=== PATIENT | female | born 1945 | race African-American/Black ===

== ENCOUNTER → 2021-02-08 | Outpatient (CLI) | payer MEDICARE, OTHER ==
[2021-02-08 17:56] LABS: INR 2.13 (0.90-1.11); Prothrombin Time 22.1 sec (9.9-11.9)
== END | disposition home or self-care (01) ==
LOC: LABWHC1 11:49
PROVIDERS: ATTEND Family Medicine
DX: Z79.01 Long term (current) use of anticoagulants (principal)
CPT/HCPCS: 36415; 85610

== ENCOUNTER 2021-06-12 15:08 | Emergency (ER) | payer MEDICARE, OTHER ==
[2021-06-12] MEDS ORDERED: ALBUTEROL NEBULIZED (CONC) 5 MG, SODIUM CHLORIDE 0.9% NEBULIZ 3 ML INHALATION STA ×2 (15:30)
[2021-06-12] MEDS ORDERED: IPRATROPIUM 0.5 MG/2.5 ML NEBU INHALATION STA ×2 (15:30→16:32)
[2021-06-12] MEDS ORDERED: DEXAMETHASONE SOD PHOSPHATE 10 MG/ML 1 ML VIAL IV STA (15:53)
--- NOTE | 2021-06-12 15:53 | ED ---
General Adult HPI - General Chief complaint: Burn/Smoke Inhalation Stated complaint: Smoke Inhalation Time Seen by Provider: 06/12/21 15:17 Source: EMS Mode of arrival: ambulatory Limitations: no limitations - History of Present Illness Initial comments: Dictation was produced using [employer] dictation software. please excuse any grammatical, word or spelling errors. Chief Complaint: Patient's 75-year-old female presents with shortness of breath after smoking exposure. History of Present Illness: Patient's 75-year-old female brought in by EMS for shortness of breath status post smoke exposure. Patient states she was exposed to some sort of cooking smoke in the hallways of worse she lives. Patient denies any history of COPD or asthma. She denies any history of respiratory issues. Patient has history of hypertension. Denies any fevers and cough. Prior to the smoke exposure she denies any complaints. History limited seco ndary to patient's dyspnea. The ROS documented in this emergency department record has been reviewed and confirmed by me. Those systems with pertinent positive or negative responses have been documented in the HPI. All other systems are other negative and/or noncontributory. PHYSICAL EXAM: General Impression: Alert and oriented x3, coughing mildly tachypneic with minimal retractions HEENT: Normocephalic atraumatic, extra-ocular movements intact, pupils equal and reactive to light bilaterally, mucous membranes moist, no signs of burn or soot in the posterior oropharynx or naris Cardiovascular: Heart regular rate and rhythm Chest: Clear word sentences, diffuse lung wheezing to the bilateral lung araiza Abdomen: abdomen soft, non-tender, non-distended, no organomegaly Musculoskeletal: Pulses present and equal in all extremities, no peripheral edema Motor: no focal deficits noted Neurological: CN II-XII grossly intact, no focal motor or sensory deficits noted Skin: Intact with no visualized rashes Psych: Normal affect and mood ED course: 75-year-old female presents to the emergency department for acute bronchospasm status post smoke exposure. Vital signs upon arrival shows res piratory 26, rest of vital signs within acceptable limits. Laboratory evaluation obtained. Mild leukocytosis 12.7 likely stress induced. Metabolic panel shows all non-gap acidosis, creatinine 1.79 with a BUN of 25 likely result of mild dehydration. B natruretic peptide is normal. 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 BNP is within normal limits. Labs is not suggests congestive heart failure. Patient still slightly wheezy. She is given a second breathing treatment Patient reevaluated at 6:00 PM. She is significantly improved. Lungs are clear to any wheezing. She feels better was to be discharged. Patient given a albuterol inhaler. She is told to avoid lung irritants. Patient otherwise advised follow-up with primary care doctor. - Related Data Home Medications Medication Instructions Recorded Confirmed Atorvastatin Calcium [Lipitor] 80 mg PO HS 06/12/21 06/12/21 Celecoxib [CeleBREX] 200 mg PO DAILY 06/12/21 06/12/21 Chlorthalidone 25 mg PO DAILY 06/12/21 06/12/21 Cholecalciferol [Vitamin D3 (25 25 mcg PO DAILY 06/12/21 06/12/21 Mcg = 1000 Iu)] EPINEPHrine (Auto Inject) [Epipen] 0.3 mg IM ONCE PRN 06/12/21 06/12/21 Escitalopram [Lexapro] 10 mg PO DAILY 06/12/21 06/12/21 Metoprolol Tartrate [Lopressor] 50 mg PO BID 06/12/21 06/12/21 Omeprazole 20 mg PO DAILY 06/12/21 06/12/21 Warfarin Sodium 4 mg PO Q48H 06/12/21 06/12/21 Warfarin Sodium 5 mg PO Q48H 06/12/21 06/12/21 amLODIPine [Norvasc] 2.5 mg PO DAILY 06/12/21 06/12/21 diphenhydrAMINE HCL [Benadryl] 25 mg PO DAILY PRN 06/12/21 06/12/21 lisinopriL 40 mg PO DAILY 06/12/21 06/12/21 metFORMIN HCL 500 mg PO DAILY 06/12/21 06/12/21 traMADol HCl [Ultram] 100 mg PO TID PRN 06/12/21 06/12/21 Previous Rx's Medication Instructions Recorded Albuterol Sulfate [Proair Hfa] 1 - 2 puff INHALATION Q6HR PRN 06/12/21 #8.5 gm Allergies Allergy/AdvReac Type Severity Reaction Status Date / Time iodine Allergy Rash/Hives Verified 06/12/21 17:25 shellfish derived [Shellfish] Allergy Rash/Hives Verified 06/12/21 17:25 Review of Systems ROS Statement: Those systems with pertinent positive or pertinent negative responses have been documented in the HPI. ROS Other: All systems not noted in ROS Statement are negative. Past Medical History Past Medical History: Hypertension History of Any Multi-Drug Resistant Organisms: None Reported Past Surgical History: Unable to Obtain Past Psychological History: Anxiety, Depression Smoking Status: Never smoker Past Alcohol Use History: None Reported Past Drug Use History: None Reported General Exam Limitations: no limitations Course Vital Signs 06/12/21 06/12/21 06/12/21 15:13 15:23 15:46 Temperature 97.7 F Pulse Rate 83 74 Respiratory 26 H 26 H Rate Blood Pressure 124/100 O2 Sat by Pulse 99 Oximetry 06/12/21 06/12/21 06/12/21 15:59 16:12 16:51 Temperature Pulse Rate 78 77 76 Respiratory 18 Rate Blood Pressure 110/46 O2 Sat by Pulse 99 Oximetry 06/12/21 06/12/21 17:15 17:40 Temperature Pulse Rate 82 80 Respiratory 18 Rate Blood Pressure O2 Sat by Pulse 98 Oximetry Medical Decision Making - Lab Data Result diagrams: 06/12/21 16:09 06/12/21 16:09 Lab Results 06/12/21 06/12/21 06/12/21 Range/Units 16:09 16:09 16:09 WBC 12.7 H (3.8-10.6) k/uL RBC 3.76 L (3.80-5.40) m/uL Hgb 10.4 L (11.4-16.0) gm/dL Hct 34.1 (34.0-46.0) % MCV 90.7 (80.0-100.0) fL MCH 27.6 (25.0-35.0) pg MCHC 30.4 L (31.0-37.0) g/dL RDW 14.3 (11.5-15.5) % Plt Count 257 (150-450) k/uL MPV 8.3 Neutrophils % 78 % Lymphocytes % 12 % Monocytes % 4 % Eosinophils % 4 % Basophils % 0 % Neutrophils # 9.9 H (1.3-7.7) k/uL Lymphocytes # 1.6 (1.0-4.8) k/uL Monocytes # 0.5 (0-1.0) k/uL Eosinophils # 0.5 (0-0.7) k/uL Basophils # 0.0 (0-0.2) k/uL Hypochromasia Marked Sodium 137 (137-145) mmol/L Potassium 4.4 (3.5-5.1) mmol/L Chloride 108 H (98-107) mmol/L Carbon Dioxide 19 L (22-30) mmol/L Anion Gap 10 mmol/L BUN 25 H (7-17) mg/dL Creatinine 1.79 H (0.52-1.04) mg/dL Est GFR (CKD-EPI)AfAm 32 (>60 ml/min/1.73 sqM) Est GFR (CKD-EPI)NonAf 28 (>60 ml/min/1.73 sqM) Glucose 102 H (74-99) mg/dL Calcium 8.7 (8.4-10.2) mg/dL NT-Pro-B Natriuret Pep 378 pg/mL Disposition Clinical Impression: Bronchospasm Disposition: HOME SELF-CARE Condition: Fair Instructions (If sedation given, give patient instructions): Wheezing (ED) Prescriptions: Albuterol Sulfate [Proair Hfa] 1 - 2 puff INHALATION Q6HR PRN #8.5 gm PRN Reason: Dyspnea Is patient prescribed a controlled substance at d/c from ED?: No Referrals: Rigoberto David MD [Primary Care Provider] - 1-2 days
[2021-06-12 16:14] VITALS: RESP 18
[2021-06-12 16:16] LABS: Basophils % (A) 0 %; Eosinophils # (A) 0.5 k/uL (0-0.7); Eosinophils % (A) 4 %; HCT 34.1 % (34.0-46.0); HGB 10.4 gm/dL (11.4-16.0); Hypochromasia Marked; Lymphocytes # (A) 1.6 k/uL (1.0-4.8); Lymphocytes % (A) 12 %; MCH 27.6 pg (25.0-35.0); MCHC 30.4 g/dL (31.0-37.0); MCV 90.7 fL (80.0-100.0); Mean Platelet Volume 8.3; Monocytes # (A) 0.5 k/uL (0-1.0); Monocytes % (A) 4 %; Neutrophils # (A) 9.9 k/uL (1.3-7.7); Neutrophils % (A) 78 %; Platelet Count 257 k/uL (150-450); RBC 3.76 m/uL (3.80-5.40); RDW 14.3 % (11.5-15.5); WBC 12.7 k/uL (3.8-10.6)
[2021-06-12] MEDS ORDERED: ALBUTEROL NEBULIZED 2.5 MG/3 ML INHALATION STA (16:32)
--- NOTE | 2021-06-12 16:33 | XR ---
EXAMINATION TYPE: XR chest 1V portable DATE OF EXAM: 06/12/2021 4:27 PM COMPARISON:None CLINICAL INDICATION:Female, 75 years old with history of dyspnea; TECHNIQUE: Frontal view of the chest. FINDINGS: Lungs/Pleura: Low lung volumes are present. There is no evidence of pleural effusion, focal consolida tion, or pneumothorax. Opacities within the left mid chest measuring 9 mm. Subtle nodular changes in the right perihilar region likely vessels. Pulmonary vascularity: Pulmonary vascular congestion. Heart/mediastinum: Cardiomediastinal silhouette is enlarged. Musculoskeletal: No acute osseous pathology. IMPRESSION: 1. Congestive heart failure changes with cardiomegaly and mild pulmonary vascular congestion. Correla te with BNP. 2. Left mid lung nodule This could be further evaluated with nonemergent outpatient CT chest.
[2021-06-12 16:34] LABS: Calcium 8.7 mg/dL (8.4-10.2); Potassium 4.4 mmol/L (3.5-5.1)
[2021-06-12 18:32] VITALS: BP 120/55; PULSE 78; TEMP 97.8
== END 2021-06-12 18:25 | disposition home or self-care (01) ==
LOC: EC 15:08
DX: J98.01 Acute bronchospasm (principal); I10 Essential (primary) hypertension; F41.9 Anxiety disorder, unspecified; F32.A Depression, unspecified; Z79.84 Long term (current) use of oral hypoglycemic drugs
CPT/HCPCS: 99285; 96374; 36415; 94640 ×2; 83880; 80048; 85025; 71045; J1100

== ENCOUNTER 2022-01-21 12:48 | Inpatient (IN) | payer MEDICARE, OTHER ==
[2022-01-21] MEDS ORDERED: SODIUM CHLORIDE 0.9% 500 ML 500 ML IV STA (12:55)
[2022-01-21] MEDS ORDERED: SODIUM CHLORIDE 0.9% 1,000 ML IV STA ×2 (12:55→16:02)
--- NOTE | 2022-01-21 12:58 | ED ---
SOB HPI - General Stated Complaint: SOB, dizziness Time Seen by Provider: 01/21/22 12:49 Source: patient, EMS, RN notes reviewed Mode of arrival: EMS - History of Present Illness Initial Comments: 76-year-old female history of COPD who presents with complaints of exertional dyspnea for the past 2 days. She also had a near syncopal episode about 2 days ago at which time the shortness of breath started. She denies any overt fevers chills nausea vomiting sweats she was noted by paramedics have a 87/57 blood pressure upon evaluation. Patient denies any nausea vomiting or diarrhea. No chest pain no focal deficits. MD Complaint: shortness of breath - Related Data Home Medications Medication Instructions Recorded Confirmed Atorvastatin Calcium [Lipitor] 80 mg PO HS 06/12/21 01/21/22 Celecoxib [CeleBREX] 200 mg PO DAILY 06/12/21 01/21/22 Chlorthalidone 25 mg PO DAILY 06/12/21 01/21/22 Cholecalciferol [Vitamin D3 (25 25 mcg PO DAILY 06/12/21 01/21/22 Mcg = 1000 Iu)] Escitalopram [Lexapro] 10 mg PO DAILY 06/12/21 01/21/22 Metoprolol Tartrate [Lopressor] 50 mg PO BID 06/12/21 01/21/22 Omeprazole 20 mg PO BID 06/12/21 01/21/22 amLODIPine [Norvasc] 2.5 mg PO DAILY 06/12/21 01/21/22 lisinopriL 40 mg PO DAILY 06/12/21 01/21/22 metFORMIN HCL 500 mg PO DAILY 06/12/21 01/21/22 traMADol HCl [Ultram] 100 mg PO TID PRN 06/12/21 01/21/22 Warfarin [Coumadin] 1 mg PO HS 01/21/22 01/21/22 rOPINIRole HCL [Requip] 0.25 mg PO HS 01/21/22 01/21/22 Allergies Allergy/AdvReac Type Severity Reaction Status Date / Time iodine Allergy Rash/Hives Verified 01/21/22 14:59 shellfish derived [Shellfish] Allergy Rash/Hives Verified 01/21/22 14:59 Review of Systems ROS Statement: Those systems with pertinent positive or pertinent negative responses have been documented in the HPI. ROS Other: All systems not noted in ROS Statement are negative. Past Medical History Past Medical History: Hypertension History of Any Multi-Drug Resistant Organisms: None Reported Past Surgical History: Unable to Obtain Past Psychological History: Anxiety, Depression Smoking Status: Never smoker Past Alcohol Use History: None Reported Past Drug Use History: None Reported General Exam - General Exam Comments Initial Comments: This is a well-developed well-nourished awake alert oriented 4 female General appearance: alert Head exam: Present: atraumatic, normocephalic, normal inspection Eye exam: Present: normal appearance, PERRL, EOMI. Absent: scleral icterus, conjunctival injection, periorbital swelling ENT exam: Present: mucous membranes dry Neck exam: Present: normal inspection, full ROM, other (No stridor JVD or bruits). Absent: tenderness, meningismus, lymphadenopathy Respiratory exam: Present: decreased breath sounds. Absent: respiratory distress, wheezes, rales, rhonchi, stridor Cardiovascular Exam: Present: regular rate, normal rhythm, normal heart sounds. Absent: systolic murmur, diastolic murmur, rubs, gallop, clicks GI/Abdominal exam: Present: soft, tenderness (Mild suprapubic discomfort palpation no definite bladder distention), normal bowel sounds. Absent: distended, guarding, rebound, rigid Extremities exam: Present: normal inspection, full ROM, normal capillary refill. Absent: tenderness, pedal edema, joint swelling, calf tenderness Back exam: Present: normal inspection Neurological exam: Present: alert, oriented X3, CN II-XII intact Psychiatric exam: Present: normal affect, normal mood Skin exam: Present: warm, dry, intact, normal color. Absent: rash Course Vital Signs 01/21/22 14:46 Temperature 98.6 F Pulse Rate 65 Respiratory 15 Rate Blood Pressure 124/67 O2 Sat by Pulse 94 L Oximetry Medical Decision Making - Medical Decision Making I did discuss findings with the patient as well as with Dr. David and Dr. Castaneda as well as Dr. Granger. Patient does present with acute kidney failure hyperkalemia. Patient fully catheter as well as other medications - Lab Data Result diagrams: 01/21/22 13:49 01/21/22 13:49 Lab Results 01/21/22 01/21/22 01/21/22 Range/Units 13:49 13:49 13:49 WBC 15.9 H (3.8-10.6) k/uL RBC 3.57 L (3.80-5.40) m/uL Hgb 9.7 L (11.4-16.0) gm/dL Hct 32.6 L (34.0-46.0) % MCV 91.4 (80.0-100.0) fL MCH 27.1 (25.0-35.0) pg MCHC 29.7 L (31.0-37.0) g/dL RDW 15.9 H (11.5-15.5) % Plt Count 272 (150-450) k/uL MPV 8.6 Neutrophils % 86 % Lymphocytes % 7 % Monocytes % 4 % Eosinophils % 3 % Basophils % 0 % Neutrophils # 13.6 H (1.3-7.7) k/uL Lymphocytes # 1.1 (1.0-4.8) k/uL Monocytes # 0.6 (0-1.0) k/uL Eosinophils # 0.4 (0-0.7) k/uL Basophils # 0.1 (0-0.2) k/uL Hypochromasia Marked PT 52.7 H (9.0-12.0) sec INR 5.3 H* (<1.2) APTT 38.4 H (22.0-30.0) sec D-Dimer 1.61 H (<0.60) mg/L FEU Sodium 139 (137-145) mmol/L Potassium 7.2 H* (3.5-5.1) mmol/L Chloride 112 H (98-107) mmol/L Carbon Dioxide 11 L (22-30) mmol/L Anion Gap 16 mmol/L BUN 87 H (7-17) mg/dL Creatinine 6.44 H (0.52-1.04) mg/dL Est GFR (CKD-EPI)AfAm 7 (>60 ml/min/1.73 sqM) Est GFR (CKD-EPI)NonAf 6 (>60 ml/min/1.73 sqM) Glucose 62 L (74-99) mg/dL Plasma Lactic Acid Otis (0.7-2.0) mmol/L Calcium 9.2 (8.4-10.2) mg/dL Magnesium 1.4 L (1.6-2.3) mg/dL Total Bilirubin 0.4 (0.2-1.3) mg/dL AST 30 (14-36) U/L ALT 18 (4-34) U/L Alkaline Phosphatase 117 (38-126) U/L Troponin I (0.000-0.034) ng/mL NT-Pro-B Natriuret Pep pg/mL Total Protein 7.1 (6.3-8.2) g/dL Albumin 3.9 (3.5-5.0) g/dL 01/21/22 01/21/22 01/21/22 Range/Units 13:49 13:49 13:49 WBC (3.8-10.6) k/uL RBC (3.80-5.40) m/uL Hgb (11.4-16.0) gm/dL Hct (34.0-46.0) % MCV (80.0-100.0) fL MCH (25.0-35.0) pg MCHC (31.0-37.0) g/dL RDW (11.5-15.5) % Plt Count (150-450) k/uL MPV Neutrophils % % Lymphocytes % % Monocytes % % Eosinophils % % Basophils % % Neutrophils # (1.3-7.7) k/uL Lymphocytes # (1.0-4.8) k/uL Monocytes # (0-1.0) k/uL Eosinophils # (0-0.7) k/uL Basophils # (0-0.2) k/uL Hypochromasia PT (9.0-12.0) sec INR (<1.2) APTT (22.0-30.0) sec D-Dimer (<0.60) mg/L FEU Sodium (137-145) mmol/L Potassium (3.5-5.1) mmol/L Chloride (98-107) mmol/L Carbon Dioxide (22-30) mmol/L Anion Gap mmol/L BUN (7-17) mg/dL Creatinine (0.52-1.04) mg/dL Est GFR (CKD-EPI)AfAm (>60 ml/min/1.73 sqM) Est GFR (CKD-EPI)NonAf (>60 ml/min/1.73 sqM) Glucose (74-99) mg/dL Plasma Lactic Acid Otis 1.0 (0.7-2.0) mmol/L Calcium (8.4-10.2) mg/dL Magnesium (1.6-2.3) mg/dL Total Bilirubin (0.2-1.3) mg/dL AST (14-36) U/L ALT (4-34) U/L Alkaline Phosphatase (38-126) U/L Troponin I 0.024 (0.000-0.034) ng/mL NT-Pro-B Natriuret Pep 697 pg/mL Total Protein (6.3-8.2) g/dL Albumin (3.5-5.0) g/dL - EKG Data -: EKG Interpreted by Me EKG shows normal: sinus rhythm EKG Comments: Sinus rhythm of 80. Interval 194 QRS duration 105 QT/QTC 358/394 low-voltage noted no definitive acute ST-T wave changes - Radiology Data Radiology results: report reviewed (Imaging reviewed as well as report no acute findings), image reviewed Critical Care Time Critical Care Time: Yes Total Critical Care Time: 39 Critical Care Time: Critical care time includes initial presentation with history physical labs x- rays discussed with paramedics upon arrival frequent reevaluation the patient discussion with Dr. Ellison as well as Dr. Castaneda. Also discussed with Dr. Granger. Disposition Clinical Impression: Acute renal failure (ARF), Hyperkalemia, Dehydration, Hypoglycemic episode in patient with diabetes mellitus Disposition: ADMITTED IP TO THIS [facility] Condition: Serious Referrals: Rigoberto David MD [Primary Care Provider] - 1-2 days Decision Date: 01/21/22 Decision Time: 15:30
[2022-01-21 14:04] LABS: Basophils # (A) 0.1 k/uL (0-0.2); Basophils % (A) 0 %; Eosinophils # (A) 0.4 k/uL (0-0.7); Eosinophils % (A) 3 %; HCT 32.6 % (34.0-46.0); HGB 9.7 gm/dL (11.4-16.0); Hypochromasia Marked; Lymphocytes # (A) 1.1 k/uL (1.0-4.8); Lymphocytes % (A) 7 %; MCH 27.1 pg (25.0-35.0); MCHC 29.7 g/dL (31.0-37.0); MCV 91.4 fL (80.0-100.0); Mean Platelet Volume 8.6; Monocytes # (A) 0.6 k/uL (0-1.0); Monocytes % (A) 4 %; Neutrophils # (A) 13.6 k/uL (1.3-7.7); Neutrophils % (A) 86 %; Platelet Count 272 k/uL (150-450); RBC 3.57 m/uL (3.80-5.40); RDW 15.9 % (11.5-15.5); WBC 15.9 k/uL (3.8-10.6)
[2022-01-21 14:17] LABS: Albumin 3.9 g/dL (3.5-5.0); Calcium 9.2 mg/dL (8.4-10.2); Magnesium 1.4 mg/dL (1.6-2.3); Total Bilirubin 0.4 mg/dL (0.2-1.3); Total Protein 7.1 g/dL (6.3-8.2)
[2022-01-21 14:35] LABS: Partial Thromboplastin Time 38.4 sec (22.0-30.0); Prothrombin Time 52.7 sec (9.0-12.0)
[2022-01-21 14:36] LABS: Potassium 7.2 mmol/L (3.5-5.1)
[2022-01-21 14:42] LABS: INR 5.3 (<1.2)
[2022-01-21] MEDS ORDERED: ALBUTEROL NEBULIZED (CONC) 20 MG, SODIUM CHLORIDE 0.9% NEBULIZ 3 ML INHALATION ONE ×2 (14:43)
[2022-01-21] MEDS ORDERED: SODIUM POLYSTYRENE SULFONATE 15 GM/60 ML BOTTLE PO STA (14:44)
[2022-01-21] MEDS ORDERED: DEXTROSE 50% SYRINGE 50 ML IVP STA ×2 (14:44→15:54)
[2022-01-21] MEDS ORDERED: INSULIN REGULAR 100 UNIT/ML VIAL (IV) IV ONE (14:44)
[2022-01-21] MEDS ORDERED: CALCIUM GLUCONATE IN NACL 1 GM in SALINE 1 100ML.BAG IVPB ONE (14:45)
[2022-01-21] MEDS ORDERED: SODIUM BICARB 8.4% 50 ML SYR (1 MEQ/ML) IV STA (14:47)
[2022-01-21] MEDS ORDERED: FUROSEMIDE 10 MG/ML 4 ML VIAL IV STA (14:52)
[2022-01-21] MEDS ORDERED: SODIUM ZIRCONIUM CYCLOSILICATE 10 GM PACKET PO ONE (15:01)
--- NOTE | 2022-01-21 15:10 | XR ---
EXAMINATION TYPE: XR chest 2V DATE OF EXAM: 01/21/2022 COMPARISON: 06/12/2021 HISTORY: Shortness of breath TECHNIQUE: Frontal and lateral views of the chest are obtained. FINDINGS: Scattered senescent parenchymal changes noted. Hyperinflation compatible with COPD. No evidence for infiltrate. No evidence for atelectasis. Heart size is stable. Mediastinal structures are stable and grossly unremarkable. No evidence for hilar prominence. Degenerative changes dorsal spine. IMPRESSION: 1. No evidence for acute pulmonary disease.
[2022-01-21] MEDS ORDERED: NALOXONE 0.4 MG/ML 1 ML VIAL IV PRN (16:05)
[2022-01-21 16:07] LABS: Glucose,Whole Blood 55 mg/dL (70-110)
[2022-01-21] MEDS ORDERED: DEXTROSE 50% SYRINGE 50 ML IVP PRN (16:11)
[2022-01-21] MEDS ORDERED: SODIUM CHLORIDE 0.9% 1,000 ML IV SCH (16:15)
[2022-01-21] MEDS ORDERED: WARFARIN 0.5 MG TAB PO ONE (18:00)
[2022-01-21] MEDS: DEXTROSE 5% IN WATER 1,000 ML with SODIUM BICARB (1 MEQ/ML) 150 ML IV SCH (19:37)
[2022-01-21 20:25] LABS: Glucose,Whole Blood 27 mg/dL (70-110); Glucose,Whole Blood 49 mg/dL (70-110)
[2022-01-21] MEDS: DEXTROSE 50% SYRINGE 50 ML IVP PRN (20:32)
[2022-01-21 20:55] LABS: Glucose,Whole Blood 122 mg/dL (70-110)
[2022-01-21] MEDS ORDERED: WARFARIN 1 MG TAB PO SCH (21:00)
[2022-01-21 23:10] LABS: Glucose,Whole Blood 86 mg/dL (70-110)
[2022-01-22] MEDS: traMADol 50 MG TAB PO PRN ×2 (00:06→21:16)
[2022-01-22] MEDS: ATORVASTATIN 80 MG TAB PO SCH ×2 (00:06→21:16)
[2022-01-22] MEDS: METOPROLOL TARTRATE 50 MG TAB PO SCH ×3 (00:07→21:18)
--- NOTE | 2022-01-22 01:17 | US ---
EXAMINATION TYPE: US kidneys/renal and bladder DATE OF EXAM: 01/21/2022 COMPARISON: NONE CLINICAL HISTORY: emelina. emelina EXAM MEASUREMENTS: Right Kidney: 9.3 x 4.5 x 3.9 cm Left Kidney: 9.8 x 4.4 x 5.3 cm Right Kidney: cyst in lower pole measuring 1.8 x 1.5 x 1.6 cm Left Kidney: No hydronephrosis or masses seen Bladder: wnl Bilateral Jets seen: Only right jet seen IMPRESSION: There is no hydronephrosis. No evidence of a solid renal mass. No significant atrophy seen.
[2022-01-22] MEDS: INSULIN ASPART (NovoLOG) 100 UNIT/ML VIAL SQ SCH ×6 (03:16→21:03)
[2022-01-22] MEDS: PANTOPRAZOLE 40 MG TABLET PO SCH ×3 (03:16→16:44)
[2022-01-22 05:04] LABS: Prothrombin Time 51.8 sec (9.0-12.0)
[2022-01-22 05:10] LABS: Calcium 8.4 mg/dL (8.4-10.2); Potassium 4.9 mmol/L (3.5-5.1)
[2022-01-22 05:22] LABS: INR 5.2 (<1.2)
[2022-01-22 06:04] LABS: Glucose,Whole Blood 83 mg/dL (70-110)
[2022-01-22] MEDS ORDERED: SODIUM BICARB 8.4% 50 ML SYR (1 MEQ/ML) IV STA (06:47)
[2022-01-22] MEDS: MAGNESIUM SULFATE-D5W PMX 1 GM in DEXTROSE/WATER 1 100ML.BAG IVPB SCH ×3 (08:45→10:45)
[2022-01-22] MEDS: DEXTROSE 5% IN WATER 1,000 ML with SODIUM BICARB (1 MEQ/ML) 150 ML IV SCH ×2 (08:45→21:16)
[2022-01-22 08:50] LABS: HCT 26.7 % (34.0-46.0); HGB 8.3 gm/dL (11.4-16.0); MCH 27.9 pg (25.0-35.0); MCV 90.2 fL (80.0-100.0); Platelet Count 215 k/uL (150-450); RBC 2.96 m/uL (3.80-5.40); WBC 12.3 k/uL (3.8-10.6)
[2022-01-22 08:51] LABS: Anisocytosis Slight; Basophils % (A) 0 %; Eosinophils # (A) 0.2 k/uL (0-0.7); Eosinophils % (A) 2 %; Hypochromasia Marked; Lymphocytes % (A) 8 %; Monocytes # (A) 0.8 k/uL (0-1.0); Monocytes % (A) 6 %; Neutrophils % (A) 82 %
[2022-01-22] MEDS: CHOLECALCIFEROL 25 MCG (1000 IU) TABLET PO SCH (08:59)
[2022-01-22] MEDS: ESCITALOPRAM 10 MG TAB PO SCH (08:59)
[2022-01-22] MEDS ORDERED: amLODIPine 2.5 MG TAB PO SCH (09:00)
[2022-01-22] MEDS ORDERED: MELOXICAM 7.5 MG TAB PO SCH (09:00)
[2022-01-22] MEDS ORDERED: CHLORTHALIDONE 25 MG TAB PO SCH (09:00)
[2022-01-22 09:50] LABS: Appearance,Urine Cloudy (Clear); Bacteria,Urine Many /hpf; Bilirubin,Urine Negative (Negative); Blood,Urine Moderate (Negative); Color,Urine Light Yellow; Glucose,Urine (UA) Negative (Negative); Ketones,Urine Negative (Negative); Leukocyte Esterase,Urine Large (Negative); Mucus,Urine Rare /hpf; Nitrite,Urine Positive (Negative); PH, Urine 5.5 (5.0-8.0); Protein,Urine 2+ (Negative); RBC,Urine 21 /hpf (0-5); Specific Gravity,Urine 1.012 (1.001-1.035); Squamous Epithelial Cell,Urine 11 /hpf (0-4); Urobilinogen,Urine <2.0 mg/dL (<2.0); WBC,Urine 175 /hpf (0-5)
[2022-01-22] MEDS ORDERED: SODIUM CHLORIDE 0.9% 500 ML 500 ML IV ONE (10:10)
--- NOTE | 2022-01-22 10:12 | P.NPCON ---
History of Present Illness - Reason for Consult acute renal failure, chronic renal failure - History of Present Illness Reason for consultation: Acute kidney injury on chronic kidney disease History of present illness: Patient is a 76-year-old female seen in consultation for acute kidney injury on chronic kidney disease. Patient's creatinine in May 2021 was 1.79. This admission was elevated at 6.44 and is 4.37 today. Patient presented to the hospital due to generalized weakness. Patient states she had a syncopal episode a few days ago and has been feeling quite weak since. She does admit to vomiting as well as diarrhea. Her oral intake has been poor the last few days. She currently is a 40 catheter but is leaking. The bedsheets are soaked with urine. No history of diabetes. Denies family history of renal disease. Denies any history of heart disease. She does admit to shortness of breath even with minimal exertion. She was taking Celebrex as well as thiazide diuretic at home. Both of these are currently held. Potassium 7.2 on admission and was medically treated. It is 4.9 this morning. She was also noted to be quite acidotic with a bicarbonate level of 11 and is up to 13. She is maintained on bicarb drip. Blood pressures have been in the lower side in the systolic 80s. Most recent blood pressure 108/52. Vital signs are stable. Blood pressure on the lower side. General: Awake. No acute distress. HEENT: Head exam is unremarkable. LUNGS: Breath sounds decreased. HEART: Rate and Rhythm are regular. ABDOMEN: Soft, no distention. EXTREMITITES: No edema. Past Medical History Past Medical History: Hypertension, Sleep Apnea/CPAP/BIPAP Additional Past Medical History / Comment(s): COPD History of Any Multi-Drug Resistant Organisms: None Reported Past Surgical History: Unable to Obtain, Breast Surgery, Cholecystectomy, Hernia Repair, Hysterectomy Additional Past Surgical History / Comment(s): Surgery to remove cyst on head, HAND SURGERY, CYST REMOVED LEFT BREAST Past Anesthesia/Blood Transfusion Reactions: No Reported Reaction Past Psychological History: Anxiety, Depression Smoking Status: Never smoker Past Alcohol Use History: None Reported Past Drug Use History: None Reported - Past Family History Mother Additional Family Medical History / Comment(s): HEART DISEASE Father Additional Family Medical History / Comment(s): HEART DISEASE Medications and Allergies Home Medications Medication Instructions Recorded Confirmed Type Atorvastatin Calcium [Lipitor] 80 mg PO HS 06/12/21 01/21/22 History Celecoxib [CeleBREX] 200 mg PO DAILY 06/12/21 01/21/22 History Chlorthalidone 25 mg PO DAILY 06/12/21 01/21/22 History Cholecalciferol [Vitamin D3 (25 25 mcg PO DAILY 06/12/21 01/21/22 History Mcg = 1000 Iu)] Escitalopram [Lexapro] 10 mg PO DAILY 06/12/21 01/21/22 History Metoprolol Tartrate [Lopressor] 50 mg PO BID 06/12/21 01/21/22 History Omeprazole 20 mg PO BID 06/12/21 01/21/22 History amLODIPine [Norvasc] 2.5 mg PO DAILY 06/12/21 01/21/22 History lisinopriL 40 mg PO DAILY 06/12/21 01/21/22 History metFORMIN HCL 500 mg PO DAILY 06/12/21 01/21/22 History traMADol HCl [Ultram] 100 mg PO TID PRN 06/12/21 01/21/22 History Warfarin [Coumadin] 1 mg PO HS 01/21/22 01/21/22 History rOPINIRole HCL [Requip] 0.25 mg PO HS 01/21/22 01/21/22 History Allergies Allergy/AdvReac Type Severity Reaction Status Date / Time iodine Allergy Rash/Hives Verified 01/21/22 14:59 shellfish derived [Shellfish] Allergy Rash/Hives Verified 01/21/22 14:59 Physical Exam Vitals: Vital Signs Temp Pulse Pulse Resp BP BP BP 01/22/22 08:21 97.7 F 92 20 108/52 89/51 01/22/22 04:00 98.1 F 78 18 88/56 01/22/22 02:00 85 18 01/22/22 00:00 98.3 F 85 18 88/56 01/21/22 22:40 98.1 F 85 18 99/62 01/21/22 21:20 91 15 119/65 01/21/22 21:00 87 15 108/83 01/21/22 20:56 88 15 106/76 01/21/22 18:54 79 18 81/38 01/21/22 17:15 98.1 F 85 18 99/62 01/21/22 16:43 81 16 98/36 01/21/22 14:46 98.6 F 65 15 124/67 Pulse Ox 01/22/22 08:21 100 01/22/22 04:00 93 L 01/22/22 02:00 01/22/22 00:00 99 01/21/22 22:40 99 01/21/22 21:20 98 01/21/22 21:00 97 01/21/22 20:56 99 01/21/22 18:54 96 01/21/22 17:15 99 01/21/22 16:43 100 01/21/22 14:46 94 L Intake and Output 01/21/22 01/22/22 01/22/22 22:59 06:59 14:59 Intake Total 10 Output Total 0 0 Balance 0 10 Intake: IV 10 Invasive Line 2 10 Output: Urine 0 0 Stool 0 Urine/Stool Mix 0 Emesis 0 Oral Regurgitation 0 Other: Voiding Method Indwelling Catheter Indwelling Catheter Indwelling Catheter # Voids 0 # Bowel Movements 0 Weight 102.965 kg Results - Lab Results Most recent lab results Calcium 8.4 mg/dL (8.4-10.2) 01/22/22 04:34 Magnesium 1.3 mg/dL (1.6-2.3) L 01/22/22 04:34 01/22/22 04:34 01/22/22 04:34 Assessment and Plan Plan: Assessment: 1. Acute kidney injury mostly prerenal secondary to hypovolemia from vomiting and diarrhea and further worsened with the use of LUÍS inhibitor, diuretic and nonsteroidals.creatinine was 6.44 on admission and is 4.37 today. No hydronephrosis noted on kidney ultrasound. 2. Metabolic acidosis secondary to acute kidney injury, diarrhea and metformin. 3. Diabetes mellitus. 4. Hyperkalemia secondary to acute kidney injury, metabolic acidosis, lisinop ril and nonsteroidals. Improved with medical management. 5. Hypomagnesemia from diuretics and GI losses. 6. Anemia. Rule out iron deficiency. 7. Chronic kidney disease. Will need to establish baseline renal function. Plan: Maintain bicarb drip. Patient received 2 A of sodium bicarbonate IV push this morning. Replace magnesium. Check cortisol level. Hold all antihypertensives and diuretics. Continue to monitor renal function and urine output. 500 mL bolus of normal saline now. Repeat labs in the morning. Follow-up cultures. Check iron studies. Thank you for the consultation. I will continue to follow the patient with you during her hospital stay.
[2022-01-22 11:40] LABS: Glucose,Whole Blood 106 mg/dL (70-110)
--- NOTE | 2022-01-22 13:38 | P.CNPUL ---
History of Present Illness Consult date: 01/22/22 Chief complaint: Low urine output History of present illness: 76-year-old female patient, an -[place] female patient, with known to have probably a mild component of chronic kidney disease stage II to 3 in addition to history of hypertension. The patient is morbidly obese and she has his obstructive sleep apnea and she is not utilizing any devices for now. She has chronic arthritis and the patient is demented on Celebrex. She is taking metformin for blood sugar control and she is also taking luís inhibitors for chronic hypertension. The patient felt to have low appetite and over the past 1 week her oral intake has been decreased significantly. Along with that, she has noted also drop in urine output and she was getting progressively more with fatigue and weak. Based on that, the patient came into the emergency department and the patient was found to be hypotensive. Following that she was found to be in acute kidney injury. Creatinine was up to 6.44 and the patient had an underlying metabolic acidosis. The blood work revealed a potassium level of 7. initially was treated emergency department. The serum bicarb was 11 and his seen him anion gap was 16. BUN was 87 with a creatinine of 6.4. The white cell count 15.9 with a hemoglobin of 11.7. The patient's hyperkalemia was treated. The potassium subsequently dropped down to 4.9. The patient was started on bicarb infusion in the morning creatinine is at 4.3. Urine output was still low. Ultrasound the kidneys showed no evidence of hydronephrosis . Note that the patient is also on long-term anticoagulation with warfarin. The patient has previous history of DVT and pulmonary embolism and she has been on anticoagulation. INR was supratherapeutic at time of admission 5.3 without evidence of any bleeding. The PT/INR from today is at 5.2. No altered mentation. No cardiac arrhythmias. No EKG changes secondary to hyperkalemia. Nephrology has been consult on the case and the patient remains on a bicarb infusion for now. Review of Systems Constitutional: Reports fatigue, Reports poor appetite, Reports weakness Eyes: denies as per HPI, denies blurred vision, denies bulging eye, denies decreased vision, denies diplopia, denies discharge, denies dry eye, denies irritation, denies itching, denies pain, denies photophobia, denies loss of peripheral vision, denies loss of vision, denies tunnel vision/blind spots Ears: deny: decreased hearing, ear discharge, earache, tinnitus Ears, nose, mouth and throat: Reports as per HPI Breasts: absent: as per HPI, change in shape, gynecomastia, masses, nipple di scharge, pain, skin changes, swelling Cardiovascular: Reports as per HPI Respiratory: Reports as per HPI Gastrointestinal: Reports as per HPI Genitourinary: Reports as per HPI Menstruation: Reports as per HPI Musculoskeletal: Reports as per HPI Musculoskeletal: absent: ankle pain, ankle stiffness, ankle swelling, as per HPI , elbow pain, elbow stiffness, elbow swelling, foot pain, foot stiffness, foot swelling, hand pain, hand stiffness, hand swelling, hip pain, hip stiffness, hip swelling, knee pain, knee stiffness, knee swelling, shoulder pain, shoulder stiffness, shoulder swelling, wrist pain, wrist stiffness, wrist swelling Integumentary: Reports as per HPI Neurological: Reports as per HPI Psychiatric: Reports as per HPI Endocrine: Reports as per HPI, Reports fatigue Hematologic/Lymphatic: Reports as per HPI Allergic/Immunologic: Reports as per HPI Past Medical History Past Medical History: Diabetes Mellitus, Hypertension, Sleep Apnea/CPAP/BIPAP Additional Past Medical History / Comment(s): COPD, osteoarthritis, previous history of DVT and pulmonary embolism and the along for medical evaluation with warfarin, degenerative arthritis, hypertension, hyperlipidemia, obesity, obstructive sleep apnea not utilizing any form of devices at this point in time. History of Any Multi-Drug Resistant Organisms: None Reported Past Surgical History: Unable to Obtain, Breast Surgery, Cholecystectomy, Hernia Repair, Hysterectomy Additional Past Surgical History / Comment(s): Surgery to remove cyst on head, HAND SURGERY, CYST REMOVED LEFT BREAST Past Anesthesia/Blood Transfusion Reactions: No Reported Reaction Past Psychological History: Anxiety, Depression Smoking Status: Never smoker Past Alcohol Use History: None Reported Past Drug Use History: None Reported - Past Family History Mother Additional Family Medical History / Comment(s): HEART DISEASE Father Additional Family Medical History / Comment(s): HEART DISEASE Medications and Allergies Home Medications Medication Instructions Recorded Confirmed Type Atorvastatin Calcium [Lipitor] 80 mg PO HS 06/12/21 01/21/22 History Celecoxib [CeleBREX] 200 mg PO DAILY 06/12/21 01/21/22 History Chlorthalidone 25 mg PO DAILY 06/12/21 01/21/22 History Cholecalciferol [Vitamin D3 (25 25 mcg PO DAILY 06/12/21 01/21/22 History Mcg = 1000 Iu)] Escitalopram [Lexapro] 10 mg PO DAILY 06/12/21 01/21/22 History Metoprolol Tartrate [Lopressor] 50 mg PO BID 06/12/21 01/21/22 History Omeprazole 20 mg PO BID 06/12/21 01/21/22 History amLODIPine [Norvasc] 2.5 mg PO DAILY 06/12/21 01/21/22 History lisinopriL 40 mg PO DAILY 06/12/21 01/21/22 History metFORMIN HCL 500 mg PO DAILY 06/12/21 01/21/22 History traMADol HCl [Ultram] 100 mg PO TID PRN 06/12/21 01/21/22 History Warfarin [Coumadin] 1 mg PO HS 01/21/22 01/21/22 History rOPINIRole HCL [Requip] 0.25 mg PO HS 01/21/22 01/21/22 History Allergies Allergy/AdvReac Type Severity Reaction Status Date / Time iodine Allergy Rash/Hives Verified 01/21/22 14:59 shellfish derived [Shellfish] Allergy Rash/Hives Verified 01/21/22 14:59 Physical Exam Vitals: Vital Signs Temp Pulse Pulse Resp BP BP BP 01/22/22 11:55 97.2 F L 91 20 90/54 85/46 01/22/22 11:25 97.2 F L 96 20 133/61 01/22/22 08:21 97.7 F 92 20 108/52 89/51 01/22/22 04:00 98.1 F 78 18 88/56 01/22/22 02:00 85 18 01/22/22 00:00 98.3 F 85 18 88/56 01/21/22 22:40 98.1 F 85 18 99/62 01/21/22 21:20 91 15 119/65 01/21/22 21:00 87 15 108/83 01/21/22 20:56 88 15 106/76 01/21/22 18:54 79 18 81/38 01/21/22 17:15 98.1 F 85 18 99/62 01/21/22 16:43 81 16 98/36 01/21/22 14:46 98.6 F 65 15 124/67 Pulse Ox 01/22/22 11:55 100 01/22/22 11:25 99 01/22/22 08:21 100 01/22/22 04:00 93 L 01/22/22 02:00 01/22/22 00:00 99 01/21/22 22:40 99 01/21/22 21:20 98 01/21/22 21:00 97 01/21/22 20:56 99 01/21/22 18:54 96 01/21/22 17:15 99 01/21/22 16:43 100 01/21/22 14:46 94 L Intake and Output 01/21/22 01/22/22 01/22/22 22:59 06:59 14:59 Intake Total 60 Output Total 0 400 Balance 0 -340 Intake: IV 60 Invasive Line 2 60 Output: Urine 0 400 Stool 0 Urine/Stool Mix 0 Emesis 0 Oral Regurgitation 0 Other: Voiding Method Indwelling Catheter Indwelling Catheter Indwelling Catheter # Voids 0 # Bowel Movements 1 Weight 102.965 kg Gen. appearance the patient is calm and comfortable likely distress, morbidly obese currently on room in oxygen with a BMI of 42.9 The patient appeared well nourished and normally developed. Vital signs as documented. Head exam is unremarkable. No scleral icterus or corneal arcus noted. Neck is without jugular venous distension, thyromegaly, or carotid b ruits. Carotid upstrokes are brisk bilaterally. Lungs are clear to auscultation and percussion. Cardiac exam reveals the PMI to be normally sized and situated. Rhythm is regular. First and second heart sounds normal. No murmurs, rubs or gallops. Abdominal exam reveals normal bowel sounds, no masses, no organomegaly and no aortic enlargement. Extremities are nonedematous and both femoral and pedal pulses are normal. Examination of the skin revealed no evidence of significant rashes, suspicious appearing nevi or other concerning lesions. The patient has a Garcia catheter in place Neurologically, the patient is awake and alert and the patient does not have any focal neurological deficit. Cranial nerves are essentially intact. Results - Laboratory Findings CBC and BMP: 01/22/22 04:34 01/22/22 04:34 PT/INR, D-dimer PT 51.8 sec (9.0-12.0) H 01/22/22 04:34 INR 5.2 (<1.2) H* 01/22/22 04:34 D-Dimer 1.61 mg/L FEU (<0.60) H 01/21/22 13:49 Abnormal lab findings: Abnormal Labs 01/21/22 01/21/22 01/21/22 08:58 13:49 13:49 WBC 15.9 H RBC 3.57 L Hgb 9.7 L Hct 32.6 L MCHC 29.7 L RDW 15.9 H Neutrophils # 13.6 H PT 52.7 H INR 5.3 H* APTT 38.4 H D-Dimer 1.61 H Potassium Chloride Carbon Dioxide BUN Creatinine Glucose POC Glucose (mg/dL) Magnesium Urine Appearance Cloudy H Urine Protein 2+ H Urine Blood Moderate H Urine Nitrite Positive H Ur Leukocyte Esterase Large H Urine RBC 21 H Urine WBC 175 H Ur Squamous Epith Cells 11 H Urine Bacteria Many H Urine Mucus Rare H 01/21/22 01/21/22 01/21/22 13:49 15:53 17:53 WBC RBC Hgb Hct MCHC RDW Neutrophils # PT INR APTT D-Dimer Potassium 7.2 H* 5.2 H Chloride 112 H Carbon Dioxide 11 L BUN 87 H Creatinine 6.44 H Glucose 62 L POC Glucose (mg/dL) 55 L Magnesium 1.4 L Urine Appearance Urine Protein Urine Blood Urine Nitrite Ur Leukocyte Esterase Urine RBC Urine WBC Ur Squamous Epith Cells Urine Bacteria Urine Mucus 01/21/22 01/21/22 01/21/22 20:22 20:22 20:53 WBC RBC Hgb Hct MCHC RDW Neutrophils # PT INR APTT D-Dimer Potassium Chloride Carbon Dioxide BUN Creatinine Glucose POC Glucose (mg/dL) 27 L 49 L 122 H Magnesium Urine Appearance Urine Protein Urine Blood Urine Nitrite Ur Leukocyte Esterase Urine RBC Urine WBC Ur Squamous Epith Cells Urine Bacteria Urine Mucus 01/22/22 01/22/22 01/22/22 04:34 04:34 04:34 WBC RBC Hgb Hct MCHC RDW Neutrophils # PT 51.8 H INR 5.2 H* APTT D-Dimer Potassium Chloride 114 H Carbon Dioxide 13 L BUN 74 H Creatinine 4.37 H Glucose POC Glucose (mg/dL) Magnesium 1.3 L Urine Appearance Urine Protein Urine Blood Urine Nitrite Ur Leukocyte Esterase Urine RBC Urine WBC Ur Squamous Epith Cells Urine Bacteria Urine Mucus 01/22/22 04:34 WBC 12.3 H RBC 2.96 L Hgb 8.3 L Hct 26.7 L MCHC RDW 16.0 H Neutrophils # 10.0 H PT INR APTT D-Dimer Potassium Chloride Carbon Dioxide BUN Creatinine Glucose POC Glucose (mg/dL) Magnesium Urine Appearance Urine Protein Urine Blood Urine Nitrite Ur Leukocyte Esterase Urine RBC Urine WBC Ur Squamous Epith Cells Urine Bacteria Urine Mucus - Diagnostic Findings Chest x-ray: image reviewed Assessment and Plan Plan: Acute kidney injury, likely secondary to intravascular volume depletion complemented by the nephrotoxic effect of LUÍS inhibitor's and nonsteroidal anti- inflammatory medication. The patient presented with a creatinine of 6.4 and the patient had a component of non-anion gap metabolic acidosis and acute hyperkalemia. Acute hyperkalemia, improving Metabolic acidosis secondary to acute kidney injury, and the patient was also taking metformin. The patient's catheter bicarb infusion Diabetes mellitus maintained on metformin Osteoarthritis maintained on Celebrex Hypertension Chronic stage II or 3 kidney disease Osteoarthritis maintained on no treatment for now Obesity with BMI 42.9. Previous history of DVT and pulmonary embolism maintained on warfarin Supratherapeutic INR without evidence of any bleeding Anemia of chronic disease Plan Continue the bicarb replacement therapy with a bicarb infusion at the rate of 100 mL an hour Keep the Garcia catheter in place No evidence of hydronephrosis Stop nonsteroidal anti-inflammatory medication and LUÍS inhibitor's for now Monitor PT/INR Monitor renal function Monitor electrolytes and the patient was offered treatment for acute hyperkalemia. Potassium level is down to 4.9 Consult with nephrology No active pulmonary issues for now. Recommend continuation of anticoagulation once the PT/INR normalizes. We'll continue to follow
[2022-01-22 16:28] LABS: % Iron Saturation 24.65 (12.00-45.00)
[2022-01-22 16:30] LABS: Glucose,Whole Blood 127 mg/dL (70-110)
[2022-01-22] MEDS ORDERED: WARFARIN 0.5 MG TAB PO ONE (18:00)
[2022-01-22 21:00] LABS: Glucose,Whole Blood 99 mg/dL (70-110)
[2022-01-22] MEDS: SULFAMETHOX-TMP 800-160MG 1 EACH TAB PO SCH (21:30)
--- NOTE | 2022-01-23 04:39 | HP ---
HISTORY AND PHYSICAL CHIEF COMPLAINT: Syncope, weakness, and dizziness. HISTORY OF PRESENT ILLNESS: On admission this is a 76-year-old female who presented to the emergency room with weakness, dizziness, and shortness of breath. Most notable findings in the emergency room were her elevated GFR and her INR. Her INR was 5.2. She has been on Coumadin in the past, but recent note from the office from the visit on January 12 did not indicate that she has taken Coumadin. REVIEW OF SYSTEMS: She only states that she had some dizziness. She denies chest pain, focal neurologic deficits, etc. Past medical history, family history, personal and social histories reveal that she is on amlodipine, chlorthalidone, propranolol, atorvastatin, Celebrex, lisinopril, vitamin D3, tramadol, Lexapro, metoprolol and omeprazole as well as metformin. Remainder of her history is unremarkable. She does have history of hypertension, hyperlipidemia, and renal failure. PHYSICAL EXAMINATION: VITAL SIGNS: Blood pressure is 152/90 with a pulse of 85, respirations of 35, and she is afebrile. GENERAL: She appeared to be pale, in no acute distress. She is awake and alert. Skin color was normal. HEENT: Head, ears, eyes, nose, mouth, and throat were normal. NECK: Veins are not distended. Thyroid is not enlarged. CHEST: Clear. CARDIAC: Exam demonstrates what sounds like normal sinus rhythm with no murmurs or extra sounds. ABDOMEN: Soft and nontender. EXTREMITIES: Normal. NEUROLOGICAL: She is intact. HOSPITAL DIAGNOSES: 1. Acute renal failure. 2. Chronic renal failure. 3. Hyperprothrombinemia. 4. History of hypertension. 5. History of hyperlipidemia. 6. Depression. PLAN: 1. Bedrest. 2. IV fluids. 3. Rehydrate. 4. Nephrology consult. 5. Withhold Coumadin. MMODL / IJN: [id number] /
[2022-01-23] MEDS: traMADol 50 MG TAB PO PRN (05:37)
[2022-01-23 06:07] LABS: Glucose,Whole Blood 118 mg/dL (70-110)
[2022-01-23] MEDS: PANTOPRAZOLE 40 MG TABLET PO SCH ×2 (06:24→17:12)
[2022-01-23] MEDS: INSULIN ASPART (NovoLOG) 100 UNIT/ML VIAL SQ SCH ×4 (06:24→19:49)
--- NOTE | 2022-01-23 07:06 | PN ---
PROGRESS NOTE CHIEF COMPLAINT: Syncope and acute renal failure. HISTORY OF PRESENT ILLNESS: This lady is feeling well and not complaining of any shortness of breath or chest pain. Her INR is still high, but Coumadin in being withheld. She is not complaining of any chest pain, shortness of breath, or abdominal pain. She still complains of weakness. PHYSICAL EXAMINATION: CHEST: Clear. CARDIAC: Demonstrates what sounds like sinus rhythm. ABDOMEN: Soft and nontender without any masses. IMPRESSION: 1. Acute renal failure. 2. Chronic renal failure. 3. . 4. Hyperprothrombinemia. PLAN: Continue with IV fluids and monitoring of her renal function and potassium as well as the protime. MMODL / IJN: [id number] /
[2022-01-23 07:19] LABS: INR 3.6 (<1.2); Prothrombin Time 35.4 sec (9.0-12.0)
[2022-01-23] MEDS: DEXTROSE 5% IN WATER 1,000 ML with SODIUM BICARB (1 MEQ/ML) 150 ML IV SCH ×2 (07:36→14:50)
[2022-01-23] MEDS: ESCITALOPRAM 10 MG TAB PO SCH (08:45)
[2022-01-23] MEDS: METOPROLOL TARTRATE 50 MG TAB PO SCH ×2 (08:46→19:47)
[2022-01-23] MEDS: CHOLECALCIFEROL 25 MCG (1000 IU) TABLET PO SCH (08:46)
[2022-01-23] MEDS: SULFAMETHOX-TMP 800-160MG 1 EACH TAB PO SCH (09:30)
--- NOTE | 2022-01-23 10:20 | P.PN ---
Subjective Patient is seen in follow-up for acute kidney injury. Creatinine 4.37 yesterday. Morning labs pending. He has been voiding. Oral intake fair. Did vomit this morning. On room air. Blood pressure stable. No chest pain or shortness of breath. Vital signs are stable. General: Awake. No acute distress. HEENT: Head exam is unremarkable. LUNGS: Breath sounds decreased. HEART: Rate and Rhythm are regular. ABDOMEN: Soft, obese. EXTREMITITES: Trace edema. Objective - Vital Signs Vital signs: Vital Signs Temp 98.4 F 01/23/22 07:51 Pulse 82 01/23/22 07:51 Resp 16 01/23/22 07:51 BP 109/64 01/23/22 07:51 Pulse Ox 98 01/23/22 07:51 FiO2 Intake & Output 01/22/22 01/23/22 01/23/22 18:59 06:59 18:59 Intake Total 308 Output Total 400 Balance -92 Intake: IV 70 Invasive Line 2 70 Oral 238 Output: Urine 400 Stool 0 Urine/Stool Mix 0 Emesis 0 Oral Regurgitation 0 Other: Voiding Method Indwelling Catheter Diaper Diaper External Catheter External Catheter # Voids 2 2 # Bowel Movements 1 - Labs CBC & Chem 7: 01/22/22 04:34 01/22/22 04:34 Labs: Abnormal Lab Results - Last 24 Hours (Table) 01/22/22 01/22/22 01/22/22 Range/Units 04:34 04:34 16:29 PT (9.0-12.0) sec INR (<1.2) POC Glucose (mg/dL) 127 H (70-110) mg/dL Iron 49 L (50-170) ug/dL TIBC 199 L (228-460) ug/dL Transferrin 142.0 L (204.0-354.0) mg/dL Ferritin 577.0 H (10.0-291.0) ng/mL Procalcitonin 0.17 H (0.02-0.09) ng/mL 01/23/22 01/23/22 Range/Units 06:06 06:41 PT 35.4 H (9.0-12.0) sec INR 3.6 H (<1.2) POC Glucose (mg/dL) 118 H (70-110) mg/dL Iron (50-170) ug/dL TIBC (228-460) ug/dL Transferrin (204.0-354.0) mg/dL Ferritin (10.0-291.0) ng/mL Procalcitonin (0.02-0.09) ng/mL Microbiology - Last 24 Hours (Table) 01/21/22 08:58 Urine Culture - Preliminary Urine,Voided 01/21/22 13:49 Blood Culture - Preliminary Blood No Growth after 24 hours Assessment and Plan Plan: Assessment: 1. Acute kidney injury mostly prerenal secondary to hypovolemia from vomiting and diarrhea and further worsened with the use of LUÍS inhibitor, diuretic and nonsteroidals.creatinine was 6.44 on admission and was 4.37 yesterday. No hydronephrosis noted on kidney ultrasound. 2. Metabolic acidosis secondary to acute kidney injury, diarrhea and metformin. Currently on bicarb drip. 3. Diabetes mellitus. 4. Hyperkalemia secondary to acute kidney injury, metabolic acidosis, lisinopril and nonsteroidals. Improved with medical management. 5. Hypomagnesemia from diuretics and GI losses. Replaced. 6. Anemia. Iron replete. 7. Chronic kidney disease. Will need to establish baseline renal function. Plan: Maintain bicarb drip. Follow-up morning labs. Follow-up cortisol level. Continue to hold all antihypertensives and diuretics. Continue to monitor renal function and urine output. Add Aranesp. Check left lower extremity ultrasound to rule out DVT as patient complaining of swelling. Defer further management to primary team. Would recommend stopping Bactrim and using alternative antibiotic.
[2022-01-23 10:49] LABS: Magnesium 1.6 mg/dL (1.6-2.3)
[2022-01-23 11:46] LABS: Calcium 8.2 mg/dL (8.4-10.2)
[2022-01-23 11:51] LABS: Glucose,Whole Blood 150 mg/dL (70-110)
--- NOTE | 2022-01-23 13:43 | US ---
EXAMINATION TYPE: US venous doppler duplex LE BI DATE OF EXAM: 01/23/2022 12:50 PM COMPARISON: NONE CLINICAL HISTORY: swelling, r/o dvt. Swelling, R/O DVT SIDE PERFORMED: Bilateral TECHNIQUE: The lower extremity deep venous system is examined utilizing real time linear array sonog mehdi with graded compression, doppler sonography and color-flow sonography. VESSELS IMAGED: Common Femoral Vein Deep Femoral Vein Greater Saphenous Vein * Femoral Vein Popliteal Vein Small Saphenous Vein * Proximal Calf Veins (* superficial vessels) Right Leg: Negative for DVT Left Leg: Normal flow CFV- Distal femoral vein, Limited vis of popliteal and calf veins due to swelling and patient's pain tolerance, unable to R/O DVT in that area, patient requested to end exam Tech difficult exam due to body habitus and swelling IMPRESSION: 1. Lower extremity ultrasounds appear negative for deep venous thrombosis. 2. There is limitation on the left lower extremity evaluation and early termination of exam based on patient request. 3. Soft tissue swelling
--- NOTE | 2022-01-23 14:52 | P.PN ---
Subjective Progress Note Date: 01/23/22 76-year-old female patient, an -German female patient, with known to have probably a mild component of chronic kidney disease stage II to 3 in addition to history of hypertension. The patient is morbidly obese and she has his obstructive sleep apnea and she is not utilizing any devices for now. She has chronic arthritis and the patient is demented on Celebrex. She is taking metformin for blood sugar control and she is also taking luís inhibitors for chronic hypertension. The patient felt to have low appetite and over the past 1 week her oral intake has been decreased significantly. Along with that, she has noted also drop in urine output and she was getting progressively more with fa tigue and weak. Based on that, the patient came into the emergency department and the patient was found to be hypotensive. Following that she was found to be in acute kidney injury. Creatinine was up to 6.44 and the patient had an underlying metabolic acidosis. The blood work revealed a potassium level of 7. initially was treated emergency department. The serum bicarb was 11 and his seen him anion gap was 16. BUN was 87 with a creatinine of 6.4. The white cell count 15.9 with a hemoglobin of 11.7. The patient's hyperkalemia was treated. The potassium subsequently dropped down to 4.9. The patient was started on bicarb infusion in the morning creatinine is at 4.3. Urine output was still low. Ultrasound the kidneys showed no evidence of hydronephrosis . Note that the patient is also on long-term anticoagulation with warfarin. The patient has previous history of DVT and pulmonary embolism and she has been on anticoagulation. INR was supratherapeutic at time of admission 5.3 without evidence of any bleeding. The PT/INR from today is at 5.2. No altered mentation. No cardiac arrhythmias. No EKG changes secondary to hyperkalemia. Nephrology has been consult on the case and the patient remains on a bicarb infusion for now. 01/23/2022, the patient is doing well. Still having a lot of that in her oral intake is quite diminished. Nevertheless, the acute kidney injury is improv is improving and the creatinine is down to 2.4 and the serum bicarb is up to 25 as the patient was given a bicarb infusion. She is producing urine output. The INR is down to 3.6. Most anything shortness of breath or chest pain.no other new complaints otherwise for now. No nephrotoxic agents. The findings on the case.the venous Doppler of the lower extremity showed no evidence of any DVTs. Objective - Vital Signs Vital signs: Vital Signs Temp 97.8 F 01/23/22 12:18 Pulse 70 01/23/22 12:18 Resp 20 01/23/22 12:18 BP 100/57 01/23/22 12:18 Pulse Ox 99 01/23/22 12:18 FiO2 Intake & Output 01/22/22 01/23/22 01/23/22 18:59 06:59 18:59 Intake Total 308 1200 Output Total 400 Balance -92 1200 Intake: IV 70 Invasive Line 2 70 Intake, IV Titration 1200 Amount Dextrose 5% in Water 1, 1200 000 ml @ 100 mls/hr IV . [id number] SAUL with Sodium Bicarb (1 Meq/ml) 150 ml Rx#:[id number] Oral 238 Output: Urine 400 Stool 0 Urine/Stool Mix 0 Emesis 0 Oral Regurgitation 0 Other: Voiding Method Indwelling Catheter Diaper Diaper External Catheter External Catheter # Voids 2 2 2 # Bowel Movements 1 - Exam Gen. appearance the patient is calm and comfortable likely distress, morbidly obese currently on room in oxygen with a BMI of 42.9 The patient appeared well nourished and normally developed. Vital signs as do cumented. Head exam is unremarkable. No scleral icterus or corneal arcus noted. Neck is without jugular venous distension, thyromegaly, or carotid bruits. Carotid upstrokes are brisk bilaterally. Lungs are clear to auscultation and percussion. Cardiac exam reveals the PMI to be normally sized and situated. Rhythm is regular. First and second heart sounds normal. No murmurs, rubs or gallops. Abdominal exam reveals normal bowel sounds, no masses, no organomegaly and no aortic enlargement. Extremities are nonedematous and both femoral and pedal pulses are normal. Examination of the skin revealed no evidence of significant rashes, suspicious appearing nevi or other concerning lesions. The patient has a Garcia catheter in place Neurologically, the patient is awake and alert and the patient does not have any focal neurological deficit. Cranial nerves are essentially intact. - Labs CBC & Chem 7: 01/22/22 04:34 01/23/22 06:41 Labs: Abnormal Lab Results - Last 24 Hours (Table) 01/22/22 01/22/22 01/22/22 Range/Units 04:34 04:34 16:29 PT (9.0-12.0) sec INR (<1.2) BUN (7-17) mg/dL Creatinine (0.52-1.04) mg/dL Glucose (74-99) mg/dL POC Glucose (mg/dL) 127 H (70-110) mg/dL Calcium (8.4-10.2) mg/dL Iron 49 L (50-170) ug/dL TIBC 199 L (228-460) ug/dL Transferrin 142.0 L (204.0-354.0) mg/dL Ferritin 577.0 H (10.0-291.0) ng/mL Procalcitonin 0.17 H (0.02-0.09) ng/mL 01/23/22 01/23/22 01/23/22 Range/Units 06:06 06:41 06:41 PT 35.4 H (9.0-12.0) sec INR 3.6 H (<1.2) BUN 47 H (7-17) mg/dL Creatinine 2.41 H (0.52-1.04) mg/dL Glucose 107 H (74-99) mg/dL POC Glucose (mg/dL) 118 H (70-110) mg/dL Calcium 8.2 L (8.4-10.2) mg/dL Iron (50-170) ug/dL TIBC (228-460) ug/dL Transferrin (204.0-354.0) mg/dL Ferritin (10.0-291.0) ng/mL Procalcitonin (0.02-0.09) ng/mL 01/23/22 Range/Units 11:49 PT (9.0-12.0) sec INR (<1.2) BUN (7-17) mg/dL Creatinine (0.52-1.04) mg/dL Glucose (74-99) mg/dL POC Glucose (mg/dL) 150 H (70-110) mg/dL Calcium (8.4-10.2) mg/dL Iron (50-170) ug/dL TIBC (228-460) ug/dL Transferrin (204.0-354.0) mg/dL Ferritin (10.0-291.0) ng/mL Procalcitonin (0.02-0.09) ng/mL Microbiology - Last 24 Hours (Table) 01/21/22 08:58 Urine Culture - Preliminary Urine,Voided 01/21/22 13:49 Blood Culture - Preliminary Blood No Growth after 24 hours Assessment and Plan Plan: Acute kidney injury, likely secondary to intravascular volume depletion complemented by the nephrotoxic effect of LUÍS inhibitor's and nonsteroidal anti- inflammatory medication. The patient presented with a creatinine of 6.4 and the patient had a component of non-anion gap metabolic acidosis and acute h yperkalemia.the patient's creatinine is improving Creatinine is up from 6.4-2.4 and the patient is producing adequate urine output Acute hyperkalemia, improving Metabolic acidosis secondary to acute kidney injury, and the patient was also taking metformin. The patient's catheter bicarb infusion Diabetes mellitus maintained on metformin Osteoarthritis maintained on Celebrex Hypertension Chronic stage II or 3 kidney disease Osteoarthritis maintained on no treatment for now Obesity with BMI 42.9. Previous history of DVT and pulmonary embolism maintained on warfarin Supratherapeutic INR without evidence of any bleeding Anemia of chronic disease Plan stop the bicarb infusion and put the patient on normal saline at the rate of 75 mL an hour Keep the Garcia catheter in place No evidence of hydronephrosis Stop nonsteroidal anti-inflammatory medication and LUÍS inhibitor's for now Monitor PT/INR, INR is improved Monitor renal function Monitor electrolytes and the patient was offered treatment for acute hyperkalemia. Potassium level is down to 4.9 Consult with nephrology no active pulmonary issues and pulmonary critical care services we'll sign off
[2022-01-23 15:17] LABS: Basophils # (A) 0.1 k/uL (0-0.2); Basophils % (A) 1 %; Eosinophils # (A) 0.3 k/uL (0-0.7); Eosinophils % (A) 3 %; HCT 29.3 % (34.0-46.0); Hypochromasia Slight; Lymphocytes # (A) 0.7 k/uL (1.0-4.8); Lymphocytes % (A) 6 %; MCH 26.9 pg (25.0-35.0); MCHC 30.6 g/dL (31.0-37.0); MCV 87.9 fL (80.0-100.0); Mean Platelet Volume 9.8; Monocytes % (A) 9 %; Neutrophils # (A) 8.9 k/uL (1.3-7.7); Neutrophils % (A) 80 %; Platelet Count 204 k/uL (150-450); RBC 3.33 m/uL (3.80-5.40); RDW 15.4 % (11.5-15.5); WBC 11.1 k/uL (3.8-10.6)
[2022-01-23 15:30] LABS: Albumin 3.2 g/dL (3.5-5.0); Calcium 8.4 mg/dL (8.4-10.2); Potassium 4.2 mmol/L (3.5-5.1); Total Bilirubin 0.4 mg/dL (0.2-1.3)
[2022-01-23] MEDS: SODIUM CHLORIDE 0.9% 1,000 ML IV SCH (15:32)
[2022-01-23] MEDS: MAGNESIUM SULFATE-D5W PMX 1 GM in DEXTROSE/WATER 1 100ML.BAG IVPB SCH ×2 (15:33→17:12)
[2022-01-23] MEDS: DARBEPOETIN ALFA 40 MCG/0.4 ML SYRINGE SQ SCH (15:33)
[2022-01-23 16:50] LABS: Glucose,Whole Blood 153 mg/dL (70-110)
[2022-01-23] MEDS ORDERED: WARFARIN 0.5 MG TAB PO ONE (18:00)
[2022-01-23 19:47] LABS: Glucose,Whole Blood 134 mg/dL (70-110)
[2022-01-23] MEDS: ATORVASTATIN 80 MG TAB PO SCH (19:47)
[2022-01-23] MEDS: ACETAMINOPHEN TAB 325 MG TAB PO PRN (19:47)
[2022-01-24] MEDS: traMADol 50 MG TAB PO PRN ×2 (04:36→11:23)
[2022-01-24 06:24] LABS: Glucose,Whole Blood 96 mg/dL (70-110)
[2022-01-24] MEDS: SODIUM CHLORIDE 0.9% 1,000 ML IV SCH ×2 (06:30→17:02)
[2022-01-24] MEDS: PANTOPRAZOLE 40 MG TABLET PO SCH ×2 (06:30→17:02)
[2022-01-24] MEDS: INSULIN ASPART (NovoLOG) 100 UNIT/ML VIAL SQ SCH ×4 (06:36→20:56)
[2022-01-24] MEDS: CHOLECALCIFEROL 25 MCG (1000 IU) TABLET PO SCH (09:20)
[2022-01-24] MEDS: ESCITALOPRAM 10 MG TAB PO SCH (09:21)
[2022-01-24] MEDS: METOPROLOL TARTRATE 50 MG TAB PO SCH ×2 (09:21→20:56)
--- NOTE | 2022-01-24 09:34 | PN ---
PROGRESS NOTE CHIEF COMPLAINT: Lower abdominal pain and weakness. HISTORY OF PRESENT ILLNESS: This lady is doing fairly well, but she is still complaining of some lower abdominal pain. She has had no nausea, vomiting, diarrhea, etc. PHYSICAL EXAMINATION: CHEST: Clear. CARDIAC: Normal. ABDOMEN: Soft, nontender. IMPRESSION: 1. Acute renal failure. 2. History of hypertension. 3. Lower abdominal pain and groin pain, etiology unknown. PLAN: 1. Progress activity. 2. Physical therapy. 3. Continue to monitor renal function. MMODL / IJN: [id number] /
[2022-01-24 11:03] LABS: INR 2.8 (<1.2); Prothrombin Time 27.5 sec (9.0-12.0)
[2022-01-24 11:07] LABS: Calcium 8.1 mg/dL (8.4-10.2); Magnesium 1.7 mg/dL (1.6-2.3); Potassium 4.5 mmol/L (3.5-5.1)
[2022-01-24] MEDS: ACETAMINOPHEN TAB 325 MG TAB PO PRN (11:22)
[2022-01-24 11:24] LABS: Glucose,Whole Blood 105 mg/dL (70-110)
--- NOTE | 2022-01-24 11:25 | P.PN ---
Subjective Patient is seen for follow-up for acute kidney injury. Renal function continues to improve Oral intake has been slowly increasing Patient is complaining of mild abdominal pain this morning. Objective - Vital Signs Vital signs: Vital Signs Temp 98.2 F 01/24/22 09:19 Pulse 75 01/24/22 09:19 Resp 18 01/24/22 09:19 BP 115/73 01/24/22 09:19 Pulse Ox 98 01/24/22 09:19 FiO2 Intake & Output 01/23/22 01/24/22 01/24/22 18:59 06:59 18:59 Intake Total 1400 1225 118 Output Total 800 900 700 Balance 600 325 -582 Intake: Intake, IV Titration 1400 825 Amount Dextrose 5% in Water 1, 1200 000 ml @ 100 mls/hr IV . [id number] SAUL with Sodium Bicarb (1 Meq/ml) 150 ml Rx#:[id number] Magnesium Sulfate-D5w Pmx 200 1 gm In Dextrose/Water 1 100ml.bag @ 100 mls/hr IVPB Q1H SAUL Rx#: [id number] Sodium Chloride 0.9% 1, 825 000 ml @ 75 mls/hr IV . 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 - Labs CBC & Chem 7: 01/23/22 14:32 01/24/22 09:39 Labs: Abnormal Lab Results - Last 24 Hours (Table) 01/23/22 01/23/22 01/23/22 Range/Units 06:41 11:49 14:32 WBC 11.1 H (3.8-10.6) k/uL RBC 3.33 L (3.80-5.40) m/uL Hgb 9.0 L (11.4-16.0) gm/dL Hct 29.3 L (34.0-46.0) % MCHC 30.6 L (31.0-37.0) g/dL Neutrophils # 8.9 H (1.3-7.7) k/uL Lymphocytes # 0.7 L (1.0-4.8) k/uL PT (9.0-12.0) sec INR (<1.2) Sodium (137-145) mmol/L Chloride (98-107) mmol/L BUN 47 H (7-17) mg/dL Creatinine 2.41 H (0.52-1.04) mg/dL Glucose 107 H (74-99) mg/dL POC Glucose (mg/dL) 150 H (70-110) mg/dL Calcium 8.2 L (8.4-10.2) mg/dL Total Protein (6.3-8.2) g/dL Albumin (3.5-5.0) g/dL 01/23/22 01/23/22 01/23/22 Range/Units 14:32 16:48 19:43 WBC (3.8-10.6) k/uL RBC (3.80-5.40) m/uL Hgb (11.4-16.0) gm/dL Hct (34.0-46.0) % MCHC (31.0-37.0) g/dL Neutrophils # (1.3-7.7) k/uL Lymphocytes # (1.0-4.8) k/uL PT (9.0-12.0) sec INR (<1.2) Sodium (137-145) mmol/L Chloride 96 L (98-107) mmol/L BUN 40 H (7-17) mg/dL Creatinine 2.34 H (0.52-1.04) mg/dL Glucose 139 H (74-99) mg/dL POC Glucose (mg/dL) 153 H 134 H (70-110) mg/dL Calcium (8.4-10.2) mg/dL Total Protein 6.0 L (6.3-8.2) g/dL Albumin 3.2 L (3.5-5.0) g/dL 01/24/22 01/24/22 Range/Units 09:39 09:39 WBC (3.8-10.6) k/uL RBC (3.80-5.40) m/uL Hgb (11.4-16.0) gm/dL Hct (34.0-46.0) % MCHC (31.0-37.0) g/dL Neutrophils # (1.3-7.7) k/uL Lymphocytes # (1.0-4.8) k/uL PT 27.5 H (9.0-12.0) sec INR 2.8 H (<1.2) Sodium 135 L (137-145) mmol/L Chloride (98-107) mmol/L BUN 27 H (7-17) mg/dL Creatinine 2.13 H (0.52-1.04) mg/dL Glucose 109 H (74-99) mg/dL POC Glucose (mg/dL) (70-110) mg/dL Calcium 8.1 L (8.4-10.2) mg/dL Total Protein (6.3-8.2) g/dL Albumin (3.5-5.0) g/dL Microbiology - Last 24 Hours (Table) 01/21/22 08:58 Urine Culture - Preliminary Urine,Voided Gram Neg Bacilli 01/21/22 13:49 Blood Culture - Preliminary Blood No Growth after 48 hours Assessment and Plan Assessment: 1. Acute kidney injury mostly prerenal associated with hypovolemia from vomiting and diarrhea and use of ALF inhibitor's and nonsteroidal anti- inflammatory agents. Serum creatinine continues to improve. No evidence of obstruction on kidney ultrasound 2. Metabolic acidosis associated with acute kidney injury, diarrhea and metformin currently improved 3. Type 2 diabetes 4. Hyperkalemia associated with acute kidney injury metabolic acidosis Alf inhibitors and nonsteroidal anti-inflammatory agents currently improved 5. Chronic kidney disease baseline creatinine not known, possibly stage III 6. Anemia, iron replete, maintained on Aranesp Plan: Continue with IV fluids Continue to encourage increased oral intake
[2022-01-24 17:07] LABS: Glucose,Whole Blood 105 mg/dL (70-110)
[2022-01-24] MEDS ORDERED: WARFARIN 0.5 MG TAB PO ONE (18:00)
[2022-01-24 20:08] LABS: Glucose,Whole Blood 97 mg/dL (70-110)
[2022-01-24] MEDS: ATORVASTATIN 80 MG TAB PO SCH (20:56)
[2022-01-25] MEDS: ACETAMINOPHEN TAB 325 MG TAB PO PRN (00:24)
[2022-01-25 06:11] LABS: Glucose,Whole Blood 125 mg/dL (70-110)
[2022-01-25] MEDS: SODIUM CHLORIDE 0.9% 1,000 ML IV SCH ×2 (06:29→16:46)
[2022-01-25] MEDS: PANTOPRAZOLE 40 MG TABLET PO SCH ×2 (06:30→16:44)
[2022-01-25] MEDS: INSULIN ASPART (NovoLOG) 100 UNIT/ML VIAL SQ SCH ×4 (06:30→20:18)
[2022-01-25] MEDS: CHOLECALCIFEROL 25 MCG (1000 IU) TABLET PO SCH (08:01)
[2022-01-25] MEDS: ESCITALOPRAM 10 MG TAB PO SCH (08:01)
[2022-01-25] MEDS: METOPROLOL TARTRATE 50 MG TAB PO SCH ×2 (08:01→20:18)
[2022-01-25 08:09] LABS: INR 2.2 (<1.2); Prothrombin Time 22.1 sec (9.0-12.0)
--- NOTE | 2022-01-25 10:46 | P.PN ---
Subjective Progress Note Date: 01/24/22 76-year-old female patient, an -[place] female patient, with known to have probably a mild component of chronic kidney disease stage II to 3 in addition to history of hypertension. The patient is morbidly obese and she has his obstructive sleep apnea and she is not utilizing any devices for now. She has chronic arthritis and the patient is demented on Celebrex. She is taking metformin for blood sugar control and she is also taking jb inhibitors for chronic hypertension. The patient felt to have low appetite and over the past 1 week her oral intake has been decreased significantly. Along with that, she has noted also drop in urine output and she was getting progressively more with fat igue and weak. Based on that, the patient came into the emergency department and the patient was found to be hypotensive. Following that she was found to be in acute kidney injury. Creatinine was up to 6.44 and the patient had an underlying metabolic acidosis. The blood work revealed a potassium level of 7. initially was treated emergency department. The serum bicarb was 11 and his seen him anion gap was 16. BUN was 87 with a creatinine of 6.4. The white cell count 15.9 with a hemoglobin of 11.7. The patient's hyperkalemia was treated. The potassium subsequently dropped down to 4.9. The patient was started on bicarb infusion in the morning creatinine is at 4.3. Urine output was still low. Ultrasound the kidneys showed no evidence of hydronephrosis . Note that the patient is also on long-term anticoagulation with warfarin. The patient has previous history of DVT and pulmonary embolism and she has been on anticoagulation. INR was supratherapeutic at time of admission 5.3 without evidence of any bleeding. The PT/INR from today is at 5.2. No altered mentation. No cardiac arrhythmias. No EKG changes secondary to hyperkalemia. Nephrology has been consult on the case and the patient remains on a bicarb infusion for now. Objective - Vital Signs Vital signs: Vital Signs Temp 98.2 F 01/24/22 09:19 Pulse 75 01/24/22 09:19 Resp 18 01/24/22 09:19 BP 115/73 01/24/22 09:19 Pulse Ox 98 01/24/22 09:19 FiO2 Intake & Output 01/23/22 01/24/22 01/24/22 18:59 06:59 18:59 Intake Total 1400 1225 118 Output Total 800 900 700 Balance 600 325 -582 Intake: Intake, IV Titration 1400 825 Amount Dextrose 5% in Water 1, 1200 000 ml @ 100 mls/hr IV . [id number] SAUL with Sodium Bicarb (1 Meq/ml) 150 ml Rx#:[id number] Magnesium Sulfate-D5w Pmx 200 1 gm In Dextrose/Water 1 100ml.bag @ 100 mls/hr IVPB Q1H SAUL Rx#: [id number] Sodium Chloride 0.9% 1, 825 000 ml @ 75 mls/hr IV . [id number] SAUL Rx#:[id number] Oral 400 118 Output: Urine 800 900 700 Other: Voiding Method Diaper Diaper Diaper External Catheter External Catheter External Catheter # Voids 2 - Exam General appearance: alert Head exam: Present: atraumatic, normocephalic, normal inspection Eye exam: Present: normal appearance, PERRL, EOMI. Absent: scleral icterus, conjunctival injection, periorbital swelling ENT exam: Present: mucous membranes dry Neck exam: Present: normal inspection, full ROM, other (No stridor JVD or bruits). Absent: tenderness, meningismus, lymphadenopathy Respiratory exam: Present: decreased breath sounds. Absent: respiratory distress, wheezes, rales, rhonchi, stridor Cardiovascular Exam: Present: regular rate, normal rhythm, normal heart sounds. Absent: systolic murmur, diastolic murmur, rubs, gallop, clicks GI/Abdominal exam: Present: soft, tenderness (Mild suprapubic discomfort palpation no definite bladder distention), normal bowel sounds. Absent: distended, guarding, rebound, rigid Extremities exam: Present: normal inspection, full ROM, normal capillary refill. Absent: tenderness, pedal edema, joint swelling, calf tenderness Back exam: Present: normal inspection Neurological exam: Present: alert, oriented X3, CN II-XII intact Psychiatric exam: Present: normal affect, normal mood Skin exam: Present: warm, dry, intact, normal color. Absent: rash - Labs CBC & Chem 7: 01/23/22 14:32 01/24/22 09:39 Labs: Abnormal Lab Results - Last 24 Hours (Table) 01/23/22 01/23/22 01/23/22 Range/Units 11:49 14:32 14:32 WBC 11.1 H (3.8-10.6) k/uL RBC 3.33 L (3.80-5.40) m/uL Hgb 9.0 L (11.4-16.0) gm/dL Hct 29.3 L (34.0-46.0) % MCHC 30.6 L (31.0-37.0) g/dL Neutrophils # 8.9 H (1.3-7.7) k/uL Lymphocytes # 0.7 L (1.0-4.8) k/uL PT (9.0-12.0) sec INR (<1.2) Sodium (137-145) mmol/L Chloride 96 L (98-107) mmol/L BUN 40 H (7-17) mg/dL Creatinine 2.34 H (0.52-1.04) mg/dL Glucose 139 H (74-99) mg/dL POC Glucose (mg/dL) 150 H (70-110) mg/dL Calcium (8.4-10.2) mg/dL Total Protein 6.0 L (6.3-8.2) g/dL Albumin 3.2 L (3.5-5.0) g/dL 01/23/22 01/23/22 01/24/22 Range/Units 16:48 19:43 09:39 WBC (3.8-10.6) k/uL RBC (3.80-5.40) m/uL Hgb (11.4-16.0) gm/dL Hct (34.0-46.0) % MCHC (31.0-37.0) g/dL Neutrophils # (1.3-7.7) k/uL Lymphocytes # (1.0-4.8) k/uL PT (9.0-12.0) sec INR (<1.2) Sodium 135 L (137-145) mmol/L Chloride (98-107) mmol/L BUN 27 H (7-17) mg/dL Creatinine 2.13 H (0.52-1.04) mg/dL Glucose 109 H (74-99) mg/dL POC Glucose (mg/dL) 153 H 134 H (70-110) mg/dL Calcium 8.1 L (8.4-10.2) mg/dL Total Protein (6.3-8.2) g/dL Albumin (3.5-5.0) g/dL 01/24/22 Range/Units 09:39 WBC (3.8-10.6) k/uL RBC (3.80-5.40) m/uL Hgb (11.4-16.0) gm/dL Hct (34.0-46.0) % MCHC (31.0-37.0) g/dL Neutrophils # (1.3-7.7) k/uL Lymphocytes # (1.0-4.8) k/uL PT 27.5 H (9.0-12.0) sec INR 2.8 H (<1.2) Sodium (137-145) mmol/L Chloride (98-107) mmol/L BUN (7-17) mg/dL Creatinine (0.52-1.04) mg/dL Glucose (74-99) mg/dL POC Glucose (mg/dL) (70-110) mg/dL Calcium (8.4-10.2) mg/dL Total Protein (6.3-8.2) g/dL Albumin (3.5-5.0) g/dL Microbiology - Last 24 Hours (Table) 01/21/22 08:58 Urine Culture - Preliminary Urine,Voided Gram Neg Bacilli 01/21/22 13:49 Blood Culture - Preliminary Blood No Growth after 48 hours Assessment and Plan Assessment: 1. Acute renal injury; history of CKD stage III; likely associated with hypovolemia from vomiting and diarrhea and use of jb inhibitors and no nsteroidal anti-inflammatory agents - Renal ultrasound is negative for any obstructive disease - Nephrology on board; renal function continues to improve 2. Metabolic acidosis secondary to GAYLE, diarrhea and metformin; resolved 3. Acute hyperkalemia; resolved; we will continue to monitor electrolytes and make adjustments as needed 4. Diabetes mellitus 2; patient takes metformin 500 mg at home which has been placed on hold; monitor Accu-Cheks before meals and at bedtime with insulin sliding scale 5. Hypertension; metoprolol 50 mg twice a day; lisinopril placed on hold due to acute renal injury 6. Hyperlipidemia; Lipitor 80 mg by mouth daily at bedtime 7. History of DVT/PE; patient remains on anticoagulation with Coumadin 8. Restless leg syndrome; Requip 0.25 mg by mouth daily at bedtime DVT prophylaxis; SCDs/Coumadin CODE STATUS; full code
--- NOTE | 2022-01-25 10:59 | P.PN ---
Subjective Patient is seen for follow-up for acute kidney injury. Renal function continues to improve Oral intake has been slowly increasing Abdominal pain is improved Objective - Vital Signs Vital signs: Vital Signs Temp 98.2 F 01/25/22 08:04 Pulse 74 01/25/22 08:04 Resp 16 01/25/22 08:04 BP 106/64 01/25/22 08:04 Pulse Ox 98 01/25/22 08:42 FiO2 Intake & Output 01/24/22 01/25/22 01/25/22 18:59 06:59 18:59 Intake Total 1018 1500 900 Output Total 1250 1250 Balance -232 250 900 Intake: Intake, IV Titration 900 900 900 Amount Sodium Chloride 0.9% 1, 900 900 900 000 ml @ 75 mls/hr IV . 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 - Labs CBC & Chem 7: 01/23/22 14:32 01/24/22 09:39 Labs: Abnormal Lab Results - Last 24 Hours (Table) 01/24/22 01/24/22 01/25/22 Range/Units 09:39 09:39 06:10 PT 27.5 H (9.0-12.0) sec INR 2.8 H (<1.2) Sodium 135 L (137-145) mmol/L BUN 27 H (7-17) mg/dL Creatinine 2.13 H (0.52-1.04) mg/dL Glucose 109 H (74-99) mg/dL POC Glucose (mg/dL) 125 H (70-110) mg/dL Calcium 8.1 L (8.4-10.2) mg/dL 01/25/22 Range/Units 07:00 PT 22.1 H (9.0-12.0) sec INR 2.2 H (<1.2) Sodium (137-145) mmol/L BUN (7-17) mg/dL Creatinine (0.52-1.04) mg/dL Glucose (74-99) mg/dL POC Glucose (mg/dL) (70-110) mg/dL Calcium (8.4-10.2) mg/dL Microbiology - Last 24 Hours (Table) 01/21/22 13:49 Blood Culture - Preliminary Blood No Growth after 72 hours Assessment and Plan Assessment: 1. Acute kidney injury mostly prerenal associated with hypovolemia from vomiting and diarrhea and use of ALF inhibitor's and nonsteroidal anti- inflammatory agents. Serum creatinine continues to improve. No evidence of obstruction on kidney ultrasound 2. Metabolic acidosis associated with acute kidney injury, diarrhea and metformin currently improved 3. Type 2 diabetes 4. Hyperkalemia associated with acute kidney injury metabolic acidosis Alf inhibitors and nonsteroidal anti-inflammatory agents currently improved 5. Chronic kidney disease baseline creatinine not known, possibly stage III 6. Anemia, iron replete, maintained on Aranesp Plan: Continue with IV fluids Repeat labs in a.m.
[2022-01-25 11:42] LABS: HCT 31.8 % (34.0-46.0); HGB 9.7 gm/dL (11.4-16.0); Hypochromasia Marked; MCH 27.6 pg (25.0-35.0); MCHC 30.4 g/dL (31.0-37.0); MCV 90.7 fL (80.0-100.0); Mean Platelet Volume 9.9; Platelet Count 250 k/uL (150-450); RBC 3.51 m/uL (3.80-5.40); RDW 15.3 % (11.5-15.5); WBC 13.1 k/uL (3.8-10.6)
[2022-01-25 11:58] LABS: Albumin 3.2 g/dL (3.5-5.0); Calcium 8.3 mg/dL (8.4-10.2); Magnesium 1.4 mg/dL (1.6-2.3); Potassium 4.5 mmol/L (3.5-5.1); Total Bilirubin 0.4 mg/dL (0.2-1.3); Total Protein 6.1 g/dL (6.3-8.2)
[2022-01-25 12:18] LABS: Glucose,Whole Blood 103 mg/dL (70-110)
--- NOTE | 2022-01-25 16:22 | P.PN ---
Subjective Progress Note Date: 01/25/22 Principal diagnosis: Acute on chronic kidney disease stage III Acute metabolic acidosis Hypokalemia 76-year-old female patient, an -Ind[place] female patient, with known to have probably a mild component of chronic kidney disease stage II to 3 in ad dition to history of hypertension. The patient is morbidly obese and she has his obstructive sleep apnea and she is not utilizing any devices for now. She has chronic arthritis and the patient is demented on Celebrex. She is taking metformin for blood sugar control and she is also taking luís inhibitors for chronic hypertension. The patient felt to have low appetite and over the past 1 week her oral intake has been decreased significantly. Along with that, she has noted also drop in urine output and she was getting progressively more with fatigue and weak. Based on that, the patient came into the emergency department and the patient was found to be hypotensive. Following that she was found to be in acute kidney injury. Creatinine was up to 6.44 and the patient had an underlying metabolic acidosis. The blood work revealed a potassium level of 7. initially was treated emergency department. The serum bicarb was 11 and his seen him anion gap was 16. BUN was 87 with a creatinine of 6.4. The white cell count 15.9 with a hemoglobin of 11.7. The patient's hyperkalemia was treated. The potassium subsequently dropped down to 4.9. The patient was started on bicarb infusion in the morning creatinine is at 4.3. Urine output was still low. Ultrasound the kidneys showed no evidence of hydronephrosis . Note that the patient is also on long-term anticoagulation with warfarin. The patient has previous history of DVT and pulmonary embolism and she has been on anticoagulation. INR was supratherapeutic at time of admission 5.3 without evidence of any bleeding. The PT/INR from today is at 5.2. No altered mentation. No cardiac arrhythmias. No EKG changes secondary to hyperkalemia. Nephrology has been consult on the case and the patient remains on a bicarb infusion for now. 01/25/2022 Patient is seen and evaluated resting comfortably in bed; no further episodes of vomiting; patient is reporting increase oral intake Vital signs are reviewed and remained stable; lab review shows a continuing trend of creatinine improving from 2.8 yesterday down to 2.2 this morning Acute kidney injury mostly prerenal associated with hypovolemia from vomiting and diarrhea and use of LUÍS inhibitor's and nonsteroidal anti-inflammatory agents. Serum creatinine continues to improve. No evidence of obstruction on kidney ultrasound Patient has had iron repletion for anemia and is maintained on Aranesp Objective - Vital Signs Vital signs: Vital Signs Temp 98.2 F 01/25/22 08:04 Pulse 74 01/25/22 08:04 Resp 16 01/25/22 08:04 BP 106/64 01/25/22 08:04 Pulse Ox 98 01/25/22 08:42 FiO2 Intake & Output 01/24/22 01/25/22 01/25/22 18:59 06:59 18:59 Intake Total 1018 1500 900 Output Total 1250 1250 Balance -232 250 900 Intake: Intake, IV Titration 900 900 900 Amount Sodium Chloride 0.9% 1, 900 900 900 000 ml @ 75 mls/hr IV . [id number] [facility] Rx#:[id number] Oral 118 600 Output: Urine 1250 1250 Stool 0 Other: Voiding Method Diaper Diaper Diaper External Catheter External Catheter External Catheter # Bowel Movements 1 - Exam General appearance: alert Head exam: Present: atraumatic, normocephalic, normal inspection Eye exam: Present: normal appearance, PERRL, EOMI. Absent: scleral icterus, conjunctival injection, periorbital swelling ENT exam: Present: mucous membranes dry Neck exam: Present: normal inspection, full ROM, other (No stridor JVD or bruits). Absent: tenderness, meningismus, lymphadenopathy Respiratory exam: Present: decreased breath sounds. Absent: respiratory distress, wheezes, rales, rhonchi, stridor Cardiovascular Exam: Present: regular rate, normal rhythm, normal heart sounds. Absent: systolic murmur, diastolic murmur, rubs, gallop, clicks GI/Abdominal exam: Present: soft, tenderness (Mild suprapubic discomfort palpation no definite bladder distention), normal bowel sounds. Absent: distended, guarding, rebound, rigid Extremities exam: Present: normal inspection, full ROM, normal capillary refill. Absent: tenderness, pedal edema, joint swelling, calf tenderness Back exam: Present: normal inspection Neurological exam: Present: alert, oriented X3, CN II-XII intact Psychiatric exam: Present: normal affect, normal mood Skin exam: Present: warm, dry, intact, normal color. Absent: rash - Labs CBC & Chem 7: 01/25/22 11:13 01/25/22 11:13 Labs: Abnormal Lab Results - Last 24 Hours (Table) 01/24/22 01/24/22 01/25/22 Range/Units 09:39 09:39 06:10 PT 27.5 H (9.0-12.0) sec INR 2.8 H (<1.2) Sodium 135 L (137-145) mmol/L BUN 27 H (7-17) mg/dL Creatinine 2.13 H (0.52-1.04) mg/dL Glucose 109 H (74-99) mg/dL POC Glucose (mg/dL) 125 H (70-110) mg/dL Calcium 8.1 L (8.4-10.2) mg/dL 01/25/22 Range/Units 07:00 PT 22.1 H (9.0-12.0) sec INR 2.2 H (<1.2) Sodium (137-145) mmol/L BUN (7-17) mg/dL Creatinine (0.52-1.04) mg/dL Glucose (74-99) mg/dL POC Glucose (mg/dL) (70-110) mg/dL Calcium (8.4-10.2) mg/dL Microbiology - Last 24 Hours (Table) 01/21/22 13:49 Blood Culture - Preliminary Blood No Growth after 72 hours Assessment and Plan Assessment: 1. Acute renal injury; history of CKD stage III; likely associated with hypovolemia from vomiting and diarrhea and use of luís inhibitors and nonsteroidal anti-inflammatory agents - Renal ultrasound is negative for any obstructive disease - Nephrology on board; renal function continues to improve 2. Metabolic acidosis secondary to GAYLE, diarrhea and metformin; resolved 3. Acute hyperkalemia; resolved; we will continue to monitor electrolytes and make adjustments as needed 4. Diabetes mellitus 2; patient takes metformin 500 mg at home which has been placed on hold; monitor Accu-Cheks before meals and at bedtime with insulin sliding scale 5. Hypertension; metoprolol 50 mg twice a day; lisinopril placed on hold due to acute renal injury 6. Hyperlipidemia; Lipitor 80 mg by mouth daily at bedtime 7. History of DVT/PE; patient remains on anticoagulation with Coumadin 8. Restless leg syndrome; Requip 0.25 mg by mouth daily at bedtime DVT prophylaxis; SCDs/Coumadin CODE STATUS; full code
[2022-01-25 17:02] LABS: Glucose,Whole Blood 87 mg/dL (70-110)
[2022-01-25] MEDS ORDERED: WARFARIN 0.5 MG TAB PO ONE (18:00)
[2022-01-25 19:51] LABS: Glucose,Whole Blood 168 mg/dL (70-110)
[2022-01-25] MEDS: ATORVASTATIN 80 MG TAB PO SCH (20:18)
[2022-01-26 06:08] LABS: Glucose,Whole Blood 81 mg/dL (70-110)
[2022-01-26] MEDS: PANTOPRAZOLE 40 MG TABLET PO SCH ×2 (06:13→17:10)
[2022-01-26] MEDS: INSULIN ASPART (NovoLOG) 100 UNIT/ML VIAL SQ SCH ×4 (06:13→19:45)
[2022-01-26 08:15] LABS: INR 1.5 (<1.2); Prothrombin Time 15.3 sec (9.0-12.0)
[2022-01-26] MEDS: ESCITALOPRAM 10 MG TAB PO SCH (09:15)
[2022-01-26] MEDS: CHOLECALCIFEROL 25 MCG (1000 IU) TABLET PO SCH (09:15)
[2022-01-26] MEDS: METOPROLOL TARTRATE 50 MG TAB PO SCH ×2 (09:15→19:52)
[2022-01-26] MEDS: traMADol 50 MG TAB PO PRN (09:20)
--- NOTE | 2022-01-26 10:10 | P.PN ---
Subjective Patient is seen for follow-up for acute kidney injury. Renal function continues to improve Oral intake has been slowly increasing Maintained on IV fluids Abdominal pain is improved Objective - Vital Signs Vital signs: Vital Signs Temp 98.7 F 01/26/22 09:15 Pulse 76 01/26/22 09:15 Resp 18 01/26/22 09:15 BP 108/68 01/26/22 09:15 Pulse Ox 98 01/26/22 09:15 FiO2 Intake & Output 01/25/22 01/26/22 01/26/22 18:59 06:59 18:59 Intake Total 1018 1722 118 Output Total 400 2102 450 Balance 457 -143 -447 Intake: Intake, IV Titration 900 1000 Amount Sodium Chloride 0.9% 1, 900 1000 000 ml @ 75 mls/hr IV . 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 - Labs CBC & Chem 7: 01/25/22 11:13 01/25/22 11:13 Labs: Abnormal Lab Results - Last 24 Hours (Table) 01/25/22 01/25/22 01/25/22 Range/Units 11:13 11:13 19:50 WBC 13.1 H (3.8-10.6) k/uL RBC 3.51 L (3.80-5.40) m/uL Hgb 9.7 L (11.4-16.0) gm/dL Hct 31.8 L (34.0-46.0) % MCHC 30.4 L (31.0-37.0) g/dL PT (9.0-12.0) sec INR (<1.2) Sodium 135 L (137-145) mmol/L BUN 19 H (7-17) mg/dL Creatinine 1.87 H (0.52-1.04) mg/dL POC Glucose (mg/dL) 168 H (70-110) mg/dL Calcium 8.3 L (8.4-10.2) mg/dL Magnesium 1.4 L (1.6-2.3) mg/dL Total Protein 6.1 L (6.3-8.2) g/dL Albumin 3.2 L (3.5-5.0) g/dL 01/26/22 Range/Units 06:57 WBC (3.8-10.6) k/uL RBC (3.80-5.40) m/uL Hgb (11.4-16.0) gm/dL Hct (34.0-46.0) % MCHC (31.0-37.0) g/dL PT 15.3 H (9.0-12.0) sec INR 1.5 H (<1.2) Sodium (137-145) mmol/L BUN (7-17) mg/dL Creatinine (0.52-1.04) mg/dL POC Glucose (mg/dL) (70-110) mg/dL Calcium (8.4-10.2) mg/dL Magnesium (1.6-2.3) mg/dL Total Protein (6.3-8.2) g/dL Albumin (3.5-5.0) g/dL Microbiology - Last 24 Hours (Table) 01/21/22 08:58 Urine Culture - Final Urine,Voided Escherichia hermannii Klebsiella oxytoca 01/21/22 13:49 Blood Culture - Preliminary Blood No Growth after 96 hours Assessment and Plan Assessment: 1. Acute kidney injury mostly prerenal associated with hypovolemia from vomiting and diarrhea and use of ALF inhibitor's and nonsteroidal anti- inflammatory agents. Serum creatinine continues to improve. No evidence of obstruction on kidney ultrasound 2. Metabolic acidosis associated with acute kidney injury, diarrhea and metformin currently improved 3. Type 2 diabetes 4. Hyperkalemia associated with acute kidney injury metabolic acidosis Alf inhibitors and nonsteroidal anti-inflammatory agents currently improved 5. Chronic kidney disease baseline creatinine not known, possibly stage III 6. Anemia, iron replete, maintained on Aranesp Plan: Continue with IV fluids Repeat labs in a.m.
[2022-01-26 11:47] LABS: Glucose,Whole Blood 85 mg/dL (70-110)
[2022-01-26] MEDS ORDERED: ENOXAPARIN 100 MG/ML SYRINGE SQ STA (13:38)
--- NOTE | 2022-01-26 13:49 | P.PN ---
Subjective 76-year-old female patient, an -[place] female patient, with known to have probably a mild component of chronic kidney disease stage II to 3 in addition to history of hypertension. The patient is morbidly obese and she has his obstructive sleep apnea and she is not utilizing any devices for now. She has chronic arthritis and the patient is demented on Celebrex. She is taking metformin for blood sugar control and she is also taking luís inhibitors for chronic hypertension. The patient felt to have low appetite and over the past 1 week her oral intake has been decreased significantly. Along with that, she has noted also drop in urine output and she was getting progressively more with fatigue and weak. Based on that, the patient came into the emergency department and the patient was found to be hypotensive. Following that she was found to be in acute kidney injury. Creatinine was up to 6.44 and the patient had an underlying metabolic acidosis. The blood work revealed a potassium level of 7. initially was treated emergency department. The serum bicarb was 11 and his seen him anion gap was 16. BUN was 87 with a creatinine of 6.4. The white cell count 15.9 with a hemoglobin of 11.7. The patient's hyperkalemia was treated. The potassium subsequently dropped down to 4.9. The patient was started on bicarb infusion in the morning creatinine is at 4.3. Urine output was still low. Ultrasound the kidneys showed no evidence of hydronephrosis . Note that the patient is also on long-term anticoagulation with warfarin. The patient has previous history of DVT and pulmonary embolism and she has been on anticoagula tion. INR was supratherapeutic at time of admission 5.3 without evidence of any bleeding. The PT/INR from today is at 5.2. No altered mentation. No cardiac arrhythmias. No EKG changes secondary to hyperkalemia. Nephrology has been consult on the case and the patient remains on a bicarb infusion for now. 01/25/2022 Patient is seen and evaluated resting comfortably in bed; no further episodes of vomiting; patient is reporting increase oral intake Vital signs are reviewed and remained stable; lab review shows a continuing trend of creatinine improving from 2.8 yesterday down to 2.2 this morning Acute kidney injury mostly prerenal associated with hypovolemia from vomiting and diarrhea and use of LUÍS inhibitor's and nonsteroidal anti-inflammatory agents. Serum creatinine continues to improve. No evidence of obstruction on kidney ultrasound Patient has had iron repletion for anemia and is maintained on Aranesp 01/26/2022 Patient today still feels generally weak, she still have some vomiting and some diarrhea and mild abdominal tenderness for 2 weeks. Patient says that her diarrhea stopped yesterday and she does not have bowel movement today. However we will order C. diff for precautions. She is hemodynamically stable. No labs from today except INR which came down to 1.5. Patient is on warfarin for history of DVT and PE pharmacy to dose. We'll give one-time dose of Lovenox 100 mg and assess INR tomorrow and decide the dose of anticoagulation accordingly. Nephrology on the case and keep monitoring creatinine. Patient remains on normal saline 75 mL/h. Also patient urine cultures positive for E. coli and Klebsiella. We will start the patient on ceftriaxone. Objective - Vital Signs Vital signs: Vital Signs Temp 98.7 F 01/26/22 09:15 Pulse 76 01/26/22 09:15 Resp 18 01/26/22 09:15 BP 108/68 01/26/22 09:15 Pulse Ox 98 01/26/22 09:15 FiO2 Intake & Output 01/25/22 01/26/22 01/26/22 18:59 06:59 18:59 Intake Total 1018 1722 118 Output Total 400 2102 450 Balance 710 -124 -429 Intake: Intake, IV Titration 900 1000 Amount Sodium Chloride 0.9% 1, 900 1000 000 ml @ 75 mls/hr IV . [id number] [facility] Rx#:[id number] Oral 118 722 118 Output: Urine 400 2100 450 Stool 2 Other: Voiding Method Diaper Diaper External Catheter External Catheter # Bowel Movements 1 - Exam -GENERAL: The patient is alert and oriented x3, not in any acute distress. Morbidly obese with BMI of 42.9. Patient is generally weak HEENT: Pupils are round and equally reacting to light. EOMI. No scleral icterus. No conjunctival pallor. Normocephalic, atraumatic. No pharyngeal erythema. No thyromegaly. CARDIOVASCULAR: S1 and S2 present. No murmurs, rubs, or gallops. PULMONARY: Chest is clear to auscultation, no wheezing or crackles. ABDOMEN: Soft, nontender, nondistended, normoactive bowel sounds. No palpable organomegaly. MUSCULOSKELETAL: No joint swelling or deformity. EXTREMITIES: No cyanosis, clubbing, or pedal edema. NEUROLOGICAL: Gross neurological examination did not reveal any focal deficits. SKIN: No rashes. no petechiae. - Labs CBC & Chem 7: 01/25/22 11:13 01/25/22 11:13 Labs: Abnormal Lab Results - Last 24 Hours (Table) 01/25/22 01/25/22 01/25/22 Range/Units 11:13 11:13 19:50 WBC 13.1 H (3.8-10.6) k/uL RBC 3.51 L (3.80-5.40) m/uL Hgb 9.7 L (11.4-16.0) gm/dL Hct 31.8 L (34.0-46.0) % MCHC 30.4 L (31.0-37.0) g/dL PT (9.0-12.0) sec INR (<1.2) Sodium 135 L (137-145) mmol/L BUN 19 H (7-17) mg/dL Creatinine 1.87 H (0.52-1.04) mg/dL POC Glucose (mg/dL) 168 H (70-110) mg/dL Calcium 8.3 L (8.4-10.2) mg/dL Magnesium 1.4 L (1.6-2.3) mg/dL Total Protein 6.1 L (6.3-8.2) g/dL Albumin 3.2 L (3.5-5.0) g/dL 01/26/22 Range/Units 06:57 WBC (3.8-10.6) k/uL RBC (3.80-5.40) m/uL Hgb (11.4-16.0) gm/dL Hct (34.0-46.0) % MCHC (31.0-37.0) g/dL PT 15.3 H (9.0-12.0) sec INR 1.5 H (<1.2) Sodium (137-145) mmol/L BUN (7-17) mg/dL Creatinine (0.52-1.04) mg/dL POC Glucose (mg/dL) (70-110) mg/dL Calcium (8.4-10.2) mg/dL Magnesium (1.6-2.3) mg/dL Total Protein (6.3-8.2) g/dL Albumin (3.5-5.0) g/dL Microbiology - Last 24 Hours (Table) 01/21/22 08:58 Urine Culture - Final Urine,Voided Escherichia hermannii Klebsiella oxytoca 01/21/22 13:49 Blood Culture - Preliminary Blood No Growth after 96 hours Assessment and Plan Assessment: 1. Acute renal injury; history of CKD stage III; likely associated with hypovolemia from vomiting and diarrhea and use of luís inhibitors and nonsteroidal anti-inflammatory agents - Renal ultrasound is negative for any obstructive disease - Nephrology on board; renal function continues to improve - Hold metformin and LUÍS inhibitor 2. History of DVT/PE; patient remains on anticoagulation with Coumadin, with subtherapeutic INR. Keep with coumadine pharmacy to dose, give Lovenox one dose of 100 mg in view of kidney injury dose 3. Acute hyperkalemia; resolving; we will continue to monitor electrolytes and make adjustments as needed 4. Diabetes mellitus 2; patient takes metformin 500 mg at home which has been placed on hold; monitor Accu-Cheks before meals and at bedtime with insulin sliding scale. Currently metformin is on hold 5. Hypertension; metoprolol 50 mg twice a day; lisinopril placed on hold due to acute renal injury 6. Hyperlipidemia; Lipitor 80 mg by mouth daily at bedtime 7. Restless leg syndrome; Requip 0.25 mg by mouth daily at bedtime 8. Acute urinary tract infection secondary to E. coli and Klebsiella. Both sensitive. Start Rocephin which can be switched to oral pills upon discharge DVT prophylaxis; SCDs/Coumadin CODE STATUS; full code PT/OT: Pending, recommended subacute rehab versus home health care Dr. David will resume the care of the patient to my
[2022-01-26 16:45] LABS: Glucose,Whole Blood 105 mg/dL (70-110)
[2022-01-26] MEDS: SODIUM CHLORIDE 0.9% 1,000 ML IV SCH (17:12)
[2022-01-26] MEDS ORDERED: WARFARIN 1 MG TAB PO ONE (18:00)
[2022-01-26 19:37] LABS: Glucose,Whole Blood 160 mg/dL (70-110)
[2022-01-26] MEDS: ATORVASTATIN 80 MG TAB PO SCH (19:52)
[2022-01-27 06:20] LABS: Glucose,Whole Blood 82 mg/dL (70-110)
[2022-01-27] MEDS: traMADol 50 MG TAB PO PRN ×2 (06:22→20:45)
[2022-01-27] MEDS: PANTOPRAZOLE 40 MG TABLET PO SCH ×2 (06:22→20:41)
[2022-01-27] MEDS: INSULIN ASPART (NovoLOG) 100 UNIT/ML VIAL SQ SCH ×3 (06:23→20:41)
[2022-01-27] MEDS: SODIUM CHLORIDE 0.9% 1,000 ML IV SCH ×2 (08:40→08:51)
[2022-01-27] MEDS: ACETAMINOPHEN TAB 325 MG TAB PO PRN (08:50)
[2022-01-27] MEDS: METOPROLOL TARTRATE 50 MG TAB PO SCH ×2 (08:50→20:45)
[2022-01-27] MEDS: ESCITALOPRAM 10 MG TAB PO SCH (08:51)
[2022-01-27] MEDS: CHOLECALCIFEROL 25 MCG (1000 IU) TABLET PO SCH (08:51)
[2022-01-27 09:39] LABS: Basophils % (A) 0 %; Eosinophils # (A) 0.5 k/uL (0-0.7); Eosinophils % (A) 4 %; HCT 32.8 % (34.0-46.0); HGB 9.6 gm/dL (11.4-16.0); Hypochromasia Marked; Lymphocytes # (A) 1.1 k/uL (1.0-4.8); Lymphocytes % (A) 8 %; MCHC 29.4 g/dL (31.0-37.0); MCV 91.8 fL (80.0-100.0); Mean Platelet Volume 11.9; Monocytes # (A) 1.1 k/uL (0-1.0); Monocytes % (A) 7 %; Neutrophils # (A) 11.4 k/uL (1.3-7.7); Neutrophils % (A) 80 %; RBC 3.57 m/uL (3.80-5.40); RDW 14.9 % (11.5-15.5); WBC 14.2 k/uL (3.8-10.6)
[2022-01-27 09:52] LABS: INR 1.3 (<1.2); Prothrombin Time 13.5 sec (9.0-12.0)
[2022-01-27 09:59] LABS: Calcium 8.4 mg/dL (8.4-10.2); Potassium 4.1 mmol/L (3.5-5.1)
[2022-01-27 11:56] LABS: Glucose,Whole Blood 87 mg/dL (70-110)
[2022-01-27 12:40] LABS: Platelet Count 165 k/uL (150-450)
[2022-01-27] MEDS ORDERED: WARFARIN 2 MG TAB PO ONE (18:00)
[2022-01-27 19:09] LABS: Glucose,Whole Blood 76 mg/dL (70-110)
[2022-01-27 20:24] LABS: Glucose,Whole Blood 94 mg/dL (70-110)
[2022-01-27] MEDS: ATORVASTATIN 80 MG TAB PO SCH (20:45)
[2022-01-28] MEDS: traMADol 50 MG TAB PO PRN (05:50)
[2022-01-28] MEDS: PANTOPRAZOLE 40 MG TABLET PO SCH ×2 (05:50→17:54)
[2022-01-28 06:00] LABS: Glucose,Whole Blood 84 mg/dL (70-110)
[2022-01-28] MEDS: INSULIN ASPART (NovoLOG) 100 UNIT/ML VIAL SQ SCH ×4 (07:00→20:52)
[2022-01-28] MEDS: SODIUM CHLORIDE 0.9% 1,000 ML IV SCH ×2 (07:01→15:35)
[2022-01-28] MEDS: ESCITALOPRAM 10 MG TAB PO SCH (08:19)
[2022-01-28] MEDS: CHOLECALCIFEROL 25 MCG (1000 IU) TABLET PO SCH (08:19)
[2022-01-28] MEDS: METOPROLOL TARTRATE 50 MG TAB PO SCH ×2 (08:19→20:59)
--- NOTE | 2022-01-28 09:32 | PN ---
PROGRESS NOTE CHIEF COMPLAINT: Acute renal failure. HISTORY OF PRESENT ILLNESS: This lady is doing better. Renal function is nearly back down to normal level. She has not had any nausea, chest pain, shortness of breath, etc. PHYSICAL EXAMINATION: GENERAL: Her hydration is excellent. HEAD, EARS, EYES, NOSE, MOUTH, AND THROAT: Normal. CHEST: Clear. CARDIAC: Normal. ABDOMEN: Soft, nontender. IMPRESSION: 1. Acute renal failure. 2. Dehydration. 3. Congestive heart failure. PLAN: Progress activity and she can probably go home soon, but she is reluctant. She lives alone. We will request discharge planning. MMODL / IJN: [id number] /
[2022-01-28 09:39] LABS: INR 1.2 (<1.2); Prothrombin Time 12.9 sec (9.0-12.0)
[2022-01-28] MEDS ORDERED: IOPAMIDOL CONTRAST (ORAL USE) VIAL PO PRN (09:46)
--- NOTE | 2022-01-28 11:03 | P.PN ---
Subjective 76-year-old female patient, an -Armenian female patient, with known to have probably a mild component of chronic kidney disease stage II to 3 in addition to history of hypertension. The patient is morbidly obese and she has his obstructive sleep apnea and she is not utilizing any devices for now. She has chronic arthritis and the patient is demented on Celebrex. She is taking metformin for blood sugar control and she is also taking luís inhibitors for chronic hypertension. The patient felt to have low appetite and over the past 1 week her oral intake has been decreased significantly. Along with that, she has noted also drop in urine output and she was getting progressively more with fatigue and weak. Based on that, the patient came into the emergency department and the patient was found to be hypotensive. Following that she was found to be in acute kidney injury. Creatinine was up to 6.44 and the patient had an underlying metabolic acidosis. The blood work revealed a potassium level of 7. initially was treated emergency department. The serum bicarb was 11 and his seen him anion gap was 16. BUN was 87 with a creatinine of 6.4. The white cell count 15.9 with a hemoglobin of 11.7. The patient's hyperkalemia was treated. The potassium subsequently dropped down to 4.9. The patient was started on bicarb infusion in the morning creatinine is at 4.3. Urine output was still low. Ultrasound the kidneys showed no evidence of hydronephrosis . Note that the patient is also on long-term anticoagulation with warfarin. The patient has previous history of DVT and pulmonary embolism and she has been on anticoagula tion. INR was supratherapeutic at time of admission 5.3 without evidence of any bleeding. The PT/INR from today is at 5.2. No altered mentation. No cardiac arrhythmias. No EKG changes secondary to hyperkalemia. Nephrology has been consult on the case and the patient remains on a bicarb infusion for now. 01/25/2022 Patient is seen and evaluated resting comfortably in bed; no further episodes of vomiting; patient is reporting increase oral intake Vital signs are reviewed and remained stable; lab review shows a continuing trend of creatinine improving from 2.8 yesterday down to 2.2 this morning Acute kidney injury mostly prerenal associated with hypovolemia from vomiting and diarrhea and use of LUÍS inhibitor's and nonsteroidal anti-inflammatory agents. Serum creatinine continues to improve. No evidence of obstruction on kidney ultrasound Patient has had iron repletion for anemia and is maintained on Aranesp 01/26/2022 Patient today still feels generally weak, she still have some vomiting and some diarrhea and mild abdominal tenderness for 2 weeks. Patient says that her diarrhea stopped yesterday and she does not have bowel movement today. However we will order C. diff for precautions. She is hemodynamically stable. No labs from today except INR which came down to 1.5. Patient is on warfarin for history of DVT and PE pharmacy to dose. We'll give one-time dose of Lovenox 100 mg and assess INR tomorrow and decide the dose of anticoagulation accordingly. Nephrology on the case and keep monitoring creatinine. Patient remains on normal saline 75 mL/h. Also patient urine cultures positive for E. coli and Klebsiella. We will start the patient on ceftriaxone. Resume the care of the patient today 01/28/2022 The patient is known to my service from 2 days ago. This morning her mentation is normal but she still complaining of from vomiting since yesterday, she states mainly if his bile. Also she still complaining from left abdominal pain and tenderness which does not put her on distress but does not resolve in. She has chronic back pain and feels kind of weak. She still have loose bowel movement about once to twice a day but this is chr onic. She does not have bowel movement this morning area. However patient is able to eat 5200% of her medial yesterday and today. She states that she had colonoscopy more than 5 years ago and she does not remember the details. Patient currently she is not receiving IV fluid. INR was 1.2, she was on warfarin at home and she is getting it in the hospital pharmacy to dose. She will get 2 mg tonight and we will put her on Lovenox bridging 100 mg daily basis on her kidney function. Also we'll do a CT of the abdomen and pelvis without contrast. She is also on ceftriaxone for her UTI. Repeat urinalysis Consults surgery team for her abdominal pain and vomiting Objective - Vital Signs Vital signs: Vital Signs Temp 97.9 F 01/28/22 08:00 Pulse 83 01/28/22 08:00 Resp 18 01/28/22 08:00 BP 97/54 01/28/22 08:00 Pulse Ox 99 01/28/22 08:00 FiO2 Intake & Output 01/27/22 01/28/22 01/28/22 18:59 06:59 18:59 Intake Total 700 Output Total 600 575 200 Balance -600 125 -200 Intake: Intake, IV Titration 700 Amount Sodium Chloride 0.9% 1, 600 000 ml @ 75 mls/hr IV . [id number] SAUL Rx#:[id number] cefTRIAXone 2 gm In 100 Sodium Chloride 0.9% 50 ml @ 100 mls/hr IVPB Q24HR SAUL Rx#:[id number] Output: Urine 600 575 200 Other: Voiding Method Diaper Diaper External Catheter External Catheter - Exam -GENERAL: The patient is alert and oriented x3, not in any acute distress. Morbidly obese with BMI of 42.9. Patient is generally weak HEENT: Pupils are round and equally reacting to light. EOMI. No scleral icterus. No conjunctival pallor. Normocephalic, atraumatic. No pharyngeal erythema. No thyromegaly. CARDIOVASCULAR: S1 and S2 present. No murmurs, rubs, or gallops. PULMONARY: Chest is clear to auscultation, no wheezing or crackles. -ABDOMEN: Soft, LLQ tenderness, no rebound tenderness, nondistended, normoactive bowel sounds. No palpable organomegaly. MUSCULOSKELETAL: No joint swelling or deformity. EXTREMITIES: No cyanosis, clubbing, or pedal edema. NEUROLOGICAL: Gross neurological examination did not reveal any focal deficits. SKIN: No rashes. no petechiae. - Labs CBC & Chem 7: 01/27/22 08:53 01/27/22 08:53 Labs: Abnormal Lab Results - Last 24 Hours (Table) 01/27/22 01/28/22 Range/Units 08:53 08:38 Neutrophils # 11.4 H (1.3-7.7) k/uL Monocytes # 1.1 H (0-1.0) k/uL PT 12.9 H (9.0-12.0) sec INR 1.2 H (<1.2) Microbiology - Last 24 Hours (Table) 01/21/22 13:49 Blood Culture - Final Blood No Growth after 144 hours Assessment and Plan Assessment: 1. Acute renal injury; history of CKD stage III; likely associated with hypovolemia from vomiting and diarrhea and use of luís inhibitors and nonsteroidal anti-inflammatory agents - Renal ultrasound is negative for any obstructive disease - Nephrology on board; renal function continues to improve - Hold metformin and LUÍS inhibitor - Creatinine down to 1.7 today. We will keep monitoring 2. History of DVT/PE; patient remains on anticoagulation with Coumadin, with subtherapeutic INR. Keep with coumadine pharmacy to dose, give Lovenox one dose of 100 mg in view of kidney injury dose 3. Acute hyperkalemia; resolving; we will continue to monitor electrolytes and make adjustments as needed 4. Diabetes mellitus 2; patient takes metformin 500 mg at home which has been placed on hold; monitor Accu-Cheks before meals and at bedtime with insulin sliding scale. Currently metformin is on hold 5. Hypertension; metoprolol 50 mg twice a day; lisinopril placed on hold due to acute renal injury 6. Hyperlipidemia; Lipitor 80 mg by mouth daily at bedtime 7. Restless leg syndrome; Requip 0.25 mg by mouth daily at bedtime 8. Acute urinary tract infection secondary to E. coli and Klebsiella. Both sensitive. Start Rocephin which can be switched to oral pills upon discharge 9. Left-sided abdominal pain and vomiting - We will order a CAT scan of the abdomen and pelvis without contrast - Surgical team consult DVT prophylaxis; SCDs/Coumadin CODE STATUS; full code PT/OT: Pending, recommended subacute rehab versus home health care Dr. David will resume the care of the patient tomorrow 01/29
[2022-01-28 11:41] LABS: Glucose,Whole Blood 106 mg/dL (70-110)
[2022-01-28] MEDS: BARIUM SULFATE 450 ML ORAL.SUSP BOTTLE PO PRN ×2 (12:18→15:40)
--- NOTE | 2022-01-28 16:01 | P.GSCN ---
History of Present Illness Consult date: 01/28/22 History of present illness: CHIEF COMPLAINT: Dizziness HISTORY OF PRESENT ILLNESS: This is a 76-year-old female who came into the hospital with dizziness fatigue and weakness and hypotension. She had evidence of acute kidney injury and UTI. Patient followed by nephrology service. Patient complains of left upper quadrant abdominal pain with vomiting. She reports these symptoms have been intermittent over the last 2 weeks. She reports that the pain radiates to her back. She also reports that she feels the area is warm. Her last bowel movement was yesterday it was loose and brown in color. She denies any evidence of blood in her stools. She is on Coumadin for her PE and DVT. Past surgical history includes cholecystectomy, hysterectomy and abdominal hernia repair. She reports her last EGD was several years ago and last colonoscopy was 5 years ago with polyp removed. Patient seen and examined with Dr. yoon PAST MEDICAL HISTORY: Chronic kidney disease, hypertension, osteoarthritis, diabetes mellitus, restless leg syndrome, DVT and PE PAST SURGICAL HISTORY: See list. MEDICATIONS: See list. ALLERGIES: See list. SOCIAL HISTORY: No illicit drug use. REVIEW OF SYSTEMS: CONSTITUTIONAL: Denies fever or chills. HEENT: Denies blurred vision, vision changes, or eye pain. Denies hemoptysis CARDIOVASCULAR: Denies chest pain or pressure. RESPIRATORY: No shortness of breath. GASTROINTESTINAL: See HPI for pertinent findings HEMATOLOGIC: Denies bleeding disorders. GENITOURINARY: Denies any blood in urine or increased urinary frequency. SKIN: Denies pruitis. Denies rash. PHYSICAL EXAM: VITAL SIGNS: Reviewed GENERAL: Well-developed in no acute distress. HEENT: No sclera icterus. Extraocular movements grossly intact. Moist buccal mucosa. Head is atraumatic, normocephalic. No nasal drainage. ABDOMEN: Soft. Obese. Nondistended. Tenderness left upper quadrant NEUROLOGIC: Alert and oriented. Cranial nerves II through XII grossly intact. LABORATORY DATA: WBC 14.2 Hgb 9.6 platelets 165 INR 1.2 Sodium 138 potassium 4.1 creatinine 1.72 IMAGING: ASSESSMENT: 1. Left upper quadrant abdominal pain with vomiting 2. UTI 3. Acute kidney injury PLAN: -We'll follow up on computed tomography scan abdomen and pelvis with oral contrast -Patient scheduled for EGD tomorrow with Dr. bhesania -Keep patient nothing by mouth after midnight -Continue to hold Coumadin -Hold Lovenox in the morning Thank you for this consultation Physician Order Expediter note has been reviewed by physician. Signing provider agrees with the documented findings, assessment, and plan of care. Past Medical History Past Medical History: Diabetes Mellitus, Hypertension, Sleep Apnea/CPAP/BIPAP Additional Past Medical History / Comment(s): COPD, osteoarthritis, previous history of DVT and pulmonary embolism and the along for medical evaluation with warfarin, degenerative arthritis, hypertension, hyperlipidemia, obesity, obstructive sleep apnea not utilizing any form of devices at this point in time. History of Any Multi-Drug Resistant Organisms: None Reported Past Surgical History: Unable to Obtain, Breast Surgery, Cholecystectomy, Hernia Repair, Hysterectomy Additional Past Surgical History / Comment(s): Surgery to remove cyst on head, HAND SURGERY, CYST REMOVED LEFT BREAST Past Anesthesia/Blood Transfusion Reactions: No Reported Reaction Past Psychological History: Anxiety, Depression Smoking Status: Never smoker Past Alcohol Use History: None Reported Past Drug Use History: None Reported - Past Family History Mother Additional Family Medical History / Comment(s): HEART DISEASE Father Additional Family Medical History / Comment(s): HEART DISEASE Medications and Allergies Home Medications Medication Instructions Recorded Confirmed Type Atorvastatin Calcium [Lipitor] 80 mg PO HS 06/12/21 01/21/22 History Celecoxib [CeleBREX] 200 mg PO DAILY 06/12/21 01/21/22 History Chlorthalidone 25 mg PO DAILY 06/12/21 01/21/22 History Cholecalciferol [Vitamin D3 (25 25 mcg PO DAILY 06/12/21 01/21/22 History Mcg = 1000 Iu)] Escitalopram [Lexapro] 10 mg PO DAILY 06/12/21 01/21/22 History Metoprolol Tartrate [Lopressor] 50 mg PO BID 06/12/21 01/21/22 History Omeprazole 20 mg PO BID 06/12/21 01/21/22 History amLODIPine [Norvasc] 2.5 mg PO DAILY 06/12/21 01/21/22 History lisinopriL 40 mg PO DAILY 06/12/21 01/21/22 History metFORMIN HCL 500 mg PO DAILY 06/12/21 01/21/22 History traMADol HCl [Ultram] 100 mg PO TID PRN 06/12/21 01/21/22 History Warfarin [Coumadin] 1 mg PO HS 01/21/22 01/21/22 History rOPINIRole HCL [Requip] 0.25 mg PO HS 01/21/22 01/21/22 History Allergies Allergy/AdvReac Type Severity Reaction Status Date / Time iodine Allergy Rash/Hives Verified 01/21/22 14:59 shellfish derived [Shellfish] Allergy Rash/Hives Verified 01/21/22 14:59 Surgical - Exam Vital Signs Temp Pulse Resp BP Pulse Ox 98.6 F 65 15 124/67 94 L 01/21/22 14:46 01/21/22 14:46 01/21/22 14:46 01/21/22 14:46 01/21/22 14:46 Results - Labs 01/27/22 08:53 01/27/22 08:53 Abnormal Lab Results - Last 24 Hours (Table) 01/28/22 Range/Units 08:38 PT 12.9 H (9.0-12.0) sec INR 1.2 H (<1.2) Microbiology - Last 24 Hours (Table) 01/21/22 13:49 Blood Culture - Final Blood No Growth after 144 hours
[2022-01-28 16:32] LABS: Glucose,Whole Blood 58 mg/dL (70-110)
[2022-01-28] MEDS: DEXTROSE 50% SYRINGE 50 ML IVP PRN (16:50)
[2022-01-28 16:57] LABS: Glucose,Whole Blood 68 mg/dL (70-110)
[2022-01-28 17:06] LABS: Glucose,Whole Blood 54 mg/dL (70-110)
[2022-01-28 17:12] VITALS: BMI 42.9
[2022-01-28 17:30] LABS: Glucose,Whole Blood 57 mg/dL (70-110)
[2022-01-28 17:49] LABS: Glucose,Whole Blood 146 mg/dL (70-110)
[2022-01-28] MEDS: ENOXAPARIN 100 MG/ML SYRINGE SQ SCH (17:53)
[2022-01-28] MEDS ORDERED: WARFARIN 2 MG TAB PO ONE (18:00)
[2022-01-28 18:39] LABS: Appearance,Urine Clear (Clear); Bacteria,Urine Rare /hpf; Bilirubin,Urine Negative (Negative); Blood,Urine Negative (Negative); Color,Urine Light Yellow; Glucose,Urine (UA) Negative (Negative); Ketones,Urine Negative (Negative); Leukocyte Esterase,Urine Large (Negative); Nitrite,Urine Negative (Negative); Protein,Urine Negative (Negative); RBC,Urine <1 /hpf (0-5); Specific Gravity,Urine 1.008 (1.001-1.035); Squamous Epithelial Cell,Urine <1 /hpf (0-4); Urobilinogen,Urine <2.0 mg/dL (<2.0); WBC,Urine 5 /hpf (0-5)
--- NOTE | 2022-01-28 20:11 | CT ---
EXAM: CT Abdomen and Pelvis With Intravenous Contrast CLINICAL HISTORY: abd pain TECHNIQUE: Axial computed tomography images of the abdomen and pelvis with intravenous contrast. CTDI is 51.97 mGy and DLP is 1766.6 mGy-cm. This CT exam was performed using one or more of the following dose reduction techniques: automated exposure control, adjustment of the mA and/or kV according to patient size, and/or use of iterative reconstruction technique. COMPARISON: No relevant prior studies available. FINDINGS: Lung bases: Unremarkable. No mass. No consolidation. Mediastinum: A hiatal hernia is noted containing the majority of the stomach. The posterior thoracic mediastinum. There is mild distention of the herniated stomach with retained oral contents. No evidence for bowel obstruction with oral contrast noted in the distal small bowel and throughout the colon. ABDOMEN: Liver: Unremarkable. No mass. Gallbladder and bile ducts: Status post cholecystectomy. No ductal dilation. Pancreas: Unremarkable. No mass. No ductal dilation. Spleen: Unremarkable. No splenomegaly. Adrenals: Unremarkable. No mass. Kidneys and ureters: Unremarkable. No solid mass. No hydronephrosis. Stomach and bowel: See above. PELVIS: Appendix: No findings to suggest acute appendicitis. Bladder: Unremarkable. No mass. Reproductive: Status post hysterectomy. ABDOMEN and PELVIS: Intraperitoneal space: Unremarkable. No free air. No significant fluid collection. Bones/joints: Severe degenerative changes involving the right hip with flattening of the femoral head. There is chronic remodeling of the acetabulum with a protrusio configuration of the medial wall which appears somewhat discontinuous. Multilevel degenerative changes are noted involving the joint. No acute osseous abnormality. No dislocation. Soft tissues: Unremarkable. Vasculature: Mild atherosclerotic calcification aorta is noted. There is prominent calcification of the common iliac arteries. No aneurysm or definite periaortic abnormality noted. Lymph nodes: Unremarkable. No enlarged lymph nodes. IMPRESSION: 1. A hiatal hernia is noted containing the majority of the stomach. The posterior thoracic mediastinum. There is mild distention of the herniated stomach with retained oral contents. No evidence for bowel obstruction with oral contrast noted in the distal small bowel and throughout the colon. No free intraperitoneal fluid or pneumoperitoneum. 2. Severe degenerative changes involving the right hip with flattening of the femoral head. There is chronic remodeling of the acetabulum with a protrusio configuration of the medial wall which appears somewhat discontinuous. While this is a presumed incidental finding. Given the reported clinical symptoms, a subtle fracture of the medial wall is suspected.
[2022-01-28 20:45] LABS: Glucose,Whole Blood 111 mg/dL (70-110)
[2022-01-29 02:15] LABS: Glucose,Whole Blood 102 mg/dL (70-110)
[2022-01-29] MEDS: PANTOPRAZOLE 40 MG TABLET PO SCH ×2 (05:00→18:41)
[2022-01-29] MEDS ORDERED: ONDANSETRON 4 MG/2 ML VIAL IVP PRN (05:00)
[2022-01-29] MEDS: SODIUM CHLORIDE 0.9% 1,000 ML IV SCH ×2 (05:11→15:00)
[2022-01-29] MEDS: INSULIN ASPART (NovoLOG) 100 UNIT/ML VIAL SQ SCH ×4 (05:13→19:54)
[2022-01-29 06:12] LABS: Glucose,Whole Blood 83 mg/dL (70-110)
[2022-01-29 07:28] LABS: HCT 29.4 % (34.0-46.0); HGB 8.6 gm/dL (11.4-16.0); Hypochromasia Marked; MCH 27.8 pg (25.0-35.0); MCHC 29.4 g/dL (31.0-37.0); MCV 94.3 fL (80.0-100.0); Mean Platelet Volume 9.5; Platelet Count 228 k/uL (150-450); RBC 3.11 m/uL (3.80-5.40); RDW 15.5 % (11.5-15.5); WBC 16.7 k/uL (3.8-10.6)
[2022-01-29 07:47] LABS: INR 1.1 (<1.2); Prothrombin Time 11.9 sec (9.0-12.0)
[2022-01-29 07:55] LABS: Potassium 4.1 mmol/L (3.5-5.1)
--- NOTE | 2022-01-29 08:09 | PN ---
PROGRESS NOTE SUBJECTIVE: The patient is seen for followup for acute kidney injury. She is currently lying in bed, comfortable. The patient denies any significant complaints. Her renal function continues to improve with serum creatinine down to 1.7 today. PHYSICAL EXAMINATION: VITAL SIGNS: On examination today, blood pressure was 131/66, heart rate of 70 per minute. The patient is afebrile. HEART: S1 and S2. LUNGS: Bilateral breath sounds are heard. ABDOMEN: Soft, nontender. EXTREMITIES: Lower extremities shows no significant edema. TALENT DIRECTOR: Grossly intact. LABORATORY DATA: Show sodium 138, potassium 4.1, chloride 104, BUN 14, serum creatinine 1.7, hemoglobin 9.6 g/dL. ASSESSMENT: 1. Acute kidney injury mostly prerenal, currently improving with IV hydration. 2. Metabolic acidosis associated with acute kidney injury, diarrhea, on metformin, currently improved. 3. Chronic kidney disease, baseline not known, most likely stage III. 4. Anemia of chronic disease, maintained on Aranesp. 5. Type 2 diabetes. 6. Hyperkalemia associated with acute kidney injury, metabolic acidosis, on LUÍS inhibitors, currently improved. The patient was also on NSAIDs, which is now discontinued. PLAN: Continue to encourage increased oral intake. Repeat labs. MMODL / IJN: [id number] /
[2022-01-29] MEDS: ENOXAPARIN 100 MG/ML SYRINGE SQ SCH (08:26)
[2022-01-29] MEDS: CHOLECALCIFEROL 25 MCG (1000 IU) TABLET PO SCH (09:36)
[2022-01-29] MEDS: METOPROLOL TARTRATE 50 MG TAB PO SCH ×2 (09:40→21:03)
[2022-01-29] MEDS: ESCITALOPRAM 10 MG TAB PO SCH (09:40)
--- NOTE | 2022-01-29 10:51 | P.PN ---
Subjective Patient is seen for follow-up for acute kidney injury. Renal function continues to improve Oral intake has been slowly increasing Maintained on IV fluids Objective - Vital Signs Vital signs: Vital Signs Temp 97.0 F L 01/29/22 09:30 Pulse 85 01/29/22 09:30 Resp 16 01/29/22 09:30 BP 105/74 01/29/22 09:30 Pulse Ox 99 01/29/22 09:30 FiO2 Intake & Output 01/28/22 01/29/22 01/29/22 18:59 06:59 18:59 Output Total 501 251 Balance -501 -251 Weight 102.965 kg Output: Urine 500 250 Stool 1 1 Other: Voiding Method External Catheter External Catheter # Bowel Movements 2 - Exam Patient is awake, comfortable, not in any acute distress next and Patient is currently being cleaned Examination lower extremities shows no evidence of edema LABEL STAMPER exam grossly intact - Labs CBC & Chem 7: 01/29/22 07:00 01/29/22 07:00 Labs: Abnormal Lab Results - Last 24 Hours (Table) 01/28/22 01/28/22 01/28/22 Range/Units 16:31 16:56 17:03 WBC (3.8-10.6) k/uL RBC (3.80-5.40) m/uL Hgb (11.4-16.0) gm/dL Hct (34.0-46.0) % MCHC (31.0-37.0) g/dL Chloride (98-107) mmol/L Creatinine (0.52-1.04) mg/dL POC Glucose (mg/dL) 58 L 68 L (70-110) mg/dL Calcium (8.4-10.2) mg/dL Ur Leukocyte Esterase Large H (Negative) Urine Bacteria Rare H (None) /hpf 01/28/22 01/28/22 01/28/22 Range/Units 17:04 17:28 17:47 WBC (3.8-10.6) k/uL RBC (3.80-5.40) m/uL Hgb (11.4-16.0) gm/dL Hct (34.0-46.0) % MCHC (31.0-37.0) g/dL Chloride (98-107) mmol/L Creatinine (0.52-1.04) mg/dL POC Glucose (mg/dL) 54 L 57 L 146 H (70-110) mg/dL Calcium (8.4-10.2) mg/dL Ur Leukocyte Esterase (Negative) Urine Bacteria (None) /hpf 01/28/22 01/29/22 01/29/22 Range/Units 20:44 07:00 07:00 WBC 16.7 H (3.8-10.6) k/uL RBC 3.11 L (3.80-5.40) m/uL Hgb 8.6 L (11.4-16.0) gm/dL Hct 29.4 L (34.0-46.0) % MCHC 29.4 L (31.0-37.0) g/dL Chloride 108 H (98-107) mmol/L Creatinine 1.63 H (0.52-1.04) mg/dL POC Glucose (mg/dL) 111 H (70-110) mg/dL Calcium 8.0 L (8.4-10.2) mg/dL Ur Leukocyte Esterase (Negative) Urine Bacteria (None) /hpf Assessment and Plan Assessment: 1. Acute kidney injury mostly prerenal associated with hypovolemia from vomiting and diarrhea and use of ALF inhibitor's and nonsteroidal anti- inflammatory agents. Serum creatinine continues to improve. No evidence of obstruction on kidney ultrasound 2. Metabolic acidosis associated with acute kidney injury, diarrhea and metformin currently improved 3. Type 2 diabetes 4. Hyperkalemia associated with acute kidney injury metabolic acidosis Alf inhibitors and nonsteroidal anti-inflammatory agents currently improved 5. Chronic kidney disease baseline creatinine not known, possibly stage III 6. Anemia, iron replete, maintained on Aranesp Plan: Continue with antibiotics Continue with IV fluids as patient is not able to tolerate oral intake
[2022-01-29] MEDS ORDERED: LIDOCAINE 2% INJ 20 MG/ML (2 ML VIAL) ONE (11:20)
[2022-01-29] MEDS ORDERED: PROPOFOL 10 MG/ML 20 ML VIAL IV ONE (11:20)
[2022-01-29] MEDS ORDERED: IV FLUID CONTINUATION 900 ML IV ONE (11:32)
--- NOTE | 2022-01-29 11:37 | P.OP ---
Date of Procedure: 01/29/22 Preoperative Diagnosis: GERD and dysphagia Postoperative Diagnosis: Large paraesophageal hiatal hernia with intrathoracic stomach Procedure(s) Performed: EGD Anesthesia: MAC Surgeon: Jim Singh Pathology: other (Antrum) Condition: stable Disposition: PACU Description of Procedure: Patient's placed on the endoscopy table in the lateral position. She received IV sedation. The gastroscope patient oropharynx passed in the esophagus and stomach. The patient had a very large paraesophageal hernia most the stomach was intrathoracic position. The scope could not stomach. Scope was then brought back slightly there is minimal inflammation of the stomach was biopsied. Scope was retroflexed within the hiatal hernia no other pathology was seen. The GE junction was at 37 cm. The distal esophagus appeared normal. The proximal esophagus. Normal. Scope withdrawn for patient.
[2022-01-29 13:22] LABS: Glucose,Whole Blood 52 mg/dL (70-110)
[2022-01-29 13:22] LABS: Glucose,Whole Blood 48 mg/dL (70-110)
[2022-01-29 13:41] LABS: Glucose,Whole Blood 57 mg/dL (70-110)
[2022-01-29 13:41] LABS: Glucose,Whole Blood 58 mg/dL (70-110)
[2022-01-29] MEDS: DEXTROSE 50% SYRINGE 50 ML IVP PRN (13:55)
[2022-01-29 14:05] LABS: Glucose,Whole Blood 92 mg/dL (70-110)
[2022-01-29 14:11] LABS: Glucose,Whole Blood 58 mg/dL (70-110)
[2022-01-29 17:00] LABS: Glucose,Whole Blood 127 mg/dL (70-110)
[2022-01-29 19:53] VITALS: RESP 16
[2022-01-29 20:04] LABS: Glucose,Whole Blood 113 mg/dL (70-110)
[2022-01-29] MEDS: ATORVASTATIN 80 MG TAB PO SCH (21:03)
[2022-01-29] MEDS: traMADol 50 MG TAB PO PRN (21:03)
[2022-01-30 02:27] LABS: Glucose,Whole Blood 105 mg/dL (70-110)
[2022-01-30 06:06] LABS: Glucose,Whole Blood 92 mg/dL (70-110)
[2022-01-30] MEDS: INSULIN ASPART (NovoLOG) 100 UNIT/ML VIAL SQ SCH ×3 (06:13→17:43)
[2022-01-30] MEDS: PANTOPRAZOLE 40 MG TABLET PO SCH ×2 (06:20→17:54)
[2022-01-30] MEDS: SODIUM CHLORIDE 0.9% 1,000 ML IV SCH (06:21)
[2022-01-30 08:43] LABS: INR 1.1 (<1.2); Prothrombin Time 11.4 sec (9.0-12.0)
[2022-01-30] MEDS: CHOLECALCIFEROL 25 MCG (1000 IU) TABLET PO SCH (09:52)
[2022-01-30] MEDS: METOPROLOL TARTRATE 50 MG TAB PO SCH (09:52)
[2022-01-30] MEDS: ESCITALOPRAM 10 MG TAB PO SCH (09:53)
[2022-01-30] MEDS: ENOXAPARIN 100 MG/ML SYRINGE SQ SCH (10:01)
[2022-01-30] MEDS: DARBEPOETIN ALFA 40 MCG/0.4 ML SYRINGE SQ SCH (10:01)
--- NOTE | 2022-01-30 10:55 | P.PN ---
Subjective Patient is seen for follow-up for acute kidney injury. Renal function continues to improve Oral intake has been increasing Maintained on IV fluids Serum creatinine down to 1.6 from 6.4 on initial admission Objective - Vital Signs Vital signs: Vital Signs Temp 98.2 F 01/30/22 08:00 Pulse 80 01/30/22 08:00 Resp 16 01/30/22 08:00 BP 97/52 01/30/22 08:00 Pulse Ox 100 01/30/22 08:00 FiO2 Intake & Output 01/29/22 01/30/22 01/30/22 18:59 06:59 18:59 Intake Total 478 230 Output Total 900 Balance 478 -900 230 Intake: IV 120 Invasive Line 4 10 Invasive Line 6 10 Oral 358 230 Output: Urine 900 Other: Voiding Method External Catheter External Catheter External Catheter # Voids 1 # Bowel Movements 3 1 - Exam Patient is awake, comfortable, not in any acute distress next and Patient is currently being cleaned Examination lower extremities shows no evidence of edema EXCELSIOR MACHINE TENDER exam grossly intact - Labs CBC & Chem 7: 01/29/22 07:00 01/29/22 07:00 Labs: Abnormal Lab Results - Last 24 Hours (Table) 01/29/22 01/29/22 01/29/22 Range/Units 13:18 13:20 13:38 POC Glucose (mg/dL) 52 L 48 L 57 L (70-110) mg/dL 01/29/22 01/29/22 01/29/22 Range/Units 13:39 13:51 16:47 POC Glucose (mg/dL) 58 L 58 L 127 H (70-110) mg/dL 01/29/22 Range/Units 20:01 POC Glucose (mg/dL) 113 H (70-110) mg/dL Assessment and Plan Assessment: 1. Acute kidney injury mostly prerenal associated with hypovolemia from vomiting and diarrhea and use of ALF inhibitor's and nonsteroidal anti- inflammatory agents. Serum creatinine continues to improve. No evidence of obstruction on kidney ultrasound 2. Metabolic acidosis associated with acute kidney injury, diarrhea and metformin currently improved 3. Type 2 diabetes 4. Hyperkalemia associated with acute kidney injury metabolic acidosis Alf inhibitors and nonsteroidal anti-inflammatory agents currently improved 5. Chronic kidney disease baseline creatinine not known, possibly stage III 6. Anemia, iron replete, maintained on Aranesp Plan: Continue with antibiotics Stable for discharge from nephrology standpoint Maintain adequate oral hydration and repeat labs as outpatient in 3-4 days.
[2022-01-30 11:44] LABS: Glucose,Whole Blood 83 mg/dL (70-110)
--- NOTE | 2022-01-30 11:59 | P.PN ---
Subjective Progress Note Date: 01/30/22 CHIEF COMPLAINT: Abdominal pain HISTORY OF PRESENT ILLNESS: Patient status post EGD which revealed a large paraesophageal hiatal hernia with intrathoracic stomach. She reports tolerating regular diet. She reports that her as her reflux is not bad today. She has any nausea or vomiting. She denies any abdominal pain. She reports that she is scheduled for discharge today. Afebrile. PHYSICAL EXAM: VITAL SIGNS: Reviewed. GENERAL: Well-developed in no acute distress. HEENT: No sclera icterus. Extraocular movements grossly intact. Moist buccal mucosa. Head is atraumatic, normocephalic. ABDOMEN: Soft. Nondistended. Nontender. NEUROLOGIC: Alert and oriented. Cranial nerves II through XII grossly intact. ASSESSMENT: 1. Large paraesophageal hiatal hernia with intrathoracic stomach likely contributing to patient's abdominal pain and vomiting. Symptoms have now improved PLAN: -Patient is stable for discharge from surgical standpoint -Patient held with Dr. yoon in the office next week to discuss surgical interventions -Continue omeprazole Physician Pega Developer note has been reviewed by physician. Signing provider agrees with the documented findings, assessment, and plan of care. Objective - Vital Signs Vital signs: Vital Signs Temp 98.2 F 01/30/22 08:00 Pulse 80 01/30/22 08:00 Resp 16 01/30/22 08:00 BP 97/52 01/30/22 08:00 Pulse Ox 100 01/30/22 08:00 FiO2 Intake & Output 01/29/22 01/30/22 01/30/22 18:59 06:59 18:59 Intake Total 478 230 Output Total 900 Balance 478 -900 230 Intake: IV 120 Invasive Line 4 10 Invasive Line 6 10 Oral 358 230 Output: Urine 900 Other: Voiding Method External Catheter External Catheter External Catheter # Voids 1 # Bowel Movements 3 1 - Labs CBC & Chem 7: 01/29/22 07:00 01/29/22 07:00 Labs: Abnormal Lab Results - Last 24 Hours (Table) 01/29/22 01/29/22 01/29/22 Range/Units 13:18 13:20 13:38 POC Glucose (mg/dL) 52 L 48 L 57 L (70-110) mg/dL 01/29/22 01/29/22 01/29/22 Range/Units 13:39 13:51 16:47 POC Glucose (mg/dL) 58 L 58 L 127 H (70-110) mg/dL 01/29/22 Range/Units 20:01 POC Glucose (mg/dL) 113 H (70-110) mg/dL
[2022-01-30 16:32] LABS: Glucose,Whole Blood 105 mg/dL (70-110)
[2022-01-30] MEDS ORDERED: diphenhydrAMINE 50 MG/ML 1 ML VIAL IVP PRN (17:46)
[2022-01-30] MEDS ORDERED: methylPREDNISolone SOD SUCCI 40 MG/ML 1 ML VIAL IV STA (17:55)
[2022-01-30] MEDS ORDERED: WARFARIN 1 MG TAB PO ONE (18:00)
[2022-01-30 20:15] VITALS: BP 114/60; PULSE 74; TEMP 98.2
--- NOTE | 2022-01-31 05:09 | PN ---
PROGRESS NOTE CHIEF COMPLAINT: Acute renal failure. HISTORY OF PRESENT ILLNESS: This lady is improving. We are waiting for Nephrology to give her clearance to be discharged. She feels fine, otherwise. PHYSICAL EXAMINATION: CHEST: Clear. CARDIAC: Exam is normal. ABDOMEN: Soft and nontender. EXTREMITIES: Normal. IMPRESSION: 1. Acute renal failure. 2. Chronic renal failure. 3. Hypertension. PLAN: Probably home in the next day or two if she is cleared by Nephrology. MMODL / IJN: [id number] /
--- NOTE | 2022-01-31 05:52 | DS ---
DISCHARGE SUMMARY CHIEF COMPLAINT: Weakness and dehydration with nausea. HISTORY OF PRESENT ILLNESS AND PHYSICAL EXAMINATION: Details of this lady's history and physical can be found in the initial workup. LABORATORY STUDIES: While she was in the hospital she had laboratory studies, details of which can be found in the laboratory section of her chart. COURSE IN THE HOSPITAL: After admission she was placed on bedrest, started on intravenous fluids and she was seen in consult by Nephrology. BUN and creatinine slowly started to come down and she improved. She was stable enough to be discharged home on the . She lives alone, but she has help. She will be seen in several days. She will be started on Procrit once a week. FINAL DIAGNOSES: 1. Acute renal failure. 2. Chronic renal failure. 3. History of hypertension. 4. Atrial fibrillation. OPERATIONS: None. CONSULTATION: Nephrology. She is improved. JENNY / DANIELITO: [id number] /
--- NOTE | 2022-02-01 17:45 | CDI ---
Documentation Clarification Form Date: 02/01/2022 05:34:59 PM From: Mary Ward Phone: Admit Date: 01/21/2022 04:05:00 PM Patient Name: Ariadne Tellez Visit Number: [id number] Discharge Date: 01/30/2022 08:47:00 PM ATTENTION: The Clinical Documentation Specialists (CDI) and [facility] Coding Staff appreciate your assistance in clarifying documentation. Please respond to the clarification below the line at the bottom and electronically sign. The CDI & [facility] Coding staff will review the response and follow-up if needed. Please note: Queries are made part of the Legal Health Record. If you have any questions, please contact the author of this message via ITS. Dr. Rigoberto David UTI is documented DrCatarino Ayers Sheet Progress Note 01/28 and patient has a Garcia. Additional clarification regarding the etiology of the UTI is requested. History/Risk Factors: 76yo F, GAYLE on CKD III w/hypovolemia from vomiting & diarrhea & use of LUÍS inhibitors & NSAIDs, UTI sec to E Coli & Klebsiella, Hyperkalemia, Dehydration, DMII w Hypoglycemia Clinical Indicators: Urine culture: positive for E. coli and Klebsiella Lab results: Calcium 8.4 mg/dL; Magnesium 1.3 mg/dL (1.6-2.3) L 01/22/22 04:34 Treatment: on ceftriaxone for her UTI Please clarify the etiology of the UTI, if known: [ ] Garcia catheter [ ] UTI not related to catheter/urostomy [ ] Other condition, please specify [ ] Unable to determine (Template Last Revised: July 2020) MTDD
--- NOTE | 2022-02-01 17:55 | CDI ---
Documentation Clarification Form Date: 02/01/2022 05:46:00 PM From: Mary Ward Phone: Admit Date: 01/21/2022 04:05:00 PM Patient Name: Ariadne Tellez Visit Number: [id number] Discharge Date: 01/30/2022 08:47:00 PM ATTENTION: The Clinical Documentation Specialists (CDI) and [facility] Coding Staff appreciate your assistance in clarifying documentation. Please respond to the clarification below the line at the bottom and electronically sign. The CDI & [facility] Coding staff will review the response and follow-up if needed. Please note: Queries are made part of the Legal Health Record. If you have any questions, please contact the author of this message via ITS. Dr. Rigoberto David Your patient has the documented diagnosis of unspecified CHF per Progress Note 01/27/22. Additional information regarding the [type, acuity] of CHF is requested. History/Risk Factors: 76yo F, GAYLE on CKD III w/hypovolemia from vomiting & diarrhea & use of LUÍS inhibitors & NSAIDs, UTI sec to E Coli & Klebsiella, Hyperkalemia, Dehydration, DMII w Hypoglycemia Clinical Indicators: VS/Pulse OX: 01/22/22 08:21 100 Chest x ray: Scattered senescent parenchymal changes noted. Hyperinflation compatible with COPD. No evidence for infiltrate. No evidence for atelectasis. Heart size is stable. Mediastinal structures are stable and grossly unremarkable. No evidence for hilar prominence. Degenerative changes dorsal spine. Treatment: Progress activity and she can probably go home soon, but she is reluctant. She lives alone. We will request discharge planning. In your professional opinion, can you please clarify the acuity and type of CHF if known? [ ] Acute Systolic Heart Failure (reduced EF) [ ] Chronic Systolic Heart Failure (reduced EF) [ ] Acute on Chronic Systolic Heart Failure (reduced EF) [ ] Acute Diastolic Heart Failure (preserved EF) [ ] Chronic Diastolic Heart Failure (preserved EF) [ ] Acute on Chronic Diastolic Heart Failure (preserved EF) [ ] Acute Systolic & Diastolic Heart Failure [ ] Chronic Systolic & Diastolic Heart Failure [ ] Acute on Chronic Heart Failure Systolic & Diastolic Heart Failure [ ] Other, please specify [ ] Unable to determine (Template Last Revised: June 2020) MTDD
--- NOTE | 2022-02-06 07:45 | MISC ---
MISCELLANOUS REPORT UTI not related to catheter. type of CHF, chronic diastolic. MMODL / IJN: [id number] /
== END 2022-01-30 20:47 | disposition home or self-care (01) | DRG 683 ==
LOC: EC 12:48 → 3SCARD 16:05
PROVIDERS: ADMIT Family Medicine; ATTEND Family Medicine
PROC: 0DB78ZX Excision of Stomach, Pylorus, Via Natural or Artificial Opening Endoscopic, Diagnostic (ICD-10-PCS; principal; 2022-01-29 11:55)
DX: N17.9 Acute kidney failure, unspecified (principal); D68.4 Acquired coagulation factor deficiency; E87.2 Acidosis; I13.0 Hypertensive heart and chronic kidney disease with heart failure and stage 1 through stage 4 chronic kidney disease, or unspecified chronic kidney disease; N39.0 Urinary tract infection, site not specified; Z68.41 Body mass index [BMI] 40.0-44.9, adult; T83.030A Leakage of cystostomy catheter, initial encounter; I50.32 Chronic diastolic (congestive) heart failure; E11.649 Type 2 diabetes mellitus with hypoglycemia without coma; D63.8 Anemia in other chronic diseases classified elsewhere; E11.22 Type 2 diabetes mellitus with diabetic chronic kidney disease; F03.90 Unspecified dementia, unspecified severity, without behavioral disturbance, psychotic disturbance, mood disturbance, and anxiety; E66.01 Morbid (severe) obesity due to excess calories; E86.0 Dehydration; G25.81 Restless legs syndrome; J44.9 Chronic obstructive pulmonary disease, unspecified; F32.A Depression, unspecified; N18.30 Chronic kidney disease, stage 3 unspecified; I95.9 Hypotension, unspecified; I48.91 Unspecified atrial fibrillation; F41.9 Anxiety disorder, unspecified; E87.5 Hyperkalemia; K21.9 Gastro-esophageal reflux disease without esophagitis; R13.10 Dysphagia, unspecified; K44.9 Diaphragmatic hernia without obstruction or gangrene; K29.50 Unspecified chronic gastritis without bleeding; M19.90 Unspecified osteoarthritis, unspecified site; G47.33 Obstructive sleep apnea (adult) (pediatric); E86.1 Hypovolemia; Y73.1 Therapeutic (nonsurgical) and rehabilitative gastroenterology and urology devices associated with adverse incidents; E83.42 Hypomagnesemia; T50.2X5A Adverse effect of carbonic-anhydrase inhibitors, benzothiadiazides and other diuretics, initial encounter; B96.1 Klebsiella pneumoniae [K. pneumoniae] as the cause of diseases classified elsewhere; B96.20 Unspecified Escherichia coli [E. coli] as the cause of diseases classified elsewhere; E87.6 Hypokalemia; G89.29 Other chronic pain; M54.9 Dorsalgia, unspecified; E78.5 Hyperlipidemia, unspecified; Z79.899 Other long term (current) drug therapy; Z79.84 Long term (current) use of oral hypoglycemic drugs; Z79.01 Long term (current) use of anticoagulants; Z91.041 Radiographic dye allergy status; Z91.013 Allergy to seafood; Z90.49 Acquired absence of other specified parts of digestive tract; Z90.710 Acquired absence of both cervix and uterus; Z98.890 Other specified postprocedural states; Z86.010 Personal history of colon polyps; Z86.718 Personal history of other venous thrombosis and embolism; Z86.711 Personal history of pulmonary embolism; Z82.49 Family history of ischemic heart disease and other diseases of the circulatory system; Z79.1 Long term (current) use of non-steroidal anti-inflammatories (NSAID)
CPT/HCPCS: 36415; 43239; 71046; 74176; 76770; 80048; 80053; 81001; 82533; 82728; 83036; 83540; 83550; 83605; 83735; 83880; 84132; 84145; 84484; 85025; 85027; 85379; 85610; 85730; 87040; 87077; 87086; 87186; 88305; 93005; 93970; 94760; 96361; 96365; 96366; 96375; 99285

== ENCOUNTER 2022-12-23 14:59 | Emergency (ER) | payer MEDICARE, OTHER ==
--- NOTE | 2022-12-23 15:32 | XR ---
EXAMINATION TYPE: XR pelvis AP view DATE OF EXAM: 12/23/2022 3:26 PM INDICATION: Patient age:Female; 77 years old; Reason for study: Trauma; PHH. COMPARISON: CT abdomen pelvis 01/28/2022 TECHNIQUE: The pelvis was examined in a single projection. FINDINGS: There is no evidence of fracture or dislocation. Degenerative changes of the lumbar spine. Severe degenerative changes of the right hip with flattening of the femoral head and chronic bony rem odeling of the acetabulum with protrusio configuration of the medial wall. There is no soft tissue ab normality. No abnormal calcifications are present. IMPRESSION: 1. No acute osseous pathology. 2. Severe degenerative changes involving the right hip redemonstrated. There is continued flattening with chronic remodeling of the acetabulum and protrusio configuration of the medial wall.
--- NOTE | 2022-12-23 15:33 | XR ---
EXAMINATION TYPE: XR chest 1V portable DATE OF EXAM: 12/23/2022 3:26 PM COMPARISON: Chest radiographs from 01/21/2022 TECHNIQUE: XR chest 1V portable Portable AP radiograph of the chest. CLINICAL INDICATION:Female, 77 years old with history of trauma; FINDINGS: Lungs/Pleura: There is no evidence of pleural effusion, focal consolidation, or pneumothorax. Chroni c senescent parenchymal change. Linear scarring or atelectasis within the left lung base. Pulmonary vascularity: Unremarkable. Heart/mediastinum: Cardiomediastinal silhouette is prominent in size. Atherosclerotic calcifications are seen in the aorta. Musculoskeletal: No acute osseous pathology. IMPRESSION: Cardiomegaly without radiographic evidence for acute traumatic process.
[2022-12-23] MEDS ORDERED: DIPH,PERTUS(ACELL)TETVAC-LF 0.5 ML VIAL IM ONE (15:40)
--- NOTE | 2022-12-23 15:43 | ED ---
General Adult HPI - General Chief complaint: Fall Stated complaint: fall- on thinners Source: patient, EMS, RN notes reviewed, old records reviewed Mode of arrival: EMS Limitations: no limitations - History of Present Illness Initial comments: This is a 77-year-old female who presents emergency department after she was being backed out of a wheelchair van about 3 feet off the ground and the patient's caregiver that was backing her out and her self fell off the wheelchair van and fell and hit her head. Patient complains of some head pain little bit of neck pain and some lower back pain. Patient also has an abrasion on her left knee she complains about. Patient states she can move her knees or hips normally and it does not hurt. Patient denies any upper extremity pain up her back pain or chest pain. Patient has no abdominal pain. Patient did not lose consciousness. Patient denies numbness or weakness - Related Data Home Medications Medication Instructions Recorded Confirmed Atorvastatin Calcium [Lipitor] 80 mg PO HS 06/12/21 12/23/22 Cholecalciferol [Vitamin D3 (25 25 mcg PO DAILY 06/12/21 12/23/22 Mcg = 1000 Iu)] Metoprolol Tartrate [Lopressor] 50 mg PO BID 06/12/21 12/23/22 Omeprazole 20 mg PO DAILY 06/12/21 12/23/22 traMADol HCl [Ultram] 100 mg PO TID PRN 06/12/21 12/23/22 Multivitamins, Thera [Multivitamin 1 tab PO DAILY 12/23/22 12/23/22 (formulary)] Ondansetron Odt [Zofran ODT] 8 mg PO Q8H PRN 12/23/22 12/23/22 Solifenacin Succinate [Vesicare] 5 mg PO W/LUNCH 12/23/22 12/23/22 Warfarin Sodium 4 mg PO HS 12/23/22 12/23/22 metFORMIN HCL [Glucophage] 500 mg PO DAILY 12/23/22 12/23/22 rOPINIRole HCL [Requip] 5 mg PO HS 12/23/22 12/23/22 Allergies Allergy/AdvReac Type Severity Reaction Status Date / Time Fish Containing Products Allergy Dyspnea Verified 12/23/22 16:44 [Fish] iodine Allergy Rash/Hives Verified 12/23/22 16:44 shellfish derived [Shellfish] Allergy Rash/Hives Verified 12/23/22 16:44 oxybutynin [From Ditropan] AdvReac Nausea & Verified 12/23/22 16:49 Vomiting & Diarrhea Review of Systems ROS Statement: Those systems with pertinent positive or pertinent negative responses have been documented in the HPI. ROS Other: All systems not noted in ROS Statement are negative. Past Medical History Past Medical History: Diabetes Mellitus, Hypertension, Sleep Apnea/CPAP/BIPAP Additional Past Medical History / Comment(s): COPD, osteoarthritis, previous history of DVT and pulmonary embolism and the along for medical evaluation with warfarin, degenerative arthritis, hypertension, hyperlipidemia, obesity, obstructive sleep apnea not utilizing any form of devices at this point in time. History of Any Multi-Drug Resistant Organisms: None Reported Past Surgical History: Unable to Obtain, Breast Surgery, Cholecystectomy, Hernia Repair, Hysterectomy Additional Past Surgical History / Comment(s): Surgery to remove cyst on head, HAND SURGERY, CYST REMOVED LEFT BREAST Past Anesthesia/Blood Transfusion Reactions: No Reported Reaction Past Psychological History: Anxiety, Depression Smoking Status: Never smoker Past Alcohol Use History: None Reported Past Drug Use History: None Reported - Past Family History Mother Additional Family Medical History / Comment(s): HEART DISEASE Father Additional Family Medical History / Comment(s): HEART DISEASE General Exam - General Exam Comments Initial Comments: GENERAL: Patient is well-developed and well-nourished. Patient is nontoxic and well- hydrated and is in mild distress. ENT: Neck is soft and supple. No significant lymphadenopathy is noted. Oropharynx is clear. Moist mucous membranes. Neck has full range of motion without eliciting any pain. EYES: The sclera were anicteric and conjunctiva were pink and moist. Extraocular movements were intact and pupils were equal round and reactive to light. Eyelids were unremarkable. PULMONARY: Unlabored respirations. Good breath sounds bilaterally. No audible rales rhonchi or wheezing was noted. CARDIOVASCULAR: There is a regular rate and rhythm without any murmurs gallops or rubs. ABDOMEN: Soft and nontender with normal bowel sounds. SKIN: Patient has a 2 cm diameter abrasion to the left knee above the kneecap. Patient has a hematoma to the left occipital region of the scalp. NEUROLOGIC: Patient is alert and oriented x3. Cranial nerves II through XII are grossly intact. Motor and sensory are also intact. Normal speech, volume and content. Symmetrical smile. MUSCULOSKELETAL: Normal extremities with adequate strength and full range of motion. LYMPHATICS: No significant lymphadenopathy is noted PSYCHIATRIC: Normal psychiatric evaluation. Limitations: no limitations Course Vital Signs 12/23/22 15:02 Temperature 97.9 F Pulse Rate 61 Respiratory 19 Rate Blood Pressure 187/87 O2 Sat by Pulse 96 Oximetry Medical Decision Making - Medical Decision Making EKG was interpreted by myself EKG shows a sinus bradycardia 59 bpm MA interval is 170 QRS is 70 QT interval 431 QTC is 429. Patient's EKG shows no ST segment elevation or depression. Was pt. sent in by a medical professional or institution (, PA, HEEL ATT[employer]ER [employer], urgent care, hospital, or shelter...) When possible be specific @ -No Did you speak to anyone other than the patient for history (EMS, parent, family, police, friend...)? What history was obtained from this source @ -EMS gave a lot of the report because they were the ones at the scene at this time Did you review nursing and triage notes (agree or disagree)? Why? @ -I reviewed and agree with nursing and triage notes Were old charts reviewed (outside hosp., previous admission, EMS record, old EKG, old radiological studies, urgent care reports/EKG's, shelter records)? Report findings @ -No old charts were reviewed Differential Diagnosis (chest pain, altered mental status, abdominal pain women, abdominal pain men, vaginal bleeding, weakness, fever, dyspnea, syncope, headache, dizziness, GI bleed, back pain, seizure, CVA, palpatations, mental health, musculoskeletal)? @ -Differential Headache: Migraine, tension, cluster, carbon monoxide, central venous thrombosis, pension karma temporal arteritis, acute closure glaucoma, intercranial hemorrhage, mastoiditis, sinusitis, head injury, this is not meant to be an all-inclusive list. EKG interpreted by me (3pts min.). @ -As above X-rays interpreted by me (1pt min.). @ -Test x-ray and pelvis x-ray showed no acute abnormality CT interpreted by me (1pt min.). @ -CT of the brain and C-spine show no acute abnormality U/S interpreted by me (1pt. min.). @ -None done What testing was considered but not performed or refused? (CT, X-rays, U/S, labs)? Why? @ -None What meds were considered but not given or refused? Why? @ -None Did you discuss the management of the patient with other professionals (professionals i.e. , PA, HEEL ATT[employer], lab, RT, psych nurse, social sciences lecturer, washtub worker, teacher, fire management officer, caseworker intake)? Give summary @ -No Was smoking cessation discussed for >3mins.? @ -No Was critical care preformed (if so, how long)? @ -No Were there social determinants of health that impacted care today? How? (Homelessness, low income, unemployed, alcoholism, drug addiction, transportation, low edu. Level, literacy, decrease access to med. care, retirement, rehab)? @ -No Was there de-escalation of care discussed even if they declined (Discuss DNR or withdrawal of care, Hospice)? DNR status @ -No What co-morbidities impacted this encounter? (DM, HTN, Smoking, COPD, CAD, Cancer, CVA, ARF, Chemo, Hep., AIDS, mental health diagnosis, sleep apnea, morbid obesity)? @ -None Was patient admitted / discharged? Hospital course, mention meds given and route, prescriptions, significant lab abnormalities, going to OR and other pertinent info. @ -After all lab work and x-rays and CAT scans were back I went back in and talked with the patient family member was there in both of her in agreement that they felt comfortable with the patient going home and patient states she just felt sore all over but had no specific complaints and no longer had a headache. Son states that he'll be able to see her at least every day. Once patient was discharged to try to get up on the her feet and her ankle was hurting so an x- ray was done and showed no acute fracture. Undiagnosed new problem with uncertain prognosis? @ -No Drug Therapy requiring intensive monitoring for toxicity (Heparin, Nitro, Insulin, Cardizem)? @ -No Were any procedures done? @ -No Diagnosis/symptom? @ -Head injury Acute, or Chronic, or Acute on Chronic? @ -Acute Uncomplicated (without systemic symptoms) or Complicated (systemic symptoms)? @ -Complicated Side effects of treatment? @ -No Exacerbation, Progression, or Severe Exacerbation? @ -No Poses a threat to life or bodily function? How? (Chest pain, [place], [place], pneumonia, PE, COPD, DKA, ARF, appy, cholecystitis, CVA, Diverticulitis, Homicidal, Suicidal, threat to staff... and all critical care pts) @ -No Diagnosis/symptom? @ -Hematoma scalp Acute, or Chronic, or Acute on Chronic? @ -Acute Uncomplicated (without systemic symptoms) or Complicated (systemic symptoms)? @ -Uncomplicated Side effects of treatment? @ -none Exacerbation, Progression, or Severe Exacerbation] @ -no Poses a threat to life or bodily function? @ -no Diagnosis/symptom? @ -Abrasion knee Acute, or Chronic, or Acute on Chronic? @ -Acute Uncomplicated (without systemic symptoms) or Complicated (systemic symptoms)? @ -Uncomplicated Side effects of treatment? @ -none Exacerbation, Progression, or Severe Exacerbation] @ -no Poses a threat to life or bodily function? @ -no Diagnosis/symptom? @ -Cervical strain Acute, or Chronic, or Acute on Chronic? @ -Acute Uncomplicated (without systemic symptoms) or Complicated (systemic symptoms)? @ -Uncomplicated Side effects of treatment? @ -none Exacerbation, Progression, or Severe Exacerbation] @ -no Poses a threat to life or bodily function? @ -no - Lab Data Result diagrams: 12/23/22 15:13 12/23/22 15:13 Lab Results 12/23/22 12/23/22 12/23/22 Range/Units 15:13 15:13 15:13 WBC 8.2 (3.8-10.6) k/uL RBC 4.24 (3.80-5.40) m/uL Hgb 11.2 L (11.4-16.0) gm/dL Hct 35.9 (34.0-46.0) % MCV 84.5 (80.0-100.0) fL MCH 26.5 (25.0-35.0) pg MCHC 31.3 (31.0-37.0) g/dL RDW 15.5 (11.5-15.5) % Plt Count 192 (150-450) k/uL MPV 9.0 Neutrophils % 74 % Lymphocytes % 12 % Monocytes % 7 % Eosinophils % 5 % Basophils % 0 % Neutrophils # 6.0 (1.3-7.7) k/uL Lymphocytes # 1.0 (1.0-4.8) k/uL Monocytes # 0.6 (0-1.0) k/uL Eosinophils # 0.4 (0-0.7) k/uL Basophils # 0.0 (0-0.2) k/uL Hypochromasia Moderate PT 13.1 H (9.0-12.0) sec INR 1.3 H (<1.2) APTT 24.4 (22.0-30.0) sec Sodium (137-145) mmol/L Potassium (3.5-5.1) mmol/L Chloride (98-107) mmol/L Carbon Dioxide (22-30) mmol/L Anion Gap mmol/L BUN (7-17) mg/dL Creatinine (0.52-1.04) mg/dL Est GFR (CKD-EPI)AfAm (>60 ml/min/1.73 sqM) Est GFR (CKD-EPI)NonAf (>60 ml/min/1.73 sqM) Glucose (74-99) mg/dL Calcium (8.4-10.2) mg/dL Total Bilirubin (0.2-1.3) mg/dL AST (14-36) U/L ALT (4-34) U/L Alkaline Phosphatase (38-126) U/L Troponin I (0.000-0.034) ng/mL Total Protein (6.3-8.2) g/dL Albumin (3.5-5.0) g/dL Urine Opiates Screen Not Detected (NotDetected) Ur Oxycodone Screen Not Detected (NotDetected) Urine Methadone Screen Not Detected (NotDetected) Ur Propoxyphene Screen Not Detected (NotDetected) Ur Barbiturates Screen Not Detected (NotDetected) U Tricyclic Antidepress Not Detected (NotDetected) Ur Phencyclidine Scrn Not Detected (NotDetected) Ur Amphetamines Screen Not Detected (NotDetected) U Methamphetamines Scrn Not Detected (NotDetected) U Benzodiazepines Scrn Not Detected (NotDetected) Urine Cocaine Screen Not Detected (NotDetected) U Marijuana (THC) Screen Not Detected (NotDetected) Serum Alcohol mg/dL Blood Type Blood Type Confirm Blood Type Recheck Bld Type Recheck Status Antibody Screen Spec Expiration Date 08/02/23 08/02/23 08/02/23 Range/Units 15:13 15:13 15:13 WBC (3.8-10.6) k/uL RBC (3.80-5.40) m/uL Hgb (11.4-16.0) gm/dL Hct (34.0-46.0) % MCV (80.0-100.0) fL MCH (25.0-35.0) pg MCHC (31.0-37.0) g/dL RDW (11.5-15.5) % Plt Count (150-450) k/uL MPV Neutrophils % % Lymphocytes % % Monocytes % % Eosinophils % % Basophils % % Neutrophils # (1.3-7.7) k/uL Lymphocytes # (1.0-4.8) k/uL Monocytes # (0-1.0) k/uL Eosinophils # (0-0.7) k/uL Basophils # (0-0.2) k/uL Hypochromasia PT (9.0-12.0) sec INR (<1.2) APTT (22.0-30.0) sec Sodium 138 (137-145) mmol/L Potassium 4.8 (3.5-5.1) mmol/L Chloride 103 (98-107) mmol/L Carbon Dioxide 26 (22-30) mmol/L Anion Gap 9 mmol/L BUN 22 H (7-17) mg/dL Creatinine 1.38 H (0.52-1.04) mg/dL Est GFR (CKD-EPI)AfAm 43 (>60 ml/min/1.73 sqM) Est GFR (CKD-EPI)NonAf 37 (>60 ml/min/1.73 sqM) Glucose 83 (74-99) mg/dL Calcium 9.0 (8.4-10.2) mg/dL Total Bilirubin 0.6 (0.2-1.3) mg/dL AST 23 (14-36) U/L ALT 13 (4-34) U/L Alkaline Phosphatase 133 H (38-126) U/L Troponin I <0.012 (0.000-0.034) ng/mL Total Protein 7.7 (6.3-8.2) g/dL Albumin 4.1 (3.5-5.0) g/dL Urine Opiates Screen (NotDetected) Ur Oxycodone Screen (NotDetected) Urine Methadone Screen (NotDetected) Ur Propoxyphene Screen (NotDetected) Ur Barbiturates Screen (NotDetected) U Tricyclic Antidepress (NotDetected) Ur Phencyclidine Scrn (NotDetected) Ur Amphetamines Screen (NotDetected) U Methamphetamines Scrn (NotDetected) U Benzodiazepines Scrn (NotDetected) Urine Cocaine Screen (NotDetected) U Marijuana (THC) Screen (NotDetected) Serum Alcohol <10 mg/dL Blood Type Blood Type Confirm Blood Type Recheck No Previous Record Bld Type Recheck Status CABO Indicated Antibody Screen Spec Expiration Date 12/26/2022 - 231212/23/22 12/23/22 Range/Units 15:41 15:44 WBC (3.8-10.6) k/uL RBC (3.80-5.40) m/uL Hgb (11.4-16.0) gm/dL Hct (34.0-46.0) % MCV (80.0-100.0) fL MCH (25.0-35.0) pg MCHC (31.0-37.0) g/dL RDW (11.5-15.5) % Plt Count (150-450) k/uL MPV Neutrophils % % Lymphocytes % % Monocytes % % Eosinophils % % Basophils % % Neutrophils # (1.3-7.7) k/uL Lymphocytes # (1.0-4.8) k/uL Monocytes # (0-1.0) k/uL Eosinophils # (0-0.7) k/uL Basophils # (0-0.2) k/uL Hypochromasia PT (9.0-12.0) sec INR (<1.2) APTT (22.0-30.0) sec Sodium (137-145) mmol/L Potassium (3.5-5.1) mmol/L Chloride (98-107) mmol/L Carbon Dioxide (22-30) mmol/L Anion Gap mmol/L BUN (7-17) mg/dL Creatinine (0.52-1.04) mg/dL Est GFR (CKD-EPI)AfAm (>60 ml/min/1.73 sqM) Est GFR (CKD-EPI)NonAf (>60 ml/min/1.73 sqM) Glucose (74-99) mg/dL Calcium (8.4-10.2) mg/dL Total Bilirubin (0.2-1.3) mg/dL AST (14-36) U/L ALT (4-34) U/L Alkaline Phosphatase (38-126) U/L Troponin I (0.000-0.034) ng/mL Total Protein (6.3-8.2) g/dL Albumin (3.5-5.0) g/dL Urine Opiates Screen (NotDetected) Ur Oxycodone Screen (NotDetected) Urine Methadone Screen (NotDetected) Ur Propoxyphene Screen (NotDetected) Ur Barbiturates Screen (NotDetected) U Tricyclic Antidepress (NotDetected) Ur Phencyclidine Scrn (NotDetected) Ur Amphetamines Screen (NotDetected) U Methamphetamines Scrn (NotDetected) U Benzodiazepines Scrn (NotDetected) Urine Cocaine Screen (NotDetected) U Marijuana (THC) Screen (NotDetected) Serum Alcohol mg/dL Blood Type A Positive Blood Type Confirm A Positive Blood Type Recheck Bld Type Recheck Status Antibody Screen NEGATIVE Spec Expiration Date Disposition Clinical Impression: Fall, Head injury, Hematoma, Abrasion, knee, Ankle strain Disposition: HOME SELF-CARE Instructions (If sedation given, give patient instructions): Head Injury (ED), Fall Prevention (ED) Is patient prescribed a controlled substance at d/c from ED?: No Referrals: Rigoberto David MD [Primary Care Provider] - 1-2 days Time of Disposition: 19:12
[2022-12-23 16:06] LABS: Basophils % (A) 0 %; Eosinophils # (A) 0.4 k/uL (0-0.7); Eosinophils % (A) 5 %; HCT 35.9 % (34.0-46.0); HGB 11.2 gm/dL (11.4-16.0); Hypochromasia Moderate; Lymphocytes % (A) 12 %; MCH 26.5 pg (25.0-35.0); MCHC 31.3 g/dL (31.0-37.0); MCV 84.5 fL (80.0-100.0); Monocytes # (A) 0.6 k/uL (0-1.0); Monocytes % (A) 7 %; Neutrophils % (A) 74 %; Platelet Count 192 k/uL (150-450); RBC 4.24 m/uL (3.80-5.40); RDW 15.5 % (11.5-15.5); WBC 8.2 k/uL (3.8-10.6)
[2022-12-23 16:14] LABS: INR 1.3 (<1.2); Partial Thromboplastin Time 24.4 sec (22.0-30.0); Prothrombin Time 13.1 sec (9.0-12.0)
[2022-12-23 16:20] LABS: ALT 13 U/L (4-34); AST 23 U/L (14-36); African American GFR (CKD) 43 (>60 ml/min/1.73 sqM); Albumin 4.1 g/dL (3.5-5.0); Alcohol <10 mg/dL; Alkaline Phosphatase 133 U/L (38-126); Anion Gap 9 mmol/L; Blood Urea Nitrogen 22 mg/dL (7-17); Carbon Dioxide 26 mmol/L (22-30); Chloride 103 mmol/L (98-107); Glucose 83 mg/dL (74-99); Non-African American GFR(CKD) 37 (>60 ml/min/1.73 sqM); Potassium 4.8 mmol/L (3.5-5.1); Sodium 138 mmol/L (137-145); Total Bilirubin 0.6 mg/dL (0.2-1.3); Total Protein 7.7 g/dL (6.3-8.2)
[2022-12-23 16:33] LABS: Amphetamine Screen,Urine Not Detected (NotDetected); Barbiturate Screen,Urine Not Detected (NotDetected); Benzodiazepines Screen,Urine Not Detected (NotDetected); Cocaine Screen,Urine Not Detected (NotDetected); Methadone Screen, Urine Not Detected (NotDetected); Opiate Screen,Urine Not Detected (NotDetected); Oxycodone Screen, Urine Not Detected (NotDetected); Phencyclidine Screen,Urine Not Detected (NotDetected); Tricyclic Antidepressant,Urine Not Detected (NotDetected); Urn Cannabinoid Scrn Not Detected (NotDetected)
--- NOTE | 2022-12-23 16:56 | CT ---
EXAMINATION TYPE: CT brain trishaine wo con DATE OF EXAM: 12/23/2022 COMPARISON: No comparison studies at this location. HISTORY: Trauma, fall, hit back of head. Hx brain ca. CT DLP: 1879.8 mGycm, Automated exposure control for dose reduction was used. CONTRAST: Patient injected with 0 mL of Isovue 300. CT of the brain is performed utilizing 3 mm thick sections through the posterior fossa and 3 mm thick sections through the remaining calvarium. Study is performed within 24 hours of arrival to the hospital. No abnormal hyperdensity is present to suggest an acute intracranial hemorrhage. There is a calcified mass heterogenous appearance in the midline near the vertex measuring 3.1 x 3.2 x 2.7 cm. This does have some local mass effect without significant edema. More posteriorly, there is additional calcified mass along the posterior right falx could be a menin gioma. No acute infarcts are evident. Ventricles and sulci are appropriate for the patient age. There is hyperostosis frontalis internus present, normal variant. There is soft tissue swelling over the occipital region near the vertex. Paranasal sinuses and mastoid air cells within the [id number] are clear. IMPRESSIONS: 1. No acute intracranial posttraumatic changes. 2. Calcified heterogenous well-defined masses at the vertex may be related to meningiomas. Comparison images not available at this location. CT cervical spine. COMPARISON: None CT of the cervical spine is performed in the axial plane at 2 mm thick sections. Reconstructed image s in the coronal, and sagittal plane are reviewed on the computer. No acute fractures are evident. Vertebral body alignment is normal. There is narrowing of disc height throughout the cervical spine. Posterior spinal lamellar line appea rs intact. Small posterior endplate spurs are present at C4-5 C5-6. Vertebral body heights are preserved. No spinal canal stenosis is evident. Uncovertebral joint hypertrophy is present C4-5 and C5-6 with bilateral foraminal stenosis. IMPRESSIONS: 1. Diffuse degenerative disc changes throughout the cervical spine. 2. Foraminal stenosis C4-5 C5-6 from uncovertebral joint hypertrophy. 3. No acute osseous abnormality cervical spine
--- NOTE | 2022-12-23 17:54 | XR ---
EXAMINATION TYPE: XR lumbosacral spine min 4V DATE OF EXAM: 12/23/2022 5:25 PM INDICATION: Patient age:Female; 77 years old; Reason for study: Trauma; COMPARISON: 01/28/2022 PET/CT. TECHNIQUE: Frontal, lateral , bilateral oblique and coned in L5-S1 lateral views of the spine. FINDINGS: No evidence of any acute osseous pathology. No evidence of loss of vertebral body height i s seen. There is grade 2 anterolisthesis of L4 and L5 alignment of the lumbar vertebral bodies. Scatt ered disc space narrowing. Multilevel marginal osteophyte formation throughout the visualized spine. There is facet joint arthropathy throughout the spine. Scattered at least moderate neural foraminal s tenosis worse at L4-L5. IMPRESSION: 1. Severe degeneration no obvious acute fracture visualized. 2. Grade 2 anterolisthesis of L4 and L5.
[2022-12-23 19:07] VITALS: BP 187/87; PULSE 61; RESP 19; TEMP 97.9
--- NOTE | 2022-12-23 20:27 | XR ---
EXAMINATION TYPE: XR ankle complete RT DATE OF EXAM: 12/23/2022 7:51 PM INDICATION: Patient age:Female; 77 years old; Reason for study: pain; COMPARISON: None TECHNIQUE: The right ankle is imaged in frontal, lateral and oblique projections. FINDINGS: Underpenetrated film limits evaluation for fractures. There is no evidence of acute osseous pathology. The joint spaces are well-preserved without evidenc e of subluxation or dislocation. Kager's fat pad is intact. No radiopaque foreign bodies are identifi ed. Calcaneal Achilles enthesophyte present. Degeneration changes of the first digit metacarpal phala ngeal joint. IMPRESSION: 1. Poor penetration limits evaluation, No evidence of acute fracture. Consider cross-sectional imagin g.
== END 2022-12-23 20:49 | disposition home or self-care (01) ==
LOC: EC 14:59
DX: S00.03XA Contusion of scalp, initial encounter (principal); S93.401A Sprain of unspecified ligament of right ankle, initial encounter; S80.212A Abrasion, left knee, initial encounter; E78.5 Hyperlipidemia, unspecified; I10 Essential (primary) hypertension; E11.9 Type 2 diabetes mellitus without complications; E66.9 Obesity, unspecified; F41.9 Anxiety disorder, unspecified; F32.A Depression, unspecified; Z68.39 Body mass index [BMI] 39.0-39.9, adult; Z88.8 Allergy status to other drugs, medicaments and biological substances; Z91.013 Allergy to seafood; Z79.01 Long term (current) use of anticoagulants; Z79.899 Other long term (current) drug therapy; Z23 Encounter for immunization; V00.811A Fall from moving wheelchair (powered), initial encounter
CPT/HCPCS: 36415; 93005; 86900; 86901; 80053; 84484; 85025; 85610; 85730; 86850; 80306; 72110; 72170; 73610; 71045; 72125; 70450; 90715; 99285; 90471; G0480; 80320

== ENCOUNTER → 2023-12-30 | Outpatient (CLI) | payer MEDICARE, OTHER | END | disposition home or self-care (01) | LOC: LABPRL 10:47 | PROVIDERS: ATTEND Internal Medicine Hematology & Oncology | CPT/HCPCS: 80053; 83735 ==

== ENCOUNTER → 2024-02-16 | Outpatient (CLI) | payer MEDICARE, OTHER ==
[2024-02-16 11:00] LABS: African American GFR (CKD) 47 (>60 ml/min/1.73 sqM); Blood Urea Nitrogen 27 mg/dL (7-17); Non-African American GFR(CKD) 41 (>60 ml/min/1.73 sqM)
--- NOTE | 2024-02-16 12:54 | CT ---
EXAMINATION TYPE: CT neck chest without con CT DLP: 2159.20 mGycm, Automated exposure control for dose reduction was used. DATE OF EXAM: 02/16/2024 12:12 PM COMPARISON: CT chest 11/03/2023, CT neck 11/03/2023. CLINICAL INDICATION:Female, 78 years old with history of C44.42 SQUAMOUS CELL CARCINOMA;, Squamous ce ll carcinoma TECHNIQUE: Standard CT of the neck and chest without intravenous contrast. This limits evaluation. Ax ial sections with coronal and sagittal reformats were obtained. FINDINGS: BRAIN: Visualized portions are grossly unremarkable. ORBITS: Bilateral aphakia. SINUSES: Grossly unremarkable. SPACES OF THE NECK: Left submandibular and parotid glands appear unremarkable. There is atrophy with scarring of the right mandibular gland. There is similar soft tissue attenuation involving posterior and inferior aspects of the right parotid gland as described below. Retropharyngeal space appears unr emarkable. Oral pharyngeal cavity appears stable. Larynx appears stable. MUSCULOSKELETAL: No acute osseous pathology. LYMPH NODES: Marginal increase in size of right submental lymph node measuring 1 cm short axis, prev iously 0.9 cm.. No suspicious left-sided neck lymph nodes identified. VASCULAR STRUCTURES: Unremarkable noncontrast appearance. THORACIC INLET/AIRWAY: Airway is patent. The lung apices are clear. SOFT TISSUES/THYROID: Enlarged thyroid gland with multiple subcentimeter hypodense nodules redemonstr ated. Post surgical changes from radical right neck dissection redemonstrated with surgical clips and skin deformities. There is soft tissue stranding again demonstrated within the right supraclavicular level abutting the clavicle which is unchanged. There is similar soft tissue abutting the inferior p ortion of the parotid gland measuring up to 3.4 cm. Similar when measured with similar technique. Adj acent opacification of the right inferior mastoid air cells again. OTHER: none. LUNGS/ PLEURA: No pleural effusion, pneumothorax, focal consolidation. Linear scarring or atelectasis within the bilateral lower lungs. Calcified granuloma within the right lower lung. No new suspiciou s pulmonary nodules or masses. AIRWAY: Patent and unremarkable. HEART: Enlarged. No pericardial effusion. Aortic valvular calcifications. RCA calcifications. MEDIASTINUM: No gross evidence of adenopathy. VASCULATURE: No aortic aneurysm. 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 Otherwise no suspicious lesions. Degenerative changes of the visualized sp ine. Increased thoracic kyphosis. Findings of DISH. SOFT TISSUES/LYMPH NODES: Unremarkable. LOWER NECK: Heterogenous and enlarged thyroid gland with multiple small subcentimeter hypodense nodul es redemonstrated. UPPER ABDOMEN: Large paraesophageal hernia is again noted with the majority of the stomach within the thoracic cavity. Post cholecystectomy changes. Rounded calcification within the gallbladder fossa re demonstrated possibly representing retained gallstone. There is again dilation of the extrahepatic bi liary duct likely physiologic from cholecystectomy. Calcifications are again seen within the felice he patis likely representing granulomatous disease or postsurgical changes. Redemonstration of expansile soft tissue lesion within the right adrenal gland with punctate calcifications measuring up to 3.7 c m. Remains stable and likely represents an adrenal myelolipoma. IMPRESSION: 1. Redemonstration of postsurgical changes consistent with right radical neck dissection. There is a gain soft tissue identified within the right neck involving the posterior and inferior aspects of the right parotid gland. Additional region identified within the right supraclavicular region. Overall t hese are grossly similar to prior exam within limitations of a noncontrast exam. Marginal increase in size of 1 cm right submental lymph node. Overall findings may represent posttreatment change however underlying residual cancer is not excluded. Recommend further evaluation with PET/CT. 2. Continued opacification of the inferior right mastoid air cells which may be postsurgical versus representing mastoiditis. 3. Enlarged thyroid lobe with multiple nodules. Consider further evaluation with thyroid ultrasound if not previously performed. 4. 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 No new suspicious osseous lesions. 5. Post surgical changes consistent with cholecystectomy with likely retained gallstone and multiple calcified lymph nodes redemonstrated. 6. Large paraesophageal hernia redemonstrated. 7. Soft tissue right adrenal lesion is stable and consistent with an adrenal myolipoma. [facility], , 02/16/2024 12:51 PM
== END | disposition home or self-care (01) ==
LOC: RADCTMAIN 10:09
PROVIDERS: ATTEND Internal Medicine Hematology & Oncology
DX: C44.42 Squamous cell carcinoma of skin of scalp and neck
CPT/HCPCS: 70490; 71250; 82565; 84520

== ENCOUNTER 2024-03-24 14:36 | Inpatient (IN) | payer MEDICARE, OTHER ==
--- NOTE | 2024-03-24 16:20 | ED ---
GI Bleed HPI - General Chief complaint: GI Bleed Stated complaint: Poss GI Bleed Time Seen by Provider: 03/24/24 15:15 Source: patient, RN notes reviewed, old records reviewed Mode of arrival: EMS Limitations: no limitations - History of Present Illness Initial comments: This is a 78-year-old female to the ER for evaluation patient presents today for evaluation regards to abdominal pain vomiting bleeding blood in the stool blood in the vomit black stools black vomit, decreased appetite history of abdominal hernia with abdominal pain, patient is on Coumadin for blood thinner secondary to blood clots MD complaint: blood streaked emesis, melena -: days(s) Radiation: none Severity scale (1-10): 7 Quality: painless Consistency: constant Improves with: none Worsens with: none Context: history of GI bleed, blood thinners Associated Symptoms: abdominal pain, nausea, vomiting, loss of appetite, shortn ess of breath, weakness Treatments Prior to Arrival: none - Related Data Home Medications Medication Instructions Recorded Confirmed Cholecalciferol [Vitamin D3 (25 25 mcg PO DAILY 06/12/21 03/24/24 Mcg = 1000 Iu)] Metoprolol Tartrate [Lopressor] 50 mg PO BID 06/12/21 03/24/24 Omeprazole 20 mg PO DAILY 06/12/21 03/24/24 traMADol HCl [Ultram] 100 mg PO TID PRN 06/12/21 03/24/24 metFORMIN HCL [Glucophage] 500 mg PO DAILY 12/23/22 03/24/24 rOPINIRole HCL [Requip] 5 mg PO HS 12/23/22 03/24/24 Escitalopram [Lexapro] 10 mg PO DAILY 03/24/24 03/24/24 Prochlorperazine [Compazine] 10 mg PO Q6H PRN 03/24/24 03/24/24 Warfarin [Coumadin] 1 mg PO HS 03/24/24 03/24/24 Warfarin [Coumadin] 5 mg PO HS 03/24/24 03/24/24 Allergies Allergy/AdvReac Type Severity Reaction Status Date / Time Fish Containing Products Allergy Dyspnea Verified 03/24/24 16:16 [Fish] iodine Allergy Rash/Hives Verified 03/24/24 16:16 shellfish derived [Shellfish] Allergy Rash/Hives Verified 03/24/24 16:16 oxybutynin [From Ditropan] AdvReac Nausea & Verified 03/24/24 16:16 Vomiting & Diarrhea Review of Systems ROS Statement: Those systems with pertinent positive or pertinent negative responses have been documented in the HPI. ROS Other: All systems not noted in ROS Statement are negative. Past Medical History Past Medical History: Diabetes Mellitus, Hypertension, Sleep Apnea/CPAP/BIPAP Additional Past Medical History / Comment(s): COPD, osteoarthritis, previous history of DVT and pulmonary embolism and the along for medical evaluation with warfarin, degenerative arthritis, hypertension, hyperlipidemia, obesity, obstructive sleep apnea not utilizing any form of devices at this point in time. History of Any Multi-Drug Resistant Organisms: None Reported Past Surgical History: Unable to Obtain, Breast Surgery, Cholecystectomy, Hernia Repair, Hysterectomy Additional Past Surgical History / Comment(s): Surgery to remove cyst on head, HAND SURGERY, CYST REMOVED LEFT BREAST Past Anesthesia/Blood Transfusion Reactions: No Reported Reaction Past Psychological History: Anxiety, Depression Smoking Status: Never smoker Past Alcohol Use History: None Reported Past Drug Use History: None Reported - Past Family History Mother Additional Family Medical History / Comment(s): HEART DISEASE Father Additional Family Medical History / Comment(s): HEART DISEASE General Exam Limitations: no limitations General appearance: alert, in no apparent distress, anxious Head exam: Present: atraumatic, normocephalic, normal inspection Eye exam: Present: normal appearance, PERRL, EOMI. Absent: scleral icterus, conjunctival injection, periorbital swelling ENT exam: Present: normal exam, mucous membranes moist Neck exam: Present: normal inspection. Absent: tenderness, meningismus, lymphadenopathy Respiratory exam: Present: normal lung sounds bilaterally. Absent: respiratory distress, wheezes, rales, rhonchi, stridor Cardiovascular Exam: Present: regular rate, normal rhythm, normal heart sounds. Absent: systolic murmur, diastolic murmur, rubs, gallop, clicks GI/Abdominal exam: Present: soft, normal bowel sounds. Absent: distended, tenderness, guarding, rebound, rigid Extremities exam: Present: normal inspection, full ROM, normal capillary refill. Absent: tenderness, pedal edema, joint swelling, calf tenderness Back exam: Present: normal inspection Neurological exam: Present: alert, oriented X3, CN II-XII intact Psychiatric exam: Present: normal affect, normal mood Skin exam: Present: warm, dry, intact, normal color. Absent: rash Course Vital Signs 03/24/24 03/24/24 03/24/24 14:38 18:00 19:38 Temperature 98.2 F Pulse Rate 84 72 87 Respiratory 20 20 18 Rate Blood Pressure 112/74 118/73 95/61 O2 Sat by Pulse 97 96 99 Oximetry 03/24/24 20:15 Temperature Pulse Rate 85 Respiratory 18 Rate Blood Pressure 113/77 O2 Sat by Pulse 98 Oximetry - Reevaluation(s) Reevaluation #1: 03/24/24 16:36 Medical records reviewed Reevaluation #2: 03/24/24 20:22 No significant amount of blood loss, vital signs have maintained stable Reevaluation #3: 03/24/24 20:22 Patient informed of results questions answered Reevaluation #4: Was pt. sent in by a medical professional or institution (, [facility], [employer], urgent care, hospital, or [place] health care facility...) When possible be specific @ -no Did you speak to anyone other than the patient for history (EMS, parent, family, police, friend...)? What history was obtained from this source @ -no Did you review nursing and triage notes (agree or disagree)? Why? @ -agree Are old charts reviewed (outside hosp., previous admission, EMS record, old EKG, old radiological studies, urgent care reports/EKG's, [place] health care facility records)? Report findings @ -yes Differential Diagnosis (chest pain, altered mental status, abdominal pain women, abdominal pain men, vaginal bleeding, weakness, fever, dyspnea, syncope, headache, dizziness, GI bleed, back pain, seizure, CVA, palpatations, mental health, musculoskeletal)? @ -prior EKG interpreted by me (3pts min.). @ -yes X-rays interpreted by me (1pt min.). @ -yes negative for acute disease CT interpreted by me (1pt min.). @ -no U/S interpreted by me (1pt. min.). @ -no What testing was considered but not performed or refused? (CT, X-rays, U/S, labs)? Why? @ -none What meds were considered but not given or refused? Why? @ -none Did you discuss the management of the patient with other professionals (professionals i.e. Dr., PA, [employer], lab, RT, psych nurse, school social worker, well services operator, teacher, nursing officer, rn case mgr)? Give summary @ -no Was smoking cessation discussed for >3mins.? @ -no Was critical care preformed (if so, how long)? @ -yes31 Were there social determinants of health that impacted care today? How? (Homelessness, low income, unemployed, alcoholism, drug addiction, trans portation, low edu. Level, literacy, decrease access to med. care, half-way, rehab)? @ -none Was there de-escalation of care discussed even if they declined (Discuss DNR or withdrawal of care, Hospice)? DNR status @ -no What co-morbidities impacted this encounter? (DM, HTN, Smoking, COPD, CAD, Cancer, CVA, ARF, Chemo, Hep., AIDS, mental health diagnosis, sleep apnea, morbid obesity)? @ -none Was patient admitted / discharged? Hospital course, mention meds given and route, prescriptions, significant lab abnormalities, going to OR and other pertinent info. @ - 78 female to the ER for evaluation patient will be admitted for significant abnormal lab values, and significant coagulopathy Coumadin coagulopathy with suspected GI bleed, will reverse patient's Coumadin level Admitted Undiagnosed new problem with uncertain prognosis? @ -no Drug Therapy requiring intensive monitoring for toxicity (Heparin, Nitro, Insulin, Cardizem)? @ -no Were any procedures done? @ -no Diagnosis/symptom? @ -GI bleed with coagulopathy Acute, or Chronic, or Acute on Chronic? @ -Acute Uncomplicated (without systemic symptoms) or Complicated (systemic symptoms)? @ -Complicated Side effects of treatment? @ -no Exacerbation, Progression, or Severe Exacerbation? @ -exacerbation Poses a threat to life or bodily function? How? (Chest pain, USA, NC, pneumonia, PE, COPD, DKA, ARF, appy, cholecystitis, CVA, Diverticulitis, Homicidal, Suicidal, threat to staff... and all critical care pts) @ -yes extremes of age Reevaluation #5: Differential GI Bleed: Esophageal varices, aortoenteric fistula, Anyi-Anne, gastritis, peptic ulcer disease, diverticulosis, inflammatory bowel disease, hemorrhoids, fissure, colitis, malignancy, Meckel's diverticulum, this is not meant to be an all- inclusive list. - Consultations Consultation #1: Spoke with Dr. David who agrees to admit this patient Medical Decision Making - Medical Decision Making 78 female to the ER for evaluation patient will be admitted for significant abnormal lab values, and significant coagulopathy Coumadin coagulopathy with suspected GI bleed, will reverse patient's Coumadin level - Lab Data Result diagrams: 03/30/24 06:30 03/27/24 13:05 Lab Results 03/24/24 03/24/24 03/24/24 Range/Units 17:33 17:33 17:33 WBC 1.4 L* (3.8-10.6) k/uL RBC 3.80 (3.80-5.40) m/uL Hgb 9.8 L (11.4-16.0) gm/dL Hct 32.0 L (34.0-46.0) % MCV 84.3 (80.0-100.0) fL MCH 25.7 (25.0-35.0) pg MCHC 30.5 L (31.0-37.0) g/dL RDW 16.9 H (11.5-15.5) % Plt Count 114 L (150-450) k/uL MPV 8.2 Neutrophils % (Manual) 64 % Lymphocytes % (Manual) 22 % Monocytes % (Manual) 14 % Neutrophils # (Manual) 0.90 L (1.3-7.7) k/uL Lymphocytes # (Manual) 0.31 L (1.0-4.8) k/uL Monocytes # (Manual) 0.20 (0-1.0) k/uL Nucleated RBCs 0 (0-0) /100 WBC Manual Slide Review Performed Hypochromasia Marked Anisocytosis Slight PT (10.0-12.5) sec INR (<1.2) APTT (22.0-30.0) sec Sodium 138 (137-145) mmol/L Potassium 4.7 (3.5-5.1) mmol/L Chloride 110 H (98-107) mmol/L Carbon Dioxide 21 L (22-30) mmol/L Anion Gap 7 mmol/L BUN 25 H (7-17) mg/dL Creatinine 1.68 H (0.52-1.04) mg/dL Est GFR (CKD-EPI)AfAm 34 (>60 ml/min/1.73 sqM) Est GFR (CKD-EPI)NonAf 29 (>60 ml/min/1.73 sqM) Glucose 80 (74-99) mg/dL Plasma Lactic Acid Otis (0.7-2.0) mmol/L Calcium 8.4 (8.4-10.2) mg/dL Magnesium 2.0 (1.6-2.3) mg/dL Total Bilirubin 0.7 (0.2-1.3) mg/dL AST 33 (14-36) U/L ALT 14 (4-34) U/L Alkaline Phosphatase 111 (38-126) U/L Troponin I 0.017 (0.000-0.034) ng/mL Total Protein 6.8 (6.3-8.2) g/dL Albumin 3.6 (3.5-5.0) g/dL Lipase 88 (23-300) U/L 03/24/24 03/24/24 Range/Units 18:10 18:10 WBC (3.8-10.6) k/uL RBC (3.80-5.40) m/uL Hgb (11.4-16.0) gm/dL Hct (34.0-46.0) % MCV (80.0-100.0) fL MCH (25.0-35.0) pg MCHC (31.0-37.0) g/dL RDW (11.5-15.5) % Plt Count (150-450) k/uL MPV Neutrophils % (Manual) % Lymphocytes % (Manual) % Monocytes % (Manual) % Neutrophils # (Manual) (1.3-7.7) k/uL Lymphocytes # (Manual) (1.0-4.8) k/uL Monocytes # (Manual) (0-1.0) k/uL Nucleated RBCs (0-0) /100 WBC Manual Slide Review Hypochromasia Anisocytosis PT 76.7 H (10.0-12.5) sec INR 7.8 H* (<1.2) APTT 70.4 H (22.0-30.0) sec Sodium (137-145) mmol/L Potassium (3.5-5.1) mmol/L Chloride (98-107) mmol/L Carbon Dioxide (22-30) mmol/L Anion Gap mmol/L BUN (7-17) mg/dL Creatinine (0.52-1.04) mg/dL Est GFR (CKD-EPI)AfAm (>60 ml/min/1.73 sqM) Est GFR (CKD-EPI)NonAf (>60 ml/min/1.73 sqM) Glucose (74-99) mg/dL Plasma Lactic Acid Otis 0.9 (0.7-2.0) mmol/L Calcium (8.4-10.2) mg/dL Magnesium (1.6-2.3) mg/dL Total Bilirubin (0.2-1.3) mg/dL AST (14-36) U/L ALT (4-34) U/L Alkaline Phosphatase (38-126) U/L Troponin I (0.000-0.034) ng/mL Total Protein (6.3-8.2) g/dL Albumin (3.5-5.0) g/dL Lipase (23-300) U/L - Radiology Data Radiology results: pending (Unable to get CT scan), report reviewed (Chest x-ray is negative for acute disease), image reviewed Critical Care Time Critical Care Time: Yes Total Critical Care Time: 31 Disposition Clinical Impression: Dehydration, Acute renal failure (ARF), Coagulopathy, Lower gastrointestinal hemorrhage, Gastrointestinal hemorrhage, Upper gastrointestinal hemorrhage Disposition: ADMITTED IP TO THIS [facility] Condition: Fair Is patient prescribed a controlled substance at d/c from ED?: No Time of Disposition: 20:20
[2024-03-24 17:44] LABS: Anisocytosis Slight; HGB 9.8 gm/dL (11.4-16.0); Hypochromasia Marked; MCH 25.7 pg (25.0-35.0); MCHC 30.5 g/dL (31.0-37.0); MCV 84.3 fL (80.0-100.0); Mean Platelet Volume 8.2; RDW 16.9 % (11.5-15.5)
[2024-03-24 18:01] LABS: ALT 14 U/L (4-34); African American GFR (CKD) 34 (>60 ml/min/1.73 sqM); Albumin 3.6 g/dL (3.5-5.0); Anion Gap 7 mmol/L; Blood Urea Nitrogen 25 mg/dL (7-17); Calcium 8.4 mg/dL (8.4-10.2); Carbon Dioxide 21 mmol/L (22-30); Chloride 110 mmol/L (98-107); Glucose 80 mg/dL (74-99); Lipase 88 U/L (23-300); Non-African American GFR(CKD) 29 (>60 ml/min/1.73 sqM); Sodium 138 mmol/L (137-145); Total Bilirubin 0.7 mg/dL (0.2-1.3); Total Protein 6.8 g/dL (6.3-8.2)
[2024-03-24 18:24] LABS: WBC 1.4 k/uL (3.8-10.6)
[2024-03-24 18:35] LABS: Lymphocytes # (M) 0.31 k/uL (1.0-4.8); Neutrophils % (M) 64 %; Nucleated Red Blood Cells 0 /100 WBC (0-0); Total Cells Counted 100
[2024-03-24 18:38] LABS: Platelet Count 114 k/uL (150-450)
[2024-03-24 18:39] LABS: AST 33 U/L (14-36); Alkaline Phosphatase 111 U/L (38-126); Potassium 4.7 mmol/L (3.5-5.1)
[2024-03-24] MEDS: ONDANSETRON 4 MG/2 ML VIAL IVP STA (18:42)
[2024-03-24] MEDS: SODIUM CHLORIDE 0.9% 1,000 ML IV STA ×2 (18:42→21:08)
[2024-03-24] MEDS: PANTOPRAZOLE 40 MG/10 ML VIAL IVP STA (18:42)
[2024-03-24 18:43] LABS: Prothrombin Time 76.7 sec (10.0-12.5)
[2024-03-24 18:46] LABS: INR 7.8 (<1.2); Partial Thromboplastin Time 70.4 sec (22.0-30.0)
[2024-03-24] MEDS ORDERED: PHYTONADIONE 1 MG in SODIUM CHLORIDE 0.9% 50 ML IVPB STA (19:21)
[2024-03-24] MEDS: PHYTONADIONE ORAL 5 MG/5 ML ORAL.SYRG PO STA (20:10)
[2024-03-24] MEDS ORDERED: NALOXONE 0.4 MG/ML 1 ML VIAL IV PRN (20:20)
[2024-03-24] MEDS: SODIUM CHLORIDE 0.9% 500 ML 500 ML IV STA (21:08)
[2024-03-24] MEDS: SODIUM CHLORIDE 0.9% 1,000 ML IV SCH (21:14)
[2024-03-24] MEDS: traMADol 50 MG TAB PO PRN (22:43)
[2024-03-24] MEDS: METOPROLOL TARTRATE 50 MG TAB PO SCH (22:43)
[2024-03-24] MEDS: PANTOPRAZOLE 40 MG/10 ML VIAL IV SCH (22:44)
[2024-03-25] MEDS: ONDANSETRON 4 MG/2 ML VIAL IVP PRN (04:50)
[2024-03-25 07:29] LABS: Anisocytosis Slight; HCT 27.4 % (34.0-46.0); HGB 8.4 gm/dL (11.4-16.0); Hypochromasia Marked; MCH 26.3 pg (25.0-35.0); MCHC 30.7 g/dL (31.0-37.0); MCV 85.8 fL (80.0-100.0); Mean Platelet Volume 9.2; Platelet Count 130 k/uL (150-450); RBC 3.19 m/uL (3.80-5.40)
[2024-03-25 07:34] LABS: WBC 1.1 k/uL (3.8-10.6)
[2024-03-25 07:47] LABS: ALT 12 U/L (4-34); AST 27 U/L (14-36); African American GFR (CKD) 37 (>60 ml/min/1.73 sqM); Alkaline Phosphatase 96 U/L (38-126); Anion Gap 8 mmol/L; Blood Urea Nitrogen 21 mg/dL (7-17); Calcium 8.2 mg/dL (8.4-10.2); Carbon Dioxide 19 mmol/L (22-30); Chloride 112 mmol/L (98-107); Glucose 76 mg/dL (74-99); Magnesium 1.9 mg/dL (1.6-2.3); Non-African American GFR(CKD) 32 (>60 ml/min/1.73 sqM); Potassium 4.2 mmol/L (3.5-5.1); Sodium 139 mmol/L (137-145); Total Bilirubin 0.5 mg/dL (0.2-1.3); Total Protein 5.9 g/dL (6.3-8.2)
[2024-03-25 07:55] LABS: Lymphocytes # (M) 0.41 k/uL (1.0-4.8); Monocytes # (M) 0.15 k/uL (0-1.0); Neutrophils # (M) 0.54 k/uL (1.3-7.7); Neutrophils % (M) 49 %; Nucleated Red Blood Cells 0 /100 WBC (0-0); Total Cells Counted 100
[2024-03-25] MEDS: ESCITALOPRAM 10 MG TAB PO SCH (08:16)
[2024-03-25 09:04] LABS: Phosphorus 3.8 mg/dL (2.5-4.5)
--- NOTE | 2024-03-25 16:49 | XR ---
EXAMINATION TYPE: XR chest 1V portable DATE OF EXAM: 03/25/2024 4:21 PM COMPARISON: Chest radiographs from 12/23/2022 CLINICAL INDICATION: Female, 78 years old with history of cough, leukopenia; TECHNIQUE: XR chest 1V portable Frontal view of the chest. FINDINGS: Lungs/Pleura: There is no evidence of pleural effusion, focal consolidation, or pneumothorax. Pulmonary vascularity: Unremarkable. Heart/mediastinum: Cardiomediastinal silhouette is unremarkable. Musculoskeletal: No acute osseous pathology. Midline sternotomy wires are noted. IMPRESSION: No acute cardiopulmonary disease/process. [facility], , 03/25/2024 4:47 PM
[2024-03-25 17:12] LABS: ALT 11 U/L (4-34); AST 24 U/L (14-36); African American GFR (CKD) 46 (>60 ml/min/1.73 sqM); Albumin 2.7 g/dL (3.5-5.0); Alkaline Phosphatase 88 U/L (38-126); Anion Gap 5 mmol/L; Blood Urea Nitrogen 16 mg/dL (7-17); Calcium 7.8 mg/dL (8.4-10.2); Carbon Dioxide 19 mmol/L (22-30); Chloride 111 mmol/L (98-107); Glucose 67 mg/dL (74-99); Non-African American GFR(CKD) 40 (>60 ml/min/1.73 sqM); Potassium 3.9 mmol/L (3.5-5.1); Sodium 135 mmol/L (137-145); Total Bilirubin 0.6 mg/dL (0.2-1.3); Total Protein 5.4 g/dL (6.3-8.2)
--- NOTE | 2024-03-25 23:20 | HP ---
HISTORY AND PHYSICAL CHIEF COMPLAINT: Black diarrhea. HISTORY OF PRESENT ILLNESS: This very pleasant 78-year-old female, came to emergency room with black diarrhea and shortness of breath. She is on Coumadin and her INR was 7.8. She denies any abdominal pain or nausea or vomiting. 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 Other than the diarrhea, she has not had any complaints other than feeling slightly short of breath and very very weak. Laboratory studies in the emergency room revealed a white count of 1100, platelets were 144,000, and hemoglobin was 8.4. REVIEW OF SYSTEMS: She has no headaches, chest pain, palpitations, etc. She does have cough and it is slightly productive and she is short of breath. She is not complaining of any abdominal pain. Past medical history, family history, and personal and social histories are otherwise unremarkable and noncontributory. PHYSICAL EXAMINATION: VITAL SIGNS: Normal. HEAD, EARS, EYES, NOSE, MOUTH, AND THROAT: Reveals scars in the right side of the synagogue and right side of the neck. She is slightly pale. CHEST: Demonstrates scattered rhonchi and she has a productive cough. CARDIAC: Normal. ABDOMEN: Soft and nontender. EXTREMITIES: Normal. IMPRESSION: 1. Gastrointestinal hemorrhage. 2. Iatrogenic hyperprothrombinemia. 3. Carcinoma of the right side of the scalp and neck. 4. Leukopenia. 5. Anemia. 6. Thrombocytopenia. 7. Productive cough. PLAN: 1. Bed rest. 2. IV fluids. 3. Vitamin K. 4. Consult Oncology, Pulmonology, and GI. MMODL / IJN: [id number] /
--- NOTE | 2024-03-26 00:02 | PN ---
PROGRESS NOTE DATE OF SERVICE: 03/25/2024 CHIEF COMPLAINT: Gastrointestinal hemorrhage. HISTORY OF PRESENT ILLNESS: This lady is doing fairly well. She is not having any pain. The diarrhea has slowed. PHYSICAL EXAMINATION: SKIN: She is pale. CHEST: Clear. CARDIAC: Normal. ABDOMEN: Soft and nontender. IMPRESSION: 1. Gastrointestinal bleed. 2. Blood-loss anemia. 3. Hyperprothrombinemia. 4. Pancytopenia. 5. Cough. PLAN: 1. Chest x-ray. 2. Consult GI, Pulmonology, and Oncology. MMODL / IJN: [id number] /
[2024-03-26 07:28] LABS: Anisocytosis Slight; HGB 8.1 gm/dL (11.4-16.0); Hypochromasia Marked; MCH 25.6 pg (25.0-35.0); MCHC 30.1 g/dL (31.0-37.0); MCV 85.2 fL (80.0-100.0); Mean Platelet Volume 10.1; RBC 3.17 m/uL (3.80-5.40); RDW 17.2 % (11.5-15.5)
[2024-03-26 07:31] LABS: WBC 0.9 k/uL (3.8-10.6)
[2024-03-26 08:15] LABS: RBC Fragments Present
[2024-03-26 08:25] LABS: Platelet Count 208 k/uL (150-450)
[2024-03-26] MEDS ORDERED: PANTOPRAZOLE 40 MG TABLET PO SCH (09:00)
--- NOTE | 2024-03-26 11:04 | P.CON ---
Consult Note - . Consult date: 03/26/24 Assessment/Plan:: This is a 78-year-old female to the [facility] ER for evaluation in regards to abdominal pain. She is vomiting blood and has blood in stool. The patient is on Coumadin for blood thinner secondary to blood clots. She states most her pain is in epigastric region. Review of Systems ROS Statement: Those systems with pertinent positive or pertinent negative responses have been documented in the HPI. ROS Other: All systems not noted in ROS Statement are negative. Past Medical History Past Medical History: Diabetes Mellitus, Hypertension, Sleep Apnea/CPAP/BIPAP Additional Past Medical History / Comment(s): COPD, osteoarthritis, previous history of DVT and pulmonary embolism and the along for medical evaluation with warfarin, degenerative arthritis, hypertension, hyperlipidemia, obesity, obstructive sleep apnea not utilizing any form of devices at this point in time. History of Any Multi-Drug Resistant Organisms: None Reported Past Surgical History: Unable to Obtain, Breast Surgery, Cholecystectomy, Hernia Repair, Hysterectomy Additional Past Surgical History / Comment(s): Surgery to remove cyst on head, HAND SURGERY, CYST REMOVED LEFT BREAST Past Anesthesia/Blood Transfusion Reactions: No Reported Reaction Past Psychological History: Anxiety, Depression Smoking Status: Never smoker Past Alcohol Use History: None Reported Past Drug Use History: None Reported - Past Family History Mother Additional Family Medical History / Comment(s): HEART DISEASE Father Additional Family Medical History / Comment(s): HEART DISEASE General Exam Limitations: no limitations General appearance: alert, in no apparent distress, anxious Head exam: Present: atraumatic, normocephalic, normal inspection Eye exam: Present: normal appearance, PERRL, EOMI. Absent: scleral icterus, conjunctival injection, periorbital swelling ENT exam: Present: normal exam, mucous membranes moist Neck exam: Present: normal inspection. Absent: tenderness, meningismus, lymphadenopathy Respiratory exam: Present: normal lung sounds bilaterally. Absent: respiratory distress, wheezes, rales, rhonchi, stridor Cardiovascular Exam: Present: regular rate, normal rhythm, normal heart sounds. Absent: systolic murmur, diastolic murmur, rubs, gallop, clicks GI/Abdominal exam: Present: soft, normal bowel sounds. Absent: distended, tenderness, guarding, rebound, rigid Extremities exam: Present: normal inspection, full ROM, normal capillary refill. Absent: tenderness, pedal edema, joint swelling, calf tenderness Back exam: Present: normal inspection Neurological exam: Present: alert, oriented X3, CN II-XII intact Psychiatric exam: Present: normal affect, normal mood Skin exam: Present: warm, dry, intact, normal color. Absent: rash 78 year old female with GIB -Hold Coumadin -NPO -Will plan for EGD tomorrow 03/27 -PPI Rafla Fong [facility] [phone]
[2024-03-26 12:23] LABS: INR 1.4 (<1.2); Partial Thromboplastin Time 34.3 sec (22.0-30.0)
--- NOTE | 2024-03-26 13:45 | P.CONS ---
History of Present Illness - Reason for Consult Consult date: 03/26/24 Squamous cell carcinoma of skin - Chief Complaint Melena, hematemesis - History of Present Illness Ms. 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 For 4 to 5 days prior to presentation, she noted having development of melena along wi th fatigue and orthostatic dizziness. Overall, she notes eating about the same since her last chemotherapy treatment, but notes she may have had slightly decreased appetite. She was not having any nausea, vomiting, diarrhea, or constipation at that time. Due to the persistent melena, weakness, and orthostatic dizziness, she presented to the ED for additional management. On presentation, she was hemodynamically stable and afebrile. Labs revealed WBC 1.4 (ANC 0.9), hemoglobin 9.8 (MCV 84.3), platelets 114. Coagulation studies revealed INR of 7.8 with elevated PT and APTT of 76.7 and 70.4. Creatinine was 1.68 with BUN of 25 and no LFT abnormalities. Lipase was 88 with troponin negative. Chest x-ray revealed no acute process. She is currently on pantoprazole 40 mg IV twice daily. Coumadin has been held with 1 dose of oral vitamin K 5 mg being given on 03/24/2024 on initial presentation. CBC on today's consultation reveals WBC 0.9, hemoglobin 8.1 (MCV 85.2), platelets 208. Repeat coagulation studies ordered today revealed INR of 1.4 with PT of 15 and a PTT of 34.3. There is evidence of marked hypochromasia. General surgery has been consulted and are planning to perform EGD on 03/27/2024. Since admission, she denies any episodes of melena or hematemesis. Since yesterday afternoon, she has noted intermittent nausea that is relieved with IV antiemetics. She denies any other new signs or symptoms. Review of Systems 14 point review of systems was conducted pertinent positives and negatives as noted per HPI Past Medical History Past Medical History: Cancer, Diabetes Mellitus, Hypertension, Sleep Apnea/CPAP/BIPAP Additional Past Medical History / Comment(s): COPD, osteoarthritis, previous history of DVT and pulmonary embolism and the along for medical evaluation with warfarin, degenerative arthritis, hypertension, hyperlipidemia, obesity, obstructive sleep apnea not utilizing any form of devices at this point in time, SKIN CA History of Any Multi-Drug Resistant Organisms: None Reported Past Surgical History: Unable to Obtain, Breast Surgery, Cholecystectomy, Hernia Repair, Hysterectomy Additional Past Surgical History / Comment(s): Surgery to remove cyst on head, HAND SURGERY, CYST REMOVED LEFT BREAST Past Anesthesia/Blood Transfusion Reactions: No Reported Reaction Past Psychological History: Anxiety, Depression Smoking Status: Never smoker Past Alcohol Use History: None Reported Past Drug Use History: None Reported - Past Family History Mother Additional Family Medical History / Comment(s): HEART DISEASE Father Additional Family Medical History / Comment(s): HEART DISEASE Medications and Allergies Home Medications Medication Instructions Recorded Confirmed Type Cholecalciferol [Vitamin D3 (25 25 mcg PO DAILY 06/12/21 03/24/24 History Mcg = 1000 Iu)] Metoprolol Tartrate [Lopressor] 50 mg PO BID 06/12/21 03/24/24 History Omeprazole 20 mg PO DAILY 06/12/21 03/24/24 History traMADol HCl [Ultram] 100 mg PO TID PRN 06/12/21 03/24/24 History metFORMIN HCL [Glucophage] 500 mg PO DAILY 12/23/22 03/24/24 History rOPINIRole HCL [Requip] 5 mg PO HS 12/23/22 03/24/24 History Escitalopram [Lexapro] 10 mg PO DAILY 03/24/24 03/24/24 History Prochlorperazine [Compazine] 10 mg PO Q6H PRN 03/24/24 03/24/24 History Warfarin [Coumadin] 1 mg PO HS 03/24/24 03/24/24 History Warfarin [Coumadin] 5 mg PO HS 03/24/24 03/24/24 History Allergies Allergy/AdvReac Type Severity Reaction Status Date / Time Fish Containing Products Allergy Dyspnea Verified 03/24/24 16:16 [Fish] iodine Allergy Rash/Hives Verified 03/24/24 16:16 shellfish derived [Shellfish] Allergy Rash/Hives Verified 03/24/24 16:16 oxybutynin [From Ditropan] AdvReac Nausea & Verified 03/24/24 16:16 Vomiting & Diarrhea Physical Exam Vitals: Vital Signs Temp Pulse Pulse Resp BP Pulse Ox 03/26/24 08:04 90 03/26/24 08:03 98.4 F 90 18 146/81 97 03/26/24 03:20 98.3 F 76 18 120/62 98 03/26/24 00:00 98.4 F 78 16 127/72 99 03/25/24 20:00 98.6 F 87 16 120/73 98 03/25/24 15:16 98.7 F 85 16 117/73 98 03/25/24 13:15 16 Intake and Output 03/25/24 03/26/24 03/26/24 23:59 06:59 14:59 Intake Total 180 Output Total 600 Balance -420 Intake: IV Invasive Line 1 Invasive Line 2 Oral 180 Output: Urine 600 Other: Voiding Method External Catheter # Voids # Bowel Movements Weight - Constitutional General appearance: cooperative, no acute distress - EENT Hyperpigmentation of the tongue from chemotherapy, pale mucous membranes Eyes: EOMI - Respiratory Respiratory: bilateral: CTA - Cardiovascular Rhythm: regular - Gastrointestinal General gastrointestinal: distended, hyperactive bowel sounds, soft Localized gastrointestinal: tender: epigastric periumbilical (Mild) - Integumentary Integumentary: no rash - Neurologic Neurologic: CNII-XII intact Results CBC & Chem 7: 03/26/24 06:20 03/25/24 16:02 Labs: Abnormal Lab Results - Last 24 Hours (Table) 03/25/24 03/26/24 Range/Units 16:02 06:20 WBC 0.9 L* (3.8-10.6) k/uL RBC 3.17 L (3.80-5.40) m/uL Hgb 8.1 L (11.4-16.0) gm/dL Hct 27.0 L (34.0-46.0) % MCHC 30.1 L (31.0-37.0) g/dL RDW 17.2 H (11.5-15.5) % Sodium 135 L (137-145) mmol/L Chloride 111 H (98-107) mmol/L Carbon Dioxide 19 L (22-30) mmol/L Creatinine 1.29 H (0.52-1.04) mg/dL Glucose 67 L (74-99) mg/dL Calcium 7.8 L (8.4-10.2) mg/dL Total Protein 5.4 L (6.3-8.2) g/dL Albumin 2.7 L (3.5-5.0) g/dL Assessment and Plan (1) CKD (chronic kidney disease) stage 3, GFR 30-59 ml/min Current Visit: Yes Status: Acute Code(s): N18.30 - CHRONIC KIDNEY DISEASE, STAGE 3 UNSPECIFIED SNOMED Code(s): 217408624 (2) Recurrent squamous cell carcinoma of skin Current Visit: Yes Status: Acute Code(s): C44.92 - SQUAMOUS CELL CARCINOMA OF SKIN, UNSPECIFIED SNOMED Code(s): 309010390 (3) Anemia associated with chemotherapy Current Visit: Yes Status: Acute Code(s): D64.81 - ANEMIA DUE TO ANTINEOPLASTIC CHEMOTHERAPY; T45.1X5A - ADVERSE EFFECT OF ANTINEOPLASTIC AND IMMUNOSUP DRUGS, INIT SNOMED Code(s): 770314522476785 (4) Chemotherapy induced neutropenia Current Visit: Yes Status: Acute Code(s): D70.1 - AGRANULOCYTOSIS SECONDARY TO CANCER CHEMOTHERAPY; T45.1X5A - ADVERSE EFFECT OF ANTINEOPLASTIC AND IMMUNOSUP DRUGS, INIT SNOMED Code(s): 560506434 (5) Coagulopathy Current Visit: Yes Status: Acute Code(s): D68.9 - COAGULATION DEFECT, UNSPECIFIED SNOMED Code(s): 04630575 (6) Gastrointestinal hemorrhage Current Visit: Yes Status: Acute Code(s): K92.2 - GASTROINTESTINAL HEMORRHAGE, UNSPECIFIED SNOMED Code(s): 84957275 Plan: #Upper GI bleed likely to coagulopathy from Coumadin -Presented with melena, hematemesis, and orthostatic dizziness and was noted to have INR of 7.8 -Hemoglobin was 9.8 on initial presentation, consistent with hemoglobins outpatient of 9-10, but has noted to have hemoglobin of 8.1 today -She was given oral vitamin K 5 mg on presentation on 03/24/2024 and was started on IV PPI twice daily -Continue to hold Coumadin -Repeat coagulation studies noted INR of 1.4. No additional vitamin K is needed given the INR and the fact she has not had any episodes of melena since admission -In addition, given the hypochromasia noted on manual slide review, iron studies in addition to vitamin B12/methylmalonic acid, and folic acid were ordered -She is tentatively scheduled to undergo EGD on 03/27/2024 -If there are no contraindications to DOAC, she may be better served by having DOAC instead of Coumadin #Chemotherapy-induced neutropenia and anemia -She received cycle 5 of carboplatin/paclitaxel for recurrent squamous cell carcinoma of the skin on 03/15/2024 -Anemia workup ordered as above -Transfuse for hemoglobin less than 7 #Squamous cell carcinoma of the skin -Currently day 12 of cycle 5 of carboplatin/paclitaxel for recurrent disease -Most recent staging CT of the neck and chest on 02/16/2024 noted no evidence of recurrent disease after 3 cycles -Last clinic note noted plan to complete 5 cycles of treatment and then proceed to surveillance, but Ariadne notes being scheduled for additional treatments -We will confer with her primary oncologist Dr. Terri Mitchell MD
[2024-03-26] MEDS: ACETAMINOPHEN TAB 325 MG TAB PO PRN (18:25)
[2024-03-26 23:23] LABS: % Iron Saturation 8.04 (12.00-45.00)
--- NOTE | 2024-03-27 03:35 | PN ---
PROGRESS NOTE DATE OF SERVICE: 03/26/2024 CHIEF COMPLAINT: GI bleed. HISTORY OF PRESENT ILLNESS: This lady has not had any further bleeding. Her white count has now dropped down to 900. She is not complaining of any headache, fever, chills, shortness of breath, abdominal pain, etc. PHYSICAL EXAMINATION: CHEST: Clear. CARDIAC: Normal. ABDOMEN: Soft, nontender. IMPRESSION: 1. Gastrointestinal hemorrhage. 2. Hyperprothrombinemia. 3. Leukopenia. PLAN: No change in program and await recommendations from Oncology. MMODL / IJN: [id number] /
[2024-03-27] MEDS: SODIUM FERRIC GLUCONAT-SUCROSE 125 MG in SODIUM CHLORIDE 0.9% 100 ML IVPB SCH (10:32)
--- NOTE | 2024-03-27 11:06 | P.PN ---
Subjective Progress Note Date: 03/27/24 Pt reporting 1 episode of melena overnight. Vomiting has subsided. Hgb 8.1, todays labs pending. Plan for EGD today Objective - Vital Signs Vital signs: Vital Signs Temp 98.5 F 03/27/24 08:00 Pulse 72 03/27/24 08:00 Resp 18 03/27/24 08:00 BP 141/67 03/27/24 08:00 Pulse Ox 98 03/27/24 08:00 FiO2 Intake & Output 03/26/24 03/27/24 03/27/24 18:59 06:59 18:59 Intake Total 180 0 Output Total 2100 500 Balance -1920 -500 Weight 119 kg Intake: Oral 180 0 Output: Urine 2100 500 Other: Voiding Method External Catheter External Catheter # Bowel Movements 1 1 - Constitutional General appearance: Present: no acute distress - EENT ENT: Present: hearing grossly normal - Respiratory Details: breathing even and unlabored - Cardiovascular Details: skin warm and dry - Gastrointestinal Gastrointestinal Comment(s): mildly distended, tenderness in upper abdomen, no guarding - Integumentary Integumentary: Absent: cyanotic, jaundiced - Psychiatric Psychiatric: Present: A&O x's 3 - Labs CBC & Chem 7: 03/26/24 06:20 03/25/24 16:02 Labs: Abnormal Lab Results - Last 24 Hours (Table) 03/26/24 03/26/24 Range/Units 11:28 11:28 PT 15.0 H (10.0-12.5) sec INR 1.4 H (<1.2) APTT 34.3 H (22.0-30.0) sec Iron 18 L (50-170) UG/DL TIBC 224 L (228-460) UG/DL % Saturation 8.04 L (12.00-45.00) Transferrin 160.0 L (204.0-354.0) mg/dL Ferritin 409.0 H (10.0-291.0) ng/mL Assessment and Plan (1) Acute renal failure (ARF) Current Visit: Yes Status: Acute Priority: High Code(s): N17.9 - ACUTE KIDNEY FAILURE, UNSPECIFIED SNOMED Code(s): 29099143 (2) Anemia associated with chemotherapy Current Visit: Yes Status: Acute Priority: High Code(s): D64.81 - ANEMIA DUE TO ANTINEOPLASTIC CHEMOTHERAPY; T45.1X5A - ADVERSE EFFECT OF ANTINEOPLASTIC AND IMMUNOSUP DRUGS, INIT SNOMED Code(s): 273814700665189 (3) Chemotherapy induced neutropenia Current Visit: Yes Status: Acute Priority: High Code(s): D70.1 - AGRANULOCYTOSIS SECONDARY TO CANCER CHEMOTHERAPY; T45.1X5A - ADVERSE EFFECT OF ANTINEOPLASTIC AND IMMUNOSUP DRUGS, INIT SNOMED Code(s): 550475110 (4) Coagulopathy Current Visit: Yes Status: Acute Priority: High Code(s): D68.9 - COAGULATION DEFECT, UNSPECIFIED SNOMED Code(s): 50558178 (5) Gastrointestinal hemorrhage Current Visit: Yes Status: Acute Priority: High Code(s): K92.2 - GASTROINTESTINAL HEMORRHAGE, UNSPECIFIED SNOMED Code(s): 28177469 Plan: #Upper GI bleed likely to coagulopathy from Coumadin -Presented with melena, hematemesis, and orthostatic dizziness and was noted to have INR of 7.8 -Hemoglobin was 9.8 on initial presentation, consistent with hemoglobins outpatient of 9-10, but has noted to have hemoglobin of 8.1 today -She was given oral vitamin K 5 mg on presentation on 03/24/2024 and was started on IV PPI twice daily -Continue to hold Coumadin -Repeat coagulation studies noted INR of 1.4. No additional vitamin K is needed given the INR and the fact she has not had any episodes of melena since admission -In addition, given the hypochromasia noted on manual slide review, iron studies in addition to vitamin B12/methylmalonic acid, and folic acid were ordered -Labs consistent with BRENDON, parenteral iron x 4 doses ordered -She is tentatively scheduled to undergo EGD on 03/27/2024 -If there are no contraindications to DOAC, she may be better served by having DOAC instead of Coumadin #Chemotherapy-induced neutropenia and anemia -She received cycle 5 of carboplatin/paclitaxel for recurrent squamous cell carcinoma of the skin on 03/15/2024 -Anemia workup ordered as above -Monitor CBC. Transfuse for hemoglobin less than 7 #Squamous cell carcinoma of the skin -S/p cycle 5 of carboplatin/paclitaxel for recurrent disease -Most recent staging CT of the neck and chest on 02/16/2024 noted no evidence of recurrent disease after 3 cycles -Last clinic note noted plan to complete 5 cycles of treatment and then proceed to surveillance, but Ariadne notes being scheduled for additional treatments -We will confer with her primary oncologist Dr. Murray Doctor attests: I performed a history and physical examination of this patient, developed impression and plan of care. Discussed with dictator. I agree with dictators note, documented as a scribe.
--- NOTE | 2024-03-27 11:50 | XR ---
EXAMINATION TYPE: XR chest 1V portable DATE OF EXAM: 03/27/2024 11:28 AM COMPARISON: 03/25/2024 CLINICAL INDICATION: Female, 78 years old with history of FUO, leukopenia, TECHNIQUE: XR chest 1V portable view(s) obtained. FINDINGS: The heart size is normal. The pulmonary vasculature is normal. The lungs are clear. IMPRESSION: 1. No acute pulmonary process. [facility], , 03/27/2024 11:48 AM
[2024-03-27] MEDS ORDERED: PROPOFOL 10 MG/ML 20 ML VIAL IV ONE (13:01)
[2024-03-27] MEDS ORDERED: LIDOCAINE 1% INJ 10MG/ML (20 ML MDV) ONE (13:01)
[2024-03-27] MEDS: IV FLUID CONTINUATION 600 ML IV ONE (13:15)
--- NOTE | 2024-03-27 13:36 | P.OP ---
Date of Procedure: 03/27/24 Preoperative Diagnosis: GI Bleed Postoperative Diagnosis: Hiatal Hernia Procedure(s) Performed: EGD Surgeon: Rafal Fong Pathology: none sent Condition: stable Disposition: floor Description of Procedure: Informed consent was obtained. The procedure, its risks, benefits, and alternatives were discussed. The patient was placed in the left lateral decubitus position and given local anesthetic to the oropharynx. The patient was sedated. The endoscope was inserted into the oropharynx and guided under direct vision into the esophagus, stomach, and duodenum. The duodenal bulb and second portion were unremarkable. The scope was withdrawn to the stomach and retroflexed. There was no increased fluid, food or secretions in the upper gastrointestinal tract. No erosions or ulcers. There was a hiatal hernia noted. The scope was withdrawn to the esophagus. No Barretts or esophagitis. The patient tolerated the procedure very well. The patient was then transferred to the recovery area in good condition. There were no apparent complications. An UGI was ordered to further evaluate the patients Hiatal Hernia.
[2024-03-27 13:59] LABS: ALT 10 U/L (4-34); AST 19 U/L (14-36); African American GFR (CKD) 61 (>60 ml/min/1.73 sqM); Albumin 2.7 g/dL (3.5-5.0); Alkaline Phosphatase 96 U/L (38-126); Anion Gap 6 mmol/L; Blood Urea Nitrogen 7 mg/dL (7-17); Calcium 8.1 mg/dL (8.4-10.2); Carbon Dioxide 20 mmol/L (22-30); Chloride 110 mmol/L (98-107); Glucose 80 mg/dL (74-99); Non-African American GFR(CKD) 53 (>60 ml/min/1.73 sqM); Potassium 4.1 mmol/L (3.5-5.1); Sodium 136 mmol/L (137-145); Total Bilirubin 0.7 mg/dL (0.2-1.3); Total Protein 5.5 g/dL (6.3-8.2)
[2024-03-27 14:06] LABS: Anisocytosis Slight; HCT 28.8 % (34.0-46.0); Hypochromasia Marked; MCH 26.4 pg (25.0-35.0); MCHC 31.2 g/dL (31.0-37.0); MCV 84.8 fL (80.0-100.0); Mean Platelet Volume 8.1; Platelet Count 200 k/uL (150-450)
[2024-03-27 14:07] LABS: WBC 1.3 k/uL (3.8-10.6)
[2024-03-27 14:20] LABS: Basophils # (M) 0.01 k/uL (0-0.2); Lymphocytes # (M) 0.33 k/uL (1.0-4.8); Monocytes # (M) 0.31 k/uL (0-1.0); Neutrophils # (M) 0.65 k/uL (1.3-7.7); Neutrophils % (M) 50 %; Nucleated Red Blood Cells 0 /100 WBC (0-0); Total Cells Counted 100
--- NOTE | 2024-03-27 15:48 | FL ---
EXAMINATION TYPE: FL UGI w esophagus w KUB DATE OF EXAM: 03/27/2024 COMPARISON: None HISTORY: Coughing, hiatal hernia TECHNIQUE: A single contrast UGI study is performed. Images were limited due to patient physical con dition and inability to perform the exam. Patient was cooperative. FINDINGS: Esophagus dilates to normal caliber has normal contour to the gastroesophageal junction. Se veral tertiary contractions are evident compatible with presbyesophagus. There is hesitancy of contrast entering the stomach. The stomach is largely intrathoracic compatible with a large hiatal hernia. Contrast does empty from the hiatal hernia into the abdomen. Antrum of th e stomach is within the abdomen. Pylorus appears unremarkable as visualized. Proximal duodenum appear s unremarkable. A small diverticulum may be within the distal stomach intrathoracic stomach. IMPRESSION: 1. Presbyesophagus. 2. Large intrathoracic hiatal hernia. 3. Some hesitancy of contrast passing through the gastroesophageal junction into the hiatal hernia. 4. Small distal stomach diverticulum [facility], , 03/27/2024 3:46 PM
[2024-03-28 07:02] LABS: Anisocytosis Slight; HCT 28.3 % (34.0-46.0); HGB 8.7 gm/dL (11.4-16.0); Hypochromasia Marked; MCH 26.2 pg (25.0-35.0); MCHC 30.7 g/dL (31.0-37.0); MCV 85.4 fL (80.0-100.0); Mean Platelet Volume 10.5; RBC 3.31 m/uL (3.80-5.40); RDW 16.8 % (11.5-15.5); WBC 1.9 k/uL (3.8-10.6)
--- NOTE | 2024-03-28 07:33 | PN ---
PROGRESS NOTE DATE OF SERVICE: 03/27/2024 CHIEF COMPLAINT: GI bleed. HISTORY OF PRESENT ILLNESS: This lady is stable. She is not bleeding any longer. She did have a fever last night. White count is below 1000. She has been seen by Oncology. PHYSICAL EXAMINATION: GENERAL: She remains pale. She is awake and alert. CHEST: Clear. CARDIAC: Normal. ABDOMEN: Seems soft, nontender. EXTREMITIES: Normal. IMPRESSION: 1. Gastrointestinal bleed. 2. Leukopenia. 3. Low-grade fever. PLAN: 1. Await results of blood cultures. 2. Repeat laboratory studies, and chest x-ray. MMODL / IJN: [id number] /
[2024-03-28 10:29] LABS: Eosinophils # (M) 0.06 k/uL (0-0.7); Lymphocytes # (M) 0.36 k/uL (1.0-4.8); Metamyelocytes # (M) 0.02 k/uL (0); Metamyelocytes % 1 %; Monocytes # (M) 0.48 k/uL (0-1.0); Neutrophils # (M) 0.99 k/uL (1.3-7.7); Neutrophils % (M) 52 %; Nucleated Red Blood Cells 1 /100 WBC (0-0); Total Cells Counted 100
[2024-03-28 10:37] LABS: Platelet Count 161 k/uL (150-450)
[2024-03-28 10:38] LABS: Poikilocytosis (M) Present
--- NOTE | 2024-03-28 11:16 | P.PN ---
Subjective Progress Note Date: 03/28/24 S/p EGD with large hiatal hernia, no active bleed noted. Pt reporting episodes of n/v last night, and persisting abdominal discomfort and diarrhea. No episodes of melena today. Hgb stable at 8.7 Objective - Vital Signs Vital signs: Vital Signs Temp 98.1 F 03/28/24 07:51 Pulse 87 03/28/24 08:05 Resp 16 03/28/24 07:51 BP 108/72 03/28/24 07:51 Pulse Ox 98 03/28/24 07:51 FiO2 Intake & Output 03/27/24 03/28/24 03/28/24 18:59 06:59 18:59 Intake Total 100 Output Total 451 400 Balance -351 -400 Weight 119.5 kg Intake: IV 100 Output: Urine 450 400 Stool 1 Other: Voiding Method External Catheter External Catheter # Voids 1 # Bowel Movements 2 1 - Constitutional General appearance: Present: average body habitus, no acute distress - EENT Eyes: Present: anicteric sclerae, EOMI ENT: Present: hearing grossly normal - Respiratory Details: breathing is even and unlabored - Cardiovascular Details: skin warm and dry - Gastrointestinal General gastrointestinal: Present: soft, tenderness - Integumentary Integumentary: Absent: cyanotic - Musculoskeletal Musculoskeletal: Present: strength equal bilaterally - Psychiatric Psychiatric: Present: A&O x's 3 - Labs CBC & Chem 7: 03/28/24 05:46 03/27/24 13:05 Labs: Abnormal Lab Results - Last 24 Hours (Table) 03/27/24 03/27/24 03/28/24 Range/Units 13:05 13:05 05:46 WBC 1.3 L* 1.9 L (3.8-10.6) k/uL RBC 3.40 L 3.31 L (3.80-5.40) m/uL Hgb 9.0 L 8.7 L (11.4-16.0) gm/dL Hct 28.8 L 28.3 L (34.0-46.0) % MCHC 30.7 L (31.0-37.0) g/dL RDW 17.0 H 16.8 H (11.5-15.5) % Neutrophils # (Manual) 0.65 L 0.99 L (1.3-7.7) k/uL Lymphocytes # (Manual) 0.33 L 0.36 L (1.0-4.8) k/uL Metamyelocytes # (Man) 0.02 H (0) k/uL Nucleated RBCs 1 H (0-0) /100 WBC Sodium 136 L (137-145) mmol/L Chloride 110 H (98-107) mmol/L Carbon Dioxide 20 L (22-30) mmol/L Calcium 8.1 L (8.4-10.2) mg/dL Total Protein 5.5 L (6.3-8.2) g/dL Albumin 2.7 L (3.5-5.0) g/dL Microbiology - Last 24 Hours (Table) 03/26/24 20:10 Blood Culture - Preliminary Blood Assessment and Plan (1) Acute renal failure (ARF) Current Visit: Yes Status: Acute Priority: High Code(s): N17.9 - ACUTE KIDNEY FAILURE, UNSPECIFIED SNOMED Code(s): 95826530 (2) Anemia associated with chemotherapy Current Visit: Yes Status: Acute Priority: High Code(s): D64.81 - ANEMIA DUE TO ANTINEOPLASTIC CHEMOTHERAPY; T45.1X5A - ADVERSE EFFECT OF ANTINEOPLASTIC AND IMMUNOSUP DRUGS, INIT SNOMED Code(s): 111564822262210 (3) Chemotherapy induced neutropenia Current Visit: Yes Status: Acute Priority: High Code(s): D70.1 - AGRANULOCYTOSIS SECONDARY TO CANCER CHEMOTHERAPY; T45.1X5A - ADVERSE EFFECT OF ANTINEOPLASTIC AND IMMUNOSUP DRUGS, INIT SNOMED Code(s): 582960385 (4) Coagulopathy Current Visit: Yes Status: Acute Priority: High Code(s): D68.9 - COAGULATION DEFECT, UNSPECIFIED SNOMED Code(s): 16246244 (5) Gastrointestinal hemorrhage Current Visit: Yes Status: Acute Priority: High Code(s): K92.2 - GASTROINTESTINAL HEMORRHAGE, UNSPECIFIED SNOMED Code(s): 79977907 Plan: #Upper GI bleed likely to coagulopathy from Coumadin -Presented with melena, hematemesis, and orthostatic dizziness and was noted to have INR of 7.8 -Hemoglobin was 9.8 on initial presentation, consistent with hemoglobins outpatient of 9-10, but has noted to have hemoglobin of 8.1 today -She was given oral vitamin K 5 mg on presentation on 03/24/2024 and was started on IV PPI twice daily -Continue to hold Coumadin -Repeat coagulation studies noted INR of 1.4. No additional vitamin K is needed given the INR and the fact she has not had any episodes of melena since admission -In addition, given the hypochromasia noted on manual slide review, iron studies in addition to vitamin B12/methylmalonic acid, and folic acid were ordered -Labs consistent with BRENDON, parenteral iron x 4 doses ordered -S/p EGD, no active bleeding noted. Barium swallow study showing large hiatal hernia, with some hesitancy of contrast passing through the GE junction. Discussed case with surgery PA, will await further recommendations from surgical team -Continue supportive care measures -If there are no contraindications to DOAC, she may be better served by having DOAC instead of Coumadin #Chemotherapy-induced neutropenia and anemia -She received cycle 5 of carboplatin/paclitaxel for recurrent squamous cell carcinoma of the skin on 03/15/2024 -Anemia workup ordered as above -Monitor CBC. Transfuse for hemoglobin less than 7 #Squamous cell carcinoma of the skin -S/p cycle 5 of carboplatin/paclitaxel for recurrent disease -Most recent staging CT of the neck and chest on 02/16/2024 noted no evidence of recurrent disease after 3 cycles -Last clinic note noted plan to complete 5 cycles of treatment and then proceed to surveillance, but Ariadne notes being scheduled for additional treatments -We will confer with her primary oncologist Dr. Murray Doctor attests: I performed a history and physical examination of this patient, developed impression and plan of care. Discussed with dictator. I agree with d ictators note, documented as a scribe.
[2024-03-28 11:46] LABS: Glucose,Whole Blood 84 mg/dL (70-110)
[2024-03-28] MEDS: LOPERAMIDE 2 MG CAP PO PRN (12:07)
--- NOTE | 2024-03-28 14:37 | P.PN ---
Subjective Progress Note Date: 03/28/24 SURGICAL PROGRESS NOTE CHIEF COMPLAINT: GI bleed HISTORY OF PRESENT ILLNESS: Patient status post EGD with large hiatal hernia noted. Upper GI had shown a large intrathoracic hiatal hernia. Patient reports no nausea or vomiting. She has tolerated the clear liquids. She does report some epigastric pain. She has had no further black stools. Stools have now been brown. Afebrile. WBC is 1.9 Hgb 8.7 platelets 161 PHYSICAL EXAM: VITAL SIGNS: Reviewed. GENERAL: Well-developed in no acute distress. ABDOMEN: Soft. Nondistended. Mild epigastric tenderness NEUROLOGIC: Alert and oriented. Cranial nerves II through XII grossly intact. ASSESSMENT: 1. Large intrathoracic hiatal hernia 2. GI bleed with melanotic stools possibly due to hiatal hernia 3. Neutropenic due to chemotherapy 4. Skin cancer PLAN: -Diet advanced to regular -Continue to monitor -Patient may eventually need repair of hiatal hernia Physician Cash Management Associate note has been reviewed by physician. Signing provider agrees with the documented findings, assessment, and plan of care. Objective - Vital Signs Vital signs: Vital Signs Temp 98.1 F 03/28/24 11:07 Pulse 79 03/28/24 11:07 Resp 16 03/28/24 11:07 BP 132/81 03/28/24 11:07 Pulse Ox 98 03/28/24 11:07 FiO2 Intake & Output 03/27/24 03/28/24 03/28/24 18:59 06:59 18:59 Intake Total 100 Output Total 451 400 Balance -351 -400 Weight 119.5 kg Intake: IV 100 Output: Urine 450 400 Stool 1 Other: Voiding Method External Catheter External Catheter # Voids 1 # Bowel Movements 2 1 - Labs CBC & Chem 7: 03/28/24 05:46 03/27/24 13:05 Labs: Abnormal Lab Results - Last 24 Hours (Table) 03/28/24 Range/Units 05:46 WBC 1.9 L (3.8-10.6) k/uL RBC 3.31 L (3.80-5.40) m/uL Hgb 8.7 L (11.4-16.0) gm/dL Hct 28.3 L (34.0-46.0) % MCHC 30.7 L (31.0-37.0) g/dL RDW 16.8 H (11.5-15.5) % Neutrophils # (Manual) 0.99 L (1.3-7.7) k/uL Lymphocytes # (Manual) 0.36 L (1.0-4.8) k/uL Metamyelocytes # (Man) 0.02 H (0) k/uL Nucleated RBCs 1 H (0-0) /100 WBC Microbiology - Last 24 Hours (Table) 03/26/24 20:10 Blood Culture - Preliminary Blood
[2024-03-28 16:40] LABS: Glucose,Whole Blood 122 mg/dL (70-110)
--- NOTE | 2024-03-28 19:50 | PN ---
PROGRESS NOTE DATE OF SERVICE: 03/28/2024 CHIEF COMPLAINT: GI blood loss. HISTORY OF PRESENT ILLNESS: This lady is doing a bit better. Her white count is slowly rising. She has been seen by Surgery and she has been scoped. It looks as though there may have been an ulcer either in the pre-pyloric area or duodenum. This was not biopsied. PHYSICAL EXAMINATION: CHEST: Clear. CARDIAC: Normal. ABDOMEN: Soft, nontender. IMPRESSION: 1. Gastrointestinal blood loss. 2. Diarrhea. 3. Carcinoma of the right side of scalp and neck. PLAN: 1. C. diff was done and is negative. 2. She will be given an anti-diarrheal. 3. We will try to increase her activity and diet while we watch to see if her white count continues to elevate. MMODL / IJN: [id number] /
[2024-03-28 20:21] LABS: Glucose,Whole Blood 122 mg/dL (70-110)
[2024-03-29] MEDS: ONDANSETRON 4 MG/2 ML VIAL IVP PRN (03:09)
[2024-03-29 06:13] LABS: Glucose,Whole Blood 94 mg/dL (70-110)
[2024-03-29 08:17] LABS: Anisocytosis Slight; HCT 27.2 % (34.0-46.0); HGB 8.7 gm/dL (11.4-16.0); Hypochromasia Moderate; MCH 26.8 pg (25.0-35.0); MCHC 31.9 g/dL (31.0-37.0); MCV 83.9 fL (80.0-100.0); Mean Platelet Volume 9.3; Platelet Count 298 k/uL (150-450); RBC 3.24 m/uL (3.80-5.40); WBC 2.5 k/uL (3.8-10.6)
[2024-03-29] MEDS: PROCHLORPERAZINE 10 MG TAB PO PRN (08:22)
[2024-03-29 08:50] LABS: Band Neutrophils % 2 %; Basophils # (M) 0.03 k/uL (0-0.2); Metamyelocytes % 4 %; Monocytes # (M) 0.53 k/uL (0-1.0); Myelocytes # (M) 0.05 k/uL (0); Myelocytes % 2 %; Neutrophils % (M) 55 %; Nucleated Red Blood Cells 0 /100 WBC (0-0); Total Cells Counted 200
[2024-03-29 08:51] LABS: Poikilocytosis (M) Present
[2024-03-29 11:31] LABS: Glucose,Whole Blood 100 mg/dL (70-110)
--- NOTE | 2024-03-29 13:30 | P.PN ---
Subjective Progress Note Date: 03/29/24 SURGICAL PROGRESS NOTE CHIEF COMPLAINT: GI bleed HISTORY OF PRESENT ILLNESS: Patient status post EGD with large hiatal hernia noted. Upper GI had shown a large intrathoracic hiatal hernia. Per nursing s taff patient did report nausea. Patient was more lethargic this morning upon evaluation. Nursing staff was notified. Vital stable. WBC is up from 1.9-2.5 Hgb 8.7 platelets 298 PHYSICAL EXAM: VITAL SIGNS: Reviewed. GENERAL: Well-developed in no acute distress. ABDOMEN: Soft. Nondistended. NEUROLOGIC: lethargic ASSESSMENT: 1. Large intrathoracic hiatal hernia 2. GI bleed with melanotic stools possibly due to hiatal hernia 3. Neutropenic due to chemotherapy 4. Skin cancer PLAN: -Downgrade diet to full liquids -Continue to monitor -Patient may eventually need repair of hiatal hernia Physician [place] Captain note has been reviewed by physician. Signing provider agrees with the documented findings, assessment, and plan of care. Attestation Patient seen and examined at bedside on 03/29/2024. Noted to have large intrathoracic hiatal hernia. Patient having some mental status changes today and is lethargic. Continue workup from medicine team. We will downgrade diet as patient is at risk of aspiration with her mental status. She may eventually need repair of hiatal hernia and further discussion on nutrition should she not tolerate diet. Jerrica Pruett, DO Objective - Vital Signs Vital signs: Vital Signs Temp 98.3 F 03/29/24 11:28 Pulse 76 03/29/24 11:28 Resp 16 03/29/24 11:28 BP 135/77 03/29/24 11:28 Pulse Ox 100 03/29/24 11:28 FiO2 Intake & Output 03/28/24 03/29/24 03/29/24 18:59 06:59 18:59 Intake Total 240 118 Output Total 850 450 200 Balance -610 -450 -82 Weight 118 kg Intake: Oral 240 118 Output: Urine 850 450 200 Other: Voiding Method External Catheter External Catheter Diaper External Catheter # Bowel Movements 1 - Labs CBC & Chem 7: 03/30/24 06:30 03/27/24 13:05 Labs: Abnormal Lab Results - Last 24 Hours (Table) 03/28/24 03/28/24 03/29/24 Range/Units 16:38 20:19 07:22 WBC 2.5 L (3.8-10.6) k/uL RBC 3.24 L (3.80-5.40) m/uL Hgb 8.7 L (11.4-16.0) gm/dL Hct 27.2 L (34.0-46.0) % RDW 17.0 H (11.5-15.5) % Lymphocytes # (Manual) 0.40 L (1.0-4.8) k/uL Metamyelocytes # (Man) 0.10 H (0) k/uL Myelocytes # (Manual) 0.05 H (0) k/uL POC Glucose (mg/dL) 122 H 122 H (70-110) mg/dL Microbiology - Last 24 Hours (Table) 03/26/24 20:10 Blood Culture - Preliminary Blood
[2024-03-29 16:30] LABS: Glucose,Whole Blood 100 mg/dL (70-110)
[2024-03-29] MEDS: METOCLOPRAMIDE 10 MG TAB PO SCH (17:05)
[2024-03-29] MEDS: FUROSEMIDE 10 MG/ML 4 ML VIAL IV STA (19:30)
--- NOTE | 2024-03-29 19:45 | XR ---
EXAMINATION TYPE: XR chest 1V portable DATE OF EXAM: 03/29/2024 7:28 PM COMPARISON: Chest radiographs from 03/27/2024 CLINICAL INDICATION: Female, 78 years old with history of New shortness of breath; [facility] TECHNIQUE: XR chest 1V portable Frontal view of the chest. FINDINGS: Lungs/Pleura: There is no evidence of pleural effusion, focal consolidation, or pneumothorax. Pulmonary vascularity: Unremarkable. Heart/mediastinum: Cardiomediastinal silhouette is unremarkable. Musculoskeletal: No acute osseous pathology. IMPRESSION: No acute cardiopulmonary disease/process. [facility], , 03/29/2024 7:42 PM
[2024-03-29 20:15] LABS: Glucose,Whole Blood 99 mg/dL (70-110)
[2024-03-30 06:03] LABS: Glucose,Whole Blood 101 mg/dL (70-110)
[2024-03-30 07:34] LABS: Anisocytosis Slight; HGB 9.1 gm/dL (11.4-16.0); Hypochromasia Marked; MCH 25.7 pg (25.0-35.0); MCHC 30.2 g/dL (31.0-37.0); MCV 85.3 fL (80.0-100.0); Mean Platelet Volume 8.8; Platelet Count 354 k/uL (150-450); RBC 3.52 m/uL (3.80-5.40); RDW 17.2 % (11.5-15.5); WBC 4.5 k/uL (3.8-10.6)
[2024-03-30 08:13] LABS: Band Neutrophils % 1 %; Eosinophils # (M) 0.05 k/uL (0-0.7); Metamyelocytes # (M) 0.09 k/uL (0); Metamyelocytes % 2 %; Monocytes # (M) 0.81 k/uL (0-1.0); Myelocytes # (M) 0.05 k/uL (0); Myelocytes % 1 %; Neutrophils % (M) 60 %; Nucleated Red Blood Cells 0 /100 WBC (0-0); Total Cells Counted 200
[2024-03-30 08:15] LABS: Poikilocytosis (M) Present
[2024-03-30 11:28] LABS: Glucose,Whole Blood 81 mg/dL (70-110)
[2024-03-30 12:08] LABS: INR 1.4 (<1.2); Prothrombin Time 14.9 sec (10.0-12.5)
--- NOTE | 2024-03-30 15:36 | P.PN ---
Subjective Progress Note Date: 03/30/24 SURGICAL PROGRESS NOTE CHIEF COMPLAINT: GI bleed HISTORY OF PRESENT ILLNESS: Patient status post EGD with large hiatal hernia noted. Upper GI had shown a large intrathoracic hiatal hernia. Patient is more awake and alert today. She does complain of a cough. She did report nausea. No vomiting. She is requesting increase in diet. Denies dysphagia. Mildly tachycardic. WBC 4.5 Hgb 9.1 PHYSICAL EXAM: VITAL SIGNS: Reviewed. GENERAL: Well-developed in no acute distress. ABDOMEN: Soft. Nondistended. NEUROLOGIC: lethargic ASSESSMENT: 1. Large intrathoracic hiatal hernia 2. GI bleed with melanotic stools possibly due to hiatal hernia 3. Neutropenic due to chemotherapy 4. Skin cancer PLAN: -Increase diet to dysphagia chopped -Continue to monitor -Patient may eventually need repair of hiatal hernia Physician Lawn Sprinkler Servicer note has been reviewed by physician. Signing provider agrees with the documented findings, assessment, and plan of care. Attestation Patient seen and examined at bedside. Mental status is much improved today. Requesting increase in diet and plan to increase to dysphagia chopped diet. We will see how she tolerates this prior to making any further recommendations. Jerrica Pruett, DO Objective - Vital Signs Vital signs: Vital Signs Temp 98.3 F 03/30/24 10:51 Pulse 102 H 03/30/24 14:00 Resp 18 03/30/24 14:00 BP 154/93 03/30/24 10:51 Pulse Ox 96 03/30/24 10:51 FiO2 Intake & Output 03/29/24 03/30/24 03/30/24 18:59 06:59 18:59 Intake Total 118 616 Output Total 200 1750 Balance -82 -1750 616 Weight 119.5 kg Intake: Intake, IV Titration 260 Amount Sodium Chloride 0.9% 1, 160 000 ml @ 20 mls/hr IV . Q24H [facility] Rx#:[id number] Sodium Ferric Gluconat- 100 Sucrose 125 mg In Sodium Chloride 0.9% 100 ml @ 100 mls/hr IVPB DAILY [facility] Rx#:[id number] Oral 118 356 Output: Urine 200 1750 Other: Voiding Method Diaper External Catheter External Catheter External Catheter # Voids 1 # Bowel Movements 1 - Labs CBC & Chem 7: 03/30/24 06:30 03/27/24 13:05 Labs: Abnormal Lab Results - Last 24 Hours (Table) 03/30/24 03/30/24 Range/Units 06:30 11:22 RBC 3.52 L (3.80-5.40) m/uL Hgb 9.1 L (11.4-16.0) gm/dL Hct 30.0 L (34.0-46.0) % MCHC 30.2 L (31.0-37.0) g/dL RDW 17.2 H (11.5-15.5) % Lymphocytes # (Manual) 0.90 L (1.0-4.8) k/uL Metamyelocytes # (Man) 0.09 H (0) k/uL Myelocytes # (Manual) 0.05 H (0) k/uL PT 14.9 H (10.0-12.5) sec INR 1.4 H (<1.2) D-Dimer 1.30 H (<0.60) mg/L FEU Microbiology - Last 24 Hours (Table) 03/26/24 20:10 Blood Culture - Preliminary Blood
[2024-03-30 16:31] LABS: Glucose,Whole Blood 89 mg/dL (70-110)
[2024-03-30] MEDS: WARFARIN 2 MG TAB PO ONE (17:51)
[2024-03-30 20:01] LABS: Glucose,Whole Blood 90 mg/dL (70-110)
[2024-03-31 06:00] LABS: Glucose,Whole Blood 91 mg/dL (70-110)
[2024-03-31 08:29] LABS: INR 1.6 (<1.2); Prothrombin Time 16.4 sec (10.0-12.5)
[2024-03-31 11:34] LABS: Glucose,Whole Blood 85 mg/dL (70-110)
[2024-03-31] MEDS ORDERED: ALBUTEROL NEBULIZED 2.5 MG/3 ML INHALATION PRN (11:38)
[2024-03-31] MEDS: guaiFENesin SYRUP 100MG/5ML 200 MG/10 ML CUP PO PRN (11:47)
[2024-03-31] MEDS: ALBUTEROL NEBULIZED 2.5 MG/3 ML INHALATION SCH (11:58)
[2024-03-31 14:57] VITALS: BMI 44.5
--- NOTE | 2024-03-31 15:20 | P.PN ---
Subjective Progress Note Date: 03/31/24 S/p EGD with large hiatal hernia, no active bleed noted. Pt reporting improvement in oral intake. States she has to eat small amounts and slowly, but denies n/v. Coumadin restarted. Hgb stable at 9.1 Objective - Vital Signs Vital signs: Vital Signs Temp 97.9 F 03/31/24 10:54 Pulse 75 03/31/24 12:09 Resp 18 03/31/24 10:54 BP 138/81 03/31/24 10:54 Pulse Ox 97 03/31/24 10:54 FiO2 Intake & Output 03/30/24 03/31/24 03/31/24 18:59 06:59 18:59 Intake Total 734 118 Output Total 550 Balance 734 -550 118 Weight 107 kg Intake: Intake, IV Titration 260 Amount Sodium Chloride 0.9% 1, 160 000 ml @ 20 mls/hr IV . Q24H [facility] Rx#:[id number] Sodium Ferric Gluconat- 100 Sucrose 125 mg In Sodium Chloride 0.9% 100 ml @ 100 mls/hr IVPB DAILY [facility] Rx#:[id number] Oral 474 118 Output: Urine 550 Other: Voiding Method External Catheter External Catheter External Catheter # Voids 1 # Bowel Movements 1 - Constitutional General appearance: Present: obese - EENT Eyes: Present: anicteric sclerae, EOMI ENT: Present: hearing grossly normal - Respiratory Details: breathing is even and unlabored - Cardiovascular Details: skin warm and dry - Integumentary Integumentary: Absent: cyanotic - Musculoskeletal Musculoskeletal: Present: generalized weakness - Psychiatric Psychiatric: Present: A&O x's 3 - Labs CBC & Chem 7: 03/30/24 06:30 03/27/24 13:05 Labs: Abnormal Lab Results - Last 24 Hours (Table) 03/31/24 Range/Units 07:26 PT 16.4 H (10.0-12.5) sec INR 1.6 H (<1.2) Assessment and Plan (1) Acute renal failure (ARF) Current Visit: Yes Status: Acute Priority: High Code(s): N17.9 - ACUTE KIDNEY FAILURE, UNSPECIFIED SNOMED Code(s): 83979054 (2) Anemia associated with chemotherapy Current Visit: Yes Status: Acute Priority: High Code(s): D64.81 - ANEMIA DUE TO ANTINEOPLASTIC CHEMOTHERAPY; T45.1X5A - ADVERSE EFFECT OF ANTINEOPLASTIC AND IMMUNOSUP DRUGS, INIT SNOMED Code(s): 397313616827656 (3) Chemotherapy induced neutropenia Current Visit: Yes Status: Acute Priority: High Code(s): D70.1 - AGRANULOCYTOSIS SECONDARY TO CANCER CHEMOTHERAPY; T45.1X5A - ADVERSE EFFECT OF ANTINEOPLASTIC AND IMMUNOSUP DRUGS, INIT SNOMED Code(s): 210100969 (4) Coagulopathy Current Visit: Yes Status: Acute Priority: High Code(s): D68.9 - COAGULATION DEFECT, UNSPECIFIED SNOMED Code(s): 51354850 (5) Gastrointestinal hemorrhage Current Visit: Yes Status: Acute Priority: High Code(s): K92.2 - GASTROINTESTINAL HEMORRHAGE, UNSPECIFIED SNOMED Code(s): 27140158 Plan: #Upper GI bleed likely to coagulopathy from Coumadin -Presented with melena, hematemesis, and orthostatic dizziness and was noted to have INR of 7.8 -Hemoglobin was 9.8 on initial presentation, consistent with hemoglobins outpa tient of 9-10, but has noted to have hemoglobin of 8.1 today -She was given oral vitamin K 5 mg on presentation on 03/24/2024 and was started on IV PPI twice daily -Coumadin was held -Repeat coagulation studies noted INR of 1.4. No additional vitamin K is needed given the INR and the fact she has not had any episodes of melena since admission -In addition, given the hypochromasia noted on manual slide review, iron studies in addition to vitamin B12/methylmalonic acid, and folic acid were ordered -Labs consistent with BRENDON, parenteral iron x 4 doses ordered -S/p EGD, no active bleeding noted. Barium swallow study showing large hiatal hernia, with some hesitancy of contrast passing through the GE junction. Discussed case with surgery, pt will likely need surgical intervention, but plan to hold surgery for now, as pt is poor surgical candidate -Melena now subsided. 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 Hgb stable -Monitor CBC. Transfuse for hemoglobin less than 7 #Squamous cell carcinoma of the skin -S/p cycle 5 of carboplatin/paclitaxel for recurrent disease -Most recent staging CT of the neck and chest on 02/16/2024 noted no evidence of recurrent disease after 3 cycles -Last clinic note noted plan to complete 5 cycles of treatment and then proceed to surveillance, but Ariadne notes being scheduled for additional treatments -We will confer with her primary oncologist Dr. Murray
--- NOTE | 2024-03-31 15:50 | P.PN ---
Subjective Progress Note Date: 03/31/24 SURGICAL PROGRESS NOTE CHIEF COMPLAINT: GI bleed HISTORY OF PRESENT ILLNESS: Patient status post EGD with large hiatal hernia noted. Upper GI had shown a large intrathoracic hiatal hernia. Patient compl ains of cough with phlegm. She has cough with or without eating. She denies any nausea or vomiting. Denies any dysphagia. Afebrile. Hemoglobin yesterday 9.1. Patient denies any black stools. Medicine service has started patient on her Coumadin. INR 1.6 PHYSICAL EXAM: VITAL SIGNS: Reviewed. GENERAL: Well-developed in no acute distress. ABDOMEN: Soft. Nondistended. NEUROLOGIC: lethargic ASSESSMENT: 1. Large intrathoracic hiatal hernia 2. GI bleed with melanotic stools possibly due to hiatal hernia 3. Neutropenic due to chemotherapy 4. Skin cancer PLAN: -Continue dysphagia chopped diet -Continue to monitor -Patient may eventually need repair of hiatal hernia Physician Residential Nurse note has been reviewed by physician. Signing provider agrees with the documented findings, assessment, and plan of care. Objective - Vital Signs Vital signs: Vital Signs Temp 97.9 F 03/31/24 10:54 Pulse 79 03/31/24 15:38 Resp 18 03/31/24 14:16 BP 138/81 03/31/24 10:54 Pulse Ox 97 03/31/24 10:54 FiO2 Intake & Output 03/30/24 03/31/24 03/31/24 18:59 06:59 18:59 Intake Total 734 118 Output Total 550 Balance 734 -550 118 Weight 107 kg 107 kg Intake: Intake, IV Titration 260 Amount Sodium Chloride 0.9% 1, 160 000 ml @ 20 mls/hr IV . Q24H [facility] Rx#:[id number] Sodium Ferric Gluconat- 100 Sucrose 125 mg In Sodium Chloride 0.9% 100 ml @ 100 mls/hr IVPB DAILY [facility] Rx#:[id number] Oral 474 118 Output: Urine 550 Other: Voiding Method External Catheter External Catheter External Catheter # Voids 1 # Bowel Movements 1 - Labs CBC & Chem 7: 03/30/24 06:30 03/27/24 13:05 Labs: Abnormal Lab Results - Last 24 Hours (Table) 03/31/24 Range/Units 07:26 PT 16.4 H (10.0-12.5) sec INR 1.6 H (<1.2) Assessment and Plan Assessment: 78 yo female with large hiatal hernia -no surgical intervention at this time -continue diet -follow up outpatient Time with Patient: Less than 30
[2024-03-31] MEDS: WARFARIN 2 MG TAB PO ONE (16:38)
[2024-04-01 08:03] LABS: INR 1.8 (<1.2); Prothrombin Time 17.8 sec (10.0-12.5)
[2024-04-01 08:07] LABS: Anisocytosis Slight; HCT 29.1 % (34.0-46.0); HGB 8.7 gm/dL (11.4-16.0); Hypochromasia Marked; MCH 26.2 pg (25.0-35.0); MCHC 30.1 g/dL (31.0-37.0); MCV 87.2 fL (80.0-100.0); Mean Platelet Volume 9.4; Platelet Count 270 k/uL (150-450); RBC 3.34 m/uL (3.80-5.40); RDW 17.7 % (11.5-15.5); WBC 6.8 k/uL (3.8-10.6)
--- NOTE | 2024-04-01 13:53 | P.PN ---
Subjective patient seen and evaluated at bedside. Patient admits to coughing but denies abdominal pain. Objective - Vital Signs Vital signs: Vital Signs Temp 97.5 F L 04/01/24 03:33 Pulse 80 04/01/24 12:14 Resp 18 04/01/24 11:53 BP 147/77 04/01/24 11:53 Pulse Ox 95 04/01/24 11:53 FiO2 Intake & Output 03/31/24 04/01/24 04/01/24 18:59 06:59 18:59 Intake Total 478 Output Total 100 Balance 478 -100 Weight 107 kg 117 kg Intake: Oral 478 Output: Urine 100 Other: Voiding Method External Catheter External Catheter External Catheter # Voids 1 - Exam gen: nad cv: rrr pul: non labored breathing abd: soft, non tender to palpation, no guarding or rebound tenderness - Labs CBC & Chem 7: 04/01/24 07:11 03/27/24 13:05 Labs: Abnormal Lab Results - Last 24 Hours (Table) 04/01/24 04/01/24 Range/Units 07:11 07:11 RBC 3.34 L (3.80-5.40) m/uL Hgb 8.7 L (11.4-16.0) gm/dL Hct 29.1 L (34.0-46.0) % MCHC 30.1 L (31.0-37.0) g/dL RDW 17.7 H (11.5-15.5) % PT 17.8 H (10.0-12.5) sec INR 1.8 H (<1.2) Microbiology - Last 24 Hours (Table) 03/26/24 20:10 Blood Culture - Final Blood Assessment and Plan Assessment: 78 yo female with large hiatal hernia -no surgical intervention at this time -continue diet -follow up outpatient Time with Patient: Less than 30
[2024-04-01] MEDS: WARFARIN 2 MG TAB PO ONE (16:39)
[2024-04-02 10:15] LABS: INR 2.1 (<1.2); Prothrombin Time 20.7 sec (10.0-12.5)
[2024-04-02] MEDS: WARFARIN 3 MG TAB PO ONE (16:41)
[2024-04-02 16:54] LABS: Appearance,Urine Turbid (Clear); Bacteria,Urine Moderate /hpf; Bilirubin,Urine Negative (Negative); Blood,Urine Small (Negative); Color,Urine Colorless; Glucose,Urine (UA) Negative (Negative); Ketones,Urine Negative (Negative); Leukocyte Esterase,Urine Large (Negative); Nitrite,Urine Negative (Negative); PH, Urine 5.5 (5.0-8.0); Protein,Urine Trace (Negative); RBC,Urine 13 /hpf (0-5); Specific Gravity,Urine 1.012 (1.001-1.035); Urobilinogen,Urine <2.0 mg/dL (<2.0); WBC,Urine >182 /hpf (0-5)
[2024-04-02 20:17] LABS: Glucose,Whole Blood 115 mg/dL (70-110)
--- NOTE | 2024-04-02 22:36 | PN ---
PROGRESS NOTE DATE OF SERVICE: 04/01/2024 CHIEF COMPLAINT: Pancytopenia, cough, intermittent episodes of nausea and vomiting. HISTORY OF PRESENT ILLNESS: This lady is doing about the same. She is still complaining a lot of cough, which is bothering her. Updrafts have been started, which seemed to help it. PHYSICAL EXAMINATION: CHEST: Quite clear. CARDIAC: Normal. ABDOMEN: Soft, nontender. IMPRESSION: 1. Pancytopenia. 2. Squamous cell carcinoma of the right side of scalp and neck. 3. Bronchitis. 4. Intermittent episodes of nausea and vomiting. PLAN: Continue current program with hopes of getting her either back home or to rehab soon. MMODL / IJN: [id number] /
[2024-04-03 03:44] LABS: INR 2.1 (<1.2); Prothrombin Time 21.2 sec (10.0-12.5)
--- NOTE | 2024-04-03 04:33 | PN ---
PROGRESS NOTE DATE OF SERVICE: 04/02/2024 CHIEF COMPLAINT: Pancytopenia. HISTORY OF PRESENT ILLNESS: This lady is doing better. Cough is a little bit better and she has not had any more episodes of nausea and vomiting. White count is climbing. PHYSICAL EXAMINATION: CHEST: Fairly clear. She has occasional rhonchi. CARDIAC: Normal. ABDOMEN: Soft, nontender. IMPRESSION: 1. Pancytopenia. 2. Squamous cell carcinoma of the right-sided scalp and neck. 3. Dehydration. 4. Bronchitis. PLAN: If she continues to do well, she can probably go home in the next day or 2. MMODL / IJN: [id number] /
[2024-04-03 06:41] LABS: Glucose,Whole Blood 92 mg/dL (70-110)
--- NOTE | 2024-04-03 07:12 | PN ---
PROGRESS NOTE DATE OF SERVICE: 03/29/2024 CHIEF COMPLAINT: Pancytopenia. HISTORY OF PRESENT ILLNESS: This lady's white count is coming up. Now, she is having some trouble with nausea and vomiting, and she does have a slight cough, but no chest pain, shortness of breath, or fever. PHYSICAL EXAMINATION: CHEST: Demonstrates occasional rhonchi. CARDIAC: Normal. ABDOMEN: Soft and nontender. EXTREMITIES: Normal. IMPRESSION: 1. Pancytopenia, secondary to chemotherapy. 2. Carcinoma of the right side of the scalp and neck. 3. Nausea and vomiting. 4. Referred to Gastroenterology for her intermittent episodes of nausea and vomiting. MMODL / IJN: [id number] /
--- NOTE | 2024-04-03 07:18 | PN ---
PROGRESS NOTE CHIEF COMPLAINT: Pancytopenia. HISTORY OF PRESENT ILLNESS: This lady is still complaining a little bit of cough. BNP and D-dimer will be ordered. She is also having trouble with diarrhea and her Lomotil will be increased. She will be started back on her Coumadin as well. Updrafts were ordered. PHYSICAL EXAMINATION: CHEST: Demonstrates occasional rales and rhonchi. CARDIAC: Unremarkable. ABDOMEN: Soft and nontender. IMPRESSION: 1. Pancytopenia. 2. Bronchitis. PLAN: 1. Updrafts q.i.d. and p.r.n. 2. Restart Coumadin. MMODL / IJN: [id number] /
--- NOTE | 2024-04-03 07:42 | PN ---
PROGRESS NOTE DATE OF SERVICE: 03/31/2024 CHIEF COMPLAINT: Pancytopenia with cough and nausea. HISTORY OF PRESENT ILLNESS: This lady's nausea and vomiting have improved. She is complaining of a quite a bit of a cough. She has had no fever, chills, or hemoptysis. PHYSICAL EXAMINATION: CHEST: Clear. CARDIAC: Normal. ABDOMEN: Soft and nontender. IMPRESSION: 1. Pancytopenia. 2. Carcinoma of the right side of the scalp and neck. 3. Bronchitis. PLAN: Updrafts with albuterol q.i.d. and p.r.n. MMODL / CINDYN: [id number] /
[2024-04-03 08:13] VITALS: BP 126/76; RESP 18; TEMP 97.5
[2024-04-03 11:34] LABS: Glucose,Whole Blood 82 mg/dL (70-110)
[2024-04-03 11:59] VITALS: PULSE 88
--- NOTE | 2024-04-03 13:13 | P.PN ---
Subjective Progress Note Date: 04/03/24 SURGICAL PROGRESS NOTE CHIEF COMPLAINT: GI bleed HISTORY OF PRESENT ILLNESS: Patient status post EGD with large hiatal hernia noted. Upper GI had shown a large intrathoracic hiatal hernia. Patient moshe ating diet. She denies any nausea or vomiting. She reports she is scheduled for discharge today. PHYSICAL EXAM: VITAL SIGNS: Reviewed. GENERAL: Well-developed in no acute distress. ABDOMEN: Soft. Nondistended. ASSESSMENT: 1. Large intrathoracic hiatal hernia 2. GI bleed with melanotic stools possibly due to hiatal hernia. Now resolved 3. Neutropenic due to chemotherapy 4. Skin cancer PLAN: -Agree with discharge -No surgical intervention planned at this time -Recommend outpatient follow-up -Continue dysphagia chopped diet Physician Groundskeeper note has been reviewed by physician. Signing provider agrees with the documented findings, assessment, and plan of care. Objective - Vital Signs Vital signs: Vital Signs Temp 97.5 F L 04/03/24 08:00 Pulse 88 04/03/24 11:58 Resp 18 04/03/24 08:00 BP 126/76 04/03/24 08:00 Pulse Ox 96 04/03/24 08:00 FiO2 Intake & Output 04/02/24 04/03/24 04/03/24 18:59 06:59 18:59 Intake Total 100 Output Total 75 Balance 25 Weight 119 kg Intake: Intake, IV Titration 100 Amount Sodium Chloride 0.9% 1, 100 000 ml @ 20 mls/hr IV . Q24H [facility] [place] Rx#:[id number] Output: Urine 75 Other: Voiding Method External Catheter # Voids 3 # Bowel Movements 1 1 - Labs CBC & Chem 7: 04/01/24 07:11 03/27/24 13:05 Labs: Abnormal Lab Results - Last 24 Hours (Table) 04/02/24 04/02/24 04/03/24 Range/Units 16:00 20:15 03:17 PT 21.2 H (10.0-12.5) sec INR 2.1 H (<1.2) POC Glucose (mg/dL) 115 H (70-110) mg/dL Urine Appearance Turbid H (Clear) Urine Protein Trace H (Negative) Urine Blood Small H (Negative) Ur Leukocyte Esterase Large H (Negative) Urine RBC 13 H (0-5) /hpf Urine WBC >182 H (0-5) /hpf Urine Bacteria Moderate H (None) /hpf
[2024-04-03] MEDS ORDERED: WARFARIN 3 MG TAB PO ONE (18:00)
--- NOTE | 2024-04-07 07:48 | DS ---
DISCHARGE SUMMARY CHIEF COMPLAINT: Anemia, vomiting, and leukopenia. HISTORY OF PRESENT ILLNESS AND PHYSICAL EXAMINATION: Details of this lady's history and physical can be found in the initial workup. LABORATORY STUDIES: While she was in the hospital, she had laboratory studies, details of which can be found in the laboratory section of her chart. COURSE IN THE HOSPITAL: After admission, she was placed on bedrest and her anticoagulation was stopped and her GI bleeding ceased. Her hemoglobin stabilized. Her white count was also quite low due to her chemotherapy. Balance of her hospital was spent in trying to increase her activity well. Her white blood cell count slowly homar. At one point, she did have a low-grade fever, but none after that. She was followed by Hematology/Oncology. It was felt that she could undergo endoscopy later and this was deferred. She continued to have some difficulty with nausea and vomiting as well as a slightly productive cough. However, things finally stabilized enough. It was felt that she could go home. There was concern about how she would do in her very weakened state and the fact that she had not been ambulating a great deal. She will be followed up in the office. FINAL DIAGNOSES: 1. Gastrointestinal hemorrhage. 2. Blood loss anemia. 3. Leukopenia secondary to chemotherapy. 4. Carcinoma of the right side of the scalp and neck. 5. Bronchitis. 6. Intractable nausea and vomiting. OPERATIONS: None. CONSULTATIONS: Oncology and GI. MMODL / CINDYN: [id number] /
== END 2024-04-03 14:59 | disposition home or self-care (01) | DRG 813 ==
LOC: EC 14:36 → 3SCARD 20:21 → 4SSUR 04-02 17:02
PROVIDERS: ADMIT Family Medicine; ATTEND Family Medicine
PROC: 0DJ08ZZ Inspection of Upper Intestinal Tract, Via Natural or Artificial Opening Endoscopic (ICD-10-PCS; principal; 2024-03-24)
DX: D68.32 Hemorrhagic disorder due to extrinsic circulating anticoagulants (principal); D61.810 Antineoplastic chemotherapy induced pancytopenia; D61.818 Other pancytopenia; N17.9 Acute kidney failure, unspecified; Z68.42 Body mass index [BMI] 45.0-49.9, adult; K92.0 Hematemesis; K44.9 Diaphragmatic hernia without obstruction or gangrene; D68.9 Coagulation defect, unspecified; D64.81 Anemia due to antineoplastic chemotherapy; C44.92 Squamous cell carcinoma of skin, unspecified; D70.1 Agranulocytosis secondary to cancer chemotherapy; E11.22 Type 2 diabetes mellitus with diabetic chronic kidney disease; E78.5 Hyperlipidemia, unspecified; R19.7 Diarrhea, unspecified; I12.9 Hypertensive chronic kidney disease with stage 1 through stage 4 chronic kidney disease, or unspecified chronic kidney disease; T45.1X5A Adverse effect of antineoplastic and immunosuppressive drugs, initial encounter; N18.30 Chronic kidney disease, stage 3 unspecified; J44.9 Chronic obstructive pulmonary disease, unspecified; M19.90 Unspecified osteoarthritis, unspecified site; E66.9 Obesity, unspecified; E86.0 Dehydration; J40 Bronchitis, not specified as acute or chronic; Z85.828 Personal history of other malignant neoplasm of skin; Z79.01 Long term (current) use of anticoagulants; X58.XXXA Exposure to other specified factors, initial encounter; Z79.84 Long term (current) use of oral hypoglycemic drugs; Z79.899 Other long term (current) drug therapy; Z90.710 Acquired absence of both cervix and uterus; Z91.013 Allergy to seafood; Z91.041 Radiographic dye allergy status; Z88.8 Allergy status to other drugs, medicaments and biological substances; Z87.19 Personal history of other diseases of the digestive system; Z90.49 Acquired absence of other specified parts of digestive tract
CPT/HCPCS: 36415; 43235; 71045; 80053; 81001; 82607; 82728; 82746; 83540; 83550; 83605; 83690; 83735; 83880; 83921; 84100; 84484; 85025; 85027; 85379; 85610; 85730; 86850; 86900; 86901; 87040; 87324; 94640; 96361; 96374; 96375; 99291

== ENCOUNTER 2024-04-03 16:55 | Observation (INO) | payer MEDICARE, OTHER ==
--- NOTE | 2024-04-03 17:41 | ED ---
General Adult HPI - General Chief complaint: Weakness Stated complaint: Weakness Time Seen by Provider: 04/03/24 16:59 Source: patient, EMS, RN notes reviewed Mode of arrival: EMS Limitations: physical limitation - History of Present Illness Initial comments: Patient is a 78-year-old female presenting to the emergency department with son with concerns for ability to take care of herself. Patient was recently in the hospital. Patient is on chemotherapy for squamous cell cancer. Patient did have some difficulty with eating however states she is doing better at that. Patient however has becoming more gradually weak. Patient had originally refuse d rehab. Patient went home and is unable to walk or take care of herself. - Related Data Home Medications Medication Instructions Recorded Confirmed Cholecalciferol [Vitamin D3 (25 25 mcg PO DAILY 06/12/21 04/03/24 Mcg = 1000 Iu)] Metoprolol Tartrate [Lopressor] 50 mg PO BID 06/12/21 04/03/24 Omeprazole 20 mg PO DAILY 06/12/21 04/03/24 traMADol HCl [Ultram] 100 mg PO TID PRN 06/12/21 04/03/24 metFORMIN HCL [Glucophage] 500 mg PO DAILY 12/23/22 04/03/24 rOPINIRole HCL [Requip] 5 mg PO HS 12/23/22 04/03/24 Prochlorperazine [Compazine] 10 mg PO Q6H PRN 03/24/24 04/03/24 Warfarin [Coumadin] 1 mg PO HS 03/24/24 04/03/24 Previous Rx's Medication Instructions Recorded Metoclopramide [Reglan] 10 mg PO AC-TID #90 tab 04/03/24 Allergies Allergy/AdvReac Type Severity Reaction Status Date / Time Fish Containing Products Allergy Dyspnea Verified 04/03/24 17:53 [Fish] iodine Allergy Rash/Hives Verified 04/03/24 17:53 shellfish derived [Shellfish] Allergy Rash/Hives Verified 04/03/24 17:53 oxybutynin [From Ditropan] AdvReac Nausea & Verified 04/03/24 17:53 Vomiting & Diarrhea Review of Systems ROS Statement: Those systems with pertinent positive or pertinent negative responses have been documented in the HPI. ROS Other: All systems not noted in ROS Statement are negative. Constitutional: Denies: fever Eyes: Denies: eye pain ENT: Denies: ear pain Respiratory: Denies: cough, dyspnea Cardiovascular: Denies: chest pain Endocrine: Reports: fatigue Gastrointestinal: Denies: abdominal pain Past Medical History Past Medical History: Diabetes Mellitus, Hypertension, Sleep Apnea/CPAP/BIPAP Additional Past Medical History / Comment(s): COPD, osteoarthritis, previous history of DVT and pulmonary embolism and the along for medical evaluation with warfarin, degenerative arthritis, hypertension, hyperlipidemia, obesity, obstructive sleep apnea not utilizing any form of devices at this point in time. History of Any Multi-Drug Resistant Organisms: None Reported Past Surgical History: Unable to Obtain, Breast Surgery, Cholecystectomy, Hernia Repair, Hysterectomy Additional Past Surgical History / Comment(s): Surgery to remove cyst on head, HAND SURGERY, CYST REMOVED LEFT BREAST Past Anesthesia/Blood Transfusion Reactions: No Reported Reaction Past Psychological History: Anxiety, Depression Smoking Status: Never smoker Past Alcohol Use History: None Reported Past Drug Use History: None Reported - Past Family History Mother Additional Family Medical History / Comment(s): HEART DISEASE Father Additional Family Medical History / Comment(s): HEART DISEASE General Exam Limitations: physical limitation General appearance: alert, in no apparent distress Head exam: Present: normocephalic Eye exam: Present: normal appearance, PERRL, EOMI ENT exam: Present: normal oropharynx Respiratory exam: Present: normal lung sounds bilaterally Cardiovascular Exam: Present: regular rate, normal rhythm GI/Abdominal exam: Present: soft. Absent: tenderness Extremities exam: Present: normal inspection Neurological exam: Present: alert, oriented X3 Expanded Neurological exam: Present: protecting the airway Patient oriented to: Present: person, place, time Speech: Present: fluid speech Motor strength exam: RUE: 5, LUE: 5, RLE: 4, LLE: 4 Eye Response: (4) open spontaneously Motor Response: (6) obeys commands Verbal Response: (5) oriented Psychiatric exam: Present: normal affect, normal mood Skin exam: Present: normal color Course Vital Signs 04/03/24 04/03/24 17:01 18:16 Temperature 98.2 F Pulse Rate 96 90 Respiratory 18 18 Rate Blood Pressure 137/79 166/90 O2 Sat by Pulse 97 96 Oximetry EKG Findings - EKG Results: EKG: interpreted by ERMD (Right bundle branch block. Nonspecific T waves), sinus rhythm, normal axis Medical Decision Making - Medical Decision Making Was pt. sent in by a medical professional or institution (, STEFANO, NURSE SUBSTANCE ABUSE, urgent care, hospital, or long-term...) When possible be specific @ -No Did you speak to anyone other than the patient for history (EMS, parent, family, police, friend...)? What history was obtained from this source @ -Patient's son is present and provides history of recent hospitalization as well as inability to take care of herself at home Did you review nursing and triage notes (agree or disagree)? Why? @ -I reviewed and agree with nursing and triage notes Were old charts reviewed (outside hosp., previous admission, EMS record, old EKG, old radiological studies, urgent care reports/EKG's, long-term records)? Report findings @ -Previous admission reviewed Differential Diagnosis (chest pain, altered mental status, abdominal pain women, abdominal pain men, vaginal bleeding, weakness, fever, dyspnea, syncope, headache, dizziness, GI bleed, back pain, seizure, CVA, palpatations, mental health, musculoskeletal)? @ -Differential Weakness: Hypoglycemia, shock, sepsis, hyponatremia, anemia, infection, ND, ETOH, adverse medicine reaction, overdose, stroke, this is not meant to be an all-inclusive list. EKG interpreted by me (3pts min.). @ -As above X-rays interpreted by me (1pt min.). @ -None done CT interpreted by me (1pt min.). @ -None done U/S interpreted by me (1pt. min.). @ -None done What testing was considered but not performed or refused? (CT, X-rays, U/S, labs)? Why? @ -None What meds were considered but not given or refused? Why? @ -None Did you discuss the management of the patient with other professionals (professionals i.e. , STEFANO, NURSE SUBSTANCE ABUSE, lab, RT, psych nurse, social media executive, russet repairer, teacher, building drafting officer, case therapist)? Give summary @ -Dr. David will admit his patient. He is fairly with this patient Was smoking cessation discussed for >3mins.? @ -No Was critical care preformed (if so, how long)? @ -No Were there social determinants of health that impacted care today? How? (Homelessness, low income, unemployed, alcoholism, drug addiction, transportation, low edu. Level, literacy, decrease access to med. care, intermediate, rehab)? @ -No Was there de-escalation of care discussed even if they declined (Discuss DNR or withdrawal of care, Hospice)? DNR status @ -No What co-morbidities impacted this encounter? (DM, HTN, Smoking, COPD, CAD, Cancer, CVA, ARF, Chemo, Hep., AIDS, mental health diagnosis, sleep apnea, morbid obesity)? @ -History of squamous cell cancer, on chemotherapy Was patient admitted / discharged? Hospital course, mention meds given and route, prescriptions, significant lab abnormalities, going to OR and other pertinent info. @ -Patient presents after recent hospitalization with generalized weakness, unable to take care of herself. Patient will need placement. Admission orders written. Undiagnosed new problem with uncertain prognosis? @ -No Drug Therapy requiring intensive monitoring for toxicity (Heparin, Nitro, Insulin, Cardizem)? @ -No Were any procedures done? @ -No Diagnosis/symptom? @ -Weakness Acute, or Chronic, or Acute on Chronic? @ -Acute Uncomplicated (without systemic symptoms) or Complicated (systemic symptoms)? @ -Located with inability to ambulate and take care of herself, on chemotherapy Side effects of treatment? @ -No Exacerbation, Progression, or Severe Exacerbation? @ -No Poses a threat to life or bodily function? How? (Chest pain, USA, ND, pneumonia, PE, COPD, DKA, ARF, appy, cholecystitis, CVA, Diverticulitis, Homicidal, Suicidal, threat to staff... and all critical care pts) @ -No - Lab Data Result diagrams: 04/03/24 18:18 04/03/24 18:18 Lab Results 04/03/24 04/03/24 Range/Units 18:18 18:18 WBC 10.8 H (3.8-10.6) k/uL RBC 3.74 L (3.80-5.40) m/uL Hgb 9.7 L (11.4-16.0) gm/dL Hct 31.5 L (34.0-46.0) % MCV 84.2 (80.0-100.0) fL MCH 26.0 (25.0-35.0) pg MCHC 30.9 L (31.0-37.0) g/dL RDW 17.3 H (11.5-15.5) % Plt Count 440 (150-450) k/uL MPV 7.2 Neutrophils % 81 % Lymphocytes % 6 % Monocytes % 8 % Eosinophils % 1 % Basophils % 1 % Neutrophils # 8.7 H (1.3-7.7) k/uL Lymphocytes # 0.7 L (1.0-4.8) k/uL Monocytes # 0.8 (0-1.0) k/uL Eosinophils # 0.1 (0-0.7) k/uL Basophils # 0.1 (0-0.2) k/uL Hypochromasia Marked Anisocytosis Slight Sodium 139 (137-145) mmol/L Potassium 4.1 (3.5-5.1) mmol/L Chloride 111 H (98-107) mmol/L Carbon Dioxide 23 (22-30) mmol/L Anion Gap 5 mmol/L BUN 15 (7-17) mg/dL Creatinine 1.08 H (0.52-1.04) mg/dL Est GFR (CKD-EPI)AfAm 57 (>60 ml/min/1.73 sqM) Est GFR (CKD-EPI)NonAf 50 (>60 ml/min/1.73 sqM) Glucose 79 (74-99) mg/dL Calcium 8.9 (8.4-10.2) mg/dL Total Bilirubin 1.0 (0.2-1.3) mg/dL AST 27 (14-36) U/L ALT 10 (4-34) U/L Alkaline Phosphatase 122 (38-126) U/L Total Protein 6.6 (6.3-8.2) g/dL Albumin 3.2 L (3.5-5.0) g/dL Disposition Clinical Impression: Weakness Disposition: ADMITTED IP TO THIS HOSP Condition: Stable Is patient prescribed a controlled substance at d/c from ED?: No Time of Disposition: 19:43
[2024-04-03 18:35] LABS: Anisocytosis Slight; Basophils # (A) 0.1 k/uL (0-0.2); Basophils % (A) 1 %; Eosinophils # (A) 0.1 k/uL (0-0.7); Eosinophils % (A) 1 %; HCT 31.5 % (34.0-46.0); HGB 9.7 gm/dL (11.4-16.0); Hypochromasia Marked; Lymphocytes # (A) 0.7 k/uL (1.0-4.8); Lymphocytes % (A) 6 %; MCHC 30.9 g/dL (31.0-37.0); MCV 84.2 fL (80.0-100.0); Mean Platelet Volume 7.2; Monocytes # (A) 0.8 k/uL (0-1.0); Monocytes % (A) 8 %; Neutrophils # (A) 8.7 k/uL (1.3-7.7); Neutrophils % (A) 81 %; Platelet Count 440 k/uL (150-450); RBC 3.74 m/uL (3.80-5.40); RDW 17.3 % (11.5-15.5); WBC 10.8 k/uL (3.8-10.6)
[2024-04-03 18:57] LABS: ALT 10 U/L (4-34); AST 27 U/L (14-36); African American GFR (CKD) 57 (>60 ml/min/1.73 sqM); Albumin 3.2 g/dL (3.5-5.0); Alkaline Phosphatase 122 U/L (38-126); Anion Gap 5 mmol/L; Blood Urea Nitrogen 15 mg/dL (7-17); Calcium 8.9 mg/dL (8.4-10.2); Carbon Dioxide 23 mmol/L (22-30); Chloride 111 mmol/L (98-107); Glucose 79 mg/dL (74-99); Non-African American GFR(CKD) 50 (>60 ml/min/1.73 sqM); Potassium 4.1 mmol/L (3.5-5.1); Sodium 139 mmol/L (137-145); Total Protein 6.6 g/dL (6.3-8.2)
[2024-04-03] MEDS ORDERED: NALOXONE 0.4 MG/ML 1 ML VIAL IV PRN (19:43)
[2024-04-03] MEDS ORDERED: PROCHLORPERAZINE 10 MG TAB PO PRN (19:45)
[2024-04-03] MEDS: METOPROLOL TARTRATE 50 MG TAB PO SCH (20:46)
[2024-04-03 21:38] LABS: Appearance,Urine Turbid (Clear); Bacteria,Urine Occasional /hpf; Bilirubin,Urine Negative (Negative); Blood,Urine Small (Negative); Budding Yeast,Urine Few /hpf; Color,Urine Colorless; Glucose,Urine (UA) Negative (Negative); Ketones,Urine Negative (Negative); Leukocyte Esterase,Urine Large (Negative); Nitrite,Urine Negative (Negative); Protein,Urine 1+ (Negative); RBC,Urine 37 /hpf (0-5); Specific Gravity,Urine 1.016 (1.001-1.035); Urobilinogen,Urine <2.0 mg/dL (<2.0); WBC,Urine >182 /hpf (0-5)
[2024-04-04] MEDS: metFORMIN 500 MG TAB PO SCH (09:23)
[2024-04-04] MEDS: PANTOPRAZOLE 40 MG TABLET PO SCH (09:23)
[2024-04-04] MEDS: CHOLECALCIFEROL 25 MCG (1000 IU) TABLET PO SCH (09:23)
[2024-04-04] MEDS: METOCLOPRAMIDE 10 MG TAB PO SCH (12:37)
[2024-04-04 12:41] LABS: Prothrombin Time 19.8 sec (10.0-12.5)
[2024-04-04] MEDS: WARFARIN 3 MG TAB PO ONE (18:29)
--- NOTE | 2024-04-04 19:06 | P.CONS ---
History of Present Illness - Reason for Consult Consult date: 04/04/24 hx skin cancer Requesting physician: Paulo Velásquez - Chief Complaint weakness - History of Present Illness Ms. 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 Of note patient was just discharged after 10 day admission for GI bleed, coagulopathy. On coumadin for history of DVT. Coumadin was held and vit k was given. Also given 4 doses of IV iron. Underwent EGD with no active bleeding noted but showed large hiatal hernia. Barium swallow study showing large hiatal hernia, with some hesitancy of contrast passing through the GE junction. General surgery was treating conservatively as patient was thought to be a poor surgical candidate. GI bleed thought to be rt hiatal hernia and planned for outpt f/u for possible hernia surgery. Melena resolved, and hgb stabilized, and patient was restarted on coumadin. Patient had declined rehabilitation and was subsequently discharged home. Upon discharge patient reports bilateral lower extremity weakness and inability to ambulate causing her to represent to the emergency room for rehab placement. Patient is reporting fatigue. Denies nausea vomit diarrhea. Denies hematuria, blood in stool or melena. Denies fall. WBC 10.8, hemoglobin 9.7, platelets 1 40,000. INR 2.1 Review of Systems 10 point ROS is negative except as stated in the HPI Past Medical History Past Medical History: Diabetes Mellitus, Hypertension, Sleep Apnea/CPAP/BIPAP Additional Past Medical History / Comment(s): COPD, osteoarthritis, previous history of DVT and pulmonary embolism and the along for medical evaluation with warfarin, degenerative arthritis, hypertension, hyperlipidemia, obesity, obstructive sleep apnea not utilizing any form of devices at this point in time. History of Any Multi-Drug Resistant Organisms: None Reported Past Surgical History: Unable to Obtain, Breast Surgery, Cholecystectomy, Hernia Repair, Hysterectomy Additional Past Surgical History / Comment(s): Surgery to remove cyst on head, HAND SURGERY, CYST REMOVED LEFT BREAST Past Anesthesia/Blood Transfusion Reactions: No Reported Reaction Past Psychological History: Anxiety, Depression Smoking Status: Never smoker Past Alcohol Use History: None Reported Past Drug Use History: None Reported - Past Family History Mother Additional Family Medical History / Comment(s): HEART DISEASE Father Additional Family Medical History / Comment(s): HEART DISEASE Medications and Allergies Home Medications Medication Instructions Recorded Confirmed Type Cholecalciferol [Vitamin D3 (25 25 mcg PO DAILY 06/12/21 04/03/24 History Mcg = 1000 Iu)] Metoprolol Tartrate [Lopressor] 50 mg PO BID 06/12/21 04/03/24 History Omeprazole 20 mg PO DAILY 06/12/21 04/03/24 History traMADol HCl [Ultram] 100 mg PO TID PRN 06/12/21 04/03/24 History metFORMIN HCL [Glucophage] 500 mg PO DAILY 12/23/22 04/03/24 History rOPINIRole HCL [Requip] 5 mg PO HS 12/23/22 04/03/24 History Prochlorperazine [Compazine] 10 mg PO Q6H PRN 03/24/24 04/03/24 History Warfarin [Coumadin] 1 mg PO HS 03/24/24 04/03/24 History Metoclopramide [Reglan] 10 mg PO AC-TID #90 tab 04/03/24 04/03/24 Rx Allergies Allergy/AdvReac Type Severity Reaction Status Date / Time Fish Containing Products Allergy Dyspnea Verified 04/03/24 17:53 [Fish] iodine Allergy Rash/Hives Verified 04/03/24 17:53 shellfish derived [Shellfish] Allergy Rash/Hives Verified 04/03/24 17:53 oxybutynin [From Ditropan] AdvReac Nausea & Verified 04/03/24 17:53 Vomiting & Diarrhea Physical Exam Vitals: Vital Signs Temp Pulse Resp BP Pulse Ox 04/04/24 08:00 98.1 F 91 18 140/79 98 04/04/24 07:02 80 18 149/83 98 04/03/24 20:46 93 18 137/74 98 04/03/24 20:00 97.8 F 87 20 130/58 96 04/03/24 19:43 16 97 04/03/24 18:16 90 18 166/90 96 04/03/24 17:01 98.2 F 96 18 137/79 97 Intake and Output 04/03/24 04/04/24 04/04/24 22:59 06:59 14:59 Output Total 150 Balance -150 Output: Urine 150 Other: Weight 99.79 kg - Constitutional General appearance: no acute distress, obese - EENT Eyes: anicteric sclerae, EOMI ENT: hearing grossly normal - Respiratory Respiratory: bilateral: CTA - Cardiovascular Rhythm: regular - Gastrointestinal General gastrointestinal: soft, no tenderness - Integumentary Integumentary: no cyanotic, no jaundiced - Musculoskeletal Musculoskeletal: generalized weakness - Psychiatric Psychiatric: A&O x's 3 Results CBC & Chem 7: 04/03/24 18:18 04/03/24 18:18 Labs: Abnormal Lab Results - Last 24 Hours (Table) 04/03/24 04/03/24 04/03/24 Range/Units 18:18 18:18 21:23 WBC 10.8 H (3.8-10.6) k/uL RBC 3.74 L (3.80-5.40) m/uL Hgb 9.7 L (11.4-16.0) gm/dL Hct 31.5 L (34.0-46.0) % MCHC 30.9 L (31.0-37.0) g/dL RDW 17.3 H (11.5-15.5) % Neutrophils # 8.7 H (1.3-7.7) k/uL Lymphocytes # 0.7 L (1.0-4.8) k/uL Chloride 111 H (98-107) mmol/L Creatinine 1.08 H (0.52-1.04) mg/dL Albumin 3.2 L (3.5-5.0) g/dL Urine Appearance Turbid H (Clear) Urine Protein 1+ H (Negative) Urine Blood Small H (Negative) Ur Leukocyte Esterase Large H (Negative) Urine RBC 37 H (0-5) /hpf Urine WBC >182 H (0-5) /hpf Urine WBC Clumps Many H (None) /hpf Urine Bacteria Occasional H (None) /hpf Urine Yeast (Budding) Few H (None) /hpf Assessment and Plan (1) Weakness Current Visit: Yes Status: Acute Priority: High Code(s): R53.1 - WEAKNESS SNOMED Code(s): 91376363 (2) CKD (chronic kidney disease) stage 3, GFR 30-59 ml/min Current Visit: Yes Status: Acute Priority: Medium Code(s): N18.30 - CHRONIC KIDNEY DISEASE, STAGE 3 UNSPECIFIED SNOMED Code(s): 760225420 (3) Recurrent squamous cell carcinoma of skin Current Visit: No Status: Acute Priority: Medium Code(s): C44.92 - SQUAMOUS CELL CARCINOMA OF SKIN, UNSPECIFIED SNOMED Code(s): 402340350 Plan: Weakness: -Recent 10 day hospital admission. R/t acute condition, muscle deconditioning -Pt had initially declined rehab, and was discharged home and represented for weakness and rehab placement -PT/OT consulted Normocytic anemia: -Recent GI bleed. r/t hiatal hernia. S/p 4 doses IV iron -Hgb slowly improving. 9.7. No reported episodes of acute bleeding -Multifactorial r/t chemo, CKD, and recent GI bleed -Monitor CBC. Transfuse for hemoglobin less than 7 #Squamous cell carcinoma of the skin -S/p cycle 5/6 of carboplatin/paclitaxel for recurrent disease -Most recent staging CT of the neck and chest on 02/16/2024 noted no evidence of recurrent disease after 3 cycles -Will schedule clinic f/u s/p discharge from rehab facility Doctor attests: I performed a history and physical examination of this patient, developed impression and plan of care. Discussed with dictator. I agree with dictators note, documented as a scribe.
[2024-04-05 07:21] LABS: Glucose,Whole Blood 93 mg/dL (70-110)
[2024-04-05 10:55] LABS: INR 2.17 sec (0.93-1.11); Prothrombin Time 22.3 sec (9.9-11.9)
[2024-04-05 12:16] LABS: Glucose,Whole Blood 109 mg/dL (70-110)
[2024-04-05 17:17] LABS: Glucose,Whole Blood 89 mg/dL (70-110)
[2024-04-05] MEDS: LOPERAMIDE 2 MG CAP PO PRN (18:36)
[2024-04-05] MEDS: traMADol 50 MG TAB PO PRN (18:36)
[2024-04-05] MEDS: WARFARIN 3 MG TAB PO SCH (18:36)
[2024-04-05] MEDS: guaiFENesin SYRUP 100MG/5ML 200 MG/10 ML CUP PO PRN (20:05)
[2024-04-05 20:18] LABS: Glucose,Whole Blood 138 mg/dL (70-110)
[2024-04-06 07:03] LABS: INR 2.4 (<1.2); Prothrombin Time 23.4 sec (10.0-12.5)
[2024-04-06 07:29] LABS: Glucose,Whole Blood 86 mg/dL (70-110)
[2024-04-06 12:31] LABS: Glucose,Whole Blood 79 mg/dL (70-110)
[2024-04-06 17:23] LABS: Glucose,Whole Blood 95 mg/dL (70-110)
[2024-04-06 20:09] LABS: Glucose,Whole Blood 106 mg/dL (70-110)
[2024-04-06] MEDS: NYSTATIN 100,000 UNIT/GM POWD 15 GM TOPICAL SCH (20:12)
--- NOTE | 2024-04-07 04:08 | HP ---
HISTORY AND PHYSICAL CHIEF COMPLAINT: Weakness, debility, and inability to ambulate. HISTORY OF PRESENT ILLNESS: This 78-year-old female was discharged to the hospital, went home, and had to be returned by her family because she could not function. She could not stand or walk. Someone was supposed to come to the home to help her with her care. That individual apparently fell ill. Review of systems, past medical history, family history, and personal and social histories are all unchanged from her recent admission. PHYSICAL EXAMINATION: VITAL SIGNS: Are normal. She is slightly pale. HEAD, EARS, EYES, NOSE, MOUTH, AND THROAT: Otherwise normal except for the scars on the right side of the scalp and neck. CHEST: Demonstrates occasional rhonchi. CARDIAC: Normal. ABDOMEN: Soft and nontender. EXTREMITIES: Normal. IMPRESSION: 1. General debility and failure to thrive. 2. Inability to ambulate. 3. 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 4. Recent GI bleed. 5. Blood loss anemia. 6. Leukopenia. PLAN: 1. Bedrest. 2. Physical and occupational therapies. 3. Social Service consult for discharge planning. MMODL / IJN: [id number] /
--- NOTE | 2024-04-07 06:16 | PN ---
PROGRESS NOTE DATE OF SERVICE: 04/04/2024 CHIEF COMPLAINT: General debility and weakness. HISTORY OF PRESENT ILLNESS: This lady is stable and there has been no interval change. We will be looking into detention placement. PHYSICAL EXAMINATION: GENERAL: She is alert and awake. CHEST: Clear. CARDIAC: Normal. EXTREMITIES: Normal. IMPRESSION: 1. General debility and weakness with failure to thrive. 2. Carcinoma of the right side of the scalp and neck. 3. Recent gastrointestinal bleed. 4. Blood loss anemia. 5. Bone marrow suppression from chemotherapy. PLAN: PT and OT and look for detention placement. MMODL / IJN: [id number] /
[2024-04-07 06:34] LABS: INR 2.5 (<1.2); Prothrombin Time 24.4 sec (10.0-12.5)
[2024-04-07 07:09] LABS: Glucose,Whole Blood 85 mg/dL (70-110)
[2024-04-07 12:21] LABS: Glucose,Whole Blood 85 mg/dL (70-110)
--- NOTE | 2024-04-07 16:00 | DS ---
DISCHARGE SUMMARY CHIEF COMPLAINT: Weakness and failure to thrive. HISTORY OF PRESENT ILLNESS AND PHYSICAL EXAMINATION: Details of this lady's history and physical can be found in the initial workup. LABORATORY STUDIES: While she is in the hospital, she had laboratory studies, details of which can be found in the laboratory section of her chart. COURSE IN THE HOSPITAL: After admission, she was placed on bedrest and started on physical therapy and rehab. Arrangements were made for her to go to [facility] on the and she will be transferred there. FINAL DIAGNOSES: 1. General debility and weakness. 2. Failure to thrive. 3. Inability to ambulate. 4. Carcinoma of the right side of the scalp and neck. OPERATIONS: None. CONSULTATIONS: None. MMODL / IJN: [id number] /
[2024-04-07 17:12] LABS: Glucose,Whole Blood 89 mg/dL (70-110)
[2024-04-07 20:08] LABS: Glucose,Whole Blood 128 mg/dL (70-110)
--- NOTE | 2024-04-08 01:59 | HP ---
HISTORY AND PHYSICAL CHIEF COMPLAINT: Inability to ambulate and general debility. HISTORY OF PRESENT ILLNESS: This lady went home earlier today. Apparently, she went home and was unable to be maintained there. She lives with a daughter. Another friend, who was supposed to come and help, became ill and could not show up. She could not ambulate. She will require usp placement. REVIEW OF SYSTEMS: Otherwise unchanged. Past medical history, family history, and personal and social histories are all similarly unchanged. PHYSICAL EXAMINATION: VITAL SIGNS: Normal. HEAD, EARS, EYES, NOSE, MOUTH AND THROAT: Normal except for the scars on the right side of the scalp and right side of her neck. CHEST: Clear. CARDIAC: Sounds like atrial fibrillation. ABDOMEN: Soft and nontender. EXTREMITIES: Normal. IMPRESSION: General debility and weakness with inability to ambulate. PLAN: PT and usp placement. MMODL / CINDYN: [id number] /
[2024-04-08 07:08] LABS: INR 2.4 (<1.2); Prothrombin Time 24.3 sec (10.0-12.5)
[2024-04-08 07:16] LABS: Glucose,Whole Blood 92 mg/dL (70-110)
--- NOTE | 2024-04-08 07:41 | PN ---
PROGRESS NOTE DATE OF SERVICE: 04/07/2024 CHIEF COMPLAINT: General debility and weakness. HISTORY OF PRESENT ILLNESS: This lady is stable. She was to go to the senior living today, but there was error in the med rec, in that Ultram was checked off for her to continue to take, which she will not be. Apparently, this cannot be changed until I enter it into the computer, so she will stay another day. MMODL / IJN: [id number] /
--- NOTE | 2024-04-08 07:59 | PN ---
PROGRESS NOTE DATE OF SERVICE: 04/05/2024 CHIEF COMPLAINT: General debility and weakness. HISTORY OF PRESENT ILLNESS: This lady's condition is stable. We started to look for halfway for her. She still has a slight cough. PHYSICAL EXAMINATION: CHEST: Clear. CARDIAC: Normal. ABDOMEN: Soft, nontender. IMPRESSION: 1. Generalized weakness and debility. 2. Bronchitis. 3. 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 PLAN: 1. Physical therapy. 2. Renew her Imodium. 3. Discharge planning. MMODL / IJN: [id number] /
--- NOTE | 2024-04-08 10:41 | PN ---
PROGRESS NOTE DATE OF SERVICE: 04/06/2024 CHIEF COMPLAINT: General debility and weakness. HISTORY OF PRESENT ILLNESS: This lady is doing fairly well. We are waiting for placement. PHYSICAL EXAMINATION: VITAL SIGNS: Normal. Exam is otherwise unchanged. IMPRESSION: General debility and weakness with inability to ambulate. PLAN: [facility] placement when bed is available. MMODL / IJN: [id number] /
[2024-04-08 12:27] LABS: Glucose,Whole Blood 88 mg/dL (70-110)
[2024-04-08 17:09] LABS: Glucose,Whole Blood 98 mg/dL (70-110)
[2024-04-08] MEDS ORDERED: SIMETHICONE 80 MG CHEWABLE PO PRN (17:28)
[2024-04-08 20:34] LABS: Glucose,Whole Blood 108 mg/dL (70-110)
[2024-04-09 06:57] LABS: INR 2.7 (<1.2); Prothrombin Time 26.8 sec (10.0-12.5)
[2024-04-09 07:11] LABS: Glucose,Whole Blood 97 mg/dL (70-110)
[2024-04-09 12:17] LABS: Glucose,Whole Blood 89 mg/dL (70-110)
[2024-04-09 17:08] LABS: Glucose,Whole Blood 89 mg/dL (70-110)
[2024-04-09 20:21] LABS: Glucose,Whole Blood 135 mg/dL (70-110)
[2024-04-10 06:18] LABS: INR 2.4 (<1.2); Prothrombin Time 23.8 sec (10.0-12.5)
[2024-04-10 07:16] LABS: Glucose,Whole Blood 86 mg/dL (70-110)
[2024-04-10 07:52] VITALS: RESP 16
[2024-04-10 12:27] LABS: Glucose,Whole Blood 84 mg/dL (70-110)
[2024-04-10 12:38] VITALS: BP 150/87; PULSE 82; TEMP 98.2
--- NOTE | 2024-04-10 14:31 | P.PN ---
Subjective Progress Note Date: 04/10/24 Principal diagnosis: Gen medical debility, need for rehab. Hx of squamous cell skin carcinoma, has received 5/6 systemic chemo treatments for the same. In f/u today pt states that she is ready to go to rehab, her recent prolonged hospitalization made her very weak and he family cannot take care of her at home right now, she needs to be near independent with ADLs. She denies any SOB, cough, pain at this time. Objective - Vital Signs Vital signs: Vital Signs Temp 98.2 F 04/10/24 12:37 Pulse 82 04/10/24 12:37 Resp 16 04/10/24 12:37 BP 150/87 04/10/24 12:37 Pulse Ox 97 04/10/24 12:37 FiO2 Intake & Output 04/09/24 04/10/24 04/10/24 18:59 06:59 18:59 Intake Total 718 480 898 Output Total 750 500 Balance -32 480 398 Intake: Oral 718 480 898 Output: Urine 750 500 Other: Voiding Method Incontinent Incontinent External Catheter External Catheter # Bowel Movements 1 - Constitutional General appearance: Present: cooperative, no acute distress, obese - EENT Eyes: Present: anicteric sclerae, EOMI ENT: Present: hearing grossly normal - Neck Details: right neck significant surgical scar - Respiratory Details: resp even and unlabored - Cardiovascular Details: skin warm and dry to touch - Neurologic Neurologic: Present: CNII-XII intact - Musculoskeletal Musculoskeletal: Present: generalized weakness - Psychiatric Psychiatric: Present: A&O x's 3, appropriate affect, intact judgment & insight - Labs CBC & Chem 7: 04/03/24 18:18 04/03/24 18:18 Labs: Abnormal Lab Results - Last 24 Hours (Table) 04/09/24 04/10/24 Range/Units 20:18 05:35 PT 23.8 H (10.0-12.5) sec INR 2.4 H (<1.2) POC Glucose (mg/dL) 135 H (70-110) mg/dL Assessment and Plan (1) Weakness Current Visit: Yes Status: Acute Priority: High Code(s): R53.1 - WEAKNESS SNOMED Code(s): 28933475 (2) Recurrent squamous cell carcinoma of skin Current Visit: No Status: Acute Priority: Medium Code(s): C44.92 - SQUAMOUS CELL CARCINOMA OF SKIN, UNSPECIFIED SNOMED Code(s): 208583535 Plan: General medical debility -Recent 10 day hospital admission, 2/2 to the same -Pt accepting of rehab at this time, she vocalizes the need to be able to manage ADLs near independently -PT/OT consulted -DC to rehab soon Normocytic anemia,mild -Recent GI bleed, 2/2 hiatal hernia.S/P 4 doses IV iron -Hgb slowly improving. 9.7. No reported episodes of acute bleeding -Multifactorial r/t chemo, CKD, and recent GI bleed -Monitor CBC. Transfuse for hemoglobin less than 7 Squamous cell carcinoma of the skin -S/p cycle 5/6 of carboplatin/paclitaxel for recurrent disease -Most recent treatment restaging CT of the neck and chest on 02/16/2024 noted no evidence of recurrent disease after 3 cycles -Pt states she will contact the [facility] for a f/u appt with Dr. Murray once she is disc harged from rehab facility
[2024-04-10 14:38] VITALS: BMI 41.5
--- NOTE | 2024-04-15 03:52 | PN ---
PROGRESS NOTE DATE OF SERVICE: 04/10/2024 HISTORY OF PRESENT ILLNESS: This lady is still in the hospital. She is supposed to have been discharged, but a type 2 medication was on her MAR, which had actually been deleted, but she never was moved to [facility]. PHYSICAL EXAMINATION: She is stable and she will be going today. IMPRESSION: 1. Generalized weakness and debility. 2. Inability to ambulate. 3. Atrial fibrillation. 4. Carcinoma of the scalp and neck. PLAN: She will be going to the detention today. MMODL / IJN: [id number] /
--- NOTE | 2024-04-15 04:49 | PN ---
PROGRESS NOTE DATE OF SERVICE: 04/08/2024 CHIEF COMPLAINT: General weakness and debility. HISTORY OF PRESENT ILLNESS: This lady is stable, but we are waiting for a discharge plan. She may be going to [facility]. PHYSICAL EXAMINATION: VITAL SIGNS: Normal. CHEST: Clear. CARDIAC: Normal. IMPRESSION: 1. General debility and weakness. 2. History of carcinoma of the right-sided scalp and neck. PLAN: Await rehab. MMODL / IJN: [id number] /
--- NOTE | 2024-04-15 04:58 | PN ---
PROGRESS NOTE DATE OF SERVICE: 04/09/2024 CHIEF COMPLAINT: General debility and weakness. HISTORY OF PRESENT ILLNESS: This lady is stable and she will be going to [facility]. PHYSICAL EXAMINATION: Unchanged. She is doing well. IMPRESSION: 1. General debility and weakness. 2. History of carcinoma of the right side of the neck and scalp. PLAN: Discharge to [facility]. MMODL / CINDYN: [id number] /
--- NOTE | 2024-04-17 07:31 | DS ---
DISCHARGE SUMMARY HISTORY OF PRESENT ILLNESS AND PHYSICAL EXAM: Details of this lady's history and physical can be found in the initial workup. LABORATORY STUDIES: While she was in the hospital, she had laboratory studies, details of which can be found in the laboratory section of her chart. COURSE IN THE HOSPITAL: After she was readmitted to the hospital, she was kept at bedrest with some physical therapy while arrangements were made for her to be transferred to extended care facility and she will be moved to [facility]. FINAL DIAGNOSES: 1. General debility and weakness. 2. Inability to ambulate. 3. Atrial fibrillation. 4. Carcinoma of the scalp and neck. OPERATIONS: None. CONSULTATION: None. She is improved. MMODL / IJN: [id number] /
== END 2024-04-10 14:30 ==
LOC: EC 16:55 → 5NMEDONC 19:45
PROVIDERS: ADMIT Family Medicine; ATTEND Family Medicine
DX: R62.7 Adult failure to thrive (principal); R53.1 Weakness; R26.2 Difficulty in walking, not elsewhere classified; C44.40 Unspecified malignant neoplasm of skin of scalp and neck; E11.22 Type 2 diabetes mellitus with diabetic chronic kidney disease; N18.30 Chronic kidney disease, stage 3 unspecified; I12.9 Hypertensive chronic kidney disease with stage 1 through stage 4 chronic kidney disease, or unspecified chronic kidney disease; I45.10 Unspecified right bundle-branch block; I48.91 Unspecified atrial fibrillation; J40 Bronchitis, not specified as acute or chronic; D63.1 Anemia in chronic kidney disease; D50.0 Iron deficiency anemia secondary to blood loss (chronic); D72.819 Decreased white blood cell count, unspecified; K44.9 Diaphragmatic hernia without obstruction or gangrene; F32.A Depression, unspecified; F41.9 Anxiety disorder, unspecified; Z79.630 Long term (current) use of alkylating agent; Z79.633 Long term (current) use of mitotic inhibitor; Z79.84 Long term (current) use of oral hypoglycemic drugs; Z79.01 Long term (current) use of anticoagulants; Z79.899 Other long term (current) drug therapy; Z86.718 Personal history of other venous thrombosis and embolism; Z88.8 Allergy status to other drugs, medicaments and biological substances; Z91.013 Allergy to seafood; Z74.1 Need for assistance with personal care
CPT/HCPCS: 99285; 36415; 93005; 97162 ×2; 97167; 80053; 85025; 85610 ×7; 81001; G0378 ×8

== ENCOUNTER 2024-05-19 01:56 | Inpatient (IN) | payer MEDICARE, OTHER ==
[2024-05-19] MEDS: PANTOPRAZOLE 40 MG/10 ML VIAL IVP ONE (03:09)
[2024-05-19] MEDS: MORPHINE SULFATE 4 MG/ML SYRINGE IV STA (03:11)
[2024-05-19 03:16] LABS: Anisocytosis Slight; Basophils % (A) 0 %; Eosinophils # (A) 0.4 k/uL (0-0.7); Eosinophils % (A) 3 %; HCT 34.3 % (34.0-46.0); HGB 10.7 gm/dL (11.4-16.0); Hypochromasia Moderate; Lymphocytes # (A) 1.1 k/uL (1.0-4.8); Lymphocytes % (A) 8 %; MCH 26.8 pg (25.0-35.0); MCHC 31.2 g/dL (31.0-37.0); Mean Platelet Volume 7.9; Monocytes # (A) 0.7 k/uL (0-1.0); Monocytes % (A) 5 %; Neutrophils # (A) 10.6 k/uL (1.3-7.7); Neutrophils % (A) 82 %; Platelet Count 349 k/uL (150-450); RBC 3.99 m/uL (3.80-5.40); RDW 16.5 % (11.5-15.5)
[2024-05-19 03:42] LABS: Partial Thromboplastin Time 58.2 sec (22.0-30.0); Prothrombin Time 106.2 sec (10.0-12.5)
[2024-05-19 03:46] LABS: INR >10.0 (<1.2)
[2024-05-19 04:21] LABS: ALT 11 U/L (4-34); AST 22 U/L (14-36); African American GFR (CKD) 47 (>60 ml/min/1.73 sqM); Albumin 3.8 g/dL (3.5-5.0); Alkaline Phosphatase 94 U/L (38-126); Anion Gap 7 mmol/L; Blood Urea Nitrogen 39 mg/dL (7-17); Calcium 9.5 mg/dL (8.4-10.2); Carbon Dioxide 22 mmol/L (22-30); Chloride 104 mmol/L (98-107); Glucose 127 mg/dL (74-99); Non-African American GFR(CKD) 41 (>60 ml/min/1.73 sqM); Sodium 133 mmol/L (137-145); Total Bilirubin 0.6 mg/dL (0.2-1.3); Total Protein 7.6 g/dL (6.3-8.2)
[2024-05-19] MEDS: PHYTONADIONE ORAL 5 MG/5 ML ORAL.SYRG PO STA (06:12)
[2024-05-19] MEDS ORDERED: NALOXONE 0.4 MG/ML 1 ML VIAL IV PRN (06:25)
[2024-05-19] MEDS: PANTOPRAZOLE 40 MG/10 ML VIAL IV SCH (08:26)
[2024-05-19] MEDS: SODIUM CHLORIDE 0.9% 1,000 ML IV SCH (08:27)
[2024-05-19] MEDS: MORPHINE SULFATE 4 MG/ML SYRINGE IV PRN (08:34)
[2024-05-19] MEDS ORDERED: PROCHLORPERAZINE 10 MG TAB PO PRN (09:07)
--- NOTE | 2024-05-19 09:14 | ED ---
GI Bleed HPI - General Chief complaint: GI Bleed Stated complaint: Vomiting blood Time Seen by Provider: 05/19/24 02:11 Source: EMS Mode of arrival: EMS Limitations: no limitations - History of Present Illness Initial comments: Patient is 78-year-old woman who presents to have evaluation for epigastric pain and hematemesis. The symptoms have been flaring up for the past 2 to 3 days. The patient does have history of similar episode and was admitted to the hospital March 24 and then again April 03. March 27 the patient had an EGD performed which did show presence of hiatal hernia but no definite source of bleeding. The patient also had upper GI which also confirmed the large intrathoracic hiatal hernia. The patient with those episodes of bleeding did have Coumadin toxicity. [facility] and is now at home. The patient has not noted fever or chills. No chest pain. No dark tarry or bloody stools. MD complaint: coffee ground emesis, gross hematemesis -: days(s) Radiation: other (Gastric) Quality: burning Consistency: intermittent Improves with: none Worsens with: none Context: history of GI bleed Associated Symptoms: denies other symptoms Treatments Prior to Arrival: none - Related Data Home Medications Medication Instructions Recorded Confirmed Cholecalciferol [Vitamin D3 (25 25 mcg PO DAILY 06/12/21 05/19/24 Mcg = 1000 Iu)] Metoprolol Tartrate [Lopressor] 50 mg PO BID 06/12/21 05/19/24 Omeprazole 20 mg PO DAILY 06/12/21 05/19/24 rOPINIRole HCL [Requip] 5 mg PO HS 12/23/22 05/19/24 Prochlorperazine [Compazine] 10 mg PO Q6H PRN 03/24/24 05/19/24 Warfarin Sodium 4 mg PO HS 05/19/24 05/19/24 Previous Rx's Medication Instructions Recorded Metoclopramide [Reglan] 10 mg PO AC-TID #90 tab 04/03/24 guaiFENesin SYRUP 100MG/5ML 200 mg PO Q6HR PRN #10 oz 04/07/24 [Robitussin] Allergies Allergy/AdvReac Type Severity Reaction Status Date / Time Fish Containing Products Allergy Dyspnea Verified 05/19/24 09:16 [Fish] iodine Allergy Rash/Hives Verified 05/19/24 09:16 shellfish derived [Shellfish] Allergy Rash/Hives Verified 05/19/24 09:16 oxybutynin [From Ditropan] AdvReac Nausea & Verified 05/19/24 09:16 Vomiting & Diarrhea Review of Systems ROS Statement: Those systems with pertinent positive or pertinent negative responses have been documented in the HPI. ROS Other: All systems not noted in ROS Statement are negative. Constitutional: Denies: fever, chills, weakness Respiratory: Denies: cough, dyspnea Cardiovascular: Denies: chest pain, palpitations, edema Gastrointestinal: Reports: abdominal pain, nausea, vomiting, hematemesis. Denies: diarrhea, melena, hematochezia Genitourinary: Denies: dysuria, hematuria Musculoskeletal: Denies: back pain Skin: Denies: rash Neurological: Denies: headache, weakness Hematological/Lymphatic: Reports: easy bleeding (Coumadin) Past Medical History Past Medical History: Diabetes Mellitus, Hypertension, Sleep Apnea/CPAP/BIPAP Additional Past Medical History / Comment(s): COPD, osteoarthritis, previous history of DVT and pulmonary embolism and the along for medical evaluation with warfarin, degenerative arthritis, hypertension, hyperlipidemia, obesity, obstructive sleep apnea not utilizing any form of devices at this point in time. History of Any Multi-Drug Resistant Organisms: None Reported Past Surgical History: Unable to Obtain, Breast Surgery, Cholecystectomy, Hernia Repair, Hysterectomy Additional Past Surgical History / Comment(s): Surgery to remove cyst on head, HAND SURGERY, CYST REMOVED LEFT BREAST Past Anesthesia/Blood Transfusion Reactions: No Reported Reaction Past Psychological History: Anxiety, Depression Smoking Status: Never smoker Past Alcohol Use History: None Reported Past Drug Use History: None Reported - Past Family History Mother Additional Family Medical History / Comment(s): HEART DISEASE Father Additional Family Medical History / Comment(s): HEART DISEASE General Exam General appearance: alert, in no apparent distress Head exam: Present: atraumatic, normocephalic Eye exam: Present: normal appearance. Absent: scleral icterus, conjunctival injection ENT exam: Present: normal oropharynx Neck exam: Present: normal inspection Respiratory exam: Present: normal lung sounds bilaterally. Absent: respiratory distress, wheezes, rales, rhonchi, stridor, accessory muscle use Cardiovascular Exam: Present: regular rate, normal rhythm, normal heart sounds. Absent: systolic murmur, diastolic murmur, rubs, gallop GI/Abdominal exam: Present: soft. Absent: distended, tenderness, guarding, rebound, rigid, mass Extremities exam: Present: normal inspection. Absent: pedal edema Back exam: Present: normal inspection. Absent: CVA tenderness (R), CVA tenderness (L) Neurological exam: Present: alert Skin exam: Present: warm, dry, intact, normal color. Absent: rash Course Vital Signs 05/19/24 05/19/24 05/19/24 02:05 06:10 08:20 Temperature 97.4 F L Pulse Rate 79 86 89 Pulse Rate [ Bilateral Radial] Respiratory 18 18 18 Rate Blood Pressure 126/69 108/60 99/68 Blood Pressure [Right Arm] O2 Sat by Pulse 100 100 100 Oximetry 05/19/24 05/19/24 05/19/24 10:02 10:15 10:35 Temperature 97.6 F 97.6 F 97.7 F Pulse Rate 95 91 100 Pulse Rate [ Bilateral Radial] Respiratory 16 18 18 Rate Blood Pressure 107/91 99/65 97/75 Blood Pressure [Right Arm] O2 Sat by Pulse 99 100 100 Oximetry 05/19/24 05/19/24 05/19/24 12:00 14:20 14:29 Temperature 98.2 F 97.6 F 98.0 F Pulse Rate 95 99 99 Pulse Rate [ Bilateral Radial] Respiratory 14 16 16 Rate Blood Pressure 114/65 122/77 122/74 Blood Pressure [Right Arm] O2 Sat by Pulse 98 98 100 Oximetry 05/19/24 05/19/24 05/19/24 14:49 15:57 20:00 Temperature 98.0 F 97.7 F 98.5 F Pulse Rate 93 90 Pulse Rate [ 108 H Bilateral Radial] Respiratory 14 16 18 Rate Blood Pressure 109/68 122/69 Blood Pressure 114/73 [Right Arm] O2 Sat by Pulse 99 99 98 Oximetry 05/20/24 05/20/24 05/20/24 00:00 02:13 02:48 Temperature 97.4 F L Pulse Rate 108 H Pulse Rate [ 105 H 118 H Bilateral Radial] Respiratory 28 H 32 H 30 H Rate Blood Pressure 100/69 Blood Pressure 105/68 121/75 [Right Arm] O2 Sat by Pulse 95 100 100 Oximetry 05/20/24 05/20/24 05/20/24 03:08 04:00 04:50 Temperature 97.9 F 97.9 F 97.6 F Pulse Rate 98 97 Pulse Rate [ 104 H Bilateral Radial] Respiratory 28 H 25 H 23 Rate Blood Pressure 102/71 111/78 Blood Pressure 93/63 [Right Arm] O2 Sat by Pulse 100 100 100 Oximetry 05/20/24 05/20/24 05/20/24 05:16 05:36 07:01 Temperature 97.4 F L 97.5 F L 97.3 F L Pulse Rate 100 91 94 Pulse Rate [ Bilateral Radial] Respiratory 25 H 24 25 H Rate Blood Pressure 100/69 110/68 101/81 Blood Pressure [Right Arm] O2 Sat by Pulse 100 100 100 Oximetry 05/20/24 05/20/24 05/20/24 08:55 11:05 13:27 Temperature 97.7 F Pulse Rate Pulse Rate [ 94 90 Bilateral Radial] Respiratory 18 17 17 Rate Blood Pressure Blood Pressure 107/69 98/63 [Right Arm] O2 Sat by Pulse 93 L 100 Oximetry 05/20/24 16:00 Temperature Pulse Rate Pulse Rate [ 89 Bilateral Radial] Respiratory 17 Rate Blood Pressure Blood Pressure 108/74 [Right Arm] O2 Sat by Pulse 100 Oximetry Medical Decision Making - Medical Decision Making Patient is a 78-year-old woman with recurrence of hematemesis. Case discussed with Dr. David who will admit, also discussed with Dr. Wilburn who will see the patient. The patient is given medication to reverse Coumadin toxicity, will have serial hemoglobin to ensure that she does not need transfusion of red cells. Was pt. sent in by a medical professional or institution (, PA, CLAIMS CLERK, urgent care, hospital, or [facility]ci...) When possible be specific @ -[No] Did you speak to anyone other than the patient for history (EMS, parent, family, police, friend...)? What history was obtained from this source @ -[The patient's son gave history Did you review nursing and triage notes (agree or disagree)? Why? @ -[I reviewed and agree with nursing and triage notes] Were old charts reviewed (outside hosp., previous admission, EMS record, old EKG, old radiological studies, urgent care reports/EKG's, [facility] records)? Report findings @ -[yes, old charts were reviewed] Differential Diagnosis (chest pain, altered mental status, abdominal pain women, abdominal pain men, vaginal bleeding, weakness, fever, dyspnea, syncope, headache, dizziness, GI bleed, back pain, seizure, CVA, palpatations, mental health, musculoskeletal)? @ -[Differential GI Bleed: Esophageal varices, aortoenteric fistula, Anyi-Anne, gastritis, peptic ulcer disease, diverticulosis, inflammatory bowel disease, hemorrhoids, fissure, colitis, malignancy, Meckel's diverticulum, this is not meant to be an all- inclusive list. EKG interpreted by me (3pts min.). @ -[As above] X-rays interpreted by me (1pt min.). @ -[None done] CT interpreted by me (1pt min.). @ -[None done] U/S interpreted by me (1pt. min.). @ -[None done] What testing was considered but not performed or refused? (CT, X-rays, U/S, labs)? Why? @ -[None] What meds were considered but not given or refused? Why? @ -[None] Did you discuss the management of the patient with other professionals ( professionals i.e. , PA, CLAIMS CLERK, lab, RT, psych nurse, pediatric social worker, cake maker, teacher, safety patrol officer, housing case manager)? Give summary @ -[Case discussed with admitting physician and also with the surgical consultants and their treatment recommendations are incorporated Was smoking cessation discussed for >3mins.? @ -[No] Was critical care preformed (if so, how long)? @ -[No] Were there social determinants of health that impacted care today? How? (Homelessness, low income, unemployed, alcoholism, drug addiction, transportation, low edu. Level, literacy, decrease access to med. care, fdc, rehab)? @ -[No] Was there de-escalation of care discussed even if they declined (Discuss DNR or withdrawal of care, Hospice)? DNR status @ -[No] What co-morbidities impacted this encounter? (DM, HTN, Smoking, COPD, CAD, Cancer, CVA, ARF, Chemo, Hep., AIDS, mental health diagnosis, sleep apnea, morbid obesity)? @ -[History of hiatal hernia, history of previous GI bleed, Coumadin use, Was patient admitted / discharged? Hospital course, mention meds given and route, prescriptions, significant lab abnormalities, going to OR and other pertinent info. @ -[Patient is 78-year-old woman here with recurrence of GI bleeding and also found to have markedly elevated INR consistent with Coumadin toxicity. Patient will be admitted. She is given reversal agents. Will have serial hemoglobin and surgical consultation. Undiagnosed new problem with uncertain prognosis? @ -[No] Drug Therapy requiring intensive monitoring for toxicity (Heparin, Nitro, Insulin, Cardizem)? @ -[No] Were any procedures done? @ -[No] Diagnosis/symptom? @ -[Acute GI bleeding Chronic hiatal hernia Acute Coumadin toxicity Acute, or Chronic, or Acute on Chronic? @ -[Acute Uncomplicated (without systemic symptoms) or Complicated (systemic symptoms)? @ -[Uncomplicated Side effects of treatment? @ -[No] Exacerbation, Progression, or Severe Exacerbation? @ -[No] Poses a threat to life or bodily function? How? (Chest pain, [place], [place], pneumonia, PE, COPD, DKA, ARF, appy, cholecystitis, CVA, Diverticulitis, Homicidal, Cecille cidal, threat to staff... and all critical care pts) @ -[Yes there is risk of further bleeding All treatments are based on ideal body weight as in ED triage - Lab Data Result diagrams: 05/24/24 07:38 05/20/24 06:04 Lab Results 05/19/24 05/19/24 05/19/24 Range/Units 03:00 03:00 03:00 WBC 13.0 H (3.8-10.6) k/uL RBC 3.99 (3.80-5.40) m/uL Hgb 10.7 L (11.4-16.0) gm/dL Hct 34.3 (34.0-46.0) % MCV 86.0 (80.0-100.0) fL MCH 26.8 (25.0-35.0) pg MCHC 31.2 (31.0-37.0) g/dL RDW 16.5 H (11.5-15.5) % Plt Count 349 (150-450) k/uL MPV 7.9 Neutrophils % 82 % Lymphocytes % 8 % Monocytes % 5 % Eosinophils % 3 % Basophils % 0 % Neutrophils # 10.6 H (1.3-7.7) k/uL Lymphocytes # 1.1 (1.0-4.8) k/uL Monocytes # 0.7 (0-1.0) k/uL Eosinophils # 0.4 (0-0.7) k/uL Basophils # 0.0 (0-0.2) k/uL Hypochromasia Moderate Anisocytosis Slight PT 106.2 H (10.0-12.5) sec INR >10.0 H* (<1.2) APTT 58.2 H (22.0-30.0) sec Sodium 133 L (137-145) mmol/L Potassium (3.5-5.1) mmol/L Chloride 104 (98-107) mmol/L Carbon Dioxide 22 (22-30) mmol/L Anion Gap 7 mmol/L BUN 39 H (7-17) mg/dL Creatinine 1.28 H (0.52-1.04) mg/dL Est GFR (CKD-EPI)AfAm 47 (>60 ml/min/1.73 sqM) Est GFR (CKD-EPI)NonAf 41 (>60 ml/min/1.73 sqM) Glucose 127 H (74-99) mg/dL Plasma Lactic Acid Otis (0.7-2.0) mmol/L Calcium 9.5 (8.4-10.2) mg/dL Total Bilirubin 0.6 (0.2-1.3) mg/dL AST 22 (14-36) U/L ALT 11 (4-34) U/L Alkaline Phosphatase 94 (38-126) U/L Troponin I (0.000-0.034) ng/mL Total Protein 7.6 (6.3-8.2) g/dL Albumin 3.8 (3.5-5.0) g/dL Blood Type Blood Type Recheck Bld Type Recheck Status Antibody Screen Crossmatch Transfuse Plasma Spec Expiration Date 05/19/24 05/19/24 05/19/24 Range/Units 03:00 03:00 03:00 WBC (3.8-10.6) k/uL RBC (3.80-5.40) m/uL Hgb (11.4-16.0) gm/dL Hct (34.0-46.0) % MCV (80.0-100.0) fL MCH (25.0-35.0) pg MCHC (31.0-37.0) g/dL RDW (11.5-15.5) % Plt Count (150-450) k/uL MPV Neutrophils % % Lymphocytes % % Monocytes % % Eosinophils % % Basophils % % Neutrophils # (1.3-7.7) k/uL Lymphocytes # (1.0-4.8) k/uL Monocytes # (0-1.0) k/uL Eosinophils # (0-0.7) k/uL Basophils # (0-0.2) k/uL Hypochromasia Anisocytosis PT (10.0-12.5) sec INR (<1.2) APTT (22.0-30.0) sec Sodium (137-145) mmol/L Potassium (3.5-5.1) mmol/L Chloride (98-107) mmol/L Carbon Dioxide (22-30) mmol/L Anion Gap mmol/L BUN (7-17) mg/dL Creatinine (0.52-1.04) mg/dL Est GFR (CKD-EPI)AfAm (>60 ml/min/1.73 sqM) Est GFR (CKD-EPI)NonAf (>60 ml/min/1.73 sqM) Glucose (74-99) mg/dL Plasma Lactic Acid Otis 1.4 (0.7-2.0) mmol/L Calcium (8.4-10.2) mg/dL Total Bilirubin (0.2-1.3) mg/dL AST (14-36) U/L ALT (4-34) U/L Alkaline Phosphatase (38-126) U/L Troponin I 0.016 (0.000-0.034) ng/mL Total Protein (6.3-8.2) g/dL Albumin (3.5-5.0) g/dL Blood Type A Positive Blood Type Recheck A Pos Bld Type Recheck Status No Antibody Screen NEGATIVE Crossmatch See Detail Transfuse Plasma Spec Expiration Date 05/22/2024 - 229905/19/24 Range/Units 05:48 WBC (3.8-10.6) k/uL RBC (3.80-5.40) m/uL Hgb (11.4-16.0) gm/dL Hct (34.0-46.0) % MCV (80.0-100.0) fL MCH (25.0-35.0) pg MCHC (31.0-37.0) g/dL RDW (11.5-15.5) % Plt Count (150-450) k/uL MPV Neutrophils % % Lymphocytes % % Monocytes % % Eosinophils % % Basophils % % Neutrophils # (1.3-7.7) k/uL Lymphocytes # (1.0-4.8) k/uL Monocytes # (0-1.0) k/uL Eosinophils # (0-0.7) k/uL Basophils # (0-0.2) k/uL Hypochromasia Anisocytosis PT (10.0-12.5) sec INR (<1.2) APTT (22.0-30.0) sec Sodium (137-145) mmol/L Potassium (3.5-5.1) mmol/L Chloride (98-107) mmol/L Carbon Dioxide (22-30) mmol/L Anion Gap mmol/L BUN (7-17) mg/dL Creatinine (0.52-1.04) mg/dL Est GFR (CKD-EPI)AfAm (>60 ml/min/1.73 sqM) Est GFR (CKD-EPI)NonAf (>60 ml/min/1.73 sqM) Glucose (74-99) mg/dL Plasma Lactic Acid Otis (0.7-2.0) mmol/L Calcium (8.4-10.2) mg/dL Total Bilirubin (0.2-1.3) mg/dL AST (14-36) U/L ALT (4-34) U/L Alkaline Phosphatase (38-126) U/L Troponin I (0.000-0.034) ng/mL Total Protein (6.3-8.2) g/dL Albumin (3.5-5.0) g/dL Blood Type Blood Type Recheck Bld Type Recheck Status Antibody Screen Crossmatch Transfuse Plasma 05/19/24 Spec Expiration Date Disposition Clinical Impression: Gastrointestinal hemorrhage, Coumadin toxicity Disposition: ADMITTED IP TO THIS HOSP Is patient prescribed a controlled substance at d/c from ED?: No
[2024-05-19 09:17] LABS: Anisocytosis Slight; Basophils % (A) 0 %; Eosinophils # (A) 0.1 k/uL (0-0.7); Eosinophils % (A) 1 %; HCT 34.2 % (34.0-46.0); HGB 10.6 gm/dL (11.4-16.0); Hypochromasia Slight; Lymphocytes # (A) 0.7 k/uL (1.0-4.8); Lymphocytes % (A) 5 %; MCH 27.1 pg (25.0-35.0); MCHC 31.1 g/dL (31.0-37.0); MCV 87.2 fL (80.0-100.0); Mean Platelet Volume 8.6; Monocytes # (A) 0.6 k/uL (0-1.0); Monocytes % (A) 4 %; Neutrophils % (A) 89 %; Platelet Count 293 k/uL (150-450); RBC 3.92 m/uL (3.80-5.40); RDW 16.4 % (11.5-15.5); WBC 13.5 k/uL (3.8-10.6)
--- NOTE | 2024-05-19 11:23 | P.GSCN ---
History of Present Illness Consult date: 05/19/24 History of present illness: CHIEF COMPLAINT: Vomiting blood HISTORY OF PRESENT ILLNESS: This is a 78-year-old female with a known history of a large hiatal hernia. Patient reports that she had 2-day history of vomiting with initially a small traces of blood. And today starting vomiting a large amount of blood. Hemoglobin 10.7 on admission and INR was greater than 10. They have given vitamin K and FFP in the ER to reverse Coumadin toxicity. Patient's last EGD was in March of this year which did report a hiatal hernia. Patient does have a known history of squamous cell skin cancer and is not currently not on any chemotherapy. Patient reports chemo has not been restarted since her last hospitalization. She does report epigastric abdominal pain. She reports normal bowel movements. Denies any dysphagia. Does report decreased appetite. Also reporting significant heartburn. PAST MEDICAL HISTORY: Squamous cell carcinoma of skin, diabetes mellitus, hypertension, sleep apnea, DVT and PE hypertension, hyperlipidemia, obesity PAST SURGICAL HISTORY: Breast Surgery, Cholecystectomy, Hernia Repair, Hysterectomy MEDICATIONS: See below ALLERGIES: See below SOCIAL HISTORY: No illicit drug use. REVIEW OF SYSTEMS: CONSTITUTIONAL: Denies fever or chills. HEENT: Denies blurred vision, vision changes, or eye pain. Denies hemoptysis CARDIOVASCULAR: Denies chest pain or pressure. RESPIRATORY: No shortness of breath. GASTROINTESTINAL: See HPI for pertinent findings HEMATOLOGIC: Denies bleeding disorders. GENITOURINARY: Denies any blood in urine or increased urinary frequency. SKIN: Denies pruitis. Denies rash. PHYSICAL EXAM: VITAL SIGNS: Reviewed GENERAL: Well-developed in no acute distress. ABDOMEN: Soft. Nondistended. Epigastric tenderness with palpation. Obese NEUROLOGIC: Alert and oriented. Cranial nerves II through XII grossly intact. LABORATORY DATA: WBCs 13 Hgb 10.6 platelets 293 INR greater than 10 Sodium 133 creatinine 1.28 Lactic acid 1.4 IMAGING: ASSESSMENT: 1. Acute GI bleed with hematemesis 2. Coumadin toxicity 3. Large hiatal hernia PLAN: -Agree with vitamin K and FFP to reverse Coumadin -Keep patient n.p.o. -Continue IV Protonix -Continue to monitor for any signs or symptoms of bleeding -Continue to monitor hemoglobin every 6 hours -Continue to monitor Physician Area Operations Manager note has been reviewed by physician. Signing provider agrees with the documented findings, assessment, and plan of care. Past Medical History Past Medical History: Diabetes Mellitus, Hypertension, Sleep Apnea/CPAP/BIPAP Additional Past Medical History / Comment(s): COPD, osteoarthritis, previous history of DVT and pulmonary embolism and the along for medical evaluation with warfarin, degenerative arthritis, hypertension, hyperlipidemia, obesity, obstructive sleep apnea not utilizing any form of devices at this point in time. History of Any Multi-Drug Resistant Organisms: None Reported Past Surgical History: Unable to Obtain, Breast Surgery, Cholecystectomy, Hernia Repair, Hysterectomy Additional Past Surgical History / Comment(s): Surgery to remove cyst on head, HAND SURGERY, CYST REMOVED LEFT BREAST Past Anesthesia/Blood Transfusion Reactions: No Reported Reaction Past Psychological History: Anxiety, Depression Smoking Status: Never smoker Past Alcohol Use History: None Reported Past Drug Use History: None Reported - Past Family History Mother Additional Family Medical History / Comment(s): HEART DISEASE Father Additional Family Medical History / Comment(s): HEART DISEASE Medications and Allergies Home Medications Medication Instructions Recorded Confirmed Type Cholecalciferol [Vitamin D3 (25 25 mcg PO DAILY 06/12/21 05/19/24 History Mcg = 1000 Iu)] Metoprolol Tartrate [Lopressor] 50 mg PO BID 06/12/21 05/19/24 History Omeprazole 20 mg PO DAILY 06/12/21 05/19/24 History rOPINIRole HCL [Requip] 5 mg PO HS 12/23/22 05/19/24 History Prochlorperazine [Compazine] 10 mg PO Q6H PRN 03/24/24 05/19/24 History Metoclopramide [Reglan] 10 mg PO AC-TID #90 tab 04/03/24 05/19/24 Rx guaiFENesin SYRUP 100MG/5ML 200 mg PO Q6HR PRN #10 oz 04/07/24 05/19/24 Rx [Robitussin] Warfarin Sodium 4 mg PO HS 05/19/24 05/19/24 History Allergies Allergy/AdvReac Type Severity Reaction Status Date / Time Fish Containing Products Allergy Dyspnea Verified 05/19/24 09:16 [Fish] iodine Allergy Rash/Hives Verified 05/19/24 09:16 shellfish derived [Shellfish] Allergy Rash/Hives Verified 05/19/24 09:16 oxybutynin [From Ditropan] AdvReac Nausea & Verified 05/19/24 09:16 Vomiting & Diarrhea Surgical - Exam Vital Signs Pulse Resp BP Pulse Ox 79 18 126/69 100 05/19/24 02:05 05/19/24 02:05 05/19/24 02:05 05/19/24 02:05 Results - Labs 05/19/24 08:56 05/19/24 03:00 Abnormal Lab Results - Last 24 Hours (Table) 05/19/24 05/19/24 05/19/24 Range/Units 03:00 03:00 03:00 WBC 13.0 H (3.8-10.6) k/uL Hgb 10.7 L (11.4-16.0) gm/dL RDW 16.5 H (11.5-15.5) % Neutrophils # 10.6 H (1.3-7.7) k/uL Lymphocytes # (1.0-4.8) k/uL PT 106.2 H (10.0-12.5) sec INR >10.0 H* (<1.2) APTT 58.2 H (22.0-30.0) sec Sodium 133 L (137-145) mmol/L BUN 39 H (7-17) mg/dL Creatinine 1.28 H (0.52-1.04) mg/dL Glucose 127 H (74-99) mg/dL 05/19/24 Range/Units 08:56 WBC 13.5 H (3.8-10.6) k/uL Hgb 10.6 L (11.4-16.0) gm/dL RDW 16.4 H (11.5-15.5) % Neutrophils # 12.0 H (1.3-7.7) k/uL Lymphocytes # 0.7 L (1.0-4.8) k/uL PT (10.0-12.5) sec INR (<1.2) APTT (22.0-30.0) sec Sodium (137-145) mmol/L BUN (7-17) mg/dL Creatinine (0.52-1.04) mg/dL Glucose (74-99) mg/dL Diabetes panel 05/19/24 Range/Units 03:00 Sodium 133 L (137-145) mmol/L Potassium (3.5-5.1) mmol/L Chloride 104 (98-107) mmol/L Carbon Dioxide 22 (22-30) mmol/L BUN 39 H (7-17) mg/dL Creatinine 1.28 H (0.52-1.04) mg/dL Glucose 127 H (74-99) mg/dL Calcium 9.5 (8.4-10.2) mg/dL AST 22 (14-36) U/L ALT 11 (4-34) U/L Alkaline Phosphatase 94 (38-126) U/L Total Protein 7.6 (6.3-8.2) g/dL Albumin 3.8 (3.5-5.0) g/dL Calcium panel 05/19/24 Range/Units 03:00 Calcium 9.5 (8.4-10.2) mg/dL Albumin 3.8 (3.5-5.0) g/dL Pituitary panel 05/19/24 Range/Units 03:00 Sodium 133 L (137-145) mmol/L Potassium (3.5-5.1) mmol/L Chloride 104 (98-107) mmol/L Carbon Dioxide 22 (22-30) mmol/L BUN 39 H (7-17) mg/dL Creatinine 1.28 H (0.52-1.04) mg/dL Glucose 127 H (74-99) mg/dL Calcium 9.5 (8.4-10.2) mg/dL Adrenal panel 05/19/24 Range/Units 03:00 Sodium 133 L (137-145) mmol/L Potassium (3.5-5.1) mmol/L Chloride 104 (98-107) mmol/L Carbon Dioxide 22 (22-30) mmol/L BUN 39 H (7-17) mg/dL Creatinine 1.28 H (0.52-1.04) mg/dL Glucose 127 H (74-99) mg/dL Calcium 9.5 (8.4-10.2) mg/dL Total Bilirubin 0.6 (0.2-1.3) mg/dL AST 22 (14-36) U/L ALT 11 (4-34) U/L Alkaline Phosphatase 94 (38-126) U/L Total Protein 7.6 (6.3-8.2) g/dL Albumin 3.8 (3.5-5.0) g/dL
[2024-05-19] MEDS: METOCLOPRAMIDE 10 MG TAB PO SCH (12:05)
[2024-05-19] MEDS ORDERED: guaiFENesin SYRUP 100MG/5ML 200 MG/10 ML CUP PO PRN (15:57)
[2024-05-19 18:31] LABS: Anisocytosis Slight; Basophils % (A) 0 %; Eosinophils # (A) 0.2 k/uL (0-0.7); Eosinophils % (A) 2 %; HCT 40.4 % (34.0-46.0); HGB 12.7 gm/dL (11.4-16.0); Hypochromasia Moderate; Lymphocytes % (A) 7 %; MCH 27.9 pg (25.0-35.0); MCHC 31.3 g/dL (31.0-37.0); MCV 89.1 fL (80.0-100.0); Mean Platelet Volume 8.3; Monocytes # (A) 1.2 k/uL (0-1.0); Monocytes % (A) 8 %; Neutrophils # (A) 11.4 k/uL (1.3-7.7); Neutrophils % (A) 81 %; Platelet Count 248 k/uL (150-450); RBC 4.54 m/uL (3.80-5.40); RDW 16.2 % (11.5-15.5); WBC 14.1 k/uL (3.8-10.6)
[2024-05-19 21:14] LABS: Anisocytosis Slight; Basophils # (A) 0.1 k/uL (0-0.2); Basophils % (A) 0 %; Eosinophils # (A) 0.3 k/uL (0-0.7); Eosinophils % (A) 2 %; HCT 37.9 % (34.0-46.0); HGB 11.6 gm/dL (11.4-16.0); Hypochromasia Marked; Lymphocytes # (A) 1.2 k/uL (1.0-4.8); Lymphocytes % (A) 7 %; MCH 27.6 pg (25.0-35.0); MCHC 30.5 g/dL (31.0-37.0); MCV 90.3 fL (80.0-100.0); Mean Platelet Volume 7.9; Monocytes # (A) 1.4 k/uL (0-1.0); Monocytes % (A) 9 %; Neutrophils # (A) 13.6 k/uL (1.3-7.7); Neutrophils % (A) 81 %; Platelet Count 290 k/uL (150-450); RDW 16.2 % (11.5-15.5)
[2024-05-19] MEDS: ONDANSETRON 4 MG/2 ML VIAL IVP PRN (21:14)
[2024-05-19] MEDS: rOPINIRole HCL 4 MG TABLET PO SCH (21:18)
[2024-05-19] MEDS: METOPROLOL TARTRATE 50 MG TAB PO SCH (21:18)
[2024-05-20 00:26] LABS: Anisocytosis Slight; HCT 31.4 % (34.0-46.0); HGB 10.1 gm/dL (11.4-16.0); Hypochromasia Slight; MCH 28.1 pg (25.0-35.0); MCHC 32.2 g/dL (31.0-37.0); MCV 87.2 fL (80.0-100.0); Mean Platelet Volume 7.9; Platelet Count 342 k/uL (150-450); RDW 16.5 % (11.5-15.5); WBC 17.6 k/uL (3.8-10.6)
[2024-05-20 00:28] LABS: Glucose,Whole Blood 137 mg/dL (70-110)
[2024-05-20] MEDS: SODIUM CHLORIDE 0.9% 500 ML 250 ML IV ONE (02:09)
--- NOTE | 2024-05-20 04:26 | P.PN ---
Progress Note - Text Progress Note Date: 05/20/24 Patient vomiting some bright red blood overnight. VSS PHYSICAL EXAM: VITAL SIGNS: Reviewed GENERAL: Well-developed in no acute distress. ABDOMEN: Soft. Nondistended. Epigastric tenderness with palpation. Obese NEUROLOGIC: Alert and oriented. Cranial nerves II through XII grossly intact. ASSESSMENT: 1. Acute GI bleed with hematemesis 2. Coumadin toxicity 3. Large hiatal hernia PLAN: -Agree with vitamin K and FFP to reverse Coumadin, follow up repeat INR -Will transfuse patient 2 more units PRBCs -Keep patient NPO -Continue IV Protonix -Continue to monitor for any signs or symptoms of bleeding -Continue to monitor hemoglobin every 6 hours -Continue to monitor Rafal Fong DO [facility] [phone]
[2024-05-20 06:45] LABS: INR 2.2 (<1.2); Partial Thromboplastin Time 30.5 sec (22.0-30.0); Prothrombin Time 21.8 sec (10.0-12.5)
[2024-05-20 07:00] LABS: African American GFR (CKD) 54 (>60 ml/min/1.73 sqM); Anion Gap 11 mmol/L; Blood Urea Nitrogen 58 mg/dL (7-17); Calcium 9.1 mg/dL (8.4-10.2); Carbon Dioxide 20 mmol/L (22-30); Chloride 107 mmol/L (98-107); Glucose 127 mg/dL (74-99); Non-African American GFR(CKD) 47 (>60 ml/min/1.73 sqM); Sodium 138 mmol/L (137-145)
[2024-05-20] MEDS: CHOLECALCIFEROL 25 MCG (1000 IU) TABLET PO SCH (08:56)
[2024-05-20] MEDS ORDERED: NON FORMULARY DRUG (Omeprazole [Omeprazole] 20 MG Capsule) PO SCH (09:00)
[2024-05-20 09:28] LABS: HCT 37.3 % (34.0-46.0); HGB 11.8 gm/dL (11.4-16.0); Hypochromasia Moderate; MCH 28.3 pg (25.0-35.0); MCHC 31.6 g/dL (31.0-37.0); MCV 89.5 fL (80.0-100.0); Mean Platelet Volume 7.8; Platelet Count 246 k/uL (150-450); RBC 4.17 m/uL (3.80-5.40); RDW 15.3 % (11.5-15.5); WBC 16.4 k/uL (3.8-10.6)
[2024-05-20] MEDS: ACETAMINOPHEN TAB 325 MG TAB PO PRN (16:20)
[2024-05-20 19:50] LABS: Glucose,Whole Blood 95 mg/dL (70-110)
[2024-05-21 05:50] LABS: Glucose,Whole Blood 85 mg/dL (70-110)
--- NOTE | 2024-05-21 10:51 | P.PN ---
Progress Note - Text Progress Note Date: 05/21/24 No acute events overnight. Hemoglobin is stable PHYSICAL EXAM: VITAL SIGNS: Reviewed GENERAL: Well-developed in no acute distress. ABDOMEN: Soft. Nondistended. Epigastric tenderness with palpation. Obese NEUROLOGIC: Alert and oriented. Cranial nerves II through XII grossly intact. ASSESSMENT: 1. Acute GI bleed with hematemesis 2. Coumadin toxicity 3. Large hiatal hernia PLAN: -Advance to CLD -Continue IV Protonix -Continue to monitor for any signs or symptoms of bleeding -Continue to monitor hemoglobin every 6 hours -Continue to monitor Rafal Fong DO [facility] [phone]
[2024-05-21 11:32] LABS: Glucose,Whole Blood 80 mg/dL (70-110)
[2024-05-21 15:05] LABS: Basophils # (A) 0.1 k/uL (0-0.2); Basophils % (A) 0 %; Eosinophils # (A) 0.4 k/uL (0-0.7); Eosinophils % (A) 3 %; HCT 30.9 % (34.0-46.0); Hypochromasia Marked; Lymphocytes # (A) 0.9 k/uL (1.0-4.8); Lymphocytes % (A) 7 %; MCHC 32.1 g/dL (31.0-37.0); MCV 90.5 fL (80.0-100.0); Mean Platelet Volume 8.2; Monocytes # (A) 0.8 k/uL (0-1.0); Monocytes % (A) 6 %; Neutrophils # (A) 11.4 k/uL (1.3-7.7); Neutrophils % (A) 83 %; Platelet Count 270 k/uL (150-450); RBC 3.41 m/uL (3.80-5.40); RDW 15.8 % (11.5-15.5); WBC 13.7 k/uL (3.8-10.6)
[2024-05-21 15:14] LABS: HGB 9.9 gm/dL (11.4-16.0)
[2024-05-21 16:31] LABS: Glucose,Whole Blood 72 mg/dL (70-110)
[2024-05-21 20:11] LABS: Glucose,Whole Blood 278 mg/dL (70-110)
[2024-05-21 20:47] LABS: Basophils % (A) 0 %; Eosinophils # (A) 0.4 k/uL (0-0.7); Eosinophils % (A) 3 %; HCT 31.5 % (34.0-46.0); Hypochromasia Marked; Lymphocytes % (A) 7 %; MCH 29.1 pg (25.0-35.0); MCHC 31.9 g/dL (31.0-37.0); MCV 91.2 fL (80.0-100.0); Monocytes # (A) 0.9 k/uL (0-1.0); Monocytes % (A) 7 %; Neutrophils # (A) 10.6 k/uL (1.3-7.7); Neutrophils % (A) 81 %; Platelet Count 258 k/uL (150-450); RBC 3.45 m/uL (3.80-5.40); RDW 15.8 % (11.5-15.5); WBC 13.1 k/uL (3.8-10.6)
[2024-05-22 06:12] LABS: Glucose,Whole Blood 70 mg/dL (70-110)
--- NOTE | 2024-05-22 09:11 | HP ---
HISTORY AND PHYSICAL CHIEF COMPLAINT: Upper GI bleed. HISTORY OF PRESENT ILLNESS: This is another admission for this 78-year-old Afro-German female who has had a history of atrial fibrillation and carcinoma in the right side of the scalp and neck. She was just in the hospital with a GI bleed due to excessive Coumadin dosage and INR. She was stabilized, and went to [facility] and apparently was discharged home. She started to have bleeding and came back to the emergency room, her INR was over 10 and her hemoglobin is 10.6. She is asymptomatic. REVIEW OF SYSTEMS: She denied any headaches, chest pain, shortness of breath, abdominal pain, etc. Past medical history, family history, personal and social histories are all otherwise unchanged. PHYSICAL EXAMINATION: VITAL SIGNS: Normal. HEAD, EARS, EYES, NOSE, MOUTH AND THROAT: Normal except for the carcinoma scars on the right side of scalp and right side of her neck. CHEST: Clear. CARDIAC: Normal. ABDOMEN: Soft and nontender. EXTREMITIES: Normal. She is admitted to the hospital with diagnoses: 1. Upper gastrointestinal hemorrhage. 2. Hyperprothrombinemia. 3. Carcinoma of the right side of the scalp and neck. PLAN: 1. Bedrest. 2. Withhold Coumadin. 3. Follow hemoglobin. MMODL / IJN: [id number] /
[2024-05-22 09:17] LABS: HCT 27.9 % (34.0-46.0); HGB 8.8 gm/dL (11.4-16.0); Hypochromasia Marked; MCH 28.9 pg (25.0-35.0); MCHC 31.5 g/dL (31.0-37.0); MCV 91.9 fL (80.0-100.0); Mean Platelet Volume 8.2; Platelet Count 228 k/uL (150-450); RBC 3.04 m/uL (3.80-5.40); RDW 15.9 % (11.5-15.5); WBC 10.4 k/uL (3.8-10.6)
[2024-05-22 11:24] LABS: Glucose,Whole Blood 52 mg/dL (70-110)
[2024-05-22] MEDS: DEXTROSE 50% SYRINGE 50 ML IVP STA (11:28)
[2024-05-22 11:44] LABS: Glucose,Whole Blood 77 mg/dL (70-110)
[2024-05-22 12:02] LABS: Glucose,Whole Blood 90 mg/dL (70-110)
--- NOTE | 2024-05-22 12:23 | PN ---
PROGRESS NOTE CHIEF COMPLAINT: Upper gastrointestinal bleeding. HISTORY OF PRESENT ILLNESS: This lady is doing well and hemoglobin is leveled off. She is not bleeding any longer and her PT/INR is coming down. PHYSICAL EXAMINATION: GENERAL: She is awake and alert. CHEST: Clear. CARDIAC: Normal. ABDOMEN: Soft, nontender. IMPRESSION: Upper gastrointestinal hemorrhage due to hyperprothrombinemia. PLAN: Continue with IV fluids and monitoring her hemoglobin and INR. MMODL / IJN: [id number] /
--- NOTE | 2024-05-22 12:38 | PN ---
PROGRESS NOTE DATE OF SERVICE: 05/21/2024 CHIEF COMPLAINT: Upper GI bleed. HISTORY OF PRESENT ILLNESS: This lady is doing fairly well. She has had no further bleeding. Her PT/INR are down to normal. LABORATORY DATA: White count 16,400 with a hemoglobin of 11.8. BUN is 58 and creatinine is 1.14. PHYSICAL EXAMINATION: GENERAL she remains slightly pale. CHEST: Clear. CARDIAC: Normal. IMPRESSION: 1. Upper gastrointestinal bleed. 2. Iatrogenic hyperprothrombinemia. 3. Carcinoma of the right side of the neck. PLAN: Continue to monitor her laboratory studies and start to look into discharge planning once again. MMODL / IJN: [id number] /
[2024-05-22] MEDS ORDERED: LIDOCAINE 1% INJ 10MG/ML (20 ML MDV) ONE (13:00)
[2024-05-22] MEDS ORDERED: ONDANSETRON 4 MG/2 ML VIAL ONE (13:00)
[2024-05-22] MEDS ORDERED: PROPOFOL 10 MG/ML 20 ML VIAL IV ONE (13:00)
[2024-05-22] MEDS: IV FLUID CONTINUATION 1,000 ML IV ONE ×2 (13:05→13:19)
[2024-05-22 16:20] LABS: Glucose,Whole Blood 64 mg/dL (70-110)
[2024-05-22 16:42] LABS: Glucose,Whole Blood 56 mg/dL (70-110)
[2024-05-22 17:03] LABS: Glucose,Whole Blood 62 mg/dL (70-110)
[2024-05-22 18:01] LABS: Glucose,Whole Blood 103 mg/dL (70-110)
--- NOTE | 2024-05-22 18:14 | P.OP ---
Date of Procedure: 05/22/24 Preoperative Diagnosis: GI Bleed Postoperative Diagnosis: 1. Hiatal Hernia 2. Gastritis 3. Ajay's Ulcer Procedure(s) Performed: EGD with Biopsy Anesthesia: LAUREN Surgeon: Rafal Fong Pathology: other (Antrum Biopsies) Condition: stable Disposition: PACU Description of Procedure: Informed consent was obtained. The procedure, its risks, benefits, and alternatives were discussed. The patient was placed in the left lateral decubitus position and given local anesthetic to the oropharynx. The patient was sedated. The endoscope was inserted into the oropharynx and guided under direct vision into the esophagus, stomach, and duodenum. The duodenal bulb and second portion were unremarkable. The scope was withdrawn to the stomach and retroflexed. There was no increased fluid, food or secretions in the upper gastrointestinal tract. There was very minimal, nonspecific, patchy antral erythema. Biopsies were obtained for Helicobacter pylori. No erosions or ulcers. The scope was withdrawn to the esophagus. The Z-line and gastroesophageal junction were located at about 40 cm. No Barretts or esophagitis. The patient tolerated the procedure very well. The patient was then transferred to the recovery area in good condition. There were no apparent complications.
[2024-05-22 18:22] LABS: Glucose,Whole Blood 92 mg/dL (70-110)
[2024-05-22 20:20] LABS: Glucose,Whole Blood 82 mg/dL (70-110)
[2024-05-23 06:17] LABS: Glucose,Whole Blood 83 mg/dL (70-110)
--- NOTE | 2024-05-23 08:02 | P.PN ---
Progress Note - Text Progress Note Date: 05/23/24 No acute events overnight. PHYSICAL EXAM: VITAL SIGNS: Reviewed GENERAL: Well-developed in no acute distress. ABDOMEN: Soft. Nondistended. Epigastric tenderness with palpation. Obese NEUROLOGIC: Alert and oriented. Cranial nerves II through XII grossly intact. ASSESSMENT: 1. Acute GI bleed with hematemesis 2. Coumadin toxicity 3. Large hiatal hernia PLAN: -Clear Liquid Diet, Advance as Tolerated -EGD performed 05/22 showed Hiatal Hernia, Nonbleeding Ajay's Ulcer, and Gastritis -Continue IV Protonix -Continue to monitor for any signs or symptoms of bleeding -Continue to monitor hemoglobin every 6 hours -Continue to monitor Rafal Fong [facility] [phone]
[2024-05-23 11:21] LABS: Glucose,Whole Blood 89 mg/dL (70-110)
[2024-05-23 11:48] LABS: Anisocytosis Slight; HCT 28.2 % (34.0-46.0); HGB 8.8 gm/dL (11.4-16.0); Hypochromasia Marked; MCH 29.1 pg (25.0-35.0); MCV 93.6 fL (80.0-100.0); Mean Platelet Volume 7.6; Platelet Count 260 k/uL (150-450); RBC 3.01 m/uL (3.80-5.40); RDW 16.1 % (11.5-15.5); WBC 12.5 k/uL (3.8-10.6)
[2024-05-23 16:37] LABS: Glucose,Whole Blood 66 mg/dL (70-110)
[2024-05-23 17:07] LABS: Glucose,Whole Blood 44 mg/dL (70-110)
[2024-05-23] MEDS: DEXTROSE 50% SYRINGE 50 ML IVP PRN (17:08)
[2024-05-23 17:17] LABS: Glucose,Whole Blood 75 mg/dL (70-110)
[2024-05-23 17:38] LABS: Glucose,Whole Blood 130 mg/dL (70-110)
[2024-05-23] MEDS: HYALURONIDASE, HUMAN RECOMB 150 UNIT/ML 1 ML VIAL SQ ONE (18:11)
[2024-05-23] MEDS: DEXTROSE 5%-0.45% NACL 1,000 ML IV SCH (18:26)
[2024-05-23 18:53] LABS: Anisocytosis Slight; HCT 32.4 % (34.0-46.0); Hypochromasia Moderate; MCH 28.6 pg (25.0-35.0); MCV 92.4 fL (80.0-100.0); Mean Platelet Volume 9.1; Platelet Count 256 k/uL (150-450); RDW 16.5 % (11.5-15.5); WBC 14.1 k/uL (3.8-10.6)
[2024-05-23 20:05] LABS: Glucose,Whole Blood 65 mg/dL (70-110)
[2024-05-23 20:26] LABS: Glucose,Whole Blood 96 mg/dL (70-110)
[2024-05-24 00:03] LABS: Glucose,Whole Blood 97 mg/dL (70-110)
[2024-05-24 00:59] LABS: Anisocytosis Slight; HCT 28.4 % (34.0-46.0); HGB 9.1 gm/dL (11.4-16.0); Hypochromasia Marked; MCH 29.3 pg (25.0-35.0); MCHC 31.9 g/dL (31.0-37.0); Mean Platelet Volume 8.1; Platelet Count 274 k/uL (150-450); RBC 3.09 m/uL (3.80-5.40); WBC 15.3 k/uL (3.8-10.6)
--- NOTE | 2024-05-24 02:56 | PN ---
PROGRESS NOTE DATE OF SERVICE: 05/22/2024 CHIEF COMPLAINT: Upper GI bleed. HISTORY OF PRESENT ILLNESS: This lady has become quite anxious. There has been no significant evidence of any further bleeding. She will be getting an endoscopy, however. PHYSICAL EXAMINATION: GENERAL: She is pale. CHEST: Clear. CARDIAC: Normal. ABDOMEN: Soft, nontender. IMPRESSION: Gastrointestinal bleed due to hyperprothrombinemia. PLAN: Await results of endoscopies and continue to follow hemoglobin which has been fairly stable. MMODL / IJN: [id number] /
--- NOTE | 2024-05-24 03:11 | PN ---
PROGRESS NOTE DATE OF SERVICE: 05/23/2024 CHIEF COMPLAINT: Upper GI bleed. HISTORY OF PRESENT ILLNESS: This lady is doing fairly well. Apparently, her endoscopy failed to demonstrate any obvious source of bleeding either in the upper or lower GI tract. She does have a large hiatal hernia. Laboratory studies reveal white count to be 12,500. Hemoglobin has dropped to 8.8. PHYSICAL EXAMINATION: GENERAL: She remains pale. She is awake and alert. CHEST: Clear. CARDIAC: Normal. IMPRESSION: 1. Upper gastrointestinal bleed. 2. Hyperprothrombinemia. 3. Hiatal hernia. 4. Carcinoma of the right side of the scalp and neck. PLAN: Continue to follow her hemoglobin. ADDENDUM: She apparently did have a hypoglycemic episode this evening. She is not on insulin. D5 of 0.45 will be ordered. MMODL / IJN: [id number] /
[2024-05-24 05:03] LABS: Glucose,Whole Blood 97 mg/dL (70-110)
[2024-05-24 08:28] LABS: Anisocytosis Slight; HCT 28.6 % (34.0-46.0); HGB 8.8 gm/dL (11.4-16.0); Hypochromasia Moderate; MCH 28.5 pg (25.0-35.0); MCHC 30.7 g/dL (31.0-37.0); MCV 92.6 fL (80.0-100.0); Platelet Count 254 k/uL (150-450); RBC 3.09 m/uL (3.80-5.40); RDW 16.5 % (11.5-15.5); WBC 14.2 k/uL (3.8-10.6)
[2024-05-24 11:48] LABS: Glucose,Whole Blood 78 mg/dL (70-110)
[2024-05-24 16:24] LABS: Glucose,Whole Blood 72 mg/dL (70-110)
[2024-05-24 17:21] LABS: Glucose,Whole Blood 75 mg/dL (70-110)
[2024-05-24 18:32] LABS: Glucose,Whole Blood 86 mg/dL (70-110)
[2024-05-24 19:46] LABS: Glucose,Whole Blood 80 mg/dL (70-110)
[2024-05-25 05:55] LABS: Glucose,Whole Blood 79 mg/dL (70-110)
[2024-05-25 10:01] VITALS: RESP 16
[2024-05-25 11:30] LABS: Glucose,Whole Blood 118 mg/dL (70-110)
[2024-05-25 13:20] LABS: Anisocytosis Slight; HCT 33.2 % (34.0-46.0); HGB 10.6 gm/dL (11.4-16.0); Hypochromasia Moderate; MCH 29.2 pg (25.0-35.0); MCHC 31.9 g/dL (31.0-37.0); MCV 91.3 fL (80.0-100.0); Mean Platelet Volume 8.3; Platelet Count 278 k/uL (150-450); RBC 3.63 m/uL (3.80-5.40); RDW 16.1 % (11.5-15.5); WBC 17.3 k/uL (3.8-10.6)
--- NOTE | 2024-05-25 14:29 | P.PN ---
Subjective Progress Note Date: 05/25/24 SURGICAL PROGRESS NOTE CHIEF COMPLAINT: GI bleed with hematemesis HISTORY OF PRESENT ILLNESS: Patient has had no further hematemesis. She did have vomiting earlier this morning before eating. She was able to tolerate breakfast. And she did have episode of vomiting yesterday. She is no longer having black stools. She does report some mild epigastric tenderness. Patient has poor dentition does report difficulty eating regular food because she cannot chew. Hemoglobin is up from 8.8-10.6 WBC is 17.3 last INR was 2.2 PHYSICAL EXAM: VITAL SIGNS: Reviewed. GENERAL: Well-developed in no acute distress. ABDOMEN: Soft. Obese. Nondistended. Mild epigastric discomfort with palpation NEUROLOGIC: Alert and oriented. Cranial nerves II through XII grossly intact. ASSESSMENT: 1. Acute GI bleed with hematemesis 2. Coumadin toxicity 3. Large hiatal hernia 4. EGD performed 05/22 showed Hiatal Hernia, Nonbleeding Ajay's Ulcer, and Gastritis PLAN: -Change diet to chopped diet due to patient's poor dental hygiene -Coumadin currently on hold -Continue Protonix -Continue to monitor hemoglobin Physician Classified Advertising Manager note has been reviewed by physician. Signing provider agrees with the documented findings, assessment, and plan of care. Objective - Vital Signs Vital signs: Vital Signs Temp 98 F 05/25/24 11:58 Pulse 85 05/25/24 11:58 Resp 16 05/25/24 11:58 BP 94/62 05/25/24 11:58 Pulse Ox 100 05/25/24 11:58 FiO2 Intake & Output 05/24/24 05/25/24 05/25/24 18:59 06:59 18:59 Intake Total 240 730 Output Total 750 200 450 Balance -510 -200 280 Weight 105 kg Intake: IV 10 Invasive Line 4 10 Oral 240 720 Output: Urine 750 200 450 Other: Voiding Method External Catheter External Catheter External Catheter # Voids 1 # Bowel Movements 1 1 - Labs CBC & Chem 7: 05/25/24 12:51 05/20/24 06:04 Labs: Abnormal Lab Results - Last 24 Hours (Table) 05/25/24 05/25/24 Range/Units 11:28 12:51 WBC 17.3 H (3.8-10.6) k/uL RBC 3.63 L (3.80-5.40) m/uL Hgb 10.6 L (11.4-16.0) gm/dL Hct 33.2 L (34.0-46.0) % RDW 16.1 H (11.5-15.5) % POC Glucose (mg/dL) 118 H (70-110) mg/dL
[2024-05-25 17:03] LABS: Glucose,Whole Blood 76 mg/dL (70-110)
--- NOTE | 2024-05-25 18:36 | PN ---
PROGRESS NOTE CHIEF COMPLAINT: Blood loss anemia. HISTORY OF PRESENT ILLNESS: This lady was given regular diet at her request, but then she threw it up. She denies abdominal pain, chest pain, etc. PHYSICAL EXAMINATION: GENERAL: She remains pale. CHEST: Clear. CARDIAC: Normal. abdomen: Soft, nontender. IMPRESSION: 1. Gastrointestinal bleed. 2. Blood loss anemia. 3. Nausea and vomiting, etiology unknown. 4. History of carcinoma on the right side of the scalp and neck. PLAN: Hold off discharge until she is able to eat without vomiting. MMODL / IJN: [id number] /
[2024-05-25 20:01] LABS: Glucose,Whole Blood 103 mg/dL (70-110)
--- NOTE | 2024-05-25 21:30 | PN ---
PROGRESS NOTE DATE OF SERVICE: 05/24/2024 CHIEF COMPLAINT: Upper GI bleed and hyperprothrombinemia. HISTORY OF PRESENT ILLNESS: This lady is doing well. She underwent endoscopies and no source of bleeding was identified. She is not currently having any bleeding. Hemoglobin is stabilized at around 8. PHYSICAL EXAMINATION: GENERAL: She remains pale. CHEST: Demonstrates only scattered rales. CARDIAC: Exam is normal. ABDOMEN: Soft, nontender. IMPRESSION: Status post gastrointestinal bleed secondary to hyperprothrombinemia. PLAN: 1. Advance her diet at her request. 2. Start to consider discharge planning. MMODL / IJN: [id number] /
[2024-05-26 06:06] LABS: Glucose,Whole Blood 92 mg/dL (70-110)
[2024-05-26 11:29] VITALS: BMI 42.0
[2024-05-26 11:31] LABS: Glucose,Whole Blood 114 mg/dL (70-110)
--- NOTE | 2024-05-26 11:45 | P.PN ---
Subjective Progress Note Date: 05/26/24 SURGICAL PROGRESS NOTE CHIEF COMPLAINT: GI bleed with hematemesis HISTORY OF PRESENT ILLNESS: Patient is tolerating the chopped diet. She has had no further vomiting. No further hematemesis. Stools have been brown. She is also stating she is not interested in surgery for the hiatal hernia. Afebrile. WBC 17.3 hemoglobin stable at 10.6 PHYSICAL EXAM: VITAL SIGNS: Reviewed. GENERAL: Well-developed in no acute distress. ABDOMEN: Soft. Obese. Nondistended. Mild epigastric discomfort with pal pation NEUROLOGIC: Alert and oriented. Cranial nerves II through XII grossly intact. ASSESSMENT: 1. Acute GI bleed with hematemesis due to Coumadin toxicity now improved 2. Coumadin toxicity 3. Large hiatal hernia 4. EGD performed 05/22 showed Hiatal Hernia, Nonbleeding Ajay's Ulcer, and Gastritis PLAN: -Continue chopped diet -Continue Protonix -Continue to hold Coumadin Physician Program Director/Morning Show Host note has been reviewed by physician. Signing provider agrees with the documented findings, assessment, and plan of care. Objective - Vital Signs Vital signs: Vital Signs Temp 97.8 F 05/26/24 08:00 Pulse 100 05/26/24 08:00 Resp 16 05/26/24 08:00 BP 102/70 05/26/24 08:00 Pulse Ox 100 05/26/24 08:00 FiO2 Intake & Output 05/25/24 05/26/24 05/26/24 18:59 06:59 18:59 Intake Total 980 320 10 Output Total 1750 1150 Balance -770 -830 10 Weight 101 kg 101 kg Intake: IV 20 20 10 Invasive Line 4 20 20 10 Oral 960 300 Output: Urine 1750 1150 Other: Voiding Method External Catheter External Catheter External Catheter # Voids 1 # Bowel Movements 1 1 - Labs CBC & Chem 7: 05/25/24 12:51 05/20/24 06:04 Labs: Abnormal Lab Results - Last 24 Hours (Table) 05/25/24 05/26/24 Range/Units 12:51 11:30 WBC 17.3 H (3.8-10.6) k/uL RBC 3.63 L (3.80-5.40) m/uL Hgb 10.6 L (11.4-16.0) gm/dL Hct 33.2 L (34.0-46.0) % RDW 16.1 H (11.5-15.5) % POC Glucose (mg/dL) 114 H (70-110) mg/dL
[2024-05-26 16:49] LABS: Glucose,Whole Blood 107 mg/dL (70-110)
[2024-05-26 19:59] LABS: Glucose,Whole Blood 102 mg/dL (70-110)
[2024-05-27 06:12] LABS: Glucose,Whole Blood 99 mg/dL (70-110)
[2024-05-27 09:30] VITALS: TEMP 97.3
[2024-05-27 11:32] LABS: Glucose,Whole Blood 96 mg/dL (70-110)
[2024-05-27 12:07] VITALS: BP 105/68; PULSE 115
--- NOTE | 2024-05-27 20:33 | DS ---
DISCHARGE SUMMARY CHIEF COMPLAINT: Upper GI bleed. HISTORY OF PRESENT ILLNESS AND PHYSICAL EXAMINATION: Details of this lady's history and physical can be found in the initial workup. LABORATORY STUDIES: While she is in a hospital, she had laboratory studies, details of which can be found in the laboratory section of her chart. COURSE IN THE HOSPITAL: After admission, she was placed on bedrest and started on intravenous fluids. Her Coumadin was stopped. PT/INR returned to normal and anticoagulation was not restarted. Because of her extreme weakness and inability to ambulate, discharge planning was sought and it was suggested that she should probably go back to rehab, but she wanted to go home and her son who takes care of her, agreed that he could handle it. She was discharged. She will be followed up in the office and she will also be set up with home care. FINAL DIAGNOSES: 1. Upper gastrointestinal hemorrhage. 2. Hyperprothrombinemia. 3. Morbid obesity. 4. Hiatal hernia. 5. Blood loss anemia. 6. Carcinoma of the right side of the scalp and neck. OPERATIONS: Upper and lower GI endoscopies. CONSULTATIONS: Surgery. MMODMatt / CINDYN: [id number] /
== END 2024-05-27 19:45 | disposition home health service (06) | DRG 813 ==
LOC: EC 01:56 → 3SCARD 06:27
PROVIDERS: ADMIT Family Medicine; ATTEND Family Medicine
PROC: 30233L1 Transfusion of Nonautologous Fresh Plasma into Peripheral Vein, Percutaneous Approach (ICD-10-PCS; 2024-05-19)
PROC: 30233N1 Transfusion of Nonautologous Red Blood Cells into Peripheral Vein, Percutaneous Approach (ICD-10-PCS; 2024-05-19)
PROC: 0DB78ZX Excision of Stomach, Pylorus, Via Natural or Artificial Opening Endoscopic, Diagnostic (ICD-10-PCS; principal; 2024-05-22 07:30)
DX: D68.32 Hemorrhagic disorder due to extrinsic circulating anticoagulants (principal); K92.0 Hematemesis; Z68.41 Body mass index [BMI] 40.0-44.9, adult; K25.9 Gastric ulcer, unspecified as acute or chronic, without hemorrhage or perforation; J44.9 Chronic obstructive pulmonary disease, unspecified; E11.649 Type 2 diabetes mellitus with hypoglycemia without coma; E66.01 Morbid (severe) obesity due to excess calories; I48.91 Unspecified atrial fibrillation; I10 Essential (primary) hypertension; E78.5 Hyperlipidemia, unspecified; T45.515A Adverse effect of anticoagulants, initial encounter; K44.9 Diaphragmatic hernia without obstruction or gangrene; K29.70 Gastritis, unspecified, without bleeding; D50.0 Iron deficiency anemia secondary to blood loss (chronic); G47.33 Obstructive sleep apnea (adult) (pediatric); Z90.710 Acquired absence of both cervix and uterus; Z85.828 Personal history of other malignant neoplasm of skin; Z79.01 Long term (current) use of anticoagulants; Z90.49 Acquired absence of other specified parts of digestive tract; Z79.899 Other long term (current) drug therapy; Z86.718 Personal history of other venous thrombosis and embolism; Z86.711 Personal history of pulmonary embolism
CPT/HCPCS: 36415; 43239; 80048; 80053; 83605; 84484; 85025; 85027; 85610; 85730; 86850; 86900; 86901; 86920; 88305; 96361; 96374; 96375; 96376; 99285

== ENCOUNTER 2024-05-31 18:25 | Inpatient (IN) | payer MEDICARE, OTHER ==
--- NOTE | 2024-05-31 20:17 | ED ---
Nausea/Vomiting/Diarrhea HPI - General Chief complaint: Nausea/Vomiting/Diarrhea Stated complaint: vomiting Time Seen by Provider: 05/31/24 18:47 Source: patient, EMS Mode of arrival: EMS Limitations: physical limitation - History of Present Illness Initial comments: This patient is a 78-year-old woman with history of large intrathoracic hiatal hernia who comes to the hospital today complaining of persistent nausea, vomiting, and coffee-ground emesis over the course of past day. She had been admitted here on May 19, and discharged on May 27. The patient was having same complaints with persistent vomiting and some hematemesis and she was found to have an INR greater than 10. The patient was admitted, she had correction of her INR, she had transfusion, and the vomiting had resolved. The patient also had upper endoscopy which did not reveal acute bleed. Patient was discharged then over the course of past day had recurrence of symptoms. Patient does complain of some epigastric discomfort. Also she has some substernal burning associated with the vomiting. Patient had not noted any change in bowel movements. MD complaint: nausea, vomiting Onset/Timin -: days(s) Description of Vomiting: food contents, coffee grounds Associated Abdominal Pain: Yes Location: epigastric Radiation: chest Severity: moderate Quality: other (Burning) Consistency: constant Improves with: none Worsens with: none Context: anticoagulant use Associated Symptoms: denies other symptoms - Related Data Previous Rx's Medication Instructions Recorded Metoclopramide [Reglan] 10 mg PO AC-TID #90 tab 04/03/24 Cephalexin [Keflex] 500 mg PO QID #40 cap 06/06/24 Famotidine [Pepcid] 20 mg PO DAILY #30 tab 06/06/24 Nystatin 100,000 Unit/gm Powd 1 applic TOPICAL TID #90 each 06/06/24 [Mycostatin Powder] Pantoprazole [Protonix] 40 mg PO AC-BID #60 tab 06/06/24 Prochlorperazine [Compazine] 5 mg PO Q8HR PRN #30 tab 06/06/24 Allergies Allergy/AdvReac Type Severity Reaction Status Date / Time Fish Containing Products Allergy Dyspnea Verified 05/31/24 20:55 [Fish] iodine Allergy Rash/Hives Verified 05/31/24 20:55 shellfish derived [Shellfish] Allergy Rash/Hives Verified 05/31/24 20:55 oxybutynin [From Ditropan] AdvReac Nausea & Verified 05/31/24 20:55 Vomiting & Diarrhea Review of Systems ROS Statement: Those systems with pertinent positive or pertinent negative responses have been documented in the HPI. ROS Other: All systems not noted in ROS Statement are negative. Constitutional: Reports: weakness. Denies: fever, chills Respiratory: Denies: cough, dyspnea Cardiovascular: Reports: chest pain. Denies: palpitations, orthopnea, edema, syncope Gastrointestinal: Reports: abdominal pain, nausea, vomiting, hematemesis. Denies: diarrhea, melena, hematochezia Genitourinary: Denies: dysuria, hematuria Musculoskeletal: Denies: back pain Skin: Denies: rash Neurological: Denies: headache, weakness Hematological/Lymphatic: Reports: easy bleeding Past Medical History Past Medical History: Diabetes Mellitus, Hypertension, Sleep Apnea/CPAP/BIPAP Additional Past Medical History / Comment(s): COPD, osteoarthritis, previous history of DVT and pulmonary embolism and the along for medical evaluation with warfarin, degenerative arthritis, hypertension, hyperlipidemia, obesity, obstructive sleep apnea not utilizing any form of devices at this point in time. History of Any Multi-Drug Resistant Organisms: None Reported Past Surgical History: Unable to Obtain, Breast Surgery, Cholecystectomy, Hernia Repair, Hysterectomy Additional Past Surgical History / Comment(s): Surgery to remove cyst on head, HAND SURGERY, CYST REMOVED LEFT BREAST Past Anesthesia/Blood Transfusion Reactions: No Reported Reaction Past Psychological History: Anxiety, Depression Smoking Status: Never smoker Past Alcohol Use History: None Reported Past Drug Use History: None Reported - Past Family History Mother Additional Family Medical History / Comment(s): HEART DISEASE Father Additional Family Medical History / Comment(s): HEART DISEASE General Exam Limitations: physical limitation General appearance: alert, in no apparent distress Head exam: Present: atraumatic, normocephalic Eye exam: Present: normal appearance. Absent: scleral icterus, conjunctival injection Neck exam: Present: normal inspection Respiratory exam: Present: normal lung sounds bilaterally. Absent: respiratory distress, wheezes, rales, rhonchi, stridor, accessory muscle use Cardiovascular Exam: Present: regular rate, normal rhythm, normal heart sounds. Absent: systolic murmur, diastolic murmur, rubs, gallop GI/Abdominal exam: Present: soft, tenderness (Mild epigastric tenderness no guarding). Absent: distended, guarding, rebound, rigid, mass, pulsatile mass, hernia Extremities exam: Present: normal inspection, normal capillary refill. Absent: pedal edema, calf tenderness Back exam: Present: normal inspection. Absent: CVA tenderness (R), CVA tenderness (L) Neurological exam: Present: alert Skin exam: Present: warm, dry, intact, normal color. Absent: rash Course Vital Signs 05/31/24 05/31/24 05/31/24 18:38 21:14 21:56 Temperature 98.8 F Pulse Rate 95 92 94 Respiratory 19 16 22 Rate Blood Pressure 111/72 114/62 114/63 O2 Sat by Pulse 98 97 96 Oximetry 05/31/24 06/01/24 06/01/24 22:58 00:51 02:49 Temperature 99.1 F Pulse Rate 96 89 100 Respiratory 24 17 24 Rate Blood Pressure 119/57 104/57 117/61 O2 Sat by Pulse 96 95 100 Oximetry 06/01/24 06/01/24 05:57 06:17 Temperature 97.8 F Pulse Rate 98 100 Respiratory 24 23 Rate Blood Pressure 107/59 O2 Sat by Pulse 98 98 Oximetry Medical Decision Making - Medical Decision Making This patient is 78-year-old woman here with recurrence of coffee-ground emesis and intractable vomiting. I was able to speak with the patient's son who was present on her arrival but did have to leave. It sounds like they will require either greater level of in-home care or possibly placement. Will consult social work for discharge planning. Patient to be admitted for further symptomatic management as well as serial hemoglobin related to the coffee-ground emesis. Was pt. sent in by a medical professional or institution (, PA, DOBBY LOOM WEAVER, urgent care, hospital, or senior care...) When possible be specific @ -[No] Did you speak to anyone other than the patient for history (EMS, parent, family, police, friend...)? What history was obtained from this source @ -The patient's son did contribute to history Did you review nursing and triage notes (agree or disagree)? Why? @ -[I reviewed and agree with nursing and triage notes] Were old charts reviewed (outside hosp., previous admission, EMS record, old EKG, old radiological studies, urgent care reports/EKG's, senior care records)? Report findings @ -[No old charts were reviewed] Differential Diagnosis (chest pain, altered mental status, abdominal pain women, abdominal pain men, vaginal bleeding, weakness, fever, dyspnea, syncope, headache, dizziness, GI bleed, back pain, seizure, CVA, palpatations, mental health, musculoskeletal)? @ -[Differential GI Bleed: Esophageal varices, aortoenteric fistula, [place], gastritis, peptic ulcer disease, diverticulosis, inflammatory bowel disease, hemorrhoids, fissure, colitis, malignancy, Meckel's diverticulum, this is not meant to be an all- inclusive list. EKG interpreted by me (3pts min.). @ -[As above] X-rays interpreted by me (1pt min.). @ -[None done] CT interpreted by me (1pt min.). @ -[None done] U/S interpreted by me (1pt. min.). @ -[None done] What testing was considered but not performed or refused? (CT, X-rays, U/S, labs)? Why? @ -[None] What meds were considered but not given or refused? Why? @ -[None] Did you discuss the management of the patient with other professionals (prof essionals i.e. , PA, DOBBY LOOM WEAVER, lab, RT, psych nurse, long term care social worker, bruise trimmer, teacher, fundraising officer, machine adjuster leader case trim)? Give summary @ -[Case discussed with admitting physician and treatment recommendations are incorporated Was smoking cessation discussed for >3mins.? @ -[No] Was critical care preformed (if so, how long)? @ -[No] Were there social determinants of health that impacted care today? How? (Homelessness, low income, unemployed, alcoholism, drug addiction, transportation, low edu. Level, literacy, decrease access to med. care, residential, rehab)? @ -[No] Was there de-escalation of care discussed even if they declined (Discuss DNR or withdrawal of care, Hospice)? DNR status @ -[No] What co-morbidities impacted this encounter? (DM, HTN, Smoking, COPD, CAD, Cancer, CVA, ARF, Chemo, Hep., AIDS, mental health diagnosis, sleep apnea, morbid obesity)? @ -[Hiatal hernia. Atrial fibrillation requiring anticoagulation. Diabetes Was patient admitted / discharged? Hospital course, mention meds given and route, prescriptions, significant lab abnormalities, going to OR and other pertinent info. @ -[Patient is 78-year-old woman here with a recurrence of intractable vomiting probably related to her large intrathoracic hiatal hernia. Patient will be admitted for further care. Patient also having some debility and may require long-term placement Undiagnosed new problem with uncertain prognosis? @ -[No] Drug Therapy requiring intensive monitoring for toxicity (Heparin, Nitro, Insulin, Cardizem)? @ -[No] Were any procedures done? @ -[No] Diagnosis/symptom? @ -[Recurrent intractable vomiting Large hiatal hernia Acute GI bleeding Acute, or Chronic, or Acute on Chronic? @ -[Acute Uncomplicated (without systemic symptoms) or Complicated (systemic symptoms)? @ -[Uncomplicated Side effects of treatment? @ -[No] Exacerbation, Progression, or Severe Exacerbation? @ -[No] Poses a threat to life or bodily function? How? (Chest pain, [place], [place], pneumonia, PE, COPD, DKA, ARF, appy, cholecystitis, CVA, Diverticulitis, Homicidal, Suicidal, threat to staff... and all critical care pts) @ -[Yes there is risk of worsening gastrointestinal bleeding All treatments are based on ideal body weight as in ED triage - Lab Data Result diagrams: 06/04/24 08:27 06/04/24 08:27 Lab Results 05/31/24 05/31/24 05/31/24 Range/Units 20:29 20:29 20:29 WBC 15.8 H (3.8-10.6) k/uL RBC 3.61 L (3.80-5.40) m/uL Hgb 10.4 L (11.4-16.0) gm/dL Hct 32.3 L (34.0-46.0) % MCV 89.3 (80.0-100.0) fL MCH 28.9 (25.0-35.0) pg MCHC 32.3 (31.0-37.0) g/dL RDW 15.5 (11.5-15.5) % Plt Count 382 (150-450) k/uL MPV 7.5 Neutrophils % 86 % Lymphocytes % 6 % Monocytes % 5 % Eosinophils % 2 % Basophils % 0 % Neutrophils # 13.5 H (1.3-7.7) k/uL Lymphocytes # 0.9 L (1.0-4.8) k/uL Monocytes # 0.8 (0-1.0) k/uL Eosinophils # 0.4 (0-0.7) k/uL Basophils # 0.0 (0-0.2) k/uL Hypochromasia Slight PT 14.7 H (10.0-12.5) sec INR 1.4 H (<1.2) APTT 23.6 (22.0-30.0) sec Sodium 135 L (137-145) mmol/L Potassium 4.4 (3.5-5.1) mmol/L Chloride 100 (98-107) mmol/L Carbon Dioxide 26 (22-30) mmol/L Anion Gap 9 mmol/L BUN 13 (7-17) mg/dL Creatinine 0.83 (0.52-1.04) mg/dL Est GFR (CKD-EPI)AfAm 79 (>60 ml/min/1.73 sqM) Est GFR (CKD-EPI)NonAf 69 (>60 ml/min/1.73 sqM) Glucose 84 (74-99) mg/dL Calcium 9.2 (8.4-10.2) mg/dL Total Bilirubin 0.5 (0.2-1.3) mg/dL AST 18 (14-36) U/L ALT 10 (4-34) U/L Alkaline Phosphatase 101 (38-126) U/L Troponin I (0.000-0.034) ng/mL Total Protein 6.7 (6.3-8.2) g/dL Albumin 3.2 L (3.5-5.0) g/dL Amylase 35 (30-110) U/L Lipase 59 (23-300) U/L Urine Color Urine Appearance (Clear) Urine pH (5.0-8.0) Ur Specific [place] (1.001-1.035) Urine Protein (Negative) Urine Glucose (UA) (Negative) Urine Ketones (Negative) Urine Blood (Negative) Urine Nitrite (Negative) Urine Bilirubin (Negative) Urine Urobilinogen (<2.0) mg/dL Ur Leukocyte Esterase (Negative) Urine RBC (0-5) /hpf Urine WBC (0-5) /hpf Urine WBC Clumps (None) /hpf Urine Bacteria (None) /hpf Urine Yeast (Budding) (None) /hpf 05/31/24 05/31/24 Range/Units 20:29 21:55 WBC (3.8-10.6) k/uL RBC (3.80-5.40) m/uL Hgb (11.4-16.0) gm/dL Hct (34.0-46.0) % MCV (80.0-100.0) fL MCH (25.0-35.0) pg MCHC (31.0-37.0) g/dL RDW (11.5-15.5) % Plt Count (150-450) k/uL MPV Neutrophils % % Lymphocytes % % Monocytes % % Eosinophils % % Basophils % % Neutrophils # (1.3-7.7) k/uL Lymphocytes # (1.0-4.8) k/uL Monocytes # (0-1.0) k/uL Eosinophils # (0-0.7) k/uL Basophils # (0-0.2) k/uL Hypochromasia PT (10.0-12.5) sec INR (<1.2) APTT (22.0-30.0) sec Sodium (137-145) mmol/L Potassium (3.5-5.1) mmol/L Chloride (98-107) mmol/L Carbon Dioxide (22-30) mmol/L Anion Gap mmol/L BUN (7-17) mg/dL Creatinine (0.52-1.04) mg/dL Est GFR (CKD-EPI)AfAm (>60 ml/min/1.73 sqM) Est GFR (CKD-EPI)NonAf (>60 ml/min/1.73 sqM) Glucose (74-99) mg/dL Calcium (8.4-10.2) mg/dL Total Bilirubin (0.2-1.3) mg/dL AST (14-36) U/L ALT (4-34) U/L Alkaline Phosphatase (38-126) U/L Troponin I 0.021 (0.000-0.034) ng/mL Total Protein (6.3-8.2) g/dL Albumin (3.5-5.0) g/dL Amylase (30-110) U/L Lipase (23-300) U/L Urine Color Yellow Urine Appearance Turbid H (Clear) Urine pH 6.0 (5.0-8.0) Ur Specific [place] 1.013 (1.001-1.035) Urine Protein Trace H (Negative) Urine Glucose (UA) Negative (Negative) Urine Ketones Trace H (Negative) Urine Blood Large H (Negative) Urine Nitrite Positive H (Negative) Urine Bilirubin Negative (Negative) Urine Urobilinogen <2.0 (<2.0) mg/dL Ur Leukocyte Esterase Large H (Negative) Urine RBC 22 H (0-5) /hpf Urine WBC >182 H (0-5) /hpf Urine WBC Clumps Moderate H (None) /hpf Urine Bacteria Many H (None) /hpf Urine Yeast (Budding) Few H (None) /hpf - EKG Data -: EKG Interpreted by Me (Interpretation limited by artifact due to tremor) EKG shows normal: sinus rhythm, axis (Normal), intervals (Normal), QRS complexes (Low voltage QRS complex. Incomplete right bundle branch block pattern.) Rate: normal (Rate 93 bpm) Disposition Clinical Impression: Gastrointestinal hemorrhage, Intractable vomiting Disposition: ADMITTED IP TO THIS [facility] Condition: Fair
[2024-05-31 20:44] LABS: Basophils % (A) 0 %; Eosinophils # (A) 0.4 k/uL (0-0.7); Eosinophils % (A) 2 %; HCT 32.3 % (34.0-46.0); HGB 10.4 gm/dL (11.4-16.0); Hypochromasia Slight; Lymphocytes # (A) 0.9 k/uL (1.0-4.8); Lymphocytes % (A) 6 %; MCH 28.9 pg (25.0-35.0); MCHC 32.3 g/dL (31.0-37.0); MCV 89.3 fL (80.0-100.0); Mean Platelet Volume 7.5; Monocytes # (A) 0.8 k/uL (0-1.0); Monocytes % (A) 5 %; Neutrophils # (A) 13.5 k/uL (1.3-7.7); Neutrophils % (A) 86 %; Platelet Count 382 k/uL (150-450); RBC 3.61 m/uL (3.80-5.40); RDW 15.5 % (11.5-15.5); WBC 15.8 k/uL (3.8-10.6)
[2024-05-31 20:54] LABS: INR 1.4 (<1.2); Partial Thromboplastin Time 23.6 sec (22.0-30.0); Prothrombin Time 14.7 sec (10.0-12.5)
[2024-05-31 20:56] LABS: ALT 10 U/L (4-34); AST 18 U/L (14-36); African American GFR (CKD) 79 (>60 ml/min/1.73 sqM); Albumin 3.2 g/dL (3.5-5.0); Alkaline Phosphatase 101 U/L (38-126); Amylase 35 U/L (30-110); Anion Gap 9 mmol/L; Blood Urea Nitrogen 13 mg/dL (7-17); Calcium 9.2 mg/dL (8.4-10.2); Carbon Dioxide 26 mmol/L (22-30); Chloride 100 mmol/L (98-107); Glucose 84 mg/dL (74-99); Lipase 59 U/L (23-300); Non-African American GFR(CKD) 69 (>60 ml/min/1.73 sqM); Potassium 4.4 mmol/L (3.5-5.1); Sodium 135 mmol/L (137-145); Total Bilirubin 0.5 mg/dL (0.2-1.3); Total Protein 6.7 g/dL (6.3-8.2)
[2024-05-31] MEDS ORDERED: PROCHLORPERAZINE 5 MG TAB PO PRN (22:20)
[2024-05-31] MEDS ORDERED: PROCHLORPERAZINE SUPPOSITORY 25 MG SUPP RECTAL PRN (22:20)
[2024-05-31] MEDS ORDERED: NALOXONE 0.4 MG/ML 1 ML VIAL IV PRN (22:20)
[2024-05-31 22:35] LABS: Appearance,Urine Turbid (Clear); Bacteria,Urine Many /hpf; Bilirubin,Urine Negative (Negative); Blood,Urine Large (Negative); Budding Yeast,Urine Few /hpf; Color,Urine Yellow; Glucose,Urine (UA) Negative (Negative); Ketones,Urine Trace (Negative); Leukocyte Esterase,Urine Large (Negative); Nitrite,Urine Positive (Negative); Protein,Urine Trace (Negative); RBC,Urine 22 /hpf (0-5); Specific Gravity,Urine 1.013 (1.001-1.035); Urobilinogen,Urine <2.0 mg/dL (<2.0); WBC,Urine >182 /hpf (0-5)
[2024-05-31] MEDS: SODIUM CHLORIDE 0.9% 1,000 ML IV SCH (23:03)
[2024-05-31] MEDS: SODIUM CHLORIDE 0.9% 1,000 ML IV ONE (23:03)
[2024-05-31] MEDS: PANTOPRAZOLE 40 MG/10 ML VIAL IV SCH (23:30)
[2024-05-31] MEDS: SODIUM CHLORIDE 0.9% 1,000 ML IV STA (23:35)
[2024-06-01 04:33] LABS: Basophils % (A) 0 %; Eosinophils # (A) 0.4 k/uL (0-0.7); Eosinophils % (A) 3 %; HCT 30.3 % (34.0-46.0); HGB 9.7 gm/dL (11.4-16.0); Hypochromasia Slight; Lymphocytes # (A) 0.8 k/uL (1.0-4.8); Lymphocytes % (A) 6 %; MCH 28.3 pg (25.0-35.0); MCHC 31.9 g/dL (31.0-37.0); MCV 88.7 fL (80.0-100.0); Mean Platelet Volume 7.9; Monocytes # (A) 0.5 k/uL (0-1.0); Monocytes % (A) 4 %; Neutrophils % (A) 85 %; Platelet Count 364 k/uL (150-450); RBC 3.42 m/uL (3.80-5.40); RDW 15.5 % (11.5-15.5)
[2024-06-01 12:57] LABS: Basophils % (A) 0 %; Eosinophils # (A) 0.3 k/uL (0-0.7); Eosinophils % (A) 2 %; HCT 28.9 % (34.0-46.0); HGB 9.2 gm/dL (11.4-16.0); Hypochromasia Moderate; Lymphocytes # (A) 0.7 k/uL (1.0-4.8); Lymphocytes % (A) 6 %; MCH 28.9 pg (25.0-35.0); MCV 90.4 fL (80.0-100.0); Mean Platelet Volume 8.4; Monocytes # (A) 0.8 k/uL (0-1.0); Monocytes % (A) 7 %; Neutrophils # (A) 9.9 k/uL (1.3-7.7); Neutrophils % (A) 84 %; Platelet Count 351 k/uL (150-450); RBC 3.19 m/uL (3.80-5.40); RDW 15.7 % (11.5-15.5); WBC 11.9 k/uL (3.8-10.6)
[2024-06-01 21:57] LABS: Basophils # (A) 0.1 k/uL (0-0.2); Basophils % (A) 0 %; Eosinophils # (A) 0.6 k/uL (0-0.7); Eosinophils % (A) 3 %; HCT 30.4 % (34.0-46.0); HGB 9.6 gm/dL (11.4-16.0); Hypochromasia Moderate; Lymphocytes # (A) 0.9 k/uL (1.0-4.8); Lymphocytes % (A) 5 %; MCH 28.4 pg (25.0-35.0); MCHC 31.7 g/dL (31.0-37.0); MCV 89.5 fL (80.0-100.0); Mean Platelet Volume 10.1; Monocytes # (A) 1.3 k/uL (0-1.0); Monocytes % (A) 7 %; Neutrophils # (A) 15.7 k/uL (1.3-7.7); Neutrophils % (A) 83 %; Platelet Count 287 k/uL (150-450); RDW 15.6 % (11.5-15.5)
[2024-06-02 02:09] LABS: Glucose,Whole Blood 85 mg/dL (70-110)
[2024-06-02 07:11] LABS: Glucose,Whole Blood 90 mg/dL (70-110)
[2024-06-02 12:24] LABS: Glucose,Whole Blood 58 mg/dL (70-110)
[2024-06-02] MEDS: ONDANSETRON 4 MG/2 ML VIAL IVP PRN (12:38)
[2024-06-02 13:15] LABS: Glucose,Whole Blood 67 mg/dL (70-110)
[2024-06-02 13:20] LABS: Glucose,Whole Blood 87 mg/dL (70-110)
[2024-06-02 13:30] VITALS: BMI 37.8
[2024-06-02 17:09] LABS: Glucose,Whole Blood 80 mg/dL (70-110)
[2024-06-02 20:32] LABS: Glucose,Whole Blood 97 mg/dL (70-110)
[2024-06-03] MEDS: ACETAMINOPHEN TAB 325 MG TAB PO PRN (00:17)
[2024-06-03 07:06] LABS: Glucose,Whole Blood 98 mg/dL (70-110)
[2024-06-03 11:48] LABS: Glucose,Whole Blood 84 mg/dL (70-110)
[2024-06-03] MEDS: NYSTATIN 100,000 UNIT/GM POWD 15 GM TOPICAL SCH (16:17)
[2024-06-03 17:16] LABS: Glucose,Whole Blood 83 mg/dL (70-110)
[2024-06-03 20:08] LABS: Glucose,Whole Blood 88 mg/dL (70-110)
[2024-06-04 07:18] LABS: Glucose,Whole Blood 90 mg/dL (70-110)
--- NOTE | 2024-06-04 07:54 | P.CONS ---
History of Present Illness - Reason for Consult Consult date: 06/03/24 Pressure injury Requesting physician: Rigoberto David - Chief Complaint Nausea and vomiting x few days - History of Present Illness Patient is a 78-year-old -[place] female with a past medical history significant for diabetes mellitus hypertension sleep apnea DVT PE patient has been brought to the hospital 3 days ago for evaluation of nausea vomiting and coffee-ground emesis symptom has been going on for about a day before the patient has been brought to the hospital patient also complaining of some epigastric discomfort but denies having any diarrhea or constipation patient did have 1 low-grade fever of 99.1 F on admission no fever have recorded subs equently patient was tachycardic but not hypotensive mildly hypoxic currently on 3 L nasal cannula oxygen patient did have white count of 15.8 on admission subsequent white count is 19,000 creatinine 0.83 lactic acid was 2.1 patient did have a significantly positive UA with large leukocyte esterase more than 1-2 WBC urine cultures with gram-negative in the blood culture have been positive with gram-positive prompted this consultation infectious he was consulted today regarding pressure injury to bilateral gluteal area patient herself not a very good historian so most information has been extracted from review the chart and talking to nursing staff Review of Systems Positive point and negatives has been mentioned in the HPI, complete review of systems was performed and all other systems are negative Past Medical History Past Medical History: Diabetes Mellitus, Hypertension, Sleep Apnea/CPAP/BIPAP Additional Past Medical History / Comment(s): COPD, osteoarthritis, previous history of DVT and pulmonary embolism and the along for medical evaluation with warfarin, degenerative arthritis, hypertension, hyperlipidemia, obesity, obstructive sleep apnea not utilizing any form of devices at this point in time. History of Any Multi-Drug Resistant Organisms: None Reported Past Surgical History: Unable to Obtain, Breast Surgery, Cholecystectomy, Hernia Repair, Hysterectomy Additional Past Surgical History / Comment(s): Surgery to remove cyst on head, HAND SURGERY, CYST REMOVED LEFT BREAST Past Anesthesia/Blood Transfusion Reactions: No Reported Reaction Past Psychological History: Anxiety, Depression Smoking Status: Never smoker Past Alcohol Use History: None Reported Past Drug Use History: None Reported - Past Family History Mother Additional Family Medical History / Comment(s): HEART DISEASE Father Additional Family Medical History / Comment(s): HEART DISEASE Medications and Allergies Home Medications Medication Instructions Recorded Confirmed Type Metoclopramide [Reglan] 10 mg PO AC-TID #90 tab 04/03/24 05/31/24 Rx Cephalexin [Keflex] 500 mg PO QID #40 cap 06/06/24 Rx Famotidine [Pepcid] 20 mg PO DAILY #30 tab 06/06/24 Rx Nystatin 100,000 Unit/gm Powd 1 applic TOPICAL TID #90 each 06/06/24 Rx [Mycostatin Powder] Pantoprazole [Protonix] 40 mg PO AC-BID #60 tab 06/06/24 Rx Prochlorperazine [Compazine] 5 mg PO Q8HR PRN #30 tab 06/06/24 Rx Allergies Allergy/AdvReac Type Severity Reaction Status Date / Time Fish Containing Products Allergy Dyspnea Verified 05/31/24 20:55 [Fish] iodine Allergy Rash/Hives Verified 05/31/24 20:55 shellfish derived [Shellfish] Allergy Rash/Hives Verified 05/31/24 20:55 oxybutynin [From Ditropan] AdvReac Nausea & Verified 05/31/24 20:55 Vomiting & Diarrhea Physical Exam Vitals: Vital Signs Temp Pulse Resp BP Pulse Ox 06/04/24 01:41 98.1 F 105 H 12 94/64 100 06/03/24 19:27 99.0 F 61 12 91/55 93 L 06/03/24 12:19 98.0 F 68 16 127/84 94 L Intake and Output 06/03/24 06/04/24 06/04/24 22:59 06:59 14:59 Intake Total 560 1440 Output Total 775 Balance 560 665 Intake: Intake, IV Titration 900 Amount Sodium Chloride 0.9% 1, 900 000 ml @ 75 mls/hr IV . [id number] [facility] Rx#:[id number] Oral 560 540 Output: Urine 775 Other: Voiding Method Incontinent # Bowel Movements 1 GENERAL DESCRIPTION: Elderly female lying in bed, no distress. No tachypnea or accessory muscle of respiration use. HEENT: Shows Pallor , no scleral icterus. Oral mucous membrane is dry. NECK: Trachea central, no thyromegaly. LUNGS: Unlabored breathing. Clear to auscultation anteriorly. No wheeze or crackle. HEART: S1, S2, regular rate and rhythm. No loud murmur ABDOMEN: Soft, no tenderness EXTREMITIES: No edema of feet. SKIN: Patient did have a stage II pressure ulcer on bilateral gluteal area with no evidence of any slough tissue surrounding redness NEUROLOGICAL: The patient is awake, mood and affect normal. Results CBC & Chem 7: 06/04/24 08:27 06/04/24 08:27 Labs: Microbiology - Last 24 Hours (Table) 05/31/24 23:27 Blood Culture Gram Stain - Preliminary Blood Blood Culture - Preliminary Staphylococcus hominis Molecular ID 06/01/24 00:13 Urine Culture - Final Urine,Clean Catch Klebsiella pneumoniae Assessment and Plan (1) Stage II pressure ulcer of buttock Status: Acute Code(s): L89.302 - PRESSURE ULCER OF UNSPECIFIED BUTTOCK, STAGE 2 SNOMED Code(s): 95324027448407026 (2) Leukocytosis Status: Acute Code(s): D72.829 - ELEVATED WHITE BLOOD CELL COUNT, UNSPECIFIED SNOMED Code(s): 473128385 (3) Positive blood culture Status: Acute Code(s): R78.81 - BACTEREMIA SNOMED Code(s): 074611515 (4) UTI (urinary tract infection) Status: Acute Code(s): N39.0 - URINARY TRACT INFECTION, SITE NOT SPECIFIED SNOMED Code(s): 72161645 Plan: 1patient with stage II pressure ulcer to bilateral gluteal area with no evidence of any slough tissue or surrounding redness recommend local wound care with dry Aquacel dressing followed by Mepilex keep the area dry and off the pressure 2patient did have a positive blood culture with a staph epi possible skin contamination blood cultures will be document clearance 3patient did have a nausea and vomiting on admission, did have mental status changes,positive UA and elevated white count possible component of a symptomatic UTI from enteric gram-negative pathogen not entirely excluded 4we will recommend Rocephin 2 g daily pending culture finalization We will follow on clinical condition and cultures to further adjust medication if needed Thank you for this consultation we will follow the patient along with you Dictation was produced using [employer] dictation software. please excuse any grammatical, word or spelling errors. Time with Patient: Greater than 30
[2024-06-04 08:57] LABS: Basophils % (A) 0 %; Eosinophils # (A) 0.5 k/uL (0-0.7); Eosinophils % (A) 6 %; HCT 25.5 % (34.0-46.0); Hypochromasia Marked; Lymphocytes # (A) 0.6 k/uL (1.0-4.8); Lymphocytes % (A) 8 %; MCH 28.3 pg (25.0-35.0); MCV 91.1 fL (80.0-100.0); Mean Platelet Volume 7.7; Monocytes # (A) 0.5 k/uL (0-1.0); Monocytes % (A) 6 %; Neutrophils # (A) 6.2 k/uL (1.3-7.7); Neutrophils % (A) 78 %; Platelet Count 276 k/uL (150-450); RBC 2.79 m/uL (3.80-5.40); RDW 15.6 % (11.5-15.5); WBC 7.9 k/uL (3.8-10.6)
[2024-06-04 09:02] LABS: ALT 7 U/L (4-34); AST 15 U/L (14-36); African American GFR (CKD) >90 (>60 ml/min/1.73 sqM); Albumin 2.3 g/dL (3.5-5.0); Albumin/Globulin Ratio 0.8; Alkaline Phosphatase 72 U/L (38-126); Anion Gap 5 mmol/L; Blood Urea Nitrogen 3 mg/dL (7-17); Calcium 8.8 mg/dL (8.4-10.2); Carbon Dioxide 23 mmol/L (22-30); Chloride 109 mmol/L (98-107); Glucose 85 mg/dL (74-99); Non-African American GFR(CKD) 85 (>60 ml/min/1.73 sqM); Potassium 4.3 mmol/L (3.5-5.1); Sodium 137 mmol/L (137-145); Total Bilirubin 0.3 mg/dL (0.2-1.3); Total Protein 5.3 g/dL (6.3-8.2)
[2024-06-04 09:17] LABS: HGB 7.9 gm/dL (11.4-16.0)
[2024-06-04 12:05] LABS: Glucose,Whole Blood 76 mg/dL (70-110)
--- NOTE | 2024-06-04 14:54 | P.PN ---
Subjective Progress Note Date: 06/04/24 Principal diagnosis: Reason for follow-up is leukocytosis UTI and bilateral gluteal pressure ulcer Patient is a 78-year-old -[place] female with a past medical history sig nificant for diabetes mellitus hypertension sleep apnea DVT PE patient has been brought to the hospital for evaluation of nausea vomiting coffee-ground emesis did have elevated white count positive blood culture and noticed to have some pressure ulcer to bilateral gluteal area prompted this consultation on today's evaluation that is 06/04/2024, Patient is afebrile patient is currently on 3 L current oxygen and denies having any shortness of breath, the patient denies any chest pain or cough, the patient denies any nausea vomiting did not have any abdominal pain and no diarrhea. Patient white count normalized to 7.9 creatinine 0.68 urine is growing Klebsiella Objective - Vital Signs Vital signs: Vital Signs Temp 98.3 F 06/04/24 11:29 Pulse 94 06/04/24 11:29 Resp 14 06/04/24 11:29 BP 94/61 06/04/24 11:29 Pulse Ox 97 06/04/24 11:29 FiO2 Intake & Output 06/03/24 06/04/24 06/04/24 18:59 06:59 18:59 Intake Total 3880 1440 Output Total 800 775 Balance 3080 665 Intake: Intake, IV Titration 900 Amount Sodium Chloride 0.9% 1, 900 000 ml @ 75 mls/hr IV . [id number] [facility] Rx#:[id number] Oral 3880 540 Output: Urine 800 775 Other: Voiding Method Incontinent Incontinent Incontinent External Catheter # Bowel Movements 1 - Exam GENERAL DESCRIPTION: An elderly female lying in bed in no distress RESPIRATORY SYSTEM: Unlabored breathing , decreased breath sounds at bases HEART: S1 S2 regular rate and rhythm , ABDOMEN: Soft , no tenderness - Labs CBC & Chem 7: 06/04/24 08:27 06/04/24 08:27 Labs: Abnormal Lab Results - Last 24 Hours (Table) 06/04/24 06/04/24 Range/Units 08:27 08:27 RBC 2.79 L (3.80-5.40) m/uL Hgb 7.9 L D (11.4-16.0) gm/dL Hct 25.5 L (34.0-46.0) % RDW 15.6 H (11.5-15.5) % Lymphocytes # 0.6 L (1.0-4.8) k/uL Chloride 109 H (98-107) mmol/L BUN 3 L (7-17) mg/dL C-Reactive Protein 7.0 H (<1.0) mg/dL Total Protein 5.3 L (6.3-8.2) g/dL Albumin 2.3 L (3.5-5.0) g/dL Microbiology - Last 24 Hours (Table) 05/31/24 23:27 Blood Culture Gram Stain - Preliminary Blood Blood Culture - Preliminary Staphylococcus hominis Molecular ID 06/01/24 00:13 Urine Culture - Final Urine,Clean Catch Klebsiella pneumoniae Assessment and Plan (1) Stage II pressure ulcer of buttock Current Visit: Yes Status: Acute Code(s): L89.302 - PRESSURE ULCER OF UNSPECIFIED BUTTOCK, STAGE 2 SNOMED Code(s): 21209386638965993 (2) Leukocytosis Current Visit: Yes Status: Acute Code(s): D72.829 - ELEVATED WHITE BLOOD CELL COUNT, UNSPECIFIED SNOMED Code(s): 391658774 (3) Positive blood culture Current Visit: Yes Status: Acute Code(s): R78.81 - BACTEREMIA SNOMED Code(s): 359153408 (4) UTI (urinary tract infection) Current Visit: Yes Status: Acute Code(s): N39.0 - URINARY TRACT INFECTION, SITE NOT SPECIFIED SNOMED Code(s): 14527637 Plan: 1patient with stage II pressure ulcer to bilateral gluteal area with no evidence of any slough tissue or surrounding redness recommend local wound care with dry Aquacel dressing followed by Mepilex keep the area dry and off the pressure 2patient did have a positive blood culture with a staph epi possible skin cont amination blood cultures will be document clearance 3patient did have a nausea and vomiting on admission did have a positive UA and elevated white count possible component of a UTI with urine currently growing Klebsiella sensitive to ceftriaxone 4patient white count normalized continue with ceftriaxone transition to oral Ceftin on discharge Dictation was produced using [employer] dictation software. please excuse any grammatical, word or spelling errors. Time with Patient: Less than 30
[2024-06-04 17:06] LABS: Glucose,Whole Blood 91 mg/dL (70-110)
[2024-06-04 20:05] LABS: Glucose,Whole Blood 104 mg/dL (70-110)
--- NOTE | 2024-06-04 23:02 | PN ---
PROGRESS NOTE CHIEF COMPLAINT: Upper GI bleed with hematemesis and anemia. HISTORY OF PRESENT ILLNESS: This lady is stable. There apparently is no further bleeding. She has not been on any anticoagulation. She denies any chest or epigastric pain. PHYSICAL EXAM: GENERAL: She remains pale. VITAL SIGNS: Her vital signs are normal. CHEST: Clear. CARDIAC: Normal. ABDOMEN: Soft, nontender. IMPRESSION: 1. Upper GI bleed with hematemesis. 2. Blood-loss anemia. 3. 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 4. General debility and failure to thrive. PLAN: Continue to monitor vital signs and hemoglobin while working on a discharge plan. MMODL / IJN: [id number] /
--- NOTE | 2024-06-04 23:53 | HP ---
HISTORY AND PHYSICAL CHIEF COMPLAINT: Inability to thrive. HISTORY OF PRESENT ILLNESS: This is another admission for this 78-year-old obese female, who is extremely debilitated. She just left the hospital and went home where her son was thought we will take care of her, but could not and she came back. She cannot ambulate. She has a history of GI bleeding and anemia. She came back in reportedly throwing up blood again. REVIEW OF SYSTEMS: She denies any syncope, chest pain, shortness of breath, abdominal pain, melena, hematochezia, etc. Past medical history, family history, personal and social histories are all unchanged from her recent admitting and discharge summaries. PHYSICAL EXAMINATION: VITAL SIGNS: Normal. GENERAL: She is pale. CHEST: Clear. CARDIAC: Normal. ABDOMEN: Protuberant, soft, and nontender. EXTREMITIES: Unremarkable. IMPRESSION: She is admitted to the hospital with diagnoses, 1. Hematemesis. 2. Gastrointestinal blood loss anemia. 3. 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 PLAN: 1. Bed rest. 2. IV fluids. 3. Follow her hemoglobin. 4. Reassess for discharge planning. MMODL / IJN: [id number] /
--- NOTE | 2024-06-05 02:23 | PN ---
PROGRESS NOTE DATE OF SERVICE: 06/02/2024 CHIEF COMPLAINT: Nausea, vomiting, and hematemesis. HISTORY OF PRESENT ILLNESS: This lady is doing fairly well. She is not vomiting and apparently not bleeding any longer. PHYSICAL EXAMINATION: GENERAL: She is pale. CHEST: Clear. CARDIAC: Normal. ABDOMEN: Soft, nontender. IMPRESSION: 1. Upper gastrointestinal bleed, etiology unknown. 2. General debility and weakness with inability to ambulate. 3. Carcinoma of the right side of the scalp and neck. 4. Anemia. PLAN: Start to look into arrangements for her discharge. She, apparently, will not be able to return home to the care of her son. MMODL / IJN: [id number] /
--- NOTE | 2024-06-05 02:38 | PN ---
PROGRESS NOTE DATE OF SERVICE: 06/03/2024 CHIEF COMPLAINT: GI bleed, anemia, general debility, and inability to ambulate. HISTORY OF PRESENT ILLNESS: This lady is apparently doing about the same. She now has a decubitus. Discharge Planning is working on her discharge. PHYSICAL EXAMINATION: GENERAL: She remains pale. CHEST: Clear. CARDIAC: Normal. ABDOMEN: Soft and nontender. EXTREMITIES: Normal. IMPRESSION: 1. Upper gastrointestinal bleed. 2. Blood loss anemia. 3. 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 4. Decubitus. PLAN: Continue to work on a discharge plan for this unfortunate lady. MMODL / IJN: [id number] /
--- NOTE | 2024-06-05 02:53 | PN ---
PROGRESS NOTE DATE OF SERVICE: 06/04/2024 CHIEF COMPLAINT: GI bleed and blood loss anemia. HISTORY OF PRESENT ILLNESS: This lady is stable, and we are working on discharge plan. There is apparently no further bleeding. Her hemoglobin is low, but stable. PHYSICAL EXAMINATION: GENERAL: She is pale. CHEST: Clear. CARDIAC: Normal. ABDOMEN: Soft. IMPRESSION: 1. Upper gastrointestinal bleed. 2. Blood loss anemia. 3. 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 4. General debility and failure to thrive. 5. Decubitus. PLAN: Advance diet and continue to work on discharge plan. MMODL / IJN: [id number] /
[2024-06-05 07:01] LABS: Glucose,Whole Blood 76 mg/dL (70-110)
--- NOTE | 2024-06-05 11:46 | CDI ---
Documentation Clarification Form Date: 06/05/2024 11:28:21 AM From: Niki Campos RN CCDS Phone: [phone] Admit Date: 05/31/2024 10:24:00 PM Patient Name: Ariadne Tellez Visit Number: [id number] Discharge Date: ATTENTION: The Clinical Documentation Specialists (CDI) and [facility] Coding Staff appreciate your assistance in clarifying documentation. Please respond to the clarification below the line at the bottom and electronically sign. The CDI & [facility] Coding staff will review the response and follow-up if needed. Please note: Queries are made part of the Legal Health Record. If you have any questions, please contact the author of this message via ITS. Dr: Rigoberto David Your patient has [insert documentation or findings, with date, location]. Based on this information and the findings below, is there an additional diagnosis that is clinically appropriate for this patient? Patient history/risk factors: 78 year female presents to the ED for being extremity debilitated. Medical history: GI bleeding, anemia, abd pain, carcinoma and stage 2 pressure ulcer. 06/05, Medical record. Clinical Indicators: VSS: B/P 111/72; HR 945; Temp 98.8F Oral; RR 19, SpO2 98% ra Labs: 05/31 Wbc 15.8, Neutrophils 13.5, Lactic 2.1 UA, 05/31: Appearance Turbid, Protein Trace, Ketones Trace, Blood Large, Nitrate Positive, Leukocyte esterase Large, Rbc 22, Wbc >182, Bacteria Many, yeast budding few. UA Culture Final 06/03: Klebsiella pneumoniae Treatment: 05/31 Ceftriaxone IVPB x 1; 06/04 Ceftriaxone IVPB Q24H Is there an additional diagnosis that is clinically appropriate for this patient? [ ] UTI POA [ ] No additional diagnosis/Not clinically significant [ ] Unable to determine [ ] Other, please specify MTDD
[2024-06-05 12:18] LABS: Glucose,Whole Blood 90 mg/dL (70-110)
[2024-06-05 17:17] LABS: Glucose,Whole Blood 93 mg/dL (70-110)
[2024-06-05 20:04] LABS: Glucose,Whole Blood 129 mg/dL (70-110)
[2024-06-06 07:13] LABS: Glucose,Whole Blood 78 mg/dL (70-110)
[2024-06-06 12:05] LABS: Glucose,Whole Blood 102 mg/dL (70-110)
[2024-06-06 13:21] VITALS: BP 111/76; PULSE 103; RESP 19; TEMP 98.7
[2024-06-06] MEDS: PANTOPRAZOLE 40 MG TABLET PO SCH (17:11)
[2024-06-06] MEDS: CEPHALEXIN 500 MG CAP PO SCH (17:11)
[2024-06-06 17:16] LABS: Glucose,Whole Blood 100 mg/dL (70-110)
--- NOTE | 2024-06-06 21:42 | DS ---
DISCHARGE SUMMARY CHIEF COMPLAINT: Upper GI bleed and debility. HISTORY OF PRESENT ILLNESS AND PHYSICAL EXAMINATION: Details of this lady's history and physical can be found in the initial workup. LABORATORY STUDIES: While she was in the hospital, she had laboratory studies, details of which can be found in the laboratory section of her chart. COURSE IN THE HOSPITAL: After admission, she was placed on bedrest, started on intravenous fluids and vital signs monitored carefully. She also was thought to have had an upper GI bleed, but this was not confirmed. Her hemoglobin remained fairly stable. Her son, whom she lives with, stated that she was having vomiting and "coffee-grounds emesis." While in the hospital, most of her inpatient effort was spent in trying to set up a place for her to go after she leaves. She had been in [facility], but they discharged her after about 20 days because they informed her that her insurance would not pay for it. She went home with her son and probably wound up in the hospital. It was thought that she should be placed in some kind of a facility, but she insisted on going with her son. I talked with him and he stated that he could probably handle her this time and that he has a home agency coming in. He has a who is in the home also. It is felt that she could go home with home care and we will follow her on an outpatient basis. FINAL DIAGNOSES: 1. Hematemesis. 2. Upper gastrointestinal bleed. 3. Blood loss anemia. 4. General debility and failure to thrive. 5. Inability to ambulate. 6. 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 7. Sacral decubitus. OPERATIONS: None. CONSULTATIONS: None. MMODL / IJN: [id number] /
--- NOTE | 2024-06-07 03:34 | PN ---
PROGRESS NOTE DATE OF SERVICE: 06/05/2023 CHIEF COMPLAINT: General debility, weakness, and failure to thrive. HISTORY OF PRESENT ILLNESS: This lady is fairly stable. She has developed a sacral decubitus. I talked with her son, who believes that he can maintain her at home. His is there. He works all day. PHYSICAL EXAMINATION: GENERAL: She is pale. CHEST: Clear. CARDIAC: Unchanged. ABDOMEN: Soft, nontender. IMPRESSION: 1. General debility and failure to thrive. 2. Inability to ambulate. 3. Carcinoma of the right side of the scalp and neck. 4. Obesity. 5. Sacral decubitus. PLAN: Discharge tomorrow as long as the family thinks they can handle her at their home. MMODL / IJN: [id number] /
--- NOTE | 2024-06-07 08:13 | P.PN ---
Subjective Progress Note Date: 06/05/24 Principal diagnosis: Reason for follow-up is leukocytosis UTI and bilateral gluteal pressure ulcer Patient is a 78-year-old -[place] female with a past medical history sig nificant for diabetes mellitus hypertension sleep apnea DVT PE patient has been brought to the hospital for evaluation of nausea vomiting coffee-ground emesis did have elevated white count positive blood culture and noticed to have some pressure ulcer to bilateral gluteal area prompted this consultation on today's evaluation that is 06/05/2023, patient has been afebrile, patient is breathing comfortably and is currently on room air, patient denies having any significant cough no chest pain, patient denies nausea vomiting or diarrhea and no abdominal pain. Patient white count normalized to 7.9 creatinine 0.68 Objective - Vital Signs Vital signs: Vital Signs Temp 98.2 F 06/05/24 12:13 Pulse 105 H 06/05/24 12:13 Resp 20 06/05/24 12:13 BP 127/77 06/05/24 12:13 Pulse Ox 97 06/05/24 12:13 FiO2 Intake & Output 06/04/24 06/05/24 06/05/24 18:59 06:59 18:59 Output Total 500 600 Balance -500 -600 Output: Urine 500 600 Other: Voiding Method Incontinent Incontinent External Catheter External Catheter - Exam GENERAL DESCRIPTION: An elderly female lying in bed in no distress RESPIRATORY SYSTEM: Unlabored breathing , decreased breath sounds at bases HEART: S1 S2 regular rate and rhythm , ABDOMEN: Soft , no tenderness - Labs CBC & Chem 7: 06/04/24 08:27 06/04/24 08:27 Labs: Microbiology - Last 24 Hours (Table) 05/31/24 23:27 Blood Culture Gram Stain - Final Blood Blood Culture - Final Staphylococcus hominis Molecular ID Assessment and Plan (1) Stage II pressure ulcer of buttock Status: Acute Code(s): L89.302 - PRESSURE ULCER OF UNSPECIFIED BUTTOCK, STAGE 2 SNOMED Code(s): 69971003688773041 (2) Leukocytosis Status: Acute Code(s): D72.829 - ELEVATED WHITE BLOOD CELL COUNT, UNSPECIFIED SNOMED Code(s): 577575864 (3) Positive blood culture Status: Acute Code(s): R78.81 - BACTEREMIA SNOMED Code(s): 063291304 (4) UTI (urinary tract infection) Status: Acute Code(s): N39.0 - URINARY TRACT INFECTION, SITE NOT SPECIFIED SNOMED Code(s): 53600161 Plan: 1patient with stage II pressure ulcer to bilateral gluteal area with no evidence of any slough tissue or surrounding redness recommend local wound care with dry Aquacel dressing followed by Mepilex keep the area dry and off the pressure 2patient did have a positive blood culture with a staph epi possible skin contamination blood cultures will be document clearance 3patient did have a nausea and vomiting on admission, did have mental status changes, positive UA and elevated white count possible component of symptomatic UTI with urine currently growing Klebsiella sensitive to ceftriaxone 4patient white count normalized with ceftriaxone to continue while inpatient Dictation was produced using [employer] dictation software. please excuse any grammatical, word or spelling errors. Time with Patient: Less than 30
--- NOTE | 2024-06-07 08:15 | P.PN ---
Subjective Progress Note Date: 06/06/24 Principal diagnosis: Reason for follow-up is leukocytosis UTI and bilateral gluteal pressure ulcer Patient is a 78-year-old -[place] female with a past medical history sig nificant for diabetes mellitus hypertension sleep apnea DVT PE patient has been brought to the hospital for evaluation of nausea vomiting coffee-ground emesis did have elevated white count positive blood culture and noticed to have some pressure ulcer to bilateral gluteal area prompted this consultation on today's evaluation that is 06/06/2023, Patient is afebrile this morning patient denies having any chest pain shortness of breath or cough, the patient is currently on room air, patient denies any abdominal pain no diarrhea no nausea no vomiting No new labs were obtained today Objective - Vital Signs Vital signs: Vital Signs Temp 98.7 F 06/06/24 12:34 Pulse 103 H 06/06/24 12:34 Resp 19 06/06/24 12:34 BP 111/76 06/06/24 12:34 Pulse Ox 90 L 06/06/24 12:34 FiO2 Intake & Output 06/05/24 06/06/24 06/06/24 18:59 06:59 18:59 Intake Total 590 477 Output Total 700 1300 Balance -700 -710 477 Intake: Oral 590 477 Output: Urine 700 1300 Other: Voiding Method Incontinent Incontinent Incontinent External Catheter External Catheter External Catheter - Exam GENERAL DESCRIPTION: An elderly female lying in bed in no distress RESPIRATORY SYSTEM: Unlabored breathing , decreased breath sounds at bases HEART: S1 S2 regular rate and rhythm , ABDOMEN: Soft , no tenderness - Labs CBC & Chem 7: 06/04/24 08:27 06/04/24 08:27 Labs: Abnormal Lab Results - Last 24 Hours (Table) 06/05/24 Range/Units 20:03 POC Glucose (mg/dL) 129 H (70-110) mg/dL Assessment and Plan (1) Stage II pressure ulcer of buttock Status: Acute Code(s): L89.302 - PRESSURE ULCER OF UNSPECIFIED BUTTOCK, STAGE 2 SNOMED Code(s): 08081590302973026 (2) Leukocytosis Status: Acute Code(s): D72.829 - ELEVATED WHITE BLOOD CELL COUNT, UNSPECIFIED SNOMED Code(s): 877808939 (3) Positive blood culture Status: Acute Code(s): R78.81 - BACTEREMIA SNOMED Code(s): 605238855 (4) UTI (urinary tract infection) Status: Acute Code(s): N39.0 - URINARY TRACT INFECTION, SITE NOT SPECIFIED SNOMED Code(s): 21073064 Plan: 1patient with stage II pressure ulcer to bilateral gluteal area with no evidence of any slough tissue or surrounding redness recommend local wound care with dry Aquacel dressing followed by Mepilex keep the area dry and off the p ressure 2patient did have a positive blood culture with a staph epi possible skin contamination blood cultures will be document clearance 3patient did have a nausea and vomiting on admission, did have mental status changes, positive UA and elevated white count possible component of symptomatic UTI with urine currently growing Klebsiella sensitive to ceftriaxone 4patient white count normalized and has shown clinical improvement with Rocephin consider short course of Ceftin on discharge Dictation was produced using [email or web address] dictation software. please excuse any grammatical, word or spelling errors. Time with Patient: Less than 30
[2024-06-07] MEDS ORDERED: FAMOTIDINE 20 MG TAB PO SCH (09:00)
== END 2024-06-06 17:55 | disposition home health service (06) | DRG 378 ==
LOC: EC 18:25 → 5NMEDONC 22:23 → OBSVTOIN 22:24 → 5NMEDONC 06-01 06:33
PROVIDERS: ADMIT Family Medicine; ATTEND Family Medicine
DX: K92.0 Hematemesis (principal); N39.0 Urinary tract infection, site not specified; L89.152 Pressure ulcer of sacral region, stage 2; R78.81 Bacteremia; R62.7 Adult failure to thrive; D50.0 Iron deficiency anemia secondary to blood loss (chronic); E11.9 Type 2 diabetes mellitus without complications; E66.9 Obesity, unspecified; I10 Essential (primary) hypertension; Z68.37 Body mass index [BMI] 37.0-37.9, adult; R53.81 Other malaise; G47.33 Obstructive sleep apnea (adult) (pediatric); R53.1 Weakness; E78.5 Hyperlipidemia, unspecified; Z79.84 Long term (current) use of oral hypoglycemic drugs; Z88.8 Allergy status to other drugs, medicaments and biological substances; Z91.041 Radiographic dye allergy status; Z91.013 Allergy to seafood; Z90.710 Acquired absence of both cervix and uterus; Z85.89 Personal history of malignant neoplasm of other organs and systems
CPT/HCPCS: 36415; 80053; 81001; 82150; 83605; 83690; 84484; 85025; 85610; 85730; 86140; 87040; 87077; 87086; 87186; 93005; 94760; 96361; 96365; 96375; 99285

== ENCOUNTER 2024-07-11 18:32 | Inpatient (IN) | payer MEDICARE, OTHER ==
[2024-07-11 18:57] LABS: Glucose,Whole Blood 104 mg/dL (70-110)
--- NOTE | 2024-07-11 20:09 | XR ---
EXAMINATION TYPE: XR chest 2V DATE OF EXAM: 07/11/2024 7:49 PM COMPARISON: Chest radiographs from 03/29/2024 CLINICAL INDICATION: Female, 78 years old with history of Weakness; [facility] TECHNIQUE: XR chest 2V Frontal and lateral views of the chest. FINDINGS: Lungs/Pleura: There is no evidence of pleural effusion, focal consolidation, or pneumothorax. Pulmonary vascularity: Unremarkable. Heart/mediastinum: Cardiomediastinal silhouette is unremarkable. Musculoskeletal: No acute osseous pathology. IMPRESSION: No acute cardiopulmonary disease/process. [facility], , 07/11/2024 8:06 PM
[2024-07-11] MEDS: SODIUM CHLORIDE 0.9% 1,000 ML IV STA (20:38)
[2024-07-11 20:49] LABS: Basophils % (A) 0 %; Eosinophils # (A) 0.5 k/uL (0-0.7); Eosinophils % (A) 4 %; HCT 33.9 % (34.0-46.0); HGB 10.5 gm/dL (11.4-16.0); Hypochromasia Moderate; Lymphocytes % (A) 6 %; MCH 27.7 pg (25.0-35.0); MCHC 30.9 g/dL (31.0-37.0); MCV 89.7 fL (80.0-100.0); Mean Platelet Volume 8.8; Monocytes # (A) 0.7 k/uL (0-1.0); Monocytes % (A) 5 %; Neutrophils # (A) 13.3 k/uL (1.3-7.7); Neutrophils % (A) 84 %; Platelet Count 219 k/uL (150-450); RBC 3.78 m/uL (3.80-5.40); RDW 15.5 % (11.5-15.5); WBC 15.8 k/uL (3.8-10.6)
[2024-07-11 21:05] LABS: INR 1.1 (<1.2); Prothrombin Time 11.8 sec (10.0-12.5)
[2024-07-11 21:08] LABS: Partial Thromboplastin Time 20.3 sec (22.0-30.0)
[2024-07-11 21:19] LABS: ALT 8 U/L (4-34); AST 20 U/L (14-36); African American GFR (CKD) 78 (>60 ml/min/1.73 sqM); Albumin 3.1 g/dL (3.5-5.0); Alkaline Phosphatase 87 U/L (38-126); Anion Gap 9 mmol/L; Blood Urea Nitrogen 13 mg/dL (7-17); Calcium 8.9 mg/dL (8.4-10.2); Carbon Dioxide 25 mmol/L (22-30); Chloride 103 mmol/L (98-107); Glucose 99 mg/dL (74-99); Magnesium 1.9 mg/dL (1.6-2.3); Non-African American GFR(CKD) 67 (>60 ml/min/1.73 sqM); Potassium 4.4 mmol/L (3.5-5.1); Sodium 137 mmol/L (137-145); Total Bilirubin 0.7 mg/dL (0.2-1.3); Total Protein 6.8 g/dL (6.3-8.2)
[2024-07-11 21:26] LABS: Influenza A Not Detected (Not Detectd); Influenza B Not Detected (Not Detectd); RSV Not Detected (Not Detectd)
[2024-07-11] MEDS ORDERED: NALOXONE 0.4 MG/ML 1 ML VIAL IV PRN (22:19)
--- NOTE | 2024-07-11 22:19 | ED ---
General Adult HPI - General Chief complaint: Weakness Stated complaint: Weakness Time Seen by Provider: 07/11/24 19:10 Source: patient, EMS, RN notes reviewed, old records reviewed Mode of arrival: EMS - History of Present Illness Initial comments: Patient is a 78-year-old female who presents emergency department complaining of weakness. Has been an ongoing issue. Sent in by her PCP for further evaluation. She endorses generalized bodyaches. Has no other acute complaints. Presents for further evaluation at this time. States weakness is generalized and has been ongoing for days. Denies chest pain, abdominal pain, nausea, vomiting, cough, sick contacts. - Related Data Previous Rx's Medication Instructions Recorded Metoclopramide [Reglan] 10 mg PO AC-TID #90 tab 04/03/24 Cephalexin [Keflex] 500 mg PO QID #40 cap 06/06/24 Famotidine [Pepcid] 20 mg PO DAILY #30 tab 06/06/24 Nystatin 100,000 Unit/gm Powd 1 applic TOPICAL TID #90 each 06/06/24 [Mycostatin Powder] Pantoprazole [Protonix] 40 mg PO AC-BID #60 tab 06/06/24 Prochlorperazine [Compazine] 5 mg PO Q8HR PRN #30 tab 06/06/24 Allergies Allergy/AdvReac Type Severity Reaction Status Date / Time Fish Containing Products Allergy Dyspnea Verified 07/11/24 18:47 [Fish] iodine Allergy Rash/Hives Verified 07/11/24 18:47 shellfish derived [Shellfish] Allergy Rash/Hives Verified 07/11/24 18:47 oxybutynin [From Ditropan] AdvReac Nausea & Verified 07/11/24 18:47 Vomiting & Diarrhea Review of Systems ROS Statement: Those systems with pertinent positive or pertinent negative responses have been documented in the HPI. Review of Systems: CONST: Denies fever EYES: Denies blurry vision ENT: Denies nasal congestion C/V: Denies Chest pain RESP: Denies shortness of breath GI: Denies abdominal pain : Denies dysuria SKIN: Denies rash. MSK: Denies joint pain. NEURO: Endorses general weakness ROS Other: All systems not noted in ROS Statement are negative. Past Medical History Past Medical History: Diabetes Mellitus, Hypertension, Sleep Apnea/CPAP/BIPAP Additional Past Medical History / Comment(s): COPD, osteoarthritis, previous history of DVT and pulmonary embolism and the along for medical evaluation with warfarin, degenerative arthritis, hypertension, hyperlipidemia, obesity, obstructive sleep apnea not utilizing any form of devices at this point in time. History of Any Multi-Drug Resistant Organisms: None Reported Past Surgical History: Unable to Obtain, Breast Surgery, Cholecystectomy, Hernia Repair, Hysterectomy Additional Past Surgical History / Comment(s): Surgery to remove cyst on head, HAND SURGERY, CYST REMOVED LEFT BREAST Past Anesthesia/Blood Transfusion Reactions: No Reported Reaction Past Psychological History: Anxiety, Depression Smoking Status: Never smoker Past Alcohol Use History: None Reported Past Drug Use History: None Reported - Past Family History Mother Additional Family Medical History / Comment(s): HEART DISEASE Father Additional Family Medical History / Comment(s): HEART DISEASE General Exam - General Exam Comments Initial Comments: General: Appears in no acute distress. HEAD: Normal with no signs of head trauma. EYES: EOMI ENT: Hearing grossly intact, normal oropharynx. RESPIRATORY: Clear breath sounds bilaterally. No wheezes, rales, or rhonchi. C/V: Regular rate and rhythm. S1 and S2 auscultated, no edema, peripheral pulses 2+ and intact throughout ABD: Abd is soft, nontender, nondistended EXT: Normal range of motion, no obvious deformity SKIN: No rashes or lesions observed on exposed skin. NEURO: Alert and oriented x 4. Cranial nerves II-XII intact. No focal sensory or strength deficits. General Nonspecific weakness. Course Vital Signs 07/11/24 07/11/24 18:38 23:29 Temperature 98.9 F 97.1 F L Pulse Rate 103 H 99 Respiratory 16 20 Rate Blood Pressure 98/67 99/62 O2 Sat by Pulse 97 97 Oximetry Medical Decision Making - Medical Decision Making Was pt. sent in by a medical professional or institution (, PA, SCHOOL HEALTH ASSISTANT, urgent care, hospital, or residential...) When possible be specific @ -Sent by PCP Dr. David for evaluation for weakness. Did you speak to anyone other than the patient for history (EMS, parent, family, police, friend...)? What history was obtained from this source @ -No Did you review nursing and triage notes (agree or disagree)? Why? @ -I reviewed and agree with nursing and triage notes Were old charts reviewed (outside hosp., previous admission, EMS record, old EKG, old radiological studies, urgent care reports/EKG's, residential records)? Report findings @ -Repeat EKG from May 2024 with no significant change. Differential Diagnosis (chest pain, altered mental status, abdominal pain women, abdominal pain men, vaginal bleeding, weakness, fever, dyspnea, syncope, headache, dizziness, GI bleed, back pain, seizure, CVA, palpatations, mental health, musculoskeletal)? @ -Differential Weakness: Hypoglycemia, shock, sepsis, hyponatremia, anemia, infection, NJ, ETOH, adverse medicine reaction, overdose, stroke, this is not meant to be an all-inclusive list. EKG interpreted by me (3pts min.). @ -As above X-rays interpreted by me (1pt min.). @ -Chest x-ray reveals no obvious acute cardiopulmonary process. CT interpreted by me (1pt min.). @ -None done U/S interpreted by me (1pt. min.). @ -None done What testing was considered but not performed or refused? (CT, X-rays, U/S, labs)? Why? @ -None What meds were considered but not given or refused? Why? @ -None Did you discuss the management of the patient with other professionals (professionals i.e. , PA, SCHOOL HEALTH ASSISTANT, lab, RT, psych nurse, geriatric social worker, call center operations manager, teacher, police officer booking, gearcase assembler)? Give summary @ -Discussed with Dr. David who recommended admission for placement and was in agreement plan for IV hydration. Was smoking cessation discussed for >3mins.? @ -No Was critical care preformed (if so, how long)? @ -No Were there social determinants of health that impacted care today? How? (Homelessness, low income, unemployed, alcoholism, drug addiction, transportation, low edu. Level, literacy, decrease access to med. care, care home, rehab)? @ -No Was there de-escalation of care discussed even if they declined (Discuss DNR or withdrawal of care, Hospice)? DNR status @ -No What co-morbidities impacted this encounter? (DM, HTN, Smoking, COPD, CAD, Cancer, CVA, ARF, Chemo, Hep., AIDS, mental health diagnosis, sleep apnea, morbid obesity)? @ -None Was patient admitted / discharged? Hospital course, mention meds given and route, prescriptions, significant lab abnormalities, going to OR and other pertinent info. @ -Patient presents emergency department for weakness. Nonspecific. No other complaints. Will obtain general workup. Patient was in agreement this plan. Given IV fluids. Laboratory studies remarkable for nonspecific leukocytosis of 15.8. No obvious source of infection. Viral swabs negative. Chest x-ray unremarkable. Urine is still pending at this time. Patient is mildly anemic to 10.5. This is improved from previous results. On reevaluation, I discussed results with patient. She will be admitted to the hospital on IV fluids. I spoke with the PCP, Dr. David who did request that patient be admitted for placement and weakness and debility. Undiagnosed new problem with uncertain prognosis? @ -No Drug Therapy requiring intensive monitoring for toxicity (Heparin, Nitro, Insu marie, Cardizem)? @ -No Were any procedures done? @ -No Diagnosis/symptom? @ -Weakness, debility, dehydration Acute, or Chronic, or Acute on Chronic? @ -Acute Uncomplicated (without systemic symptoms) or Complicated (systemic symptoms)? @ -Complicated Side effects of treatment? @ -No Exacerbation, Progression, or Severe Exacerbation? @ -No Poses a threat to life or bodily function? How? (Chest pain, [place], NJ, pneumonia, PE, COPD, DKA, ARF, appy, cholecystitis, CVA, Diverticulitis, Homicidal, Suicidal, threat to staff... and all critical care pts) @ -Yes - Lab Data Result diagrams: 07/11/24 20:34 07/11/24 20:34 Lab Results 07/11/24 07/11/24 07/11/24 Range/Units 18:55 20:34 20:34 WBC 15.8 H (3.8-10.6) k/uL RBC 3.78 L (3.80-5.40) m/uL Hgb 10.5 L (11.4-16.0) gm/dL Hct 33.9 L (34.0-46.0) % MCV 89.7 (80.0-100.0) fL MCH 27.7 (25.0-35.0) pg MCHC 30.9 L (31.0-37.0) g/dL RDW 15.5 (11.5-15.5) % Plt Count 219 (150-450) k/uL MPV 8.8 Neutrophils % 84 % Lymphocytes % 6 % Monocytes % 5 % Eosinophils % 4 % Basophils % 0 % Neutrophils # 13.3 H (1.3-7.7) k/uL Lymphocytes # 1.0 (1.0-4.8) k/uL Monocytes # 0.7 (0-1.0) k/uL Eosinophils # 0.5 (0-0.7) k/uL Basophils # 0.0 (0-0.2) k/uL Hypochromasia Moderate PT 11.8 (10.0-12.5) sec INR 1.1 (<1.2) APTT 20.3 L (22.0-30.0) sec Sodium (137-145) mmol/L Potassium (3.5-5.1) mmol/L Chloride (98-107) mmol/L Carbon Dioxide (22-30) mmol/L Anion Gap mmol/L BUN (7-17) mg/dL Creatinine (0.52-1.04) mg/dL Est GFR (CKD-EPI)AfAm (>60 ml/min/1.73 sqM) Est GFR (CKD-EPI)NonAf (>60 ml/min/1.73 sqM) Glucose (74-99) mg/dL POC Glucose (mg/dL) 104 (70-110) mg/dL POC Glu Voip Engineer ID Danielle Fritz Plasma Lactic Acid Otis (0.7-2.0) mmol/L Calcium (8.4-10.2) mg/dL Magnesium (1.6-2.3) mg/dL Total Bilirubin (0.2-1.3) mg/dL AST (14-36) U/L ALT (4-34) U/L Alkaline Phosphatase (38-126) U/L Total Protein (6.3-8.2) g/dL Albumin (3.5-5.0) g/dL Influenza Type A (PCR) (Not Detectd) Influenza Type B (PCR) (Not Detectd) RSV (PCR) (Not Detectd) SARS-CoV-2 (PCR) (Not Detectd) 07/11/24 07/11/24 07/11/24 Range/Units 20:34 20:34 20:34 WBC (3.8-10.6) k/uL RBC (3.80-5.40) m/uL Hgb (11.4-16.0) gm/dL Hct (34.0-46.0) % MCV (80.0-100.0) fL MCH (25.0-35.0) pg MCHC (31.0-37.0) g/dL RDW (11.5-15.5) % Plt Count (150-450) k/uL MPV Neutrophils % % Lymphocytes % % Monocytes % % Eosinophils % % Basophils % % Neutrophils # (1.3-7.7) k/uL Lymphocytes # (1.0-4.8) k/uL Monocytes # (0-1.0) k/uL Eosinophils # (0-0.7) k/uL Basophils # (0-0.2) k/uL Hypochromasia PT (10.0-12.5) sec INR (<1.2) APTT (22.0-30.0) sec Sodium 137 (137-145) mmol/L Potassium 4.4 (3.5-5.1) mmol/L Chloride 103 (98-107) mmol/L Carbon Dioxide 25 (22-30) mmol/L Anion Gap 9 mmol/L BUN 13 (7-17) mg/dL Creatinine 0.84 (0.52-1.04) mg/dL Est GFR (CKD-EPI)AfAm 78 (>60 ml/min/1.73 sqM) Est GFR (CKD-EPI)NonAf 67 (>60 ml/min/1.73 sqM) Glucose 99 (74-99) mg/dL POC Glucose (mg/dL) (70-110) mg/dL POC Glu Voip Engineer ID Plasma Lactic Acid Otis 1.8 (0.7-2.0) mmol/L Calcium 8.9 (8.4-10.2) mg/dL Magnesium 1.9 (1.6-2.3) mg/dL Total Bilirubin 0.7 (0.2-1.3) mg/dL AST 20 (14-36) U/L ALT 8 (4-34) U/L Alkaline Phosphatase 87 (38-126) U/L Total Protein 6.8 (6.3-8.2) g/dL Albumin 3.1 L (3.5-5.0) g/dL Influenza Type A (PCR) Not Detected (Not Detectd) Influenza Type B (PCR) Not Detected (Not Detectd) RSV (PCR) Not Detected (Not Detectd) SARS-CoV-2 (PCR) Not Detected (Not Detectd) - EKG Data -: EKG Interpreted by Me EKG Comments: 12-lead Electrocardiogram Interpretation Note EKG was reviewed and interpreted by myself. 12-lead ECG performed at 1841 is interpreted by me as revealing sinus tachycardia with right bundle branch block at a rate of 106 beats per minute. Kinnear is normal. LA interval is 152 ms, QRS duration 127 ms, QTc is 378 ms.. There were no ST or T wave abnormalities to suggest myocardial ischemia or injury. R wave progression across the precordium was satisfactory. By my interpretation this EKG is non-diagnostic for acute ischemia. Compared with EKG from May 2024 with no significant change. Disposition Clinical Impression: Weakness, Dehydration, Debility Disposition: ADMITTED IP TO THIS HOSP Condition: Stable Is patient prescribed a controlled substance at d/c from ED?: No Time of Disposition: 22:10
[2024-07-11] MEDS: SODIUM CHLORIDE 0.9% 1,000 ML IV SCH (23:06)
[2024-07-12 00:48] LABS: Appearance,Urine Clear (Clear); Bilirubin,Urine Negative (Negative); Blood,Urine Negative (Negative); Color,Urine Yellow; Glucose,Urine (UA) Negative (Negative); Ketones,Urine Negative (Negative); Leukocyte Esterase,Urine Negative (Negative); Nitrite,Urine Negative (Negative); Protein,Urine Negative (Negative); Specific Gravity,Urine 1.018 (1.001-1.035); Urobilinogen,Urine <2.0 mg/dL (<2.0)
[2024-07-12 06:43] LABS: Basophils # (A) 0.1 k/uL (0-0.2); Basophils % (A) 0 %; Eosinophils # (A) 0.4 k/uL (0-0.7); Eosinophils % (A) 3 %; HCT 30.3 % (34.0-46.0); Hypochromasia Marked; Lymphocytes % (A) 6 %; MCH 27.5 pg (25.0-35.0); MCHC 29.1 g/dL (31.0-37.0); MCV 94.4 fL (80.0-100.0); Mean Platelet Volume 8.3; Monocytes # (A) 0.9 k/uL (0-1.0); Monocytes % (A) 5 %; Neutrophils # (A) 14.4 k/uL (1.3-7.7); Neutrophils % (A) 85 %; Platelet Count 239 k/uL (150-450); RBC 3.21 m/uL (3.80-5.40); RDW 15.2 % (11.5-15.5)
[2024-07-12 06:49] LABS: ALT 6 U/L (4-34); AST 17 U/L (14-36); African American GFR (CKD) 82 (>60 ml/min/1.73 sqM); Albumin 2.6 g/dL (3.5-5.0); Alkaline Phosphatase 79 U/L (38-126); Anion Gap 10 mmol/L; Blood Urea Nitrogen 11 mg/dL (7-17); Calcium 8.7 mg/dL (8.4-10.2); Carbon Dioxide 21 mmol/L (22-30); Chloride 106 mmol/L (98-107); Glucose 82 mg/dL (74-99); Non-African American GFR(CKD) 71 (>60 ml/min/1.73 sqM); Potassium 4.1 mmol/L (3.5-5.1); Sodium 137 mmol/L (137-145); Total Bilirubin 0.6 mg/dL (0.2-1.3)
[2024-07-12 06:51] LABS: HGB 8.8 gm/dL (11.4-16.0)
--- NOTE | 2024-07-12 16:23 | P.CONS ---
History of Present Illness - Reason for Consult Consult date: 07/12/24 Sq cell carcinoma Requesting physician: Rigoberto David - Chief Complaint weakness - History of Present Illness Ms. Tellez is a female pt who follow with Dr. 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 She developed another lesion to the right of the original that was larger. This was initially felt to be a sebaceous cyst excised on 02/27/22. Patient biopsy showed squamous cell carcinoma extending to the margin. Additional biopsy scar again showed residual squamous cell carcinoma extending to the margin There was evidence of perineural invasion and possible lymphovascular invasion, tumor was 3.5 cm, poorly differentiated. She was seen by radiation oncology, and underwent treatment. She then developed recurrences, with masses behind the ear. She had local radiation to this area with referral to Med Onc. PET scan showed right neck focal FDG, SUV 5.4 just below the right mastoid, measuring 1.6 x 1.3 cm, smaller in size compared to prior CT from 05/14. There was focus of activity posterior to the right ear measuring 7 x 14 mm, as well as focus in the deep parotid gland measuring 6 mm, some other enlarged lymph nodes in the area that were decreased compared to 06/15. Noted was a 4.8 x 2.3 cm heterogenous lesion in the right adrenal gland, with SUV 9.4, that had been present before and was stable. Imaging characteristics were more consistent with a benign origin such as a lipoma. She has a meningioma, that has been present for 20 years. This was seen on MRI done 04/25/22. She was seen by neurosurgery at [facility] who recommended no intervention. At the time of initial consultation, the patient had no definite evidence of failure of radiation so, recommended to continue follow-up with radiation oncology. She developed biopsy proven recurrence 12/13, just behind the superior aspect of the right pinna. This was not felt to be amenable to definitive radiation. Case was discussed with radiation oncology, and the patient started on Cemiplimab on 12/28/22. She had 6 cycles, last in Apr 2023. CT of the neck 06/04/23 unfortunately showed progression with a right posterior auricular mass measuring 3.3 cm. This was embedded into the parotid gland. As this appeared to be the only site of disease, the patient underwent radical surgery at [facility] later in 06/16. She was then placed on surveillance and did ok until CT neck 11/03/23 reported a 1.5 cm area adjacent to the right parotid that was concerning for recurrent malignancy. Was evaluated by her Surgeon, and Radiation Oncology, and was not felt to be a candidate for definitive local treatment. She was therefore referred back Med Onc. Chemo with carbo and Taxol was offered and pt was willing for the same. Initiation was delayed because of transportation issues, and was started on 12/12/23. She had her 5th cycle 03/15/24. She has not had any further treatment or been seen in office as she has been in and out of hospital (inpt here at [facility] twice in [place], once in Apr and once in May) and was in rehab at least once in the last 3 months. We did see her inpt in [place]. She was discharged to home with her son last 2 visits. Patient is currently admitted for weakness. Patient states that she is no longer ambulatory. She denied any fevers, nausea, vomiting, chest pain, abdominal pain or cramping, she reports her stools are loose but not watery diarrhea, not aware of any black or bloody stools, she denies any pain with urin ation or increased frequency of urination, her left leg is sore and swollen. Review of Systems 10 point ROS is neg except as stated in HPI Past Medical History Past Medical History: Cancer, COPD, Deep Vein Thrombosis (DVT), Hyperlipidemia, Hypertension, Osteoarthritis (OA), Pulmonary Embolus (PE), Sleep Apnea/CPAP/BIPAP Additional Past Medical History / Comment(s): head/neck CA History of Any Multi-Drug Resistant Organisms: None Reported Past Surgical History: Breast Surgery, Cholecystectomy, Hernia Repair, Hysterectomy Additional Past Surgical History / Comment(s): Surgery to remove cyst on head, HAND SURGERY, CYST REMOVED LEFT BREAST Past Anesthesia/Blood Transfusion Reactions: No Reported Reaction Smoking Status: Never smoker - Past Family History Mother Additional Family Medical History / Comment(s): HEART DISEASE Father Additional Family Medical History / Comment(s): HEART DISEASE Medications and Allergies Home Medications Medication Instructions Recorded Confirmed Type Famotidine [Pepcid] 20 mg PO DAILY #30 tab 06/06/24 07/12/24 Rx Prochlorperazine [Compazine] 5 mg PO Q8HR PRN #30 tab 06/06/24 07/12/24 Rx Metoclopramide [Reglan] 10 mg PO TID-W/MEALS 07/12/24 07/12/24 History Pantoprazole [Protonix] 40 mg PO BID 07/12/24 07/12/24 History Allergies Allergy/AdvReac Type Severity Reaction Status Date / Time Fish Containing Products Allergy Dyspnea Verified 07/12/24 09:59 [Fish] iodine Allergy Rash/Hives Verified 07/12/24 09:59 shellfish derived [Shellfish] Allergy Rash/Hives Verified 07/12/24 09:59 oxybutynin [From Ditropan] AdvReac Nausea & Verified 07/12/24 09:59 Vomiting & Diarrhea Physical Exam Vitals: Vital Signs Temp Pulse Pulse Resp BP BP BP 07/12/24 13:04 98.0 F 90 15 118/71 07/12/24 07:32 97.8 F 87 16 116/73 07/12/24 04:24 92 16 98/50 07/11/24 23:29 97.1 F L 99 20 99/62 07/11/24 18:38 98.9 F 103 H 16 98/67 Pulse Ox 07/12/24 13:04 98 07/12/24 07:32 99 07/12/24 04:24 97 07/11/24 23:29 97 07/11/24 18:38 97 Intake and Output 07/12/24 07/12/24 07/12/24 06:59 14:59 22:59 Output Total 200 Balance -200 Output: Urine 200 Other: Voiding Method External Catheter Weight 90.718 kg - Constitutional General appearance: cooperative, no acute distress, obese - EENT dry mucus membranes, possible thrush Eyes: anicteric sclerae, EOMI, poor dentition ENT: hearing grossly normal - Neck limited ROM neck 2/2 skin thickening and scarring of the rt neck from surgery and radiation Neck: lymphadenopathy (rt neck-hard to discern due to surgical and radiation changes of the tissue) - Respiratory Respiratory: right: diminished, left: CTA, bilateral: rales (few scattered) - Cardiovascular Rhythm: regular Heart sounds: normal: S1, S2 Abnormal Heart Sounds: no systolic murmur, no diastolic murmur, no rub, no S3 Gallop, no S4 Gallop, no click, no other leg Peripheral Edema: right: None, left: 2+ - Gastrointestinal General gastrointestinal: no absent bowel sounds, no decreased bowel sounds, no distended, no hepatomegaly, no hyperactive bowel sounds, normal bowel sounds, no organomegaly, no rigid, no scaphoid, soft, no splenomegaly, no tenderness, no umbilical hernia, no ventral hernia - Integumentary very dry - Neurologic Neurologic: focal deficits (2/2 to surgery and scarring of the rt neck) - Musculoskeletal Musculoskeletal: generalized weakness - Psychiatric flat affect Psychiatric: A&O x's 3, intact judgment & insight Results CBC & Chem 7: 07/12/24 06:06 07/12/24 06:06 Labs: Abnormal Lab Results - Last 24 Hours (Table) 07/11/24 07/11/24 07/11/24 Range/Units 20:34 20:34 20:34 WBC 15.8 H (3.8-10.6) k/uL RBC 3.78 L (3.80-5.40) m/uL Hgb 10.5 L (11.4-16.0) gm/dL Hct 33.9 L (34.0-46.0) % MCHC 30.9 L (31.0-37.0) g/dL Neutrophils # 13.3 H (1.3-7.7) k/uL APTT 20.3 L (22.0-30.0) sec Carbon Dioxide (22-30) mmol/L Total Protein (6.3-8.2) g/dL Albumin 3.1 L (3.5-5.0) g/dL 07/12/24 07/12/24 Range/Units 06:06 06:06 WBC 17.0 H (3.8-10.6) k/uL RBC 3.21 L (3.80-5.40) m/uL Hgb 8.8 L D (11.4-16.0) gm/dL Hct 30.3 L (34.0-46.0) % MCHC 29.1 L (31.0-37.0) g/dL Neutrophils # 14.4 H (1.3-7.7) k/uL APTT (22.0-30.0) sec Carbon Dioxide 21 L (22-30) mmol/L Total Protein 6.0 L (6.3-8.2) g/dL Albumin 2.6 L (3.5-5.0) g/dL Chest x-ray: report reviewed Assessment and Plan (1) Recurrent squamous cell carcinoma of skin Current Visit: No Status: Acute Priority: Medium Code(s): C44.92 - SQUAMOUS CELL CARCINOMA OF SKIN, UNSPECIFIED SNOMED Code(s): 858239535 (2) Anemia Current Visit: Yes Status: Acute Priority: Medium Code(s): D64.9 - ANEMIA, UNSPECIFIED SNOMED Code(s): 153744328 Plan: Squamous cell skin carcinoma -Diagnosis and treatment as described in HPI. -Patient has not been seen in the office or had any treatment since February 2024. She unfortunately has had frequent hospitalizations, was in rehab for a period of time. -CT of the neck and chest without contrast- due to shellfish allergy- ordered to restage patient. She is reporting symptoms in the neck of swelling. Palpation of the area it is difficult to discern lymphadenopathy secondary to significant skin changes and scarring from multiple surgery and radiation treatments. The base of the skull on the right does feel a little swollen compared to the left. Anemia -Patient does have history of GI bleed. Hgb baseline 9-10 range, currently 8.8. -Anemia workup ordered. -Transfuse for hemoglobin less than 7 or if patient is symptomatic Left lower extremity pain and swelling -Doppler of the left lower extremity is ordered for unilateral swelling and pa in.
--- NOTE | 2024-07-12 19:53 | CT ---
EXAMINATION TYPE: CT neck chest without con DATE OF EXAM: 07/12/2024 5:32 PM COMPARISON: None. CLINICAL INDICATION: Female, 78 years old with history of Restaging, Hx Sq cell skin car, no Tx since 03/16, Restaging, Hx Sq cell skin car, no Tx since 03/16 TECHNIQUE: Axial images at 3 mm thick sections. Reconstructed images in the coronal plane and sagitt al plane are reviewed. Contrast used: mL of , (none if empty) Oral contrast used: (none if empty) CT DLP: 1251 mGycm, Automated exposure control for dose reduction was used. FINDINGS: Limited CT sections are obtained the lung apices. The lung apices appear clear. CT neck: The torus tubarius and fossa of Rosenmuller are normal. Clerical Supervisor spaces are normal. Para nasal sinuses and mastoid air cells are clear. There is soft tissue density with ill-defined margins in the right parotid gland bed measuring 2.3 x 1.4 cm. This is more prominent than the comparison. Submandibular postsurgical clips are in the subma ndibular region. There is a submandibular lymph node measuring 0.9 cm on the right which is new. An a dditional lymph node measures 1.0 cm. Left parotid gland appears normal. Torus tubarius and fossa of Rosenmuller are normal. Clerical Supervisor spa kat are normal. There is fullness within the right tonsillar pillar. Discrete mass however is not rabia ntified. Hypopharynx may be displaced towards the left. There is a prominent lymph node in the submental space measuring 1.2 cm. A punctate nodularities in t he left submental space. Vocal cord level appears symmetrical. Hypopharynx appears preserved. Left pa rotid gland appears normal. Left submandibular gland is not clearly identified. Parapharyngeal space s are normal. No suspicious adenopathy is evident. The hypopharynx appears within normal limits. Vocal cord level appear symmetrical. Thyroid is somewhat prominent. Lung apices appear normal Degenerative changes are within the cervical spine. IMPRESSION: 1. Increase in size right parotid mass with new appearing parotid, submandibular, and submental lymph nodes. Additional workup with PET CT recommended. EXAMINATION TYPE: CT neck chest without con DATE OF EXAM: 07/12/2024 5:32 PM COMPARISON: 02/16/2024 CLINICAL INDICATION: Female, 78 years old with history of Restaging, Hx Sq cell skin car, no Tx since 03/16, Restaging, Hx Sq cell skin car, no Tx since 03/16 TECHNIQUE: Axial images were obtained at 5 mm thick sections. Reconstructed images are reviewed on [employer] computer in the coronal plane. Contrast used: mL of , (none if empty) Oral contrast used: (none if empty) CT DLP: 1251 mGycm, Automated exposure control for dose reduction was used. FINDINGS: Portion of the thyroid visualized is normal. No suspicious lung nodules or focal infiltrates are present. No enlarged mediastinal or hilar adenopathy is evident. The ascending aorta diameter at the level o f the main pulmonary artery is 3.6 cm. The main pulmonary artery diameter at the bifurcation is 2.[address] sections are obtained through the upper abdomen. Gallstone appears to be present IMPRESSION: 1. No suspicious changes to suggest metastatic disease. 2. Large hiatal hernia [facility], , 07/12/2024 7:51 PM
--- NOTE | 2024-07-12 21:27 | US ---
EXAMINATION TYPE: US venous doppler duplex LE LT DATE OF EXAM: 07/12/2024 4:43 PM COMPARISON: NONE CLINICAL INDICATION: Female, 78 years old with history of unilateral leg swelling, pain; , Pain TECHNIQUE: The lower extremity deep venous system is examined utilizing real time linear array sonog mehdi with graded compression, color doppler sonography, and spectral doppler. SIDE PERFORMED: Left FINDINGS: VESSELS IMAGED: Common Femoral Vein Deep Femoral Vein Greater Saphenous Vein * Femoral Vein Popliteal Vein Small Saphenous Vein * Proximal Calf Veins (* superficial vessels) Very limited exam due to pt body habitus & severe edema Left Leg: Positive for DVT, Color Doppler imaging shows patency of the vessels. Spectral waveforms a re within normal limits. Lt CFV to Pop V Dist appears positive for DVT, limited due to pt body habitus, best images obtained. IMPRESSION: 1. Deep venous thrombosis within the left common femoral to popliteal vein. A Red level critical message alert has been initiated for Rigoberto David MD via the [facility] Critical Results System on 07/12/2024 9:24 PM. This message alert has been sent to Rigoberto David MD via the preferences provided by the clinician for the receipt of Radiology Critical Find ings. Message ID [id number]. [facility], , 07/12/2024 9:24 PM
--- NOTE | 2024-07-12 21:34 | PN ---
PROGRESS NOTE CHIEF COMPLAINT: General debility, weakness, and failure to thrive. HISTORY OF PRESENT ILLNESS: This lady is stable and comfortable. We will now start working on a discharge plan. She will also be seen by Oncology. Her white count [id number], her hemoglobin is 8.8. PHYSICAL EXAMINATION: GENERAL: She is still pale. She is awake and alert. HEENT: She has firmness just below the right ear which represents her metastatic cancer from the scalp. CHEST: Clear. CARDIAC: Normal. IMPRESSION: 1. General debility and failure to thrive. 2. Carcinoma of the right side of the scalp and neck. 3. Obesity. 4. Anemia. PLAN: 1. Wait for recommendations from Oncology, if any. 2. Look into establishing mcc placement for her. MMODL / IJN: [id number] /
--- NOTE | 2024-07-12 21:46 | HP ---
HISTORY AND PHYSICAL CHIEF COMPLAINT: General debility, weakness, and failure to thrive. HISTORY OF PRESENT ILLNESS: This 78-year-old female has been living with her son and daughter-in- law. They have done an excellent job of trying to take care of her. He works, but his has served herself in taking care of the patient. However, she has become more and more difficult to take care of since she has become almost completely unable to help herself. She cannot ambulate. She is overweight. She apparently also is developing a progression of a carcinoma that she has had on the right side of the scalp and neck. The family, [id number], and patient concur that she needs to be placed permanently in a senior living. REVIEW OF SYSTEMS: She denies any headache, chest pain, shortness of breath, etc. She is awake and alert. Past medical history, family history, personal and social histories are all essentially noncontributory except as already mentioned and can be found in her other hospital records. She has history of hypertension, diabetes, and other diseases, but they have not been a problem for her lately. She has currently been on metoprolol, Pepcid, and Protonix. She has over the last year or 2 had numerous episodes and admissions for GI bleeding. She is no longer on anticoagulants. PHYSICAL EXAMINATION: VITAL SIGNS: Blood pressure is 106/84 with a pulse of 61, respirations of 33, and she is afebrile. GENERAL: She appeared to be obese, pale, and in no acute distress. HEAD, EARS, EYES, NOSE, MOUTH AND THROAT: Revealed the areas of the right side of the scalp behind the ear where she was treated for cancer and she now has a mass below the right ear. CHEST: Clear. CARDIAC: Normal. ABDOMEN: Soft and nontender. EXTREMITIES: Normal. IMPRESSION: 1. General debility and failure to thrive. 2. Recurrent carcinoma of the right side of the scalp and neck. 3. History of hypertension. 4. Obesity. 5. Anemia. 6. History of gastrointestinal bleeds. PLAN: 1. Bed rest. 2. IV fluids. 3. Consult with Oncology. 4. OT and PT. 5. Customer Assistant consult for discharge planning. MMODL / IJN: [id number] /
[2024-07-13 04:01] LABS: % Iron Saturation 11.25 (12.00-45.00)
--- NOTE | 2024-07-13 10:42 | P.GSCN ---
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 Patient came in for generalized weakness. She also was complaining of swelling in her left lower extremity. She had a venous duplex yesterday that was positive for a DVT within the left common femoral to popliteal vein. She denies any shortness of breath or chest pain. Denies any history of coronary artery disease or pulmonary disease. She does have a history of chronic anemia with history of GI bleed. Oncology is following patient and consulted vascular surgery for IVC filter placement secondary to patient cannot be on anticoagulation. Review of Systems A 14 point review systems was completed all pertinent positives and negatives as stated in the HPI. Past Medical History Past Medical History: Cancer, COPD, Deep Vein Thrombosis (DVT), Hyperlipidemia, Hypertension, Osteoarthritis (OA), Pulmonary Embolus (PE), Sleep Apnea/CPAP/BIPAP Additional Past Medical History / Comment(s): head/neck CA History of Any Multi-Drug Resistant Organisms: None Reported Past Surgical History: Breast Surgery, Cholecystectomy, Hernia Repair, Hysterectomy Additional Past Surgical History / Comment(s): Surgery to remove cyst on head, HAND SURGERY, CYST REMOVED LEFT BREAST Past Anesthesia/Blood Transfusion Reactions: No Reported Reaction Smoking Status: Never smoker - Past Family History Mother Additional Family Medical History / Comment(s): HEART DISEASE Father Additional Family Medical History / Comment(s): HEART DISEASE Medications and Allergies Home Medications Medication Instructions Recorded Confirmed Type Famotidine [Pepcid] 20 mg PO DAILY #30 tab 06/06/24 07/12/24 Rx Prochlorperazine [Compazine] 5 mg PO Q8HR PRN #30 tab 06/06/24 07/12/24 Rx Metoclopramide [Reglan] 10 mg PO TID-W/MEALS 07/12/24 07/12/24 History Pantoprazole [Protonix] 40 mg PO BID 07/12/24 07/12/24 History Allergies Allergy/AdvReac Type Severity Reaction Status Date / Time Fish Containing Products Allergy Dyspnea Verified 07/12/24 09:59 [Fish] iodine Allergy Rash/Hives Verified 07/12/24 09:59 shellfish derived [Shellfish] Allergy Rash/Hives Verified 07/12/24 09:59 oxybutynin [From Ditropan] AdvReac Nausea & Verified 07/12/24 09:59 Vomiting & Diarrhea Surgical - Exam Vital Signs Temp Pulse Resp BP Pulse Ox 98.9 F 103 H 16 98/67 97 07/11/24 18:38 07/11/24 18:38 07/11/24 18:38 07/11/24 18:38 07/11/24 18:38 General appearance: The patient is alert, oriented, appears in no acute distress. Obese. HET: Head is normocephalic and atraumatic. Pupils are equal and reactive. Neck: Supple. Heart: Regular. Lungs: Equal expansion, normal respiratory effort. Abdomen: Soft, nontender, nondistended. Extremities: Normal skin color and turgor. Left lower extremity with +1-2 edema from the knee down, no significant swelling in thigh. Palpable DP pulse. Neurological: No focal deficits. Alert and oriented. Results - Labs 07/12/24 06:06 07/12/24 06:06 Abnormal Lab Results - Last 24 Hours (Table) 07/12/24 Range/Units 06:06 Iron 18 L (50-170) UG/DL TIBC 160 L (228-460) UG/DL % Saturation 11.25 L (12.00-45.00) Transferrin 114.0 L (204.0-354.0) mg/dL Ferritin 366.0 H (10.0-291.0) ng/mL - Imaging Comments: Venous duplex reports deep venous thrombosis within the left common femoral to popliteal vein. Assessment and Plan Assessment: 1. Left lower extremity DVT with inability to be on anticoagulation 2. Anemia of chronic disease 3. History of GI bleed 4. Squamous cell carcinoma 5. Diabetes mellitus 6. Morbid obesity 7. History of previous DVT and pulmonary embolism 8. COPD Plan: 1. Keep patient n.p.o. 2. Will plan for IVC filter placement this afternoon. Procedure discussed with patient including risks and benefits and she is agreeable to proceed. 3. Elevate left lower extremity 4. Rest of medical management per primary medical team Thank you for this consultation we will continue to follow. The impression and plan of care has been dictated as directed. Dr.Kyleigh La O I performed a history and examination of this patient, discussed the same with the dictator. I agree with the dictator's note ,documented as a scribe. Any additional findings or plans will be noted.
[2024-07-13] MEDS: methylPREDNISolone SOD SUCCI 125 MG/2 ML VIAL IVP ONE (12:28)
[2024-07-13] MEDS: diphenhydrAMINE 50 MG/ML 1 ML VIAL IVP ONE (12:28)
[2024-07-13] MEDS: MIDAZOLAM 2 MG/2 ML VIAL IVP ONE (12:29)
[2024-07-13] MEDS: fentaNYL (PF) 50 MCG/ML 2 ML AMP IVP ONE (12:29)
[2024-07-13] MEDS: SODIUM CHLORIDE 0.9% 1,000 ML IV ONE (12:38)
[2024-07-13] MEDS: HEPARIN SODIUM,PORCINE 10,000 UNIT in SODIUM CHLORIDE 0.9% 1,000 ML IRRIGATION ONE (12:38)
--- NOTE | 2024-07-13 12:52 | P.OP ---
Date of Procedure: 07/13/24 Description of Procedure: Preoperative diagnosis: Inability to tolerate anticoagulation, left lower extremity DVT, history of DVT and PE Postoperative diagnosis: Same Procedure: Ultrasound-guided right common femoral vein access Right iliofemoral venogram Venacavogram IVC filter placement with Patricia Moderate Sedation with personal monitoring certified RN administration with hemodynamic monitoring x 11 minutes Surgeon: Amy Garcia D.O. EBL: Less than 10 cc IV fluids: See records Urine output: Not measured Drains: None Complications: None immediately apparent Condition: Stable Operative indication and findings: Patient is a 78-year-old female who has previous history of DVT and PE who subsequently has a new finding of left lower extremity DVT that is acute. At this time she is anemic and does have issues with squamous cell cancer. Due to this the recommendations were for a filter placement by hematology. This was discussed with the patient who seemingly understands the risks and benefits is willing to proceed. Procedure in detail: Patient was brought to the operative suite and placed in supine position. The bilateral groins were prepped and draped in usual sterile fashion. A preprocedural timeout was performed, all parties were in agreement. Using ultrasound, the right common femoral vein was identified. It was found to be patent and compressible without any obvious thrombus. Permanent image was stored. The skin was anesthetized and Seldinger technique was used to place a 6 Egyptian sheath. A right iliofemoral venogram was performed showing no significant thrombus in the iliofemoral or distal vena cava segment. Catheters wires were then used to access the vena cava and venacavogram performed to identify the renal veins. The Patricia IVC filter was placed in standard fashion at the level of the renal vessels. Catheters and wires were then removed after confirmation venogram performed. The sheath was removed and manual pressure was held until hemostasis was adequate.
--- NOTE | 2024-07-13 13:02 | IR ---
EXAMINATION TYPE: IR IVC FILTER PLACEMENT DATE OF EXAM: 07/13/2024 COMPARISON: Pre Operative Images if available both CT/MRI or plain film CLINICAL INDICATION: Female, 78 years old with history of IVC filter placement. 0.5 minutes fluorosco py time. TECHNIQUE: IR IVC FILTER PLACEMENT, multiple fluoroscopic images provided for procedure. DAP: 58.1501 Gycm2 FINDINGS: Fluoroscopic images during angiography demonstrated. IMPRESSION: 1. Report was generated for administrative purposes only. 2. Please see the operative/procedural note for further details. [facility], , 07/13/2024 12:59 PM
[2024-07-13 14:42] LABS: Basophils % (A) 0 %; Eosinophils # (A) 0.5 k/uL (0-0.7); Eosinophils % (A) 4 %; HCT 29.6 % (34.0-46.0); HGB 8.7 gm/dL (11.4-16.0); Hypochromasia Marked; Lymphocytes # (A) 0.5 k/uL (1.0-4.8); Lymphocytes % (A) 3 %; MCH 27.2 pg (25.0-35.0); MCHC 29.5 g/dL (31.0-37.0); MCV 92.1 fL (80.0-100.0); Mean Platelet Volume 8.1; Monocytes # (A) 0.5 k/uL (0-1.0); Monocytes % (A) 3 %; Neutrophils # (A) 13.3 k/uL (1.3-7.7); Neutrophils % (A) 89 %; Platelet Count 247 k/uL (150-450); RBC 3.22 m/uL (3.80-5.40); RDW 15.3 % (11.5-15.5)
--- NOTE | 2024-07-13 14:47 | P.GSCN ---
History of Present Illness Consult date: 07/13/24 History of present illness: CHIEF COMPLAINT: Weakness HISTORY OF PRESENT ILLNESS: This is a 78-year-old female who presented with weakness. Patient has a known history of squamous cell carcinoma of the left occipital scalp. She has been off of chemotherapy for the last several months. She is anemic patient denies any bowel movements for the last 2 days. She repor ts no blood or melanotic stools. She denies any nausea or vomiting. Denies any abdominal pain. She reports having 1 episode of coffee-ground emesis about 2 weeks ago. Her hemoglobin was 10.5 on admission down to 8.8. Her last EGD was in May 22 2024 that her reported Ajay's ulcer, gastritis and hiatal hernia. Patient reports her last colonoscopy was several years ago and had a polyp at that time. Patient with known history of DVT and PE with a active DVT in the lower extremity. She is status post IVC filter today. She has history of chronic anemia and GI bleed. She reports being off of her Coumadin for a while. PAST MEDICAL HISTORY: See below PAST SURGICAL HISTORY: See below MEDICATIONS: See below ALLERGIES: See below SOCIAL HISTORY: No illicit drug use. REVIEW OF SYSTEMS: CONSTITUTIONAL: Denies fever or chills. HEENT: Denies blurred vision, vision changes, or eye pain. Denies hemoptysis CARDIOVASCULAR: Denies chest pain or pressure. RESPIRATORY: No shortness of breath. GASTROINTESTINAL: See HPI for pertinent findings HEMATOLOGIC: Denies bleeding disorders. GENITOURINARY: Denies any blood in urine or increased urinary frequency. SKIN: Denies pruitis. Denies rash. PHYSICAL EXAM: VITAL SIGNS: Reviewed GENERAL: Well-developed in no acute distress. HEENT: No sclera icterus. Extraocular movements grossly intact. Moist buccal mucosa. Head is atraumatic, normocephalic. No nasal drainage. ABDOMEN: Soft. Obese. Nondistended. Nontender with palpation NEUROLOGIC: Alert and oriented. Cranial nerves II through XII grossly intact. LABORATORY DATA: WBC is 17 Hgb 10.5 down to 8.8 platelets 239 Sodium is 137 potassium is 4.1 creatinine 0.81 Total iron is low at 18 INR 1.1 IMAGING: ASSESSMENT: 1. Anemia with an episode of coffee-ground emesis about 2 weeks ago 2. Prior history of GI bleed with EGD that reported a hiatal hernia, gastritis and Ajay's ulcer on 05/22/2024 3. History of chronic anemia 4. History of squamous cell carcinoma of the scalp currently off of chemotherapy 5. History of DVT PE status post IVC filter today 6. Evidence of iron deficiency anemia 7. Large hiatal hernia PLAN: -Continue Protonix -Check hemoglobin today -Check CBC in a.m. -Continue to monitor for any signs or symptoms of bleeding -Patient reports not being interested in colonoscopy -Continue to monitor -Further recommendations forthcoming per surgeon Physician Sawmill Hand note has been reviewed by physician. Signing provider agrees with the documented findings, assessment, and plan of care. Past Medical History Past Medical History: Cancer, COPD, Deep Vein Thrombosis (DVT), Hyperlipidemia, Hypertension, Osteoarthritis (OA), Pulmonary Embolus (PE), Sleep Apnea/CPAP/BIPAP Additional Past Medical History / Comment(s): head/neck CA History of Any Multi-Drug Resistant Organisms: None Reported Past Surgical History: Breast Surgery, Cholecystectomy, Hernia Repair, Hysterectomy Additional Past Surgical History / Comment(s): Surgery to remove cyst on head, HAND SURGERY, CYST REMOVED LEFT BREAST Past Anesthesia/Blood Transfusion Reactions: No Reported Reaction Smoking Status: Never smoker - Past Family History Mother Additional Family Medical History / Comment(s): HEART DISEASE Father Additional Family Medical History / Comment(s): HEART DISEASE Medications and Allergies Home Medications Medication Instructions Recorded Confirmed Type Famotidine [Pepcid] 20 mg PO DAILY #30 tab 06/06/24 07/12/24 Rx Prochlorperazine [Compazine] 5 mg PO Q8HR PRN #30 tab 06/06/24 07/12/24 Rx Metoclopramide [Reglan] 10 mg PO TID-W/MEALS 07/12/24 07/12/24 History Pantoprazole [Protonix] 40 mg PO BID 07/12/24 07/12/24 History Allergies Allergy/AdvReac Type Severity Reaction Status Date / Time Fish Containing Products Allergy Dyspnea Verified 07/12/24 09:59 [Fish] iodine Allergy Rash/Hives Verified 07/12/24 09:59 shellfish derived [Shellfish] Allergy Rash/Hives Verified 07/12/24 09:59 oxybutynin [From Ditropan] AdvReac Nausea & Verified 07/12/24 09:59 Vomiting & Diarrhea Surgical - Exam Vital Signs Temp Pulse Resp BP Pulse Ox 98.9 F 103 H 16 98/67 97 07/11/24 18:38 07/11/24 18:38 07/11/24 18:38 07/11/24 18:38 07/11/24 18:38 Results - Labs 07/12/24 06:06 07/12/24 06:06 Abnormal Lab Results - Last 24 Hours (Table) 07/12/24 Range/Units 06:06 Iron 18 L (50-170) UG/DL TIBC 160 L (228-460) UG/DL % Saturation 11.25 L (12.00-45.00) Transferrin 114.0 L (204.0-354.0) mg/dL Ferritin 366.0 H (10.0-291.0) ng/mL
[2024-07-13 15:37] LABS: Reticulocyte % 2.08 % (0.10-1.80)
--- NOTE | 2024-07-13 16:37 | P.PN ---
Subjective Progress Note Date: 07/13/24 Principal diagnosis: generalized weakness In f/u pt denies new pain, N,V, she is worried about recurrence of disease, denies dysphagia or odynophagia, reports suspect hematemesis a few weeks ago, none since, denies black or bloody stool but, she states she no longer gets to commode, uses brief. No other bleeding to report. Still very weak. Objective - Vital Signs Vital signs: Vital Signs Temp 97.8 F 07/13/24 13:31 Pulse 88 07/13/24 14:30 Resp 17 07/13/24 13:31 BP 103/68 07/13/24 14:30 Pulse Ox 99 07/13/24 14:30 FiO2 Intake & Output 07/12/24 07/13/24 07/13/24 18:59 06:59 18:59 Intake Total 220 Output Total 450 251 Balance -450 -31 Weight 90.718 kg Intake: Oral 220 Output: Urine 450 250 Stool 1 Other: Voiding Method External Catheter External Catheter # Voids 1 # Bowel Movements 1 - Constitutional General appearance: Present: cooperative, no acute distress, obese - EENT Eyes: Present: anicteric sclerae, EOMI, poor dentition ENT: Present: hearing grossly normal - Neck Neck: Present: other. Absent: lymphadenopathy, normal ROM (skin changes and sc arring from surgery and radiation, limited ROM), rigidity, stridor, thyromegaly - Respiratory Respiratory: bilateral: CTA - Cardiovascular Rhythm: regular - Peripheral edema leg Peripheral Edema: right: None, left: 2+ - Gastrointestinal General gastrointestinal: Present: soft - Musculoskeletal Musculoskeletal: Present: generalized weakness - Psychiatric Psychiatric: Present: A&O x's 3, appropriate affect, intact judgment & insight - Labs CBC & Chem 7: 07/13/24 14:23 07/12/24 06:06 Labs: Abnormal Lab Results - Last 24 Hours (Table) 07/12/24 07/13/24 07/13/24 Range/Units 06:06 11:45 14:23 WBC 15.0 H (3.8-10.6) k/uL RBC 3.22 L (3.80-5.40) m/uL Hgb 8.7 L (11.4-16.0) gm/dL Hct 29.6 L (34.0-46.0) % MCHC 29.5 L (31.0-37.0) g/dL Neutrophils # 13.3 H (1.3-7.7) k/uL Lymphocytes # 0.5 L (1.0-4.8) k/uL Retic Count 2.08 H (0.10-1.80) % Iron 18 L (50-170) UG/DL TIBC 160 L (228-460) UG/DL % Saturation 11.25 L (12.00-45.00) Transferrin 114.0 L (204.0-354.0) mg/dL Ferritin 366.0 H (10.0-291.0) ng/mL - Imaging and Cardiology CT scan - chest: report reviewed (CT neck) Venous US: report reviewed Assessment and Plan (1) Recurrent squamous cell carcinoma of skin Current Visit: No Status: Acute Priority: Medium Code(s): C44.92 - SQUAMOUS CELL CARCINOMA OF SKIN, UNSPECIFIED SNOMED Code(s): 238233612 (2) Anemia Current Visit: Yes Status: Acute Priority: Medium Code(s): D64.9 - ANEMIA, UNSPECIFIED SNOMED Code(s): 555495818 Plan: Squamous cell skin carcinoma -Diagnosis and treatment as described in HPI. -Patient has not been seen in the office or had any treatment since February 2024. She unfortunately has had frequent hospitalizations, was in rehab for a period of time. -CT of the neck and chest without contrast- due to shellfish allergy- ordered to restage patient. No findings concerning for recurrence or metastatic disease in the neck or chest. Results reviewed with pt -No further treatment at this time. Cont on f/u for now Anemia -Patient does have history of GI bleed. Hgb baseline 9-10 range, currently 8.8. -Anemia workup ordered-anemia of inflammation with low iron/sat/TIBC and high ferritin -Transfuse for hemoglobin less than 7 or if patient is symptomatic Left lower extremity pain and swelling -Doppler of the left lower extremity positive for DVT-provoked 2/2 to immobility. -Concern for anticoagulation as pt had GI bleed in Mar when INR was suprtherapeutic. Hgb dropped below baseline after fluids when admitted. Pt reports possible dark emesis in the last month. Hgb monitoring -Consult Vascular for IVC filter, high risk for anticoagulation -Surgery consult for EGD to see if any source of bleeding can be corrected Doctor attests: I performed a history and physical examination of this patient, developed impression and plan of care. Discussed with dictator. I agree with dictators note, documented as a scribe.
[2024-07-13] MEDS: FERROUS SULFATE 325 MG TAB PO SCH (16:53)
[2024-07-13] MEDS: ONDANSETRON 4 MG/2 ML VIAL IVP PRN (17:43)
--- NOTE | 2024-07-13 19:55 | PN ---
PROGRESS NOTE CHIEF COMPLAINT: General debility, failure to thrive, anemia, and diabetes. HISTORY OF PRESENT ILLNESS: This lady is about the same. She does have a DVT in the left leg. PHYSICAL EXAMINATION: CHEST: Clear. CARDIAC: Normal. EXTREMITIES: The left leg is slightly edematous. IMPRESSION: 1. General debility and failure to thrive. 2. Carcinoma of the right side of scalp and neck. 3. Type 2 diabetes. 4. Obesity. 5. Anemia. 6. Deep venous thrombosis of the left leg. PLAN: She will not be anticoagulated because every time that she has been on any kind of a blood thinner over the last 6 or 8 months, she has developed profound GI bleeding. MMODL / IJN: [id number] /
[2024-07-13] MEDS: PANTOPRAZOLE 40 MG TABLET PO SCH (21:14)
[2024-07-14 05:10] LABS: Basophils % (A) 0 %; Eosinophils % (A) 0 %; HCT 30.3 % (34.0-46.0); HGB 9.2 gm/dL (11.4-16.0); Hypochromasia Marked; Lymphocytes # (A) 0.6 k/uL (1.0-4.8); Lymphocytes % (A) 5 %; MCHC 30.3 g/dL (31.0-37.0); MCV 92.3 fL (80.0-100.0); Mean Platelet Volume 8.7; Monocytes # (A) 0.5 k/uL (0-1.0); Monocytes % (A) 4 %; Neutrophils # (A) 11.6 k/uL (1.3-7.7); Neutrophils % (A) 90 %; Platelet Count 228 k/uL (150-450); RBC 3.29 m/uL (3.80-5.40); RDW 15.2 % (11.5-15.5); WBC 12.8 k/uL (3.8-10.6)
[2024-07-14] MEDS: FAMOTIDINE 20 MG TAB PO SCH (07:43)
--- NOTE | 2024-07-14 11:46 | P.PN ---
Subjective Progress Note Date: 07/14/24 Principal diagnosis: Left lower extremity DVT, status post IVC filter Patient is seen and examined today as a follow-up. Yesterday she underwent IVC filter placement via right femoral vein. She denies any pain in her right groin. States no pain currently in her left lower extremity. She denies any shortness of breath or chest pain. Objective - Vital Signs Vital signs: Vital Signs Temp 97.5 F L 07/14/24 08:02 Pulse 69 07/14/24 09:04 Resp 16 07/14/24 08:02 BP 149/86 07/14/24 08:02 Pulse Ox 99 07/14/24 08:02 FiO2 Intake & Output 07/13/24 07/14/24 07/14/24 18:59 06:59 18:59 Intake Total 2400 240 Output Total 200 700 Balance 2200 -460 Intake: Intake, IV Titration 1200 Amount Sodium Chloride 0.9% 1, 1200 000 ml @ 100 mls/hr IV . Q10H [facility] Rx#:[id number] Oral 1200 240 Output: Urine 200 700 Other: Voiding Method External Catheter External Catheter # Voids 2 # Bowel Movements 1 1 - Exam General appearance: The patient is alert, oriented, appears in no acute distress. HET: Head is normocephalic and atraumatic. Neck: Supple. Heart: Regular. Lungs: Equal expansion, normal respiratory effort. Abdomen: Soft, nontender, nondistended. Extremities: Right groin with dressing clean dry and intact, no bleeding or hematoma noted. Left lower extremity swelling. Neurological: Alert and oriented. - Labs CBC & Chem 7: 07/14/24 04:35 07/12/24 06:06 Labs: Abnormal Lab Results - Last 24 Hours (Table) 07/13/24 07/13/24 07/14/24 Range/Units 11:45 14:23 04:35 WBC 15.0 H 12.8 H (3.8-10.6) k/uL RBC 3.22 L 3.29 L (3.80-5.40) m/uL Hgb 8.7 L 9.2 L (11.4-16.0) gm/dL Hct 29.6 L 30.3 L (34.0-46.0) % MCHC 29.5 L 30.3 L (31.0-37.0) g/dL Neutrophils # 13.3 H 11.6 H (1.3-7.7) k/uL Lymphocytes # 0.5 L 0.6 L (1.0-4.8) k/uL Retic Count 2.08 H (0.10-1.80) % Assessment and Plan Assessment: 1. Left lower extremity DVT with inability to be on anticoagulation status post IVC filter placement 2. Anemia of chronic disease 3. History of GI bleed 4. Squamous cell carcinoma 5. Diabetes mellitus 6. Morbid obesity 7. History of previous DVT and pulmonary embolism 8. COPD Plan: 1. Patient is status post IVC filter placement 2. Continue to elevate left lower extremity 3. Continue with further recommendations from oncology and primary medical team Thank you for this consultation, we will sign off at this time. The impression and plan of care has been dictated as directed. Dr. Ontiveros I performed a history and examination of this patient, discussed the same with the dictator. I agree with the dictator's note ,documented as a scribe. Any additional findings or plans will be noted.
[2024-07-14] MEDS: MAG HYDROX/AL HYDROX/SIMETH 30 ML, LIDOCAINE VISCOUS 2% 30 ML, diphenhydrAMINE ELIXIR 7... PO SCH (12:57)
[2024-07-14 13:46] VITALS: BMI 37.8
--- NOTE | 2024-07-14 14:34 | P.PN ---
Subjective Progress Note Date: 07/14/24 SURGICAL PROGRESS NOTE CHIEF COMPLAINT: Weakness HISTORY OF PRESENT ILLNESS: Surgical service following in regards to patient's anemia. Patient denies any abdominal pain. Reports no blood in her stools. She has had no further vomiting. She apparently had coffee-ground emesis episodes a couple weeks ago. Hemoglobin currently 9.2. She is on iron supplement and PPI. PHYSICAL EXAM: VITAL SIGNS: Reviewed. GENERAL: Well-developed in no acute distress. ABDOMEN: Soft. Nondistended. Nontender. NEUROLOGIC: Alert and oriented. Cranial nerves II through XII grossly intact. ASSESSMENT: 1. Anemia with an episode of coffee-ground emesis about 2 weeks ago likely secondary to patient's Ajay's ulcer and hiatal hernia 2. Prior history of GI bleed with EGD that reported a hiatal hernia, gastritis and Ajay's ulcer on 05/22/2024 3. History of anemia of chronic disease 4. History of squamous cell carcinoma of the scalp currently off of chemotherapy 5. History of DVT, PE status post IVC filter during this admission 6. Evidence of iron deficiency anemia 7. Large hiatal hernia PLAN: -Case discussed with hematology service. They are anticipating restarting patient on anticoagulation due to her large DVT and history of prior blood clots and would like a repeat EGD performed before restarting anticoagulation. -Patient scheduled for EGD tomorrow with Dr. Goddard -N.p.o. after midnight -Continue PPI twice daily -Continue iron supplement Physician Radio News Writer note has been reviewed by physician. Signing provider agrees with the documented findings, assessment, and plan of care. Objective - Vital Signs Vital signs: Vital Signs Temp 98.3 F 07/14/24 13:31 Pulse 97 07/14/24 13:31 Resp 16 07/14/24 13:31 BP 128/77 07/14/24 13:31 Pulse Ox 100 07/14/24 13:31 FiO2 Intake & Output 07/13/24 07/14/24 07/14/24 18:59 06:59 18:59 Intake Total 2400 240 Output Total 200 700 Balance 2200 -460 Weight 90.718 kg Intake: Intake, IV Titration 1200 Amount Sodium Chloride 0.9% 1, 1200 000 ml @ 100 mls/hr IV . Q10H [facility] Rx#:[id number] Oral 1200 240 Output: Urine 200 700 Other: Voiding Method External Catheter External Catheter # Voids 2 # Bowel Movements 1 1 - Labs CBC & Chem 7: 07/14/24 04:35 07/12/24 06:06 Labs: Abnormal Lab Results - Last 24 Hours (Table) 07/13/24 07/13/24 07/14/24 Range/Units 11:45 14:23 04:35 WBC 15.0 H 12.8 H (3.8-10.6) k/uL RBC 3.22 L 3.29 L (3.80-5.40) m/uL Hgb 8.7 L 9.2 L (11.4-16.0) gm/dL Hct 29.6 L 30.3 L (34.0-46.0) % MCHC 29.5 L 30.3 L (31.0-37.0) g/dL Neutrophils # 13.3 H 11.6 H (1.3-7.7) k/uL Lymphocytes # 0.5 L 0.6 L (1.0-4.8) k/uL Retic Count 2.08 H (0.10-1.80) % Assessment and Plan Assessment: discussed w/ patient. She has a ajay's ulcer due to her hiatal hernia. She does not want surgery. Continue protonix. Transfuse as necessary. Time with Patient: Less than 30
--- NOTE | 2024-07-14 15:57 | P.PN ---
Subjective Progress Note Date: 07/14/24 Principal diagnosis: generalized weakness In f/u pt reports no problem after IVC filter placement, no known bleeding, leg swelling and pain is persistent. Objective - Vital Signs Vital signs: Vital Signs Temp 97.5 F L 07/14/24 08:02 Pulse 69 07/14/24 09:04 Resp 16 07/14/24 08:02 BP 149/86 07/14/24 08:02 Pulse Ox 99 07/14/24 08:02 FiO2 Intake & Output 07/13/24 07/14/24 07/14/24 18:59 06:59 18:59 Intake Total 2400 240 Output Total 200 700 Balance 2200 -460 Intake: Intake, IV Titration 1200 Amount Sodium Chloride 0.9% 1, 1200 000 ml @ 100 mls/hr IV . Q10H [facility] Rx#:[id number] Oral 1200 240 Output: Urine 200 700 Other: Voiding Method External Catheter External Catheter # Voids 2 # Bowel Movements 1 1 - Constitutional General appearance: Present: cooperative, no acute distress, obese - EENT Eyes: Present: EOMI, poor dentition ENT: Present: hearing grossly normal - Respiratory Details: resp unlabored at rest - Cardiovascular Details: skin warm - Peripheral edema leg Peripheral Edema: right: None, left: 3+ - Neurologic Neurologic: Present: CNII-XII intact - Musculoskeletal Musculoskeletal Comment(s): pt requires near total assist to move body - Psychiatric Psychiatric: Present: A&O x's 3, appropriate affect, intact judgment & insight - Labs CBC & Chem 7: 07/14/24 04:35 07/12/24 06:06 Labs: Abnormal Lab Results - Last 24 Hours (Table) 07/13/24 07/13/24 07/14/24 Range/Units 11:45 14:23 04:35 WBC 15.0 H 12.8 H (3.8-10.6) k/uL RBC 3.22 L 3.29 L (3.80-5.40) m/uL Hgb 8.7 L 9.2 L (11.4-16.0) gm/dL Hct 29.6 L 30.3 L (34.0-46.0) % MCHC 29.5 L 30.3 L (31.0-37.0) g/dL Neutrophils # 13.3 H 11.6 H (1.3-7.7) k/uL Lymphocytes # 0.5 L 0.6 L (1.0-4.8) k/uL Retic Count 2.08 H (0.10-1.80) % Assessment and Plan (1) Anemia Current Visit: Yes Status: Acute Priority: Medium Code(s): D64.9 - ANEMIA, UNSPECIFIED SNOMED Code(s): 076921489 (2) Recurrent squamous cell carcinoma of skin Current Visit: No Status: Chronic Priority: Low Code(s): C44.92 - SQUAMOUS CELL CARCINOMA OF SKIN, UNSPECIFIED SNOMED Code(s): 829562605 (3) DVT (deep venous thrombosis) Current Visit: Yes Status: Acute Priority: High Code(s): I82.409 - ACUTE EMBOLISM AND THOMBOS UNSP DEEP VN UNSP LOWER EXTREMITY SNOMED Code(s): 865497820 Plan: Squamous cell skin carcinoma -Diagnosis and treatment as described in consult. -Patient has not been seen in the office or had any treatment since February 2024. She unfortunately has had frequent hospitalizations, was in rehab for a period of time. -CT of the neck and chest without contrast- due to shellfish allergy- ordered to restage patient. No findings concerning for recurrence or metastatic disease in the neck or chest. Results reviewed with pt -No further treatment at this time. Treatment will be considered if disease progression and if pt performance status adequate. F/U with Dr. Murray, scans prior in 3-4 mo or sooner if new symptoms Anemia -Patient does have history of GI bleed. Hgb baseline 9-10 range, currently 9.2- stable. -Anemia workup ordered-anemia of inflammation with low iron/sat/TIBC and high ferritin. IV iron ordered -Transfuse for hemoglobin less than 7 or if patient is symptomatic Left lower extremity pain and swelling -Doppler of the left lower extremity positive for DVT-provoked 2/2 to immobility. -Concern for anticoagulation as pt had GI bleed in Mar when INR was suprtherapeutic. She has not been on coumadin/anticoagulation since. -Hgb dropped below baseline after fluids when admitted but, is stable today. Pt reported possible dark emesis in the last month so Surgery consulted. They have seen pt. EGD planned. If no acute bleeding Case Fitter may trial pt on no bolus anticoagulation as pt is very symptomatic from the DVT. Pending EGD report -Vascular has placed IVC filter, high risk for anticoagulation. Oral care and kools with nystatin for pt oral c/o. Doctor attests: I performed a history and physical examination of this patient, developed impression and plan of care. Discussed with dictator. I agree with dictators note, documented as a scribe.
[2024-07-14] MEDS: SODIUM FERRIC GLUCONAT-SUCROSE 125 MG in SODIUM CHLORIDE 0.9% 100 ML IVPB SCH (16:11)
[2024-07-14] MEDS: PANTOPRAZOLE 40 MG TABLET PO SCH (17:35)
--- NOTE | 2024-07-14 20:13 | PN ---
PROGRESS NOTE DATE OF SERVICE: 07/14/2024 CHIEF COMPLAINT: General debility and failure to thrive. HISTORY OF PRESENT ILLNESS: This lady is doing fairly well. We are waiting for her transfer to a halfway. PHYSICAL EXAMINATION: GENERAL: She is pale. CHEST: Clear. CARDIAC: Suggests atrial fibrillation. ABDOMEN: Soft, nontender. EXTREMITIES: Left leg is slightly enlarged. IMPRESSION: 1. General debility and failure to thrive. 2. Carcinoma of the right side of the scalp and neck. 3. Deep venous thrombosis of the left leg. 4. Atrial fibrillation. PLAN: No change in her program at this time. Oncology is looking into Vascular Surgery doing evaluation for a [place] filter. With this patient's general condition and health, this may not be necessary. MMODL / IJN: [id number] /
[2024-07-15] MEDS: ACETAMINOPHEN TAB 325 MG TAB PO PRN (03:30)
--- NOTE | 2024-07-15 21:34 | PN ---
PROGRESS NOTE DATE OF SERVICE: 07/15/2024 CHIEF COMPLAINT: General debility and weakness with failure to thrive. HISTORY OF PRESENT ILLNESS: This lady is doing fairly well. She does have a problem with twitching in the legs and has been on Requip before and this will be reordered. She says something about that an endoscopy is planned for some reason. PHYSICAL EXAMINATION: GENERAL: She remains pale. CHEST: Clear. CARDIAC: Normal. ABDOMEN: Soft, nontender. IMPRESSION: 1. General debility and weakness and failure to thrive. 2. Deep venous thrombosis in the left leg. 3. History of blood loss anemia secondary to gastrointestinal bleeding. 4. Carcinoma of the right side of the scalp and neck. PLAN: Requip at bedtime. MMODL / IJN: [id number] /
--- NOTE | 2024-07-15 22:23 | P.PN ---
Subjective Patient seen and evaluated at bedside. Denies n/v/f/c/sob/cp Objective - Vital Signs Vital signs: Vital Signs Temp 100.9 F H 07/15/24 19:56 Pulse 92 07/15/24 19:56 Resp 12 07/15/24 19:56 BP 89/50 07/15/24 19:56 Pulse Ox 99 07/15/24 19:56 FiO2 Intake & Output 07/15/24 07/15/24 07/16/24 06:59 18:59 06:59 Intake Total 640 Output Total 400 300 Balance -400 340 Intake: Oral 640 Output: Urine 400 300 Other: Voiding Method External Catheter External Catheter - Exam gen: nad cv: rrr pul: non labored abd: soft, non distended, non tender to palpation - Labs CBC & Chem 7: 07/14/24 04:35 07/12/24 06:06 Assessment and Plan Assessment: egd tomorrow. npo
[2024-07-16] MEDS: IV FLUID CONTINUATION 1,000 ML IV ONE (08:35)
[2024-07-16] MEDS ORDERED: PROPOFOL 10 MG/ML 20 ML VIAL IV ONE (08:38)
[2024-07-16] MEDS ORDERED: LIDOCAINE 1% INJ 10MG/ML (20 ML MDV) ONE (08:38)
[2024-07-16] MEDS: LACTATED RINGERS 1,000 ML IV ONE (08:39)
--- NOTE | 2024-07-16 18:20 | P.OP ---
Date of Procedure: 07/16/24 Preoperative Diagnosis: GI bleed Postoperative Diagnosis: nonbleeding Ajay ulcer Procedure(s) Performed: egd Anesthesia: LAUREN Surgeon: Arnulfo Goddard Pathology: none sent Condition: stable Disposition: PACU Indications for Procedure: Per primary request Operative Findings: hiatal hernia, nonbleeding Ajay ulcer Description of Procedure: Informed consent was obtained. The procedure, its risks, benefits, and alternatives were discussed. The patient was placed in the left lateral decubitus position and given local anesthetic to the oropharynx. The patient was sedated The endoscope was inserted into the oropharynx and guided under direct vision into the esophagus, stomach, and duodenum. The duodenal bulb and second portion were unremarkable. The scope was withdrawn to the stomach and retroflexed. There was no increased fluid, food or secretions in the upper gastrointestinal tract. There was very minimal, nonspecific, patchy antral erythema and gastritis noted. there was also evidence of a non-bleeding Ajay ulcer hiatal hernia seen again. The scope was withdrawn to the esophagus. The Z- line and gastroesophageal junction were located at about 40 cm. No Barretts or esophagitis. The patient tolerated the procedure very well. The patient was then transferred to the recovery area in good condition. There were no apparent complications.
--- NOTE | 2024-07-16 18:21 | P.PN ---
Progress Note - Text patient was scoped demonstrating a nonbleeding Ajay ulcer. She is okay to have anticoagulation. Again she does not want to have surgery. Please call as needed. Arnulfo Goddard [phone]
--- NOTE | 2024-07-16 19:41 | PN ---
PROGRESS NOTE DATE OF SERVICE: 07/16/2024 CHIEF COMPLAINT: General debility and failure to thrive. HISTORY OF PRESENT ILLNESS: This lady is doing fairly well. She was taken for an endoscopy for reasons which are unclear because she has no GI signs or symptoms of symptoms at this time. PHYSICAL EXAMINATION: CHEST: Clear. CARDIAC EXAM: Reveals atrial fibrillation. ABDOMEN: Soft and nontender. IMPRESSION: 1. General debility and failure to thrive. 2. Carcinoma of the right side of the head and neck. 3. History of gastrointestinal blood loss in the past on anticoagulants. 4. Deep venous thrombosis of the left leg. PLAN: Await care home placement. MMODL / IJN: [id number] /
--- NOTE | 2024-07-17 12:32 | DS ---
DISCHARGE SUMMARY CHIEF COMPLAINT: General debility and weakness with inability to thrive. HISTORY OF PRESENT ILLNESS AND PHYSICAL EXAMINATION: Details of this lady's history and physical can be found in the initial workup. LABORATORY STUDIES: While she was in the hospital, she had laboratory studies, details of which can be found in the laboratory section of her chart. COURSE IN THE HOSPITAL: After admission, she was placed on bedrest and seen by After School Caregiver and arrangements were made for her to go to extended care facility. While she was in the hospital, she had some swelling in the left leg and was found to have a DVT. She was not anticoagulated because every time she had been on anticoagulants in the past (for atrial fibrillation, nonvalvular), she develops severe bleeding and anemia. For some reason, she underwent a GI endoscopy, which failed to demonstrate any bleeding. There was apparently a small ulcer and a hiatal hernia. Arrangements were made for her to go to [facility], and she will go there on the . FINAL DIAGNOSES: 1. General debility and weakness with failure to thrive. 2. Nonambulatory patient. 3. Carcinoma of the right side of the scalp and neck metastases. 4. Anemia. 5. History of upper gastrointestinal bleeding. 6. Deep vein thrombosis of the left leg. 7. Atrial fibrillation. OPERATIONS: Endoscopy. CONSULTATIONS: General Surgery. She is improved. MMODL / IJN: [id number] /
[2024-07-17] MEDS: APIXABAN 5 MG TAB PO SCH (15:10)
--- NOTE | 2024-07-17 18:06 | P.PN ---
Subjective Progress Note Date: 07/17/24 Pt reporting feel improved. Counts stable. Denies rectal bleeding, melena. EGD showing no active GI bleed. Plan is for discharge to rehab. Objective - Vital Signs Vital signs: Vital Signs Temp 98.2 F 07/17/24 12:14 Pulse 75 07/17/24 12:14 Resp 18 07/17/24 12:14 BP 124/86 07/17/24 12:14 Pulse Ox 94 L 07/17/24 12:14 FiO2 Intake & Output 07/16/24 07/17/24 07/17/24 18:59 06:59 18:59 Intake Total 458 240 Output Total 901 300 Balance -443 -60 Intake: IV 100 Oral 358 240 Output: Urine 900 300 Stool 1 Other: Voiding Method External Catheter External Catheter Diaper External Catheter # Bowel Movements 1 1 1 - Constitutional General appearance: Present: average body habitus, no acute distress - EENT Eyes: Present: anicteric sclerae, EOMI ENT: Present: hearing grossly normal - Respiratory Details: breathing is even and unlabored - Cardiovascular Details: skin warm and dry - Gastrointestinal General gastrointestinal: Present: soft. Absent: tenderness - Integumentary Integumentary: Absent: cyanotic, jaundiced - Musculoskeletal Musculoskeletal: Present: generalized weakness - Psychiatric Psychiatric: Present: A&O x's 3 - Labs CBC & Chem 7: 07/14/24 04:35 07/12/24 06:06 Assessment and Plan (1) Anemia Current Visit: Yes Status: Acute Priority: Medium Code(s): D64.9 - ANEMIA, UNSPECIFIED SNOMED Code(s): 319423884 (2) DVT (deep venous thrombosis) Current Visit: Yes Status: Acute Priority: High Code(s): I82.409 - ACUTE EMBOLISM AND THOMBOS UNSP DEEP VN UNSP LOWER EXTREMITY SNOMED Code(s): 339799468 (3) Debility Current Visit: Yes Status: Acute Code(s): R53.81 - OTHER MALAISE SNOMED Code(s): 02322978 (4) Weakness Current Visit: Yes Status: Acute Priority: High Code(s): R53.1 - WEAKNESS SNOMED Code(s): 94501194 (5) Recurrent squamous cell carcinoma of skin Current Visit: No Status: Chronic Priority: Low Code(s): C44.92 - SQUAMOUS CELL CARCINOMA OF SKIN, UNSPECIFIED SNOMED Code(s): 120754138 Plan: Squamous cell skin carcinoma -Diagnosis and treatment as described in consult. -Patient has not been seen in the office or had any treatment since February. She unfortunately has had frequent hospitalizations, was in rehab for a period of time. -CT of the neck and chest without contrast- due to shellfish allergy- ordered to restage patient. No findings concerning for recurrence or metastatic disease in the neck or chest. Results reviewed with pt -There is some slight increase in partoid fullness and some slightly large LN in the surrounding area of the neck. Currently pt is not a candidate for treatment so, plan is to f/u with scans in 2-3 months to see if further changes or stable. Treatment will be considered if disease progression and if pt performance status adequate Anemia -Patient does have history of GI bleed. Hgb baseline 9-10 range, currently 9.2- stable. -Anemia workup ordered-anemia of inflammation with low iron/sat/TIBC and high ferritin. IV iron completed -Transfuse for hemoglobin less than 7 or if patient is symptomatic Left lower extremity pain and swelling -Doppler of the left lower extremity positive for DVT-provoked 2/2 to immobility. -Concern for anticoagulation as pt had GI bleed in Mar when INR was suprtherapeutic. She has not been on coumadin/anticoagulation since. -Hgb dropped below baseline after fluids when admitted but, is stable today. Pt reported possible dark emesis in the last month so Surgery consulted. S/p EGD, gastric ulcer noted with no active upper GI bleed. -Vascular has placed IVC filter -Due to negative GI bleed on EGD, stable hgb, and no noted melena/alexy blood in stool, will initiate Eliquis and continue to monitor CBC and for s/s of bleeding to ensure pt is tolerating anticoagulation
--- NOTE | 2024-07-18 19:56 | HP ---
HISTORY AND PHYSICAL CHIEF COMPLAINT: General debility and failure to thrive. HISTORY OF PRESENT ILLNESS: Apparently, this lady was to have been discharged to [facility] yesterday, but turned out at the last minute the facility would not take her because she has had outstanding balance. She is back in the hospital. REVIEW OF SYSTEMS: Unchanged. Past medical history, family history, and personal and social histories are all unchanged. PHYSICAL EXAMINATION: VITAL SIGNS: Normal. GENERAL: She remains pale, but awake and alert. CHEST: Demonstrates occasional rales. CARDIAC: Suggests atrial fibrillation. ABDOMEN: Soft, nontender. EXTREMITIES: Normal except for the left leg which is slightly swollen. NEUROLOGICAL: She seems to be intact. ASSESSMENT: She is admitted back into the hospital with, 1. General debility and failure to thrive. 2. Carcinoma of the right side of scalp and neck. 3. Deep venous thrombosis of the left leg. 4. Chronic anemia. 5. History of numerous gastrointestinal bleeds, on anticoagulants. PLAN: Continue to search for discharge location. MMODL / IJN: [id number] /
[2024-07-19 10:39] LABS: Anisocytosis Slight; Basophils % (A) 0 %; Eosinophils # (A) 0.7 k/uL (0-0.7); Eosinophils % (A) 5 %; HCT 33.5 % (34.0-46.0); HGB 10.1 gm/dL (11.4-16.0); Hypochromasia Marked; Lymphocytes % (A) 7 %; MCH 27.2 pg (25.0-35.0); MCHC 30.1 g/dL (31.0-37.0); MCV 90.5 fL (80.0-100.0); Mean Platelet Volume 10.1; Monocytes # (A) 0.7 k/uL (0-1.0); Monocytes % (A) 5 %; Neutrophils # (A) 11.4 k/uL (1.3-7.7); Neutrophils % (A) 82 %; Platelet Count 229 k/uL (150-450); RDW 16.3 % (11.5-15.5); WBC 13.9 k/uL (3.8-10.6)
--- NOTE | 2024-07-19 12:29 | PN ---
PROGRESS NOTE DATE OF SERVICE: 07/18/2024 CHIEF COMPLAINT: General debility and weakness. HISTORY OF PRESENT ILLNESS: This lady's condition is unchanged. Television Specialist are working on a new discharge plan. PHYSICAL EXAMINATION: CHEST: Clear. CARDIAC: Unchanged. ABDOMEN: Soft, nontender. IMPRESSION: 1. General debility and failure to thrive. 2. Anemia. 3. Carcinoma of the right side of the scalp and neck. 4. Deep venous thrombosis of left leg. PLAN: Continue to work on a discharge plan. MMODL / IJN: [id number] /
[2024-07-19] MEDS: ZINC OXIDE PASTE (Z-GUARD) 1 APPLIC TOPICAL PRN (17:47)
--- NOTE | 2024-07-19 23:44 | PN ---
PROGRESS NOTE DATE OF SERVICE: 07/19/2024 CHIEF COMPLAINT: General debility and failure to thrive. HISTORY OF PRESENT ILLNESS: This lady is stable and hospital is working on correction placement. It did appear to have a phone call this morning, but did not have the patient's insurance information, so I was unable to move the case forward. MMVILLA / CINDYN: [id number] /
[2024-07-21 13:14] VITALS: BP 123/76; PULSE 91; RESP 18; TEMP 98.4
--- NOTE | 2024-07-21 15:02 | DS ---
DISCHARGE SUMMARY CHIEF COMPLAINT: General debility and weakness. HISTORY OF PRESENT ILLNESS AND PHYSICAL EXAMINATION: Since this lady was originally discharged, then refused at [facility], but there has been no significant interval change. She has been stable. She has had no GI bleed. She was started on anticoagulant for her DVT, but this will be withheld because she has had several major GI bleeds in the past, on anticoagulation. FINAL DIAGNOSES: 1. General debility and weakness. 2. Bed patient with inability to ambulate. 3. Carcinoma of the right side of scalp and neck. 4. Anemia. 5. Deep vein thrombosis of the left leg. OPERATIONS: None. CONSULTATION: None. MMODL / IJN: [id number] /
== END 2024-07-21 18:20 | DRG 301 ==
LOC: EC 18:32 → 4SSUR 22:19 → INTOOBSV 22:19 → OBSVTOIN 22:20 → 5NMEDONC 22:25
PROVIDERS: ADMIT Family Medicine; ATTEND Family Medicine
PROC: B5191ZZ Fluoroscopy of Inferior Vena Cava using Low Osmolar Contrast (ICD-10-PCS; 2024-07-13)
PROC: B51B1ZZ Fluoroscopy of Right Lower Extremity Veins using Low Osmolar Contrast (ICD-10-PCS; 2024-07-13)
PROC: 06H03DZ Insertion of Intraluminal Device into Inferior Vena Cava, Percutaneous Approach (ICD-10-PCS; principal; 2024-07-13 13:30)
PROC: 0DJ08ZZ Inspection of Upper Intestinal Tract, Via Natural or Artificial Opening Endoscopic (ICD-10-PCS; 2024-07-16)
DX: I82.412 Acute embolism and thrombosis of left femoral vein (principal); R62.7 Adult failure to thrive; D63.8 Anemia in other chronic diseases classified elsewhere; E86.0 Dehydration; C44.42 Squamous cell carcinoma of skin of scalp and neck; I48.91 Unspecified atrial fibrillation; D50.9 Iron deficiency anemia, unspecified; E11.9 Type 2 diabetes mellitus without complications; E66.01 Morbid (severe) obesity due to excess calories; J44.9 Chronic obstructive pulmonary disease, unspecified; I10 Essential (primary) hypertension; K25.9 Gastric ulcer, unspecified as acute or chronic, without hemorrhage or perforation; Z68.37 Body mass index [BMI] 37.0-37.9, adult; K44.9 Diaphragmatic hernia without obstruction or gangrene; E78.5 Hyperlipidemia, unspecified; Z86.711 Personal history of pulmonary embolism; Z86.718 Personal history of other venous thrombosis and embolism; Z90.710 Acquired absence of both cervix and uterus; Z86.011 Personal history of benign neoplasm of the brain; Z85.828 Personal history of other malignant neoplasm of skin; Z79.899 Other long term (current) drug therapy; Z79.01 Long term (current) use of anticoagulants
CPT/HCPCS: 36415; 37191; 43235; 70490; 71046; 71250; 76937; 80053; 81003; 82607; 82728; 82746; 83540; 83550; 83605; 83735; 85025; 85045; 85610; 85730; 87636; 93005; 96360; 96361; 99285

== ENCOUNTER → 2024-08-15 | Outpatient (CLI) | payer MEDICARE, OTHER ==
--- NOTE | 2024-08-16 07:17 | CT ---
EXAMINATION TYPE: CT neck chest w con DATE OF EXAM: 08/15/2024 11:45 AM COMPARISON: Prior CT neck and chest July 12, 2024 and older studies. CLINICAL INDICATION: Female, 78 years old with history of C44.329 SQUAMOUS CELL CARCINOMA OF SKIN OF OTHER P; [facility], Squamous cell carcinoma of skin. TECHNIQUE: CT scan of the neck and thorax are performed following with IV Contrast, patient injected with 100 ml mL of Isovue 300. Axial images are obtained, coronal and sagittal reformatted images are reviewed. CT DLP: 1380.2 mGycm Automated exposure control for dose reduction was used. FINDINGS: NECK: Airway: No gross abnormality seen. Parotid/submandibular glands: Prominent posterior right parotid mass now measuring 2.1 x 1.7 cm axia l image 44. Bilateral submandibular glands are felt surgically absent similar to prior. Persistent pr ominent and slightly enlarged lymph nodes at this level Carotid/Vascular Structures: Tortuous course to the common and internal carotid arteries bilaterally is redemonstrated Osseous Structures: Scoliotic curvature remains present. Vertebral body heights are maintained. Multi level disc space narrowing again seen. Other: There are extensive treatment changes in the right neck demonstrated. There is soft tissue den sity or presumed scarring with surgical clips adjacent to the right thyroid gland redemonstrated exte nding superiorly and posteriorly. This shows no significant change from most recent prior CT. I do suspect there is increased soft tissue density posterior to the right parotid mass axial image 4 5 measuring 4.1 x 2.4 cm encroaching along the lateral aspect of the right upper cervical spine. CHEST: LUNGS: Mild underlying emphysematous change is redemonstrated. There is mild bibasilar linear scarrin g and/or atelectasis redemonstrated. No suspicious new pulmonary nodules or masses. No pleural effusi on or pneumothorax seen bilaterally. HEART: Size within normal limits. No significant coronary artery calcifications. MEDIASTINUM: There are no greater than 1 cm hilar or mediastinal lymph nodes. No pericardial effusi on is seen. Large size hiatal hernia is redemonstrated OTHER: Enlarged lymph nodes in the right axilla are redemonstrated and stable. For reference stable 2 .2 x 2.2 cm on axial image 15 series 5. Juxtarenal IVC filter is partially imaged. There is round 9 m m calcification centrally in the liver redemonstrated. Gallbladder suspect is surgically absent. Some calcifications near the level of the pancreatic head are redemonstrated IMPRESSION: Posttreatment changes to the right neck are redemonstrated. There is increasing soft tiss ue density suggesting neoplastic progression in the right lateral neck at level of the upper cervical spine. Advise PET CT follow-up to better evaluate and characterize. Lesion in the encroaching upon t he neural foramina at this level. [facility], , 08/16/2024 7:15 AM
== END | disposition home or self-care (01) ==
LOC: RADCTMAIN 10:11
PROVIDERS: ATTEND Internal Medicine Hematology & Oncology
DX: C44.329 Squamous cell carcinoma of skin of other parts of face (principal); R59.0 Localized enlarged lymph nodes; Z98.890 Other specified postprocedural states
CPT/HCPCS: 70491; 71260; Q9967

== ENCOUNTER → 2024-11-27 | Outpatient (CLI) | payer MEDICARE, OTHER ==
[2024-10-31 14:23] LABS: African American GFR (CKD) 66 (>60 ml/min/1.73 sqM); Blood Urea Nitrogen 17 mg/dL (7-17); Non-African American GFR(CKD) 57 (>60 ml/min/1.73 sqM)
[2024-11-27 10:43] LABS: African American GFR (CKD) 85 (>60 ml/min/1.73 sqM); Blood Urea Nitrogen 10 mg/dL (7-17); Non-African American GFR(CKD) 74 (>60 ml/min/1.73 sqM)
--- NOTE | 2024-11-27 12:21 | CT ---
EXAMINATION TYPE: CT neck chest w con DATE OF EXAM: 11/27/2024 11:33 AM COMPARISON: 08/15/2024, 07/12/2024, 02/16/2024. CLINICAL INDICATION: Female, 78 years old with history of C44.329 SQUAMOUS CELL CARCINOMA OF SKIN;, S QUAMOUS CELL CARCINOMA OF SKIN TECHNIQUE: Standard enhanced CT of the neck and chest. Axial sections with coronal and sagittal refo rmats were obtained. Contrast used:100ml mL of Isovue 300 with IV Contrast, (none if empty) Oral contrast used: (none if empty) CT DLP: 1516.10 mGycm, Automated exposure control for dose reduction was used. FINDINGS: BRAIN: Visualized portions are grossly unremarkable. ORBITS: Bilateral aphakia. SINUSES: Grossly unremarkable. SPACES OF THE NECK: Left submandibular and parotid glands appear unremarkable. There is atrophy with scarring of the right mandibular gland. There is similar soft tissue attenuation involving posterior and inferior aspects of the right parotid gland as described below. Retropharyngeal space appears unr emarkable. Oral pharyngeal cavity appears stable. Larynx appears stable. MUSCULOSKELETAL: No acute osseous pathology. LYMPH NODES: Marginal increase in size of right submental lymph node measuring 10 mm previously 13 m m. No suspicious left-sided neck lymph nodes identified. VASCULAR STRUCTURES: Unremarkable noncontrast appearance. THORACIC INLET/AIRWAY: Airway is patent. The lung apices are clear. SOFT TISSUES/THYROID: Enlarged thyroid gland with multiple subcentimeter hypodense nodules redemonstr ated. Post surgical changes from radical right neck dissection redemonstrated with surgical clips and skin deformities. There is soft tissue stranding again demonstrated within the right supraclavicular level abutting the clavicle which is decreased in size compared to multiple priors. There is soft tissue abutting the inferior portion of the parotid gland measuring up to 2.0 x 1.6 x 3 .1 cm previously up to 3.7 cm in caudocranial dimension. Soft tissue nodule anterior to the parotid g land measuring 9 mm is slightly decreased previously 11 mm. Adjacent opacification of the right inferior mastoid air cells again. OTHER: none. LUNGS/ PLEURA: No pleural effusion, pneumothorax, focal consolidation. Linear scarring or atelectasis within the bilateral lower lungs. Calcified granuloma within the right lower lung. No new suspiciou s pulmonary nodules or masses. AIRWAY: Patent and unremarkable. HEART: Enlarged. No pericardial effusion. Aortic valvular calcifications. RCA calcifications. MEDIASTINUM: No gross evidence of adenopathy. Large hiatal hernia. VASCULATURE: No aortic aneurysm. 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 Otherwise no suspicious lesions. Degenerative changes of the visualized sp ine. Increased thoracic kyphosis. Findings of DISH. SOFT TISSUES/LYMPH NODES: No lymph nodes identified within the mediastinum. There is enlarged right a xillary lymph node which is increased in size now measuring up to 25 mm previously up to 22 mm. There is at least 4 large lymph nodes present LOWER NECK: Heterogenous and enlarged thyroid gland with multiple small subcentimeter hypodense nodul es redemonstrated. UPPER ABDOMEN: * Large paraesophageal hernia is again noted with the majority of the stomach within the thoracic ca vity. Post cholecystectomy changes. * Rounded calcification within the gallbladder fossa redemonstrated possibly representing retained g allstone. There is again dilation of the extrahepatic biliary duct likely physiologic from cholecyste ctomy. * Calcifications are again seen within the felice hepatis likely representing granulomatous disease o r postsurgical changes. * Redemonstration of expansile soft tissue lesion within the right adrenal gland with punctate calci fications measuring up to 4.5 cm. Remains stable and likely represents an adrenal myelolipoma. r IMPRESSION: 1. Interval increase in size of right axillary lymph nodes concerning for active malignancy. 2. Redemonstration of postsurgical changes consistent with right radical neck dissection. There is a gain soft tissue identified within the right neck involving the posterior and inferior aspects of the right parotid gland which may be mildly decreased in size from 08/15/2024. 3. Right supraclavicular region has slightly decreased in size compared to prior. 4. Submental lymph node is also decreased in the interval from 08/15/2024 5. Similar opacification of the inferior right mastoid air cells which may be postsurgical versus re presenting mastoiditis. 6. Enlarged thyroid lobe with multiple nodules. 7. 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 No new suspicious osseous lesions. 8. Post surgical changes consistent with cholecystectomy and multiple calcified lymph nodes redemons trated. 9. Large paraesophageal hernia. 10. Soft tissue right adrenal lesion is stable and consistent with an adrenal myolipoma versus colli solo tumor versus sequela prior trauma. [facility], , 11/27/2024 12:18 PM
== END | disposition home or self-care (01) ==
LOC: RADCTMAIN 10-31 12:44 → RADPROMAIN 09:50
PROVIDERS: ATTEND Internal Medicine Hematology & Oncology
DX: C44.329 Squamous cell carcinoma of skin of other parts of face (principal); C44.42 Squamous cell carcinoma of skin of scalp and neck; K44.9 Diaphragmatic hernia without obstruction or gangrene; E04.2 Nontoxic multinodular goiter; E27.9 Disorder of adrenal gland, unspecified; Z71.3 Dietary counseling and surveillance; Z90.49 Acquired absence of other specified parts of digestive tract
CPT/HCPCS: 82565 ×2; 84520 ×2; 70491; 71260; 36415; Q9967